=== PATIENT | female | born 1935 | race Caucasian/White ===

== ENCOUNTER 2023-07-20 20:15 | Inpatient (IN) | payer MEDICARE, SELFPAY ==
[2023-07-20] VITALS (17 sets, daily range): BP systolic 89–147; BP diastolic 39–54; PULSE 2–91; BMI 36.2
--- NOTE | 2023-07-20 16:45 | ED.GENMED ---
History of Present Illness
General
Chief Complaint: Breathing Problem
Source: patient and ambulance crew
Time Seen by Provider: 07/20/23 16:31
Travel History
Have you had any contact with someone who has COVID-19?: Unable to Answer
Do you have any symptoms of coronavirus? Fever > 100 degrees, chills, cough, shortness of breath, sore throat, loss of taste or smell, muscle aches, or headache?: Unable to Answer
History of Present Illness
History of Present Illness:
87-year-old female presents to the emergency room via ambulance due to respiratory distress. Patient arrives on CPAP. Patient is a resident at [facility] where she evidently just arrived after hospitalization at [facility] for
pneumonia. She evidently was on a weaning course of steroids which she recently completed. Patient to short of breath provide any history. She does have a prehospital advance directive which shows she desires no intubation. Paramedics found the
patient to be hypertensive while transporting her to the hospital and gave sublingual nitroglycerin.
Phy Exam
Physical Exam
Physical Exam:
General: Awake, Alert, Oriented X3. Significant respiratory distress
Vitals: Hypoxic, tachypnea
Head: Atraumatic
Eyes: Pupils equal, EOMI
Throat: Airway intact, no exudates
Neck: Trachea midline
Lungs: Wheezing bilaterally, poor aeration
Heart: Regular rate, no murmurs
Abd: Soft, Nontender, No pulsatile mass
Neuro: Nonfocal
Skin: Warm, dry, no rash
Extremities: pulses equal b/l, 2+ edema
Scores
Heart Failure Risk
Heart Failure Risk Score: Yes
History of Stroke or TIA: No
History of intubation for respiratory distress: No
Heart rate on ED arrival >/= 110: Yes
SaO2 <90% on arrival on room air: Yes
HR >/=110 during 3min walk test (or too ill to perform test): Yes
ECG has acute ischemic changes: No
Urea >/=12mmol/L (BUN 33.6mg/dL): Yes
Serum CO2>/=35mmol/L: No
Troponin I or T elevated to AR Level (0.4mg/dL): No
NT-proBNP >/=5,000ng/L (5,000pg/ml): No
HF Risk Score: 4
Admission Status: HIGH RISK 26.1% Consider SNF treatment or admission to hospital
Course
Orders/Labs/Results
Orders:
Orders
07/20/23 16:41
Electrocardiogram (*1) Urgent
Reason for Study: Shortness of Breath
Cardiac Monitoring- Treatment ONCE
Dexamethasone Sod Phosphate [Decadron] 10 mg IV NOW STA
Ipratropium/Albuterol Sulfate [Duoneb] 3 ml INHALATION R NOW ONE
07/20/23 16:42
EKG- Treatment ONCE
CR Chest Portable - 1 View Urgent
Comment:
Reason For Exam: sob
Reason Study Needs to be Portable: Patient Unstable
Bipap [RESP] Urgent
Patient to use own unit?: No
Inspiratory Pressure (cm H2O): 12
Expiratory Pressure (cm H2O): 5
07/20/23 16:47
Complete Blood Count/With Diff Urgent
Comprehensive Metabolic Panel Urgent
Lactic Acid Q4H
Comment: CANCEL 2nd LACTIC ACID IF 1st LACTIC ACID IS LESS THAN 2
NT-proBNP Urgent
Procalcitonin Urgent
PCT Algorithmm Indication: Respiratory
Troponin I Urgent
Blood Culture Q30M
HUGH Source: Blood/Venous
Specimen Description:
Blood Culture Q30M
HUGH Source: Blood/Venous
Specimen Description:
07/20/23 17:00
COVID-19 Antigen Urgent
Source: Nasal Swab
Influenza A+B Rapid Molecular Urgent
HUGH Source: Nasal Swab
Specimen Description:
07/20/23 17:06
Furosemide [Lasix] 40 mg IV NOW STA
07/20/23 17:44
Acetaminophen [Tylenol] 1,000 mg PO NOW STA
07/20/23 17:54
Cefepime HCl [Maxipime] 2,000 mg IV NOW STA
07/20/23 18:00
VANCOMYCIN Pharmacy to Dose [VANCOCIN Pharmacy to Dose] 1 each Pharmacy To Prepare [Call Pharmacy To Prepare] 0 ml IV PER PROTOCOL
07/20/23 18:07
Vancomycin [Vancocin] 2,000 mg 0.9% Sodium Chloride 500 ml [Nss] 500 ml IV NOW
07/20/23 19:00
Admit/Transfer Patient As Directed
Co-Sign Provider:
Level of Care: Inpatient admission
Assign to:: IMU- Intermediate Care
Physician / Group: Colette
Diagnosis: Acute acute respiratory distress
Reason for Hospitalization: Acute respiratory distress, CHF and pneumonia
Expected length of stay greater than two midnights?: Yes
ELOS- Estimated Length of Stay in days: 5
I certify the patient meets the requirements for IP care: Yes
07/20/23 19:01
Code Status As Directed
Resuscitation Status: Do not resuscitate
Reached after discussion with pt or family/Healthcare POA: Yes
Based on pt advanced directive or healthcare POA form: Yes
DNR Bracelet Application ONCE
07/20/23 19:20
Acetaminophen [Tylenol] 650 mg PO Q6H PRN
Guaifenesin Solution [Robitussin] 200 mg PO Q6HPRN PRN
Ipratropium/Albuterol Sulfate [Duoneb] 3 ml INH R Q4HPRN PRN
fluticasone propionate [Flonase Allergy Relief] 1 spray NASAL [id number] PRN
07/20/23 19:40
Simethicone [Mylicon] 80 mg PO Q6HPRN PRN
07/20/23 20:00
Albuterol Nebs [Ventolin Nebules] 2.5 mg INH R QID
Artificial Tears (Pf) [Refresh Eye Drops (Pf)] 1 drops BOTH EYES BID
Budesonide [Pulmicort] 0.5 mg INH R BID
Flush (0.9% Sodium Chloride) [Flush (Nss)] See Dose Instructions IV PER PROTOCOL
HydrALAZINE [Apresoline] 10 mg PO Q8H
Magnesium Oxide 500 mg PO BID
Miconazole Nitrate [Desenex/Mitrazol/Zeasorb] 0 applic TOPICAL BID
VANCOMYCIN Pharmacy to Dose [VANCOCIN Pharmacy to Dose] 1 each Pharmacy To Prepare [Call Pharmacy To Prepare] 0 ml IV PER PROTOCOL
carboxymethylcellulose sodium 1 drop BOTH EYES BID
07/20/23 22:00
Insulin Glargine Lantus [Lantus] 8 units Subcutaneous Insulin Syringe [Syringe-Insulin] 0 unit SC HS
07/21/23 08:00
Aspirin Low Dose EC [Aspir Low (Enteric Coated)] 81 mg PO DAILY
Gabapentin [Neurontin] 200 mg PO DAILY
Montelukast Sodium [Singulair] 10 mg PO DAILY
Nebivolol HCl [Bystolic] 2.5 mg PO DAILY
Abnormal Lab Results
07/20/23
16:47
WBC 20.4 H 10^3/uL
(4.8-10.8)
MCHC 32.0 L g/dL
(33.0-37.0)
RDW 15.2 H %
(11.5-14.5)
MPV 11.3 H fL
(7.4-10.4)
Abs Immat Gran (auto) 0.1 H 10^3/uL
(0-0.05)
Absolute Neuts (auto) 17.5 H 10^3/uL
(1.4-6.5)
Absolute Monos (auto) 1.3 H 10^3/uL
(0.1-0.6)
Neutrophils % 86.1 H %
(42.2-75.2)
Lymphocytes % 7.0 L %
(20.5-51.1)
Sodium 132 L mmol/L
(135-145)
Chloride 96 L mmol/L
(98-107)
Carbon Dioxide 34 H mmol/L
(22-30)
BUN 43 H mg/dl
(7-17)
Creatinine 1.2 H mg/dL
(0.6-1.0)
Glucose 281 H mg/dl
(70-99)
Albumin 3.4 L g/dl
(3.5-5.0)
07/20/23 16:47
07/20/23 16:47
Vital Signs
Initial and Last Documented VS:
Initial Vital Signs
Pulse Resp Pulse Ox
92 20 91
07/20/23 16:30 07/20/23 16:30 07/20/23 16:30
Last Documented Vital Signs
Temp Pulse Resp BP Pulse Ox
102.8 F H 87 24 120/49 96
07/20/23 17:40 07/20/23 20:23 07/20/23 20:23 07/20/23 20:23 07/20/23 20:23
MDM/Problems Addressed
Differential Diagnosis Includes:
Congestive heart failure, pneumonia, symptomatic anemia,
MDM/Problems Addressed:
Patient presents in respiratory distress. She was converted from CPAP which she was on from the paramedics to BiPAP here. She did begin to feel much better with BiPAP. Paramedics had given her some Benadryl. Her blood pressure here is normal
essentially. Chest x-ray appears more consistent with heart failure radiologist notes there are some changes suggestive could be concomitant pneumonia. She was recently hospitalized for pneumonia so unclear if this represents clearing of previous
infection or need for action. While here the patient did spike a temperature of 102. COVID and influenza test are negative. Will treat for potential hospital-acquired pneumonia with cefepime and Vanco. Patient will require hospitalization for
further supportive care.
Chronic conditions affecting care: HTN, CAD, Cardiomyopathy and Kidney disease
*Radiology
Radiology exam reviewed: preliminary read by ED provider (Reviewed patient's chest x-ray, no bilateral interstitial changes concerning for heart failure) and radiology read reviewed
*Pulse Oximetry
Patient hypoxic: yes
*EKG
Interpreted by ED Provider?: Yes
Interpretation: abnormal
Heart Rate: 94
Rate: normal
Rhythm: a-fib
QRS Pattern: left bundle branch block
Ischemia: non-specific ST changes
*Tool Machine Shop Supervisor Interpretation
Rate: normal
Interpretation: abnormal
Rhythm: a-fib
*Critical Care Note
Total Time (30-74mins, 75-104mins- exclusive of procedures): 35 min
comment:
Critical care statement: A total of 35 minutes of critical care time was provided for this patient. This includes management of unstable vital signs, evaluation of the patient at bedside, reviewing the patient's pertinent medical records, discussion
with consultants, review of old EKGs and review of pertinent medical records. This time with separate from time utilized to perform the aforementioned documented procedures
ED Attending Note
-
Portions of this chart may have been created with voice recognition software.� Occasional wrong word or��sound alike� substitutions may have occurred due to the inherent limitations of voice recognition software.
Discharge Plan
Departure
Patient Disposition: Admit
Date of Disposition: 07/20/23
Time of Disposition: 18:04
Presentation/result/management discussed w/ accepting MD/DO: Hospitalist
Condition: Fair
Discharge Problem:
Heart failure, Fever, Respiratory failure, acute
Interventions
Interventions:
*Risk Screen - Suicide Last Done: 07/20/23 16:30
*General Assessment Last Done: 07/20/23 16:30
*Neglect/Abuse Screening Last Done: 07/20/23 16:30
ED- Fall Risk Assessment Last Done: 07/20/23 21:16
*ED COVID-19 Vaccine History Last Done: 07/20/23 16:30
*Nursing Disposition Last Done: 07/20/23 21:16
ED- Cardiac Assessment Last Done: 07/20/23 17:19
ED- Pulmonary Assessment Last Done: 07/20/23 18:47
[2023-07-20] MEDS: DUONEB 3 ML INHALATION (16:54)
[2023-07-20] MEDS: DECADRON 10 MG IV (16:54)
[2023-07-20 16:58] LABS: % Basophils 0.1 % (0-2); % Eosinophils 0.1 % (0-6); % Immature Granulocytes 0.5 % (0-0.5); % Monocytes 6.2 % (1.7-9.3); % Neutrophils 86.1 % (42.2-75.2); Absolute Immature Granulocytes 0.1 10^3/uL (0-0.05); Absolute Lymphocytes 1.4 10^3/uL (1.2-3.4); Absolute Monocytes 1.3 10^3/uL (0.1-0.6); Absolute Neutrophils 17.5 10^3/uL (1.4-6.5); Hematocrit 41.3 % (37.0-47.0); Hemoglobin 13.2 g/dL (12.0-16.0); Mean Corpuscular Hgb 27.2 pg (27.0-31.0); Mean Corpuscular Volume 85.2 fL (81.0-99.0); Mean Platelet Volume 11.3 fL (7.4-10.4); Nucleated Red Blood Cells % 0 %; Platelet Count 268 10^3/uL (130-400); Red Blood Cell Count 4.85 10^6/uL (4.20-5.40); Red Cell Dist. Width 15.2 % (11.5-14.5); White Blood Cell Count 20.4 10^3/uL (4.8-10.8)
[2023-07-20 17:24] LABS: ALT (SGPT) 19 U/L (0-35); AST (SGOT) 22 U/L (14-36); Albumin 3.4 g/dl (3.5-5.0); Alkaline Phosphatase 112 U/L (38-126); Blood Urea Nitrogen 43 mg/dl (7-17); Calcium 9.1 mg/dl (8.4-10.2); Carbon Dioxide 34 mmol/L (22-30); Chloride 96 mmol/L (98-107); Glucose 281 mg/dl (70-99); Potassium 4.1 mmol/L (3.5-5.1); Sodium 132 mmol/L (135-145); Total Bilirubin 0.7 mg/dl (0.2-1.3); Total Protein 6.3 g/dl (6.3-8.2); eGFR 44.36
[2023-07-20 17:25] LABS: Procalcitonin 0.09 ng/ml (0.0-0.25)
[2023-07-20 17:41] LABS: NT-proBNP 3510 pg/ml; Troponin I 0.022 ng/ml
[2023-07-20] MEDS: LASIX 40 MG IV (17:44)
[2023-07-20 17:51] LABS: COVID-19 Antigen Negative (Negative)
[2023-07-20] MEDS: TYLENOL 1000 MG PO (17:53)
[2023-07-20 17:57] LABS: Lactic Acid 1.9 mmol/L (0.7-2.0)
[2023-07-20] MEDS: MAXIPIME 2000 MG IV (18:31)
[2023-07-20] MEDS: VANCOCIN 540 MG IV (18:38)
--- NOTE | 2023-07-20 19:08 | HPS.HSE ---
Addendum entered and electronically signed by Sven Alvarenga MD 07/20/23 20:40:
Discussed with the son also we called her daughter over the son who she knows more about patient's condition that she went to the ground for quite some time and recently moved to the area, most of the workup was done in the [facility] in [place], we may need to reach out to them to get more information.
Regarding this A-fib which is not in the paper sent from the group home look like this is a new and rate controlled. And discussed with the family, she is high risk for stroke is all criteria for CHADS2 score specially had history of TIA in the
past, therefore we will get her started on heparin drip and get a cardiology consult.
Original Note:
Family Physician
-
Family Physician: Dieudonne Paul DO
Chief Complaint
-
Shortness of breath and fever
History of Present Illness
87-year-old female who is just discharged from [facility] after she was there for evidence of CHF and transferred to [facility], she is pleasantly confused oriented only to herself but able to provide information related to herself,
she thinks she is in [place].
Sent to the hospital for evaluation of the shortness of breath and hypoxia. Admitted over the last couple days she been short of breath worse with any kind exertional activity and having subjective fever and chills. The denies chest pain or nausea
or vomiting or any urinary or GI symptoms. Workup in the ER concerning for severe sepsis and hypoxia as she was placed on BiPAP, and given broad-spectrum antibiotic and Lasix as she has evidence of fluid overload and pneumonia on x-ray even
procalcitonin were negative initially. Had a temperature 102.8.
Her son came by and saw him and talk to him eventually
Medical History
Past Medical History
Past Medical History: Reports Other
Additional Past Medical History:
Past medical history: Cannot be obtained in detail because patient cannot provide much information and she is never been here.
History of congestive heart failure
Hypertension
Diabetes
Peripheral neuropathy
Chronic lower extremity edema
Dementia
Bladder dysfunction.
Social history: Currently resident of the [facility], recently moved to the area, denies smoking alcohol use.
Family history cannot be obtained.
Past Surgical History: Reports Other
Social History
Unable to obtain full social history at this time due to: Other
Family History
Family History: Other
Allergies / Home Medications
Allergies reflects when Allergies were last updated in [facility].
Home Medications with original date entered in [facility]
Allergy/Medication List:
Allergies
Allergy/AdvReac Type Severity Reaction Status Date / Time
No Known Allergies Allergy Verified 07/20/23 18:05
Home Medications
Voltaren 1 applic topical Q12H apply to left shoulder/left hip 07/20/23
acetaminophen 325 mg tablet (Tylenol) 650 mg PO Q6H PRN temp>100 07/20/23
albuterol sulfate 90 mcg/actuation aerosol inhaler 2 puff inhalation R Q4HPRN PRN sob 07/20/23
amlodipine 5 mg tablet 5 mg PO DAILY 07/20/23
arformoterol 15 mcg/2 mL solution for nebulization 2 ml inhalation R BID 07/20/23
aspirin 81 mg tablet,delayed release 81 mg PO DAILY 07/20/23
banana flakes-transgalactooligosaccharide oral powder packet (Banatrol Plus oral powder packet) 1 ea PO Q4HPRN PRN diarrhea 07/20/23
bisacodyl 10 mg rectal suppository (Dulcolax (bisacodyl)) 10 mg RI DAILY PRN if MOM ineffective 07/20/23
bisacodyl 5 mg tablet,delayed release 10 mg PO DAILYPRN PRN constipation 07/20/23
budesonide 0.5 mg/2 mL suspension for nebulization 0.5 mg inhalation R BID 07/20/23
carboxymethylcellulose sodium 1 % eye drops 1 drp BOTH EYES BID 07/20/23
fluticasone propionate 50 mcg/actuation nasal spray,suspension (Flonase Allergy Relief) 1 spray intranasal [id number] PRN nasal allergy/congestion 07/20/23
gabapentin 100 mg capsule 200 mg PO DAILY 07/20/23
guaifenesin 100 mg/5 mL oral liquid 200 mg PO Q6HPRN PRN cough 07/20/23
guaifenesin 400 mg tablet 400 mg PO Q6HPRN PRN cough 07/20/23
guaifenesin 400 mg tablet 800 mg PO Q12H 07/20/23
hydralazine 10 mg tablet 10 mg PO Q8H 07/20/23
hydralazine 25 mg tablet 25 mg PO Q8HPRN PRN if SBP>150 07/20/23
insulin glargine 100 unit/mL (3 mL) subcutaneous pen (Basaglar KwikPen U-100 Insulin) 8 unit SC HS 07/20/23
ipratropium 0.5 mg-albuterol 3 mg (2.5 mg base)/3 mL nebulization soln 3 ml inhalation R Q4HPRN PRN sob 07/20/23
loratadine 10 mg tablet 10 mg PO DAILY 07/20/23
magnesium hydroxide 400 mg/5 mL oral suspension (Milk of Magnesia) 30 ml PO DAILY PRN if no BM x 3 days 07/20/23
magnesium oxide 400 mg PO BID 07/20/23
montelukast 10 mg tablet 10 mg PO DAILY 07/20/23
multivitamin 1 tab PO DAILY 07/20/23
nebivolol 2.5 mg tablet 2.5 mg PO DAILY 07/20/23
nystatin 100,000 unit/gram topical powder 1 applic topical BID apply to abd fold,breasts,groin 07/20/23
oxycodone 5 mg tablet 5 mg PO Q6H PRN moderate pain 07/20/23
phenylephrine 0.25 %-mineral oil 14 %-petrolatm 74.9 % rectal ointment (Preparation H) 1 applic RI Q8HPRN PRN hemorrhoids 07/20/23
polyethylene glycol 3350 17 gram oral powder packet 17 g PO DAILY PRN constipation 07/20/23
simethicone 80 mg tablet 80 mg PO Q6HPRN PRN gas 07/20/23
sodium phosphates 19 gram-7 gram/118 mL enema (Fleet Enema) 118 ml RI DAILYPRN PRN if dulcolax ineffective 07/20/23
torsemide 20 mg tablet 20 mg PO DAILY 07/20/23
witch rena 50 % topical pads (Preparation H (Witch Rena)) 1 pad topical Q8HPRN PRN apply to rectum 07/20/23
Review of Systems
-
Unable to obtain full review of systems at this time due to: Dementia
Physical Exam
Vital Signs
Vital Signs
Temp Pulse Resp BP Pulse Ox
102.8 F H 91 34 128/45 95
07/20/23 17:40 07/20/23 17:44 07/20/23 16:38 07/20/23 17:44 07/20/23 16:38
physical exam:
General: On BiPAP, answer question, pleasantly confused, lethargic, sleepy arousable oriented x1, not in distress and holds appropriate conversation.
HEENT: On BiPAP no active discharge, ecchymosis or bruising, moist lips, tongue and mucous membrane.
Eyes: No discharge or red conjunctiva, no nystagmus, pupils are reactive and equal
Neck:Supple, no JVD no bruit no goiter.
Respiratory: Normal AP contour and diameter, normal chest wall movement, normal respiratory effort, no respiratory distress,
Lungs: The air entry bilaterally, no wheezing or rhonchi,, bibasilar coarse crackles,
Heart: S1, S2 regular, normal rate, no added sound. Gross lower extremity edema
Gastrointestinal: Positive bowel sounds, soft, nontender, no guarding or rigidity or organomegaly
Musculoskeletal: , no chest wall abnormality or tenderness. All joints and extremities have good range of motion, no muscle tenderness or any joint swelling or tenderness.
Extremities: Gross lower extremity edema pitting edema, good peripheral pulses, good range of motion
Skin: Erythematous rash on legs, warm and dry, no ulceration, normal color.
Neurological: Cognitive decline appreciated, moves extremities freely, pleasantly confused, oriented to person all, good muscle tone
Psychiatric: Normal mood, normal thought and judgment, normal affect,
Physical Exam
General: Other
Laboratory Results
-
07/20/23 16:47
07/20/23 16:47
Laboratory Results
Lactic Acid 1.9 mmol/L (0.7-2.0) 07/20/23 16:47
Total Bilirubin 0.7 mg/dl (0.2-1.3) 07/20/23 16:47
AST 22 U/L (14-36) 07/20/23 16:47
ALT 19 U/L (0-35) 07/20/23 16:47
Alkaline Phosphatase 112 U/L (38-126) 07/20/23 16:47
Troponin I 0.022 ng/ml 07/20/23 16:47
Cardiomegaly and interstitial prominence, consistent with an element of pulmonary edema and/or CHF, however increased opacity in the left base is concerning for residual left lower lobe pneumonia.
EKG: Showed A-fib, rate around 94, QT C4 77, nonspecific ST-T wave abnormalities. No previous EKG TO compare to
Data Reviewed
-
CT Scan: Image Personally Visualized and interpreted, Discussed with Nurse and Discussed with Family
Medical Tests (Nuc Med, Echo, EKG etc): Image Personally Visualized and interpreted, Discussed with Nurse and Discussed with Family
Lab Data: Labs Reviewed by me and Discussed with Family
Impression/Plan
-
IMPRESSION:
87-year-old female sent from [facility] for evaluation of the shortness of breath and hypoxia which likely secondary to combination of acute on chronic congestive heart failure exacerbation was likely pneumonia even procalcitonin is only
negative, at the initial look like there is a cellulitis of the lower extremities.
Severe sepsis: With temperature 102.8, mental status change, white cell count is 20.4 tachypnea respiratory rate 34 h, hypoxic respiratory failure, likely secondary to cellulitis of the lower extremity while pneumonia could be another possibility
and other causes may need to be considered.
Acute respiratory distress, acute hypoxic failure
Acute on chronic congestive heart failure exacerbation, we do not know the baseline
Abnormal chest x-ray concerning for CHF and pneumonia
Lower extremity cellulitis
Elevated blood sugar with no history of diabetes
Hypertension
Dementia
PLAN:
Managed per sepsis and CHF protocol
Admit to IMU
IV diuresis with Lasix 40 twice daily
Fluid restriction
Daily weight, intake and output
need to get her records from [place]
Cover the broad-spectrum biotic Vanco and cefepime is already started in the ER continue
Recheck procalcitonin tomorrow
UA and culture if indicated
Monitor vital sign closely
Continue BiPAP and try to wean off
Pulmonary consult
May consider cardiology consult pending her condition and progression.
Continue Lantus
Hold torsemide while will continue IV Lasix
Continue nebivolol
Discussed with the patient
Discussed with the son at the bedside
Discussed with the nurse
CODE STATUS according to the POLST form which was reviewed as DNR/DNI
DVT prophylaxis Eliquis
[2023-07-20 21:10] LABS: INR 1.06
[2023-07-20 21:11] LABS: APTT 32.3 Sec (23.4-35.0)
[2023-07-20 22:15] LABS: Hematocrit 35.2 % (37.0-47.0); Hemoglobin 11.5 g/dL (12.0-16.0); Mean Corp Hgb Conc. 32.7 g/dL (33.0-37.0); Mean Corpuscular Hgb 27.2 pg (27.0-31.0); Mean Corpuscular Volume 83.2 fL (81.0-99.0); Mean Platelet Volume 11.1 fL (7.4-10.4); Platelet Count 211 10^3/uL (130-400); Red Blood Cell Count 4.23 10^6/uL (4.20-5.40); Red Cell Dist. Width 15.3 % (11.5-14.5)
[2023-07-20 22:27] LABS: Lactic Acid 2.2 mmol/L (0.7-2.0)
[2023-07-20 22:36] LABS: Blood Urea Nitrogen 46 mg/dl (7-17); Calcium 8.5 mg/dl (8.4-10.2); Carbon Dioxide 28 mmol/L (22-30); Chloride 99 mmol/L (98-107); Glucose 364 mg/dl (70-99); Potassium 4.6 mmol/L (3.5-5.1); Sodium 130 mmol/L (135-145); eGFR 44.36
[2023-07-20 22:49] LABS: Troponin I 0.034 ng/ml
[2023-07-20] MEDS: HEPARIN 25000 UNITS/250 ML IV (23:09)
[2023-07-20] MEDS: MAGNESIUM OXIDE PO (23:20)
--- NOTE | 2023-07-20 23:20 | PTCARENOTE ---
Pt arrived via stretcher from ED. Pt only arousable to pain on all 4 extremities. Requires sternal rub to elicit pt to open eyes. NSR on monitor with PACs. BP 104/42 MAP 62. Afebrile. On BiPAP with pulse ox 97%. Crackles at b/l lung bases. Pts
personal keys sent home with son. Heparin gtt ordered and started. Pt resting comfortably in bed.
[2023-07-20 23:36] LABS: Glucose - Point of Care 382 mg/dl (70-99)
[2023-07-20] MEDS: REFRESH EYE DROPS (PF) 1 DROPS BOTH EYES (23:36)
--- NOTE | 2023-07-20 23:41 | PHA.VAN.IN ---
Assessment
- Assessment
Renal Function: Appears similar to baseline
Maximum Temperature: 102.8
Minimum Temperature: 97.6
Concomitant Antimicrobials: Cefepime
Plan
- Plan
Initial / Loading Dose: 2000mg
Maintenance Regimen: Dose by levels
Monitoring: Random 07/21-599
Pharmacokinetics Vancomycin I
- -
Patient Age: 87
Patient Sex: Female
Vancomycin Day #: 1
Indication: Pulmonary/Respiratory
Requesting Provider: Dr. Sven Blanchard
Pertinent Antimicrobial Allergies:
NKDA
Height / Weight:
Height 5 ft
Actual Weight 84.1 kg
- Vital Signs / Lab Results
Temp Pulse Resp BP Pulse Ox
97.6 F 76 18 101/48 98
07/20/23 23:19 07/20/23 23:15 07/20/23 23:15 07/20/23 23:06 07/20/23 23:15
Lab Results - Hematology
07/20/23 07/20/23
16:47 21:58
WBC 20.4 H 20.0 H
Lab Results - Chemistry
07/20/23 07/20/23
16:47 21:58
BUN 43 H 46 H
Creatinine 1.2 H 1.2 H
Albumin 3.4 L
07/20/23 07/20/23 07/20/23
16:45 16:47 21:58
Lactic Acid Cancelled 1.9 2.2 H
Microbiology Results
07/20/23 17:00 Influenza Types A & B (BALDEV) - Final
Nasal Swab Negative for Influenza A & B, NAAT
Negative results must be combined with clinical observations
and patient history.
Nucleic Acid Amplification test (NAAT)performed on the
[employer] Software platform.
[2023-07-20 23:55] LABS: B.E. 7.6 mmol/L; HCO3 33.6 mmol/L (21-28); O2 Saturation % 98.8 % (94-98); PCO2 53 mmHg (32-35); PO2 133 mmHg (83-108); pH 7.41 (7.35-7.45)
[2023-07-20 23:56] LABS: O2 Therapy 12/5 10 L bipap
[2023-07-20] MEDS: PULMICORT INH (23:57)
[2023-07-20] MEDS: VENTOLIN NEBULES INH (23:57)
[2023-07-21] VITALS (38 sets, daily range): BP systolic 85–172; BP diastolic 43–153; PULSE 2–76; BMI 36.1
[2023-07-21] MEDS: NOVOLOG FLEXPEN 10 UNITS SC ×2 (00:05→02:40)
[2023-07-21] MEDS: LANTUS 0.0800000000000000017 UNITS SC ×2 (00:06→22:24)
--- NOTE | 2023-07-21 00:11 | W.PN.UPDATE ---
Update Note
Progress Note Update
Nursing notes patient with decreased responsiveness compared to earlier. ABG done pCO2 53m pO2 133 and HCO3 33.6. on Bipap 10L. Will lower O2. Sodium correction for hyperglycemia is 136.3.
[2023-07-21 02:09] LABS: Lactic Acid 3.2 mmol/L (0.7-2.0)
[2023-07-21 02:15] LABS: Glucose - Point of Care 332 mg/dl (70-99)
[2023-07-21 02:32] LABS: Urine Albumin Negative (Neg - Trace); Urine Bilirubin Negative (Negative); Urine Character Clear (Clear); Urine Color Yellow; Urine Glucose 2+ (Negative); Urine Ketone Negative (Negative); Urine Leukocyte 2+ (Negative); Urine Nitrite Negative (Negative); Urine Occult Blood Negative (Negative); Urine Urobilinogen Negative (Neg - 1+)
[2023-07-21] MEDS: LEVOPHED 250 IV (02:37)
[2023-07-21] MEDS: DESENEX/MITRAZOL/ZEASORB TOPICAL (02:47)
--- NOTE | 2023-07-21 03:40 | PTCARENOTE ---
Pts MAP running below 65 consistently. Ranges from 58-64 since arrival to unit. Notified PATROL COMMANDER. Levo gtt started at 2 mcg/min in the right forearm. Accucheck 382. PATROL COMMANDER ordered 10 unnits novolog (see MAR). Upon rechecking blood sugar only came
down to 332. PATROL COMMANDER ordered an addition 10 units novolog (see MAR). Pt in bed with call palumbo in reach.
[2023-07-21 03:55] LABS: Urine Bacteria Few (Negative); Urine Red Blood Cell 0-2 /HPF (0-2); Urine White Cell 70-80 /HPF (0-5)
[2023-07-21 05:37] LABS: Lactic Acid 2.1 mmol/L (0.7-2.0)
[2023-07-21 05:39] LABS: APTT 66.2 Sec (23.4-35.0)
[2023-07-21 05:53] LABS: % Basophils 0.1 % (0-2); % Immature Granulocytes 0.5 % (0-0.5); % Lymphocytes 2.7 % (20.5-51.1); % Monocytes 1.1 % (1.7-9.3); % Neutrophils 95.6 % (42.2-75.2); Absolute Immature Granulocytes 0.1 10^3/uL (0-0.05); Absolute Lymphocytes 0.5 10^3/uL (1.2-3.4); Absolute Monocytes 0.2 10^3/uL (0.1-0.6); Absolute Neutrophils 16.9 10^3/uL (1.4-6.5); Hematocrit 39.2 % (37.0-47.0); Hemoglobin 12.8 g/dL (12.0-16.0); Magnesium 2.2 mg/dl (1.6-2.3); Mean Corp Hgb Conc. 32.7 g/dL (33.0-37.0); Mean Corpuscular Hgb 27.4 pg (27.0-31.0); Mean Corpuscular Volume 83.8 fL (81.0-99.0); Mean Platelet Volume 11.4 fL (7.4-10.4); Nucleated Red Blood Cells % 0 %; Platelet Count 226 10^3/uL (130-400); Red Blood Cell Count 4.68 10^6/uL (4.20-5.40); Red Cell Dist. Width 15.1 % (11.5-14.5); White Blood Cell Count 17.7 10^3/uL (4.8-10.8)
[2023-07-21 06:00] LABS: Vancomycin Random 18.6 ug/ml
[2023-07-21 06:03] LABS: Troponin I 0.023 ng/ml
[2023-07-21] MEDS: MAXIPIME 2000 MG IV ×2 (06:04→17:19)
[2023-07-21] MEDS: STERILE WATER FOR INJECTION 10 ML IV ×2 (06:04→17:19)
[2023-07-21 06:24] LABS: Glucose - Point of Care 226 mg/dl (70-99)
[2023-07-21] MEDS: VENTOLIN NEBULES 2.5 MG INH ×4 (08:05→20:09)
[2023-07-21] MEDS: PULMICORT 0.5 MG INH ×2 (08:05→20:09)
[2023-07-21] MEDS: NEURONTIN 200 MG PO (09:11)
[2023-07-21] MEDS: LASIX 40 MG IV ×2 (09:11→15:39)
[2023-07-21] MEDS: SINGULAIR 10 MG PO (09:11)
[2023-07-21] MEDS: REFRESH EYE DROPS (PF) 1 DROPS BOTH EYES ×2 (09:11→20:34)
[2023-07-21] MEDS: MAGNESIUM OXIDE 500 MG PO ×2 (09:11→20:34)
[2023-07-21] MEDS: ASPIR LOW (ENTERIC COATED) 81 MG PO (09:11)
[2023-07-21 09:28] LABS: Estimated Creatinine Clearance 36 ml/min
[2023-07-21] MEDS: NOVOLOG FLEXPEN-MODERATE RESISTANCE 3 UNITS SC ×2 (09:56→17:23)
[2023-07-21] MEDS: BYSTOLIC 2.5 MG PO (09:57)
[2023-07-21] MEDS: DESENEX/MITRAZOL/ZEASORB 1 APPLIC TOPICAL ×2 (09:57→20:32)
[2023-07-21 10:06] LABS: Glucose - Point of Care 205 mg/dl (70-99)
[2023-07-21 10:32] LABS: Lactic Acid 1.5 mmol/L (0.7-2.0)
--- NOTE | 2023-07-21 11:05 | W.PN.CD ---
Today's Communication / Plan
-
Impression / Plan
-
Impression: 87F - new to us - with dyspnea & fever. Originally from [place] and recently admitted with PNA at [facility].
Plan
Dyspnea
- challenging situation with fever, leukocytosis, possible cellulitis, possible PNA -> concern for sepsis AND volume overload
- Lasix 40 IV BID is tolerated
- Echo AM
CAD s/p CABG (remote)
- transition to single agent NOAC (below)
- continue BB/statin
HF
- d/w daughter. She does not know EF, but reports that Mrs. Allen develops exacerbations every 12-18 months that are treated with admission and IV diuretics
- Lasix as above
- we can consider norepi if BP needs support
AF
- begin apixaban 5 po BID
- stop ASA
Murmur/ - echo
HTN - hold hydralazine, nebivolol, amlodipine, and torsemide
Dyslipidemia -statin
Dementia
Recurrent PNA
Critically ill - 34 minutes
I have asked community arts centre manager to get records from [facility] in [place], [place]. [phone]
Subjective: Dictated
Physical Exam
Vital Signs/Labs
Vital Signs
Temp Pulse Resp BP Pulse Ox
36.4 C 92 25 128/59 92
07/20/23 23:19 07/21/23 09:57 07/21/23 09:30 07/21/23 09:57 07/21/23 09:30
07/20/23 07/21/23 07/22/23
06:59 06:59 06:59
Actual Weight 185 lb
07/21/23 05:16
07/21/23 05:16
PT 14.0 Sec (11.4-14.6) 07/20/23 20:51
INR 1.06 07/20/23 20:51
APTT 66.2 Sec (23.4-35.0) H 07/21/23 05:16
Magnesium 2.2 mg/dl (1.6-2.3) 07/21/23 05:16
07/20/23
16:47
Tto-E-Carlovnqopm Pept 3510
LAB Results
07/20/23 07/20/23 07/21/23
16:47 21:58 05:16
Troponin I 0.022 0.034 D 0.023 D
07/21/23
09:20
Troponin I Cancelled
Data Reviewed
-
Date of Service: July 21, 2023
--- NOTE | 2023-07-21 11:30 | CON.PUL ---
Consultation
Consultation Request
Date/Time Consultation Requested: 07/21/2023
Date/Time Consultation Performed: 07/21/2023
Requesting Provider: Dr. Alvarenga
Performing Provider: Dr. Romel Kimball
Reason for Consultation: Pneumonia-hypoxemic respiratory failure
Medical History
-
History of Present Illness:
87-year-old woman who recently was discharged from [facility], apparently treated for heart failure. She was transferred to rehabilitation at [facility]. She has history of dementia. Unable to provide detailed history. Sent from
the rehab to [facility] for evaluation of shortness of breath and hypoxemia. Evaluation in the emergency room demonstrated hypoxemia, she was placed on BiPAP for increased work of breathing. She was given broad-spectrum antibiotics for
concerns of sepsis and infection. She was febrile up to 102 �F.
Patient states that she feels much better.
Currently on 2 L per
Denies significant phlegm production.
Former smoker quit in 1981. Reports history of COPD.
Also reports history of obstructive sleep apnea-has a CPAP at home.
Past Medical History
Past Medical History: Other (See assessment and plan section)
Social History
Tobacco: Former Smoker (Quit 1981)
Alcohol: None
Drug: None
Living: [facility]
Family History
Family History: Unable to Obtain
Allergies / Home Medications
Allergies
Allergy/AdvReac Type Severity Reaction Status Date / Time
No Known Allergies Allergy Verified 07/20/23 18:05
Home Medications
Medication Instructions Recorded Confirmed Last Taken Type
Voltaren 1 applic topical Q12H apply to 07/20/23 07/20/23 Unknown History
left shoulder/left hip
acetaminophen 325 mg tablet 650 mg PO Q6H PRN temp>100 07/20/23 07/20/23 Unknown History
(Tylenol)
albuterol sulfate 90 mcg/actuation 2 puff inhalation R Q4HPRN PRN sob 07/20/23 07/20/23 Unknown History
aerosol inhaler
amlodipine 5 mg tablet 5 mg PO DAILY Blood Pressure 07/20/23 07/20/23 Unknown History
arformoterol 15 mcg/2 mL solution 2 ml inhalation R BID 07/20/23 07/20/23 Unknown History
for nebulization Lung/Breathing Issues
aspirin 81 mg tablet,delayed 81 mg PO DAILY Blood Clot 07/20/23 07/20/23 Unknown History
release Prevention/Tx
banana 1 ea PO Q4HPRN PRN diarrhea 07/20/23 07/20/23 Unknown History
flakes-transgalactooligosaccharide
oral powder packet (Banatrol Plus
oral powder packet)
bisacodyl 10 mg rectal suppository 10 mg FL DAILY PRN if MOM 07/20/23 07/20/23 Unknown History
(Dulcolax (bisacodyl)) ineffective
bisacodyl 5 mg tablet,delayed 10 mg PO DAILYPRN PRN constipation 07/20/23 07/20/23 Unknown History
release
budesonide 0.5 mg/2 mL suspension 0.5 mg inhalation R BID 07/20/23 07/20/23 Unknown History
for nebulization Lung/Breathing Issues
carboxymethylcellulose sodium 1 % 1 drp BOTH EYES BID dry eyes 07/20/23 07/20/23 Unknown History
eye drops
fluticasone propionate 50 1 spray intranasal [id number] PRN 07/20/23 07/20/23 Unknown History
mcg/actuation nasal nasal allergy/congestion
spray,suspension (Flonase Allergy
Relief)
gabapentin 100 mg capsule 200 mg PO DAILY Neurological 07/20/23 07/20/23 Unknown History
Condition
guaifenesin 100 mg/5 mL oral liquid 200 mg PO Q6HPRN PRN cough 07/20/23 07/20/23 Unknown History
guaifenesin 400 mg tablet 400 mg PO Q6HPRN PRN cough 07/20/23 07/20/23 Unknown History
guaifenesin 400 mg tablet 800 mg PO Q12H Cough 07/20/23 07/20/23 Unknown History
hydralazine 10 mg tablet 10 mg PO Q8H Blood Pressure 07/20/23 07/20/23 Unknown History
hydralazine 25 mg tablet 25 mg PO Q8HPRN PRN if SBP>150 07/20/23 07/20/23 Unknown History
insulin glargine 100 unit/mL (3 8 unit SC HS Diabetes 07/20/23 07/20/23 Unknown History
mL) subcutaneous pen (Basaglar
KwikPen U-100 Insulin)
ipratropium 0.5 mg-albuterol 3 mg 3 ml inhalation R Q4HPRN PRN sob 07/20/23 07/20/23 Unknown History
(2.5 mg base)/3 mL nebulization
soln
loratadine 10 mg tablet 10 mg PO DAILY Allergies 07/20/23 07/20/23 Unknown History
magnesium hydroxide 400 mg/5 mL 30 ml PO DAILY PRN if no BM x 3 07/20/23 07/20/23 Unknown History
oral suspension (Milk of Magnesia) days
magnesium oxide 400 mg PO BID Electrolyte Repletion 07/20/23 07/20/23 Unknown History
montelukast 10 mg tablet 10 mg PO DAILY Allergies 07/20/23 07/20/23 Unknown History
multivitamin 1 tab PO DAILY Supplement 07/20/23 07/20/23 Unknown History
nebivolol 2.5 mg tablet 2.5 mg PO DAILY Blood Pressure 07/20/23 07/20/23 Unknown History
nystatin 100,000 unit/gram topical 1 applic topical BID apply to abd 07/20/23 07/20/23 Unknown History
powder fold,breasts,groin
oxycodone 5 mg tablet 5 mg PO Q6H PRN moderate pain 07/20/23 07/20/23 Unknown History
phenylephrine 0.25 %-mineral oil 1 applic FL Q8HPRN PRN hemorrhoids 07/20/23 07/20/23 Unknown History
14 %-petrolatm 74.9 % rectal
ointment (Preparation H)
polyethylene glycol 3350 17 gram 17 g PO DAILY PRN constipation 07/20/23 07/20/23 Unknown History
oral powder packet
simethicone 80 mg tablet 80 mg PO Q6HPRN PRN gas 07/20/23 07/20/23 Unknown History
sodium phosphates 19 gram-7 118 ml FL DAILYPRN PRN if dulcolax 07/20/23 07/20/23 Unknown History
gram/118 mL enema (Fleet Enema) ineffective
torsemide 20 mg tablet 20 mg PO DAILY Fluid 07/20/23 07/20/23 Unknown History
Retention/Swelling
witch theodora 50 % topical pads 1 pad topical Q8HPRN PRN apply to 07/20/23 07/20/23 Unknown History
(Preparation H (Witch Theodora)) rectum
Review of Systems
-
History Source: Patient
All other systems: Negative unless noted
Vitals / Labs / Diagnostic Testing
Vital Signs
Temp Pulse Resp BP Pulse Ox
97.6 F 82 23 128/59 94
07/20/23 23:19 07/21/23 11:29 07/21/23 11:29 07/21/23 09:57 07/21/23 11:29
Lab Data
07/21/23 05:16
07/21/23 05:16
Laboratory Results
07/20/23 07/20/23 07/20/23
20:51 21:20 23:50
PT 14.0
INR 1.06
APTT 32.3 Cancelled
pH 7.41
pCO2 53 H
pO2 133 H
HCO3 33.6 H
O2 Delivery Level 12/5 10 l bipap
07/21/23 07/21/23
05:16 12:15
PT
INR
APTT 66.2 H Cancelled
pH
pCO2
pO2
HCO3
O2 Delivery Level
Microbiology
07/20/23 17:00 Nasal Swab Influenza Types A & B (BALDEV) - Final
Negative for Influenza A & B, NAAT
Negative results must be combined with clinical observations
and patient history.
Nucleic Acid Amplification test (NAAT)performed on the
[employer] platform.
Diagnostic Testing:
Physical Exam
-
HEENT: Normocephalic
Cardiovascular: S1/S2 and Murmur
GI: Soft and Non Distended
Neurology: Awake and Alert
Skin: Warm
General: Respiratory Distress (n)
Assessment
-
87-year-old woman with multiple medical problems, first time at [facility]. Came from the halfway after being discharged from [facility]. Came with hypoxemia and fevers. We were consulted for evaluation of acute hypoxemic
respiratory failure.
Acute hypoxemic respiratory failure-required BiPAP in the emergency room for increased work of breathing.
Chest x-ray:
AB.41/53/133-compensated chronic hypercapnic respiratory failure.
Negative procalcitonin
Elevated proBNP 3510-suggestive of possibility of acute on chronic heart failure unknown type.
Negative influenza/negative COVID
Acute on chronic heart failure: Unknown type.
Sepsis-fever/tachypnea/leukocytosis.
Increased lactic acid on admission
Abnormal UA
Lower extremity cellulitis noted
Acute kidney injury-unknown baseline
Conditions present prior admission:
Patient originally from [place].
Hypertension
Type 2 diabetes
Peripheral neuropathy
Chronic lower extremity edema
Dementia
Bladder dysfunction
Resident at [facility]
? Status post CABG-sternotomy wires on z-lal-ldymrstj toe disease.
Atrial fibrillation on anticoagulation
There is no mention of alcohol or cigarette use.
Patient on formoterol and budesonide in the outpatient setting-unclear diagnosis.
Assessment and plan:
Patient is critically ill, first time at [facility] so history is not available.
Apparently has history of cardiac disease.
I see that she is on nebulizer therapy? Asthma or COPD.
-
Acute hypoxemic respiratory failure. Currently at 2L - Feels better. Rapid improvement suggest heart failure more than pneumonia.
Possibly heart failure/cannot rule out pneumonia.
-
Procalcitonin is negative
If there is rapid improvement on pulmonary condition-from the pulmonary perspective we will discontinue antibiotics. Repeat chest x-ray in the next 24 to 48 hours. Rapid resolution of infiltrates will be more consistent with heart failure.
Continue antibiotics for now: Currently on vancomycin/cefepime. Recent admission to [facility].
Follow urine and a sputum culture.
Also has ? cellulitis of the lower extremity.
-
Cardiology correspondence reviewed, echocardiogram will be repeated
IV Lasix started
Continue anticoagulation for atrial fibrillation
-
Patient does report history of COPD: Unknown PFTs.
Continue nebulizer therapy: Patient not bronchospastic on exam
Budesonide/DuoNebs.
Does have chronic compensated hypercapnic respiratory failure. Suspect obstructive sleep apnea obesity hypoventilation syndrome. Patient states she has CPAP at home.
May use BiPAP at night if needed for now.
Continue oxygen supplementation wean down as able.
-
DVT prophylaxis: On anticoagulation
-
DNR status.
-
Will need outpatient pulmonary follow-up upon discharge.
-
Critical care statement: A total of 32 minutes of critical care time was provided for this patient today. This includes management of unstable vital signs, evaluation of the patient at bedside, reviewing the patient's pertinent medical records
including ventilator settings, arterial blood gases, radiographs, microbiology, laboratory evaluations and discussion with primary team, critical care nursing, and respiratory therapy.
--- NOTE | 2023-07-21 12:28 | PHA.VAN.FU ---
Vancomycin Assessment / Plan
- Assessment
Renal Function: SCR Decreasing (1.2>1.1)
WBC's are: Trending Down (20>17.7)
In the past 24 hrs, patient has been: Febrile (102.8 07/20/23 at 17:41, currently afebrile)
Concomitant Antimicrobials: Cefepime
- Assessment - Therapeutic Drug Monitoring
Random Level: 18.6 drawn ~11 hrs after vancomycin 2gm loading dose
- Dosing Plan
Dosing by Level: Re-dose today (Vancomycin 1000mg x 1 dose)
- Monitoring Plan
Random Level: Ordered for 07/22/23 at 06:00
- Follow Up
Pharmacy will continue to follow.
Vancomycin Follow UP
- -
Patient Age: 87
Patient Sex: Female
Vancomycin Day #: 2
Indication: Pulmonary/Respiratory
Requesting Provider: Dr. Sven Blanchard
Pertinent Antimicrobial Allergies:
NKDA
Height / Weight:
Height 5 ft
Actual Weight 83.915 kg
IBW in k.5
Adjusted BW in k.9
Pertinent Past Medical History: BMI~36, bladder dysfunction, DM
- Vital Signs / Lab Results
Temp Pulse Resp BP Pulse Ox
97.8 F 88 23 98/57 94
07/21/23 07:55 07/21/23 12:19 07/21/23 11:29 07/21/23 12:19 07/21/23 11:29
Lab Results - Hematology
07/20/23 07/20/23 07/21/23
16:47 21:58 05:16
WBC 20.4 H 20.0 H 17.7 H
Lab Results - Chemistry
07/20/23 07/20/23 07/21/23
16:47 21:58 05:16
BUN 43 H 46 H
Creatinine 1.2 H 1.2 H 1.1 H
Estimated Creat Clear 36
Albumin 3.4 L
07/20/23 07/20/23 07/20/23
16:45 16:47 21:58
Lactic Acid Cancelled 1.9 2.2 H
07/21/23 07/21/23 07/21/23
01:48 05:16 10:10
Lactic Acid 3.2 H 2.1 H 1.5
Lab Results - Urine
07/21/23
02:11
Urine Nitrite (Reflex) Negative
Leukocyte Esterase Rfl 2+ A
Ur Squamous Epith Cells 3-5
Microbiology Results
07/20/23 17:00 Influenza Types A & B (BALDEV) - Final
Nasal Swab Negative for Influenza A & B, NAAT
Negative results must be combined with clinical observations
and patient history.
Nucleic Acid Amplification test (NAAT)performed on the
[employer] platform.
Therapeutic Drug Monitoring
Random Vancomycin 18.6 ug/ml 07/21/23 05:16
[2023-07-21] MEDS: NOVOLOG FLEXPEN-MODERATE RESISTANCE 1 UNITS SC (12:36)
[2023-07-21 12:46] LABS: Glucose - Point of Care 169 mg/dl (70-99)
--- NOTE | 2023-07-21 15:34 | W.PN.HOSP.TC ---
Addendum entered and electronically signed by Nilesh Dill MD 07/21/23 16:04:
#HTN
-can continue BB, Hydral - and monitor; low threshold to stop
#Septic Shock*
-off pressors
Addendum entered and electronically signed by Nilesh Dill MD 07/21/23 16:02:
#Dyslipidemia -statin
#Dementia
Original Note:
Today's Communication/Plan
-
Diuresis
Antibiotics
Follow-up cultures
Apixaban
Assessment / Plan
Assessment / Plan
HEENT: Normocephalic
Cardiovascular: S1/S2 and Murmur
GI: Soft and Non Distended
Neurology: Awake and Alert
Skin: Warm
General: Respiratory Distress (n), CTAB
87-year-old female sent from [facility] for evaluation of the shortness of breath and hypoxia which likely secondary to combination of acute on chronic congestive heart failure exacerbation was likely pneumonia even procalcitonin is only
negative, at the initial look like there is a cellulitis of the lower extremities.
#Acute Hypoxic Respiratory Failure
#Chronic hypercapnic respiratory failure
#Acute on Chronic HF (Unknown Type)
#Dyspnea
-Resp status greatly improved with Diuresis
-Cont IV lasix BID
-ECHO F/u
-Empiric Abx
-Appreciate Pulm/Cards
-F/u Sputum Cultures
#COPD
#ABEBE v OHS
-BiPAP at night
-DUonebs, Budesonide
#Severe Sepsis
#Bacteruria
#?Pneumonia
#? Lower extremity cellulitis
-see plan above
-abx
-F/u cultures
� Since there was rapid improvement with diuresis, I favor this most likely can have de-escalation antibiotics in the next 24 to 48 hours
#Hypertension
#CAD s/p CABG
-Transition to NOAC
Continue beta-jeferson/statin
#Atrial fibrillation
� Begin apixaban 5 mg p.o. twice daily
� Stop aspirin
#Diabetes
Continue Lantus
#DVT prophylaxis
� Eliquis
Total time spent on today's encounter was 51 minutes which included time spent in counseling the patient/family regarding diagnosis and treatment plan as listed above, goals of care, and symptom management. Case was discussed with nursing staff,
specialists, and care coordinators/case management. All labs and imaging personally reviewed by me. Remainder the time spent in detailed review of previous records, lab data, imaging, and other medical provider documentation.
Anticipated Discharge: > 48 hours
Subjective/Interval History
-
Date of Service: July 21, 2023
Respiratory status much improved
Objective Data
-
Labs:
Laboratory Results
07/21/23 07/21/23
05:16 12:15
WBC 17.7 H
Hgb 12.8
Hct 39.2
Plt Count 226
APTT 66.2 H Cancelled
Creatinine 1.1 H
Vital Signs:
Vital Signs
Temp Pulse Resp BP Pulse Ox
97.8 F 88 23 98/57 94
07/21/23 07:55 07/21/23 12:19 07/21/23 11:29 07/21/23 12:19 07/21/23 11:29
I&O
07/20/23 07/21/23 07/22/23
06:59 06:59 06:59
Output Total 750 / 750
Balance -750 / -750
Review of Systems
-
History Source: Patient
All other systems: Not reviewed unless documented
Data Reviewed
-
Labs: Labs Reviewed by me
[2023-07-21] MEDS: VANCOCIN 200 IV (15:38)
[2023-07-21 17:34] LABS: Glucose - Point of Care 232 mg/dl (70-99)
[2023-07-21 17:57] LABS: TSH Reflex To Free T4 1.22 uIU/ml (0.47-4.68)
[2023-07-21] MEDS: ELIQUIS 5 MG PO (20:34)
[2023-07-21 21:36] LABS: Glucose - Point of Care 209 mg/dl (70-99)
[2023-07-22] VITALS (25 sets, daily range): BP systolic 95–143; BP diastolic 48–94; PULSE 2–80; BMI 35.9
[2023-07-22] MEDS: STERILE WATER FOR INJECTION 10 ML IV ×2 (05:16→17:47)
[2023-07-22] MEDS: MAXIPIME 2000 MG IV ×2 (05:17→17:46)
[2023-07-22 05:26] LABS: Hematocrit 34.3 % (37.0-47.0); Hemoglobin 11.2 g/dL (12.0-16.0); Mean Corp Hgb Conc. 32.7 g/dL (33.0-37.0); Mean Corpuscular Hgb 27.9 pg (27.0-31.0); Mean Corpuscular Volume 85.3 fL (81.0-99.0); Mean Platelet Volume 11.1 fL (7.4-10.4); Platelet Count 198 10^3/uL (130-400); Red Blood Cell Count 4.02 10^6/uL (4.20-5.40); White Blood Cell Count 12.6 10^3/uL (4.8-10.8)
[2023-07-22 06:10] LABS: ALT (SGPT) 16 U/L (0-35); AST (SGOT) 17 U/L (14-36); Albumin 2.7 g/dl (3.5-5.0); Alkaline Phosphatase 79 U/L (38-126); Blood Urea Nitrogen 47 mg/dl (7-17); Calcium 9.2 mg/dl (8.4-10.2); Carbon Dioxide 36 mmol/L (22-30); Chloride 95 mmol/L (98-107); Estimated Creatinine Clearance 36 ml/min; Glucose 165 mg/dl (70-99); Potassium 3.9 mmol/L (3.5-5.1); Sodium 133 mmol/L (135-145); Total Bilirubin 0.7 mg/dl (0.2-1.3); Total Protein 5.4 g/dl (6.3-8.2); eGFR 49.24
[2023-07-22 06:27] LABS: Vancomycin Random 22.4 ug/ml
[2023-07-22] MEDS: PULMICORT 0.5 MG INH ×2 (07:22→20:23)
[2023-07-22] MEDS: VENTOLIN NEBULES 2.5 MG INH ×4 (07:23→20:23)
[2023-07-22 07:40] LABS: Glucose - Point of Care 129 mg/dl (70-99)
--- NOTE | 2023-07-22 07:40 | W.PN.HOSP.TC ---
Today's Communication/Plan
-
Appears to have continued need for IV diuresis with fluid overload
Await 2D echocardiogram
Would favor discontinuation of antibiotic as leukocytosis still trending down in a.m.
Assessment / Plan
Assessment / Plan
HEENT: Normocephalic
Cardiovascular: S1/S2 and Murmur
GI: Soft and Non Distended
Neurology: Awake and Alert
Skin: Warm
General: Respiratory Distress (n), CTAB
87-year-old female sent from [facility] for evaluation of the shortness of breath and hypoxia which likely secondary to combination of acute on chronic congestive heart failure exacerbation was likely pneumonia even procalcitonin is only
negative, at the initial look like there is a cellulitis of the lower extremities.
#Acute Hypoxic Respiratory Failure
#Chronic hypercapnic respiratory failure
#Acute on Chronic HF (Unknown Type)
#Dyspnea
-Resp status greatly improved with Diuresis
-Cont IV lasix BID
-ECHO F/u
-Empiric Abx
-Appreciate Pulm/Cards
-F/u Sputum Cultures
#COPD
#ABEBE v OHS
-BiPAP at night
-DUonebs, Budesonide
#Severe Sepsis
#Bacteruria
#?Pneumonia
#? Lower extremity cellulitis
-see plan above
-abx
-F/u cultures
� Since there was rapid improvement with diuresis, I favor this most likely can have de-escalation antibiotics in the next 24 to 48 hours
-White count down to 12.6 would favor discontinuation of antibiotic by tomorrow
#Hypertension
#CAD s/p CABG
-Transition to NOAC
Continue beta-jeferson/statin
#Atrial fibrillation
� Begin apixaban 5 mg p.o. twice daily
� Stop aspirin
#Diabetes
Continue Lantus
#DVT prophylaxis
� Eliquis
Total time spent on today's encounter was 51 minutes which included time spent in counseling the patient/family regarding diagnosis and treatment plan as listed above, goals of care, and symptom management. Case was discussed with nursing staff,
specialists, and care coordinators/case management. All labs and imaging personally reviewed by me. Remainder the time spent in detailed review of previous records, lab data, imaging, and other medical provider documentation.
Anticipated Discharge: Within 24 hours
Subjective/Interval History
-
Date of Service: July 22, 2023
Remains on 2 L nasal flow oxygen no respiratory distress still some tenderness to her lower extremities from fluid retention
Objective Data
-
Labs:
Laboratory Results
07/22/23
04:48
WBC 12.6 H
Hgb 11.2 L
Hct 34.3 L
Plt Count 198
Sodium 133 L
Potassium 3.9
Chloride 95 L
Carbon Dioxide 36 H
BUN 47 H
Creatinine 1.1 H
Glucose 165 H
Calcium 9.2
Total Bilirubin 0.7
AST 17
ALT 16
Alkaline Phosphatase 79
Vital Signs:
Vital Signs
Temp Pulse Resp BP Pulse Ox
98.6 F 72 16 135/83 94
07/22/23 03:28 07/22/23 07:26 07/22/23 07:26 07/22/23 05:00 07/22/23 07:26
I&O
07/21/23 07/22/23 07/23/23
06:59 06:59 06:59
Intake Total 240 / 240
Output Total 750 / 750 1900 / 1900
Balance -750 / -750 -1660 / -1660
Review of Systems
-
Constitutional: Reports Weight Gain and Fatigue
EENT: Reports No Symptoms Reported
Cardiac: Reports No Symptoms
Genitourinary: Reports No Symptoms
Physical Exam
-
General: Well Developed
HEENT: Normocephalic
Respiratory: Crackles
Cardiac: Regular Rhythm and Murmur
GI: Soft and Nontender
Psych: Calm
Data Reviewed
-
Total Time Spent with Patient (in minutes): 45
Labs: Labs Reviewed by me (Sodium 133 potassium 3.9 creatinine 1.1/BuN 47)
--- NOTE | 2023-07-22 08:01 | PHA.VAN.FU ---
Vancomycin Assessment / Plan
- Assessment
Renal Function: Stable
WBC's are: Trending Down
In the past 24 hrs, patient has been: Afebrile
Concomitant Antimicrobials: cefepime
- Dosing Plan
Dosing by Level: Hold off on dosing today
- Monitoring Plan
Random Level: 07/23 06
- Follow Up
Pharmacy will continue to follow.
Vancomycin Follow UP
- -
Patient Age: 87
Patient Sex: Female
Vancomycin Day #: 3
Indication: Pulmonary/Respiratory
Requesting Provider: Dr. Alvarenga
Pertinent Antimicrobial Allergies:
NKDA
Height / Weight:
Height 5 ft
Actual Weight 83.4 kg
IBW in k.5
Adjusted BW in k.9
Pertinent Past Medical History: BMI~36, bladder dysfunction, DM
- Vital Signs / Lab Results
Temp Pulse Resp BP Pulse Ox
98.6 F 72 16 135/83 94
07/22/23 03:28 07/22/23 07:26 07/22/23 07:26 07/22/23 05:00 07/22/23 07:26
Lab Results - Hematology
07/20/23 07/20/23 07/21/23
16:47 21:58 05:16
WBC 20.4 H 20.0 H 17.7 H
07/22/23
04:48
WBC 12.6 H
Lab Results - Chemistry
07/20/23 07/20/23 07/21/23
16:47 21:58 05:16
BUN 43 H 46 H
Creatinine 1.2 H 1.2 H 1.1 H
Estimated Creat Clear 36
Albumin 3.4 L
07/22/23
04:48
BUN 47 H
Creatinine 1.1 H
Estimated Creat Clear 36
Albumin 2.7 L
07/20/23 07/20/23 07/20/23
16:45 16:47 21:58
Lactic Acid Cancelled 1.9 2.2 H
07/21/23 07/21/23 07/21/23
01:48 05:16 10:10
Lactic Acid 3.2 H 2.1 H 1.5
Microbiology Results
07/20/23 16:47 Blood Culture - Preliminary
Blood/Venous No Growth in 24 hours- Final report to follow
07/20/23 16:47 Blood Culture - Preliminary
Blood/Venous No Growth in 24 hours- Final report to follow
07/21/23 05:19 Nasal Screen MRSA (PCR) - Final
Nose MRSA not detected - performed by PCR methodology.
07/20/23 17:00 Influenza Types A & B (BALDEV) - Final
Nasal Swab Negative for Influenza A & B, NAAT
Negative results must be combined with clinical observations
and patient history.
Nucleic Acid Amplification test (NAAT)performed on the
[employer] platform.
Therapeutic Drug Monitoring
Random Vancomycin 22.4 ug/ml 07/22/23 04:48
[2023-07-22] MEDS: NEURONTIN 200 MG PO (08:57)
[2023-07-22] MEDS: SINGULAIR 10 MG PO (08:57)
[2023-07-22] MEDS: BYSTOLIC 2.5 MG PO (08:57)
[2023-07-22] MEDS: REFRESH EYE DROPS (PF) 1 DROPS BOTH EYES ×2 (08:57→19:17)
[2023-07-22] MEDS: ELIQUIS 5 MG PO ×2 (08:57→19:17)
[2023-07-22] MEDS: MAGNESIUM OXIDE 500 MG PO ×2 (08:57→19:17)
[2023-07-22] MEDS: NOVOLOG FLEXPEN-MODERATE RESISTANCE SC (08:57)
[2023-07-22] MEDS: LASIX 40 MG IV ×2 (08:58→16:13)
[2023-07-22] MEDS: DESENEX/MITRAZOL/ZEASORB 1 APPLIC TOPICAL ×2 (08:58→19:30)
--- NOTE | 2023-07-22 09:07 | W.PN.PUL3 ---
Today's Communication / Plan
-
O2
BDs
Diuretics
Assessment
-
87-year-old woman with multiple medical problems, first time at [facility]. Came from the snf after being discharged from [facility]. Came with hypoxemia and fevers. We were consulted for evaluation of acute hypoxemic
respiratory failure.
Acute hypoxemic respiratory failure-required BiPAP in the emergency room for increased work of breathing.
Chest x-ray:
AB.41/53/133-compensated chronic hypercapnic respiratory failure.
Negative procalcitonin
Elevated proBNP 3510-suggestive of possibility of acute on chronic heart failure unknown type.
Negative influenza/negative COVID
Acute on chronic heart failure: Unknown type.
Sepsis-fever/tachypnea/leukocytosis.
Increased lactic acid on admission
Abnormal UA
Lower extremity cellulitis noted
Acute kidney injury-unknown baseline
Conditions present prior admission:
Patient originally from [place].
Hypertension
Type 2 diabetes
Peripheral neuropathy
Chronic lower extremity edema
Dementia
Bladder dysfunction
Resident at [facility]
Status post CABG 16 y ago in [place]
There is no mention of alcohol or cigarette use.
Patient on formoterol and budesonide in the outpatient setting-unclear diagnosis.
Assessment and plan:
First time at [facility] so history is not available.
Has history of cardiac disease: CAD s/p CABGx2, chronic REX edema, reported h/o HF exacerbations
-
Acute hypoxemic respiratory failure. Remains on 2L as inpatient
Reports marked improvement since adm. Rapid improvement suggest heart failure more than pneumonia.
-
Fever on adm now resolved
Procalcitonin is negative
If there is rapid improvement on pulmonary condition-from the pulmonary perspective we can discontinue antibiotics.
CXR with pulm vasc and parenchymal congestion, and also suspicious for underlying interstitial lung disease
Given age and comorbidities no candidate for antifibrotics or further work up
CXR on adm c/w 07-22: some improvement in pulm vasc and parenchymal congestion.
Leukocytosis decreasing
Also suspected REX cellulitis on adm
Vancomycin MRSA PCR screening positive. MRSA screening negative
Blood cxs so far negative
Urine cx pending (had suspicious UA)
Cardiology correspondence reviewed
Suspected new AFib
H/o HF
IV Lasix started at 40 mg IV q12
Started anticoagulation for atrial fibrillation: apixaban
TTE pending
Adm w 196 lbs on 07-20, down to 183 lbs on 07-22 (noted diuresis of 2.6 L since adm), Cr remains at low 1s
-
Patient does report history of COPD: Unknown PFTs. Per emr was on arformoterol, DNs, alb HFA, budesonide, montelukast
Continue nebulizer therapy: Patient not bronchospastic on exam
Budesonide/DuoNebs
Continue montelukast
Resume arformoterol upon d/c
Does have chronic compensated hypercapnic respiratory failure. Suspect obstructive sleep apnea obesity hypoventilation syndrome. Patient states she has CPAP at home.
Using BiPAP 12/5 with O2 2L at night as inpatient
Continue oxygen supplementation wean down as able.
Currently on O2 2L, POx 94-98% at rest
Evaluate O2 needs PTD
-
DVT prophylaxis: On anticoagulation
-
DNR status.
-
Will need outpatient pulmonary follow-up upon discharge.
-
D/w Mrs Bazzi
Subjective Data
-
Date of Service:
Date of Service: July 22, 2023
Chief Complaint: Pulmonary Follow Up
Subjective:
No major events reported overnight
Diuresing well
Reports significant diuresis since adm
Review of Systems
General: Fever (n), Sweats (n), Chills and Satisfactory Appetite
HEENT: Epistaxis (n) and Dysphagia (n)
Cardiopulmonary: Dyspnea (n at rest on O2), Cough (n), Wheezing, Edema (REX) and Hemoptysis (n)
GI: Abdominal Pain (n), Nausea (n) and Vomiting (n)
Neuro: Weakness
Objective Data
Data Reviewed
Vital Signs / I&O / Oxygen:
Vital Signs
Temp Pulse Resp BP Pulse Ox
97.8 F 72 16 135/83 94
07/22/23 07:25 07/22/23 07:26 07/22/23 07:26 07/22/23 05:00 07/22/23 07:26
Intake and Output
07/21/23 07/22/23 07/23/23
06:59 06:59 06:59
Intake Total 240 / 240
Output Total 750 / 750 1900 / 1900
Balance -750 / -750 -1660 / -1660
SaO2 94
Nasal Cannula flow liters per 2
minute
Physical Exam
General: Comfortable
HEENT: Normocephalic and Moist Mucous Membranes
Cardiovascular: Regular Rhythm, Murmur (m), Peripheral Edema (REX) and Calf Tenderness (n)
Respiratory: Rhonchi, Non-Labored Respirations and Stridor (n)
GI: Soft, Non Distended and Non Tender
Neurology: Awake, Oriented and No Motor Deficits
Skin: Dry
Labs/Micro/Reports
Lab Data
07/22/23 04:48
07/22/23 04:48
Laboratory Results
07/21/23
12:15
APTT Cancelled
Microbiology
07/21/23 05:19 Nose MRSA Screen - Final
Staph aureus MRSA
07/20/23 16:47 Blood/Venous Blood Culture - Preliminary
No Growth in 24 hours- Final report to follow
07/20/23 16:47 Blood/Venous Blood Culture - Preliminary
No Growth in 24 hours- Final report to follow
07/21/23 05:19 Nose Nasal Screen MRSA (PCR) - Final
MRSA not detected - performed by PCR methodology.
07/20/23 17:00 Nasal Swab Influenza Types A & B (BALDEV) - Final
Negative for Influenza A & B, NAAT
Negative results must be combined with clinical observations
and patient history.
Nucleic Acid Amplification test (NAAT)performed on the
[employer] platform.
--- NOTE | 2023-07-22 09:09 | W.PN.CD ---
Today's Communication / Plan
-
continue diuresis
tubigrips b/l
monitor bp
echo today
Impression / Plan
-
Impression: 87F - new to us - with dyspnea & fever. Originally from [place] and recently admitted with PNA at [place].
Plan
Dyspnea
- challenging situation with fever, leukocytosis, possible cellulitis, possible PNA -> concern for sepsis AND volume overload
-CXR on my review with diffue interstitial opacities but improved from prior
- Continue Lasix 40 IV BID with intensive monitoring of labs and vitals.
- Echo today
CAD s/p CABG (remote)
- transition to single agent NOAC (below)
- continue BB/statin
HF
- d/w daughter. She does not know EF, but reports that Mrs. Allen develops exacerbations every 12-18 months that are treated with admission and IV diuretics
- Lasixto continue
--GDMT as per EF
-tubigrips
AF
- continue apixaban 5 po BID
- stopped ASA
Murmur/ - echo today
HTN - hold hydralazine, nebivolol, amlodipine, and torsemide
-BP tenuous, add back bb when able
Dyslipidemia -statin
Dementia
Recurrent PNA
Records requested from [facility] in [place], [place]. [phone]/21/23
Subjective: she is 'swollen' and weights keep going up for a while, breathing is feeling better, no cp or pressure, pain in her legs
Physical Exam
Vital Signs/Labs
Vital Signs
Temp Pulse Resp BP Pulse Ox
97.8 F 72 16 135/83 94
07/22/23 07:25 07/22/23 07:26 07/22/23 07:26 07/22/23 05:00 07/22/23 07:26
01/07/22/23 07/23/23
06:59 06:59 06:59
Actual Weight 83.915 kg 83.4 kg
07/22/23 04:48
07/22/23 04:48
PT 14.0 Sec (11.4-14.6) 07/20/23 20:51
INR 1.06 07/20/23 20:51
APTT Cancelled 07/21/23 12:15
Magnesium 2.2 mg/dl (1.6-2.3) 07/21/23 05:16
07/20/23
16:47
Vjw-U-Csdugkpupnk Pept 3510
LAB Results
07/20/23 07/20/23 07/21/23
16:47 21:58 05:16
Troponin I 0.022 0.034 D 0.023 D
07/21/23
09:20
Troponin I Cancelled
Physical Exam
Constitutional: No acute distress
Cardiovascular: Rhythm & rate is regular, Pedal edema present (2+ up through the thighs) and Systolic murmur present (rusb)
Respiratory: Respiratory effort normal, Wheeze Absent and Crackles Present (bibasilarly)
Neuro/Psych: AO x 3
Data Reviewed
-
Date of Service: July 22, 2023
X-Ray/CT/US/MRI/NUC/PET: Image Personally Visualized and interpreted (interstitial markings improved from prior)
--- NOTE | 2023-07-22 10:38 | PTCARENOTE ---
Assumed care of patient at beginning of this shift from previous RN with 2l n/c in use and POx 92-94%. When oxygen removed, POx drops to 85-88%. Instructed patient in the importance of maintaining oxygen and taking slow, deep breaths if removing
briefly to blow her nose. Patient OOB to chair for most of the morning. Tubigrip applied to b/l lower legs as ordered. See worklist for full assessment and vital signs; see MAR for med administration.
[2023-07-22 11:14] LABS: Glycohemoglobin (HgbA1c) 7.7 % (4.0-5.6)
[2023-07-22] MEDS: NOVOLOG FLEXPEN-MODERATE RESISTANCE 1 UNITS SC ×2 (12:13→16:56)
[2023-07-22 12:23] LABS: Glucose - Point of Care 160 mg/dl (70-99)
--- NOTE | 2023-07-22 16:48 | CM ---
Patient from [facility] with Dx Acute Hypoxic Respiratory Failure, HF, COPD, sepsis. O2 at 2L. BIPAP. Receiving IV Abx. PT & OT recommend skilled rehab. Per nurse assessment; forgetful.
Met with patient who states she was living with her son in [place] until about a year ago when he could no longer care for her, as he was caring for her daughter in law. She was then placed at [facility].
The patient says she is assisted with ADLs and ambulatory with her RW.
She was getting PT there.
Patient says she is there under Medicaid (and on a bed hold).
The patient agrees to returning to [facility] at d/c.
Plan place SNF referral for patient's return.
[2023-07-22 17:06] LABS: Glucose - Point of Care 197 mg/dl (70-99)
[2023-07-22 21:41] LABS: Glucose - Point of Care 174 mg/dl (70-99)
[2023-07-22] MEDS: LANTUS 0.0800000000000000017 UNITS SC (21:42)
[2023-07-23] VITALS (22 sets, daily range): BP systolic 99–156; BP diastolic 45–103; PULSE 84; BMI 34.9
[2023-07-23] MEDS: MAXIPIME 2000 MG IV ×2 (05:26→18:16)
[2023-07-23] MEDS: STERILE WATER FOR INJECTION 10 ML IV ×2 (05:27→18:16)
[2023-07-23 05:46] LABS: Vancomycin Random 15.1 ug/ml
--- NOTE | 2023-07-23 07:29 | W.PN.HOSP.TC ---
Today's Communication/Plan
-
Recheck CBC in a.m.
Continue IV diuresis as per cardiology
Still hard to compare prior 2D echocardiogram with present
Continue local care of lower extremity cellulitis
Assessment / Plan
Assessment / Plan
HEENT: Normocephalic
Cardiovascular: S1/S2 and Murmur
GI: Soft and Non Distended
Neurology: Awake and Alert
Skin: Warm
General: Respiratory Distress (n), CTAB
87-year-old female sent from [facility] for evaluation of the shortness of breath and hypoxia which likely secondary to combination of acute on chronic congestive heart failure exacerbation was likely pneumonia even procalcitonin is only
negative, at the initial look like there is a cellulitis of the lower extremities.
#Acute Hypoxic Respiratory Failure
#Chronic hypercapnic respiratory failure
#Acute on Chronic HF (Unknown Type)
#Dyspnea
-Resp status greatly improved with Diuresis
-Cont IV lasix BID
-ECHO /showed EF of 60% with moderate to severe aortic stenosis with a valve area of 0.8
-Empiric Abx
-Appreciate Pulm/Cards
-F/u Sputum Cultures
#COPD
#ABEBE v OHS
-BiPAP at night
-DUonebs, Budesonide
#Severe Sepsis
#Bacteruria/urine culture was normal
#?Pneumonia/chest x-ray showed interstitial opacification possibly consistent with edema versus pneumonitis
#? Lower extremity cellulitis/
-see plan above
-abx
-MRSA screen was positive
-F/u cultures
� Since there was rapid improvement with diuresis, I favor this most likely can have de-escalation antibiotics in the next 24 to 48 hours
-White count down to 12.6 would favor discontinuation of antibiotic by tomorrow/recheck CBC in a.m. if within normal limits will discontinue antibiotic
#Hypertension
#CAD s/p CABG
-Transition to NOAC
Continue beta-jeferson/statin
#Atrial fibrillation
� Begin apixaban 5 mg p.o. twice daily
� Stop aspirin
#Diabetes
Continue Lantus
#DVT prophylaxis
� Eliquis
Total time spent on today's encounter was 51 minutes which included time spent in counseling the patient/family regarding diagnosis and treatment plan as listed above, goals of care, and symptom management. Case was discussed with nursing staff,
specialists, and care coordinators/case management. All labs and imaging personally reviewed by me. Remainder the time spent in detailed review of previous records, lab data, imaging, and other medical provider documentation.
Anticipated Discharge: 24 - 48 hours
Subjective/Interval History
-
Date of Service: July 23, 2023
Since she had a terrible night but nothing reported by nursing and appears in no present distress respiratory or otherwise.
Objective Data
-
Vital Signs:
Vital Signs
Temp Pulse Resp BP Pulse Ox
99.4 F 82 24 156/61 94
07/23/23 03:57 07/23/23 06:00 07/23/23 06:00 07/23/23 06:00 07/23/23 06:12
I&O
07/22/23 07/23/23 07/24/23
06:59 06:59 06:59
Intake Total 240 / 240 100 / 100
Output Total 1900 / 1900 3300 / 3300
Balance -1660 / -1660 -3200 / -3200
Review of Systems
-
History Source: Patient
All other systems: Reviewed and negative
Constitutional: Reports Fever (Low-grade fever of 99.4 overnight)
Respiratory: Reports No Symptoms
Cardiac: Reports No Symptoms
Physical Exam
-
General: No Apparent Distress
HEENT: Normocephalic
Respiratory: Crackles
Cardiac: Regular Rhythm and Murmur
GI: Soft
Musculoskeletal: Edema, Right Lower Extrem, Edema, Left Lower Extrem and Other (Jessee wrap's below knee to ankle on both legs)
Neuro: Awake and AO x 3
Psych: Calm
Data Reviewed
-
Total Time Spent with Patient (in minutes): 56
Labs: Labs Reviewed by me
[2023-07-23] MEDS: VENTOLIN NEBULES 2.5 MG INH ×4 (07:42→20:40)
[2023-07-23] MEDS: PULMICORT 0.5 MG INH ×2 (07:42→20:39)
[2023-07-23 08:11] LABS: Glucose - Point of Care 133 mg/dl (70-99)
[2023-07-23] MEDS: ROBITUSSIN 200 MG PO (08:16)
[2023-07-23] MEDS: ELIQUIS 5 MG PO ×2 (08:17→21:13)
[2023-07-23] MEDS: MAGNESIUM OXIDE 500 MG PO ×2 (08:17→21:13)
[2023-07-23] MEDS: BYSTOLIC 2.5 MG PO (08:17)
[2023-07-23] MEDS: SINGULAIR 10 MG PO (08:17)
[2023-07-23] MEDS: NEURONTIN 200 MG PO (08:17)
[2023-07-23] MEDS: LASIX 40 MG IV ×2 (08:18→16:10)
[2023-07-23] MEDS: DESENEX/MITRAZOL/ZEASORB 1 APPLIC TOPICAL ×2 (08:19→21:14)
[2023-07-23] MEDS: NOVOLOG FLEXPEN-MODERATE RESISTANCE SC ×2 (08:19→18:15)
[2023-07-23] MEDS: REFRESH EYE DROPS (PF) 1 DROPS BOTH EYES ×2 (08:29→21:13)
--- NOTE | 2023-07-23 09:07 | W.PN.PUL3 ---
Today's Communication / Plan
-
O2
Diuretic
Atbs
Assessment
-
87-year-old woman with multiple medical problems, first time at [facility]. Came from the [facility] after being discharged from [facility]. Came with hypoxemia and fevers. We were consulted for evaluation of acute hypoxemic
respiratory failure.
Acute hypoxemic respiratory failure-required BiPAP in the emergency room for increased work of breathing.
AB.41/53/133-compensated chronic hypercapnic respiratory failure.
Negative procalcitonin
Elevated proBNP 3510-suggestive of possibility of acute on chronic heart failure unknown type.
Negative influenza/negative COVID
Acute on chronic heart failure: Unknown type.
Sepsis-fever/tachypnea/leukocytosis.
Increased lactic acid on admission
Abnormal UA
Lower extremity cellulitis noted
Acute kidney injury-unknown baseline
Conditions present prior admission:
Patient originally from [place].
Hypertension
Type 2 diabetes
Peripheral neuropathy
Chronic lower extremity edema
Dementia
Bladder dysfunction
Resident at [facility]
Status post CABG 16 y ago in [place]
There is no mention of alcohol or cigarette use.
Patient on formoterol and budesonide in the outpatient setting-unclear diagnosis.
Assessment and plan:
First time at [facility] so history is not available.
Has history of cardiac disease: CAD s/p CABGx2, chronic REX edema, reported h/o HF exacerbations
-
Acute hypoxemic respiratory failure. Remains on 2L as inpatient
Reports marked improvement since adm. Rapid improvement suggest heart failure more than pneumonia.
-
Fever on adm now resolved
Procalcitonin is negative
If there is rapid improvement on pulmonary condition-from the pulmonary perspective we can discontinue antibiotics.
CXR with pulm vasc and parenchymal congestion, and also suspicious for underlying interstitial lung disease
Given age and comorbidities likely no candidate for antifibrotics or further work up at this juncture, will revisit at office
CXR on adm c/w 07-22: some improvement in pulm vasc and parenchymal congestion.
Leukocytosis decreasing
Also suspected REX cellulitis on adm
Vancomycin MRSA PCR screening positive. MRSA screening negative
Blood cxs so far negative
Urine cx negative
On vanco/cefepime since adm 07-20, agree with discontinuation or deescalation of atbs (e.g. amoxicillin/doxycycline) to complete total 7 d regimen
Cardiology correspondence reviewed
Suspected new AFib
H/o HF
IV Lasix started at 40 mg IV q12 on 07-21
Started anticoagulation for atrial fibrillation: apixaban
TTE 07-22: LVEF 60-65%, mild to mod MS, moderate to severe (PATRICIO 0.8 cm2), normal RV
Adm w 196 lbs on 07-20, down to 183 lbs on 07-22 (noted diuresis of 2.6 L since adm), Cr remains at low 1s
Wt 178 lbs on 07-23
-
Patient does report history of COPD: Unknown PFTs. Per emr was on arformoterol, DNs, alb HFA, budesonide, montelukast
Continue nebulizer therapy: Patient not bronchospastic on exam
Budesonide/DuoNebs
Continue montelukast
Resume arformoterol upon d/c
Does have chronic compensated hypercapnic respiratory failure. Suspect obstructive sleep apnea obesity hypoventilation syndrome. Patient states she has CPAP at home.
Using BiPAP 12/5 with O2 2L at night as inpatient
Continue oxygen supplementation wean down as able.
Currently on O2 2L, POx 94-98% at rest
Evaluate O2 needs PTD
-
DVT prophylaxis: On anticoagulation
-
DNR status.
-
Will need outpatient pulmonary follow-up upon discharge.
-
D/w Mrs Allen
Subjective Data
-
Date of Service:
Date of Service: July 23, 2023
Chief Complaint: Pulmonary Follow Up
Subjective:
No major events reported
Sitting in chair, comfortable on O2 4L, POx 96%
Denies REX pain and feels edema is decreasing
Review of Systems
General: Fever (n), Sweats (n), Chills (n) and Satisfactory Appetite
HEENT: Epistaxis (n) and Dysphagia (n)
Cardiopulmonary: Dyspnea (n at rest on O2), Cough (n), Wheezing (n), Chest Pain, Edema (REX) and Lower Extremity Pain (n)
GI: Abdominal Pain (n), Nausea (n) and Vomiting (n)
Neuro: Weakness
Objective Data
Data Reviewed
Vital Signs / I&O / Oxygen:
Vital Signs
Temp Pulse Resp BP Pulse Ox
97.8 F 82 24 156/61 96
07/23/23 07:57 07/23/23 07:57 07/23/23 07:57 07/23/23 06:00 07/23/23 07:47
Intake and Output
07/22/23 07/23/23 07/24/23
06:59 06:59 06:59
Intake Total 240 / 240 100 / 100
Output Total 1900 / 1900 3300 / 3300
Balance -1660 / -1660 -3200 / -3200
SaO2 96
Nasal Cannula flow liters per 2
minute
Physical Exam
General: Comfortable
HEENT: Normocephalic and Moist Mucous Membranes
Cardiovascular: Regular Rhythm, Murmur (m), Peripheral Edema (REX) and Calf Tenderness (n)
Respiratory: Rhonchi, Non-Labored Respirations and Stridor (n)
GI: Soft, Non Distended and Non Tender
Neurology: Awake, Oriented and No Motor Deficits
Skin: Dry
Labs/Micro/Reports
Lab Data
07/22/23 04:48
07/22/23 04:48
Microbiology
07/20/23 16:47 Blood/Venous Blood Culture - Preliminary
No Growth in 48 hours- Final report to follow
07/20/23 16:47 Blood/Venous Blood Culture - Preliminary
No Growth in 48 hours- Final report to follow
07/21/23 02:11 Urine Urine Culture - Final
No Significant Growth
07/21/23 05:19 Nose MRSA Screen - Final
Staph aureus MRSA
07/21/23 05:19 Nose Nasal Screen MRSA (PCR) - Final
MRSA not detected - performed by PCR methodology.
07/20/23 17:00 Nasal Swab Influenza Types A & B (BALDEV) - Final
Negative for Influenza A & B, NAAT
Negative results must be combined with clinical observations
and patient history.
Nucleic Acid Amplification test (NAAT)performed on the
[employer] platform.
--- NOTE | 2023-07-23 09:35 | PHA.VAN.FU ---
Vancomycin Assessment / Plan
- Assessment
Renal Function: Stable
WBC's are: Trending Down
In the past 24 hrs, patient has been: Afebrile
Concomitant Antimicrobials: cefepime
- Assessment - Therapeutic Drug Monitoring
Random Level: 15.1 - drawn ~24.5H after previous level of 22.4
Calculated ke: 0.0161
Calculated half life (H): 43.1
- Dosing Plan
Dosing by Level: Re-dose today (Vanc 1000mg)
- Monitoring Plan
Random Level: 07/24 0600
- Follow Up
Pharmacy will continue to follow.
Vancomycin Follow UP
- -
Patient Age: 87
Patient Sex: Female
Vancomycin Day #: 4
Indication: Pulmonary/Respiratory
Requesting Provider: Dr. Alvarenga
Pertinent Antimicrobial Allergies:
NKDA
Height / Weight:
Height 5 ft
Actual Weight 81.1 kg
IBW in k.5
Adjusted BW in k.9
Pertinent Past Medical History: BMI~36, bladder dysfunction, DM
- Vital Signs / Lab Results
Temp Pulse Resp BP Pulse Ox
97.8 F 82 24 156/61 96
07/23/23 07:57 07/23/23 07:57 07/23/23 07:57 07/23/23 06:00 07/23/23 07:47
Lab Results - Hematology
07/20/23 07/20/23 07/21/23
16:47 21:58 05:16
WBC 20.4 H 20.0 H 17.7 H
07/22/23
04:48
WBC 12.6 H
Lab Results - Chemistry
07/20/23 07/20/23 07/21/23
16:47 21:58 05:16
BUN 43 H 46 H
Creatinine 1.2 H 1.2 H 1.1 H
Estimated Creat Clear 36
Albumin 3.4 L
07/22/23
04:48
BUN 47 H
Creatinine 1.1 H
Estimated Creat Clear 36
Albumin 2.7 L
07/20/23 07/20/23 07/20/23
16:45 16:47 21:58
Lactic Acid Cancelled 1.9 2.2 H
07/21/23 07/21/23 07/21/23
01:48 05:16 10:10
Lactic Acid 3.2 H 2.1 H 1.5
Microbiology Results
07/20/23 16:47 Blood Culture - Preliminary
Blood/Venous No Growth in 48 hours- Final report to follow
07/20/23 16:47 Blood Culture - Preliminary
Blood/Venous No Growth in 48 hours- Final report to follow
07/21/23 02:11 Urine Culture - Final
Urine No Significant Growth
07/21/23 05:19 MRSA Screen - Final
Nose Staph aureus MRSA
07/21/23 05:19 Nasal Screen MRSA (PCR) - Final
Nose MRSA not detected - performed by PCR methodology.
Therapeutic Drug Monitoring
Random Vancomycin 15.1 ug/ml 07/23/23 05:21
--- NOTE | 2023-07-23 10:57 | W.PN.CD ---
Today's Communication / Plan
-
- Continue Lasix 40 mg IV BID.
- Try to add back home antihypertensive medication regimen as blood pressure allows.
Impression / Plan
-
Impression: 87F - new to us - with dyspnea & fever. Originally from [place] and recently admitted with PNA at [place].
Plan
Dyspnea
- challenging situation with fever, leukocytosis, possible cellulitis, possible PNA -> concern for sepsis AND volume overload
-CXR on my review with diffue interstitial opacities but improved from prior
- Continue Lasix 40 mg IV BID.
CAD s/p CABG (remote)
- transition to single agent NOAC (below)
- continue BB/statin
Likely acute on chronic HFpEF:
-EF 60-65% with moderate to severe .
- d/w daughter. She does not know EF, but reports that Mrs. Allen develops exacerbations every 12-18 months that are treated with admission and IV diuretics
-Lasix as above.
AF (type currently unknown):
- continue apixaban 5 po BID
Moderate to severe :
-Outpatient TAVR evaluation.
HTN - holding hydralazine and amlodipine
-Continue nebivolol.
-Try to add back home antihypertensive medication regimen as blood pressure allows.
Dyslipidemia -statin
Dementia
Recurrent PNA
Records requested from [facility] in [place], [place]. [phone]/21/23
Subjective:
No major events overnight. Still with some shortness of breath overnight.
Physical Exam
Vital Signs/Labs
Vital Signs
Temp Pulse Resp BP Pulse Ox
97.8 F 82 24 156/61 96
07/23/23 07:57 07/23/23 07:57 07/23/23 07:57 07/23/23 06:00 07/23/23 07:47
07/22/23 07/23/2324
06:59 06:59 06:59
Actual Weight 83.4 kg 81.1 kg
07/22/23 04:48
07/22/23 04:48
PT 14.0 Sec (11.4-14.6) 07/20/23 20:51
INR 1.06 07/20/23 20:51
APTT Cancelled 07/21/23 12:15
Magnesium 2.2 mg/dl (1.6-2.3) 07/21/23 05:16
07/20/23
16:47
Ihq-O-Grhgcwkrzyc Pept 3510
LAB Results
07/20/23 07/20/23 07/21/23
16:47 21:58 05:16
Troponin I 0.022 0.034 D 0.023 D
07/21/23
09:20
Troponin I Cancelled
Physical Exam
Constitutional: No acute distress and Comfortable
EENT: Anicteric
Cardiovascular: Rhythm & rate is regular, Pedal edema present (2-3+), Systolic murmur present (3-4/6) and S1S2 is normal
Respiratory: Respiratory effort normal and Crackles Present (Bilateral)
GI: Soft
Neuro/Psych: AO x 3
Other: Skin (Warm, dry)
Data Reviewed
-
Date of Service: July 23, 2023
EKG: Tracing Personally Visualized and interpreted (Telemetry: Sinus rhythm)
Echo: Report Reviewed by me (EF 60-65%, moderate to severe )
Labs: Labs Reviewed by me
[2023-07-23 12:57] LABS: Glucose - Point of Care 184 mg/dl (70-99)
[2023-07-23] MEDS: NOVOLOG FLEXPEN-MODERATE RESISTANCE 1 UNITS SC (12:58)
[2023-07-23] MEDS: VANCOCIN 200 IV (12:59)
--- NOTE | 2023-07-23 14:46 | PN.CDI ---
CDI
- -
CDI:
Physician Documentation Request
Admit Date: 07/20/23 20:15
Dear Doctor Shonna,
Patient admitted with sepsis.
Na levels are documented below:
Laboratory Tests
07/20/23 07/20/23 07/22/23
16:47 21:58 04:48
Sodium 132 L 130 L 133 L
Based on the above, please clarify in the progress notes, the appropriate diagnosis, if significant, that supports the above abnormalities and additional evaluation, monitoring and/or treatment rendered:
Hyponatremia
Insignificant abnormal lab findings
Other
Unable to determine
Use of terms such as suspected, likely, concern for, or probable (associated with a specific diagnosis that is being evaluated, monitored, or treated as if it exists) are acceptable and can be coded in the inpatient setting, when documented at the
time of discharge.
Thank you,
Hien ARCEO,RN,CCDS
CDI Specialist
Available via [place] text
Please use your independent medical judgment in providing your response.
--- NOTE | 2023-07-23 14:57 | PN.CDI ---
CDI
- -
CDI:
Physician Documentation Request
Admit Date: 07/20/23 20:15
Dear Doctor Shonna,
Patient admitted with sepsis.
07/23 PN, '?Pneumonia/chest x-ray showed interstitial opacification possibly consistent with edema versus pneumonitis.'
Per MAR, patient receiving IV Vancomycin -clinical indication- pulmonary/ respiratory.
Based on the above treatment, please clarify in your note the following:
Pneumonia /pneumonitis is a valid diagnosis for this patient
Pneumonia/ pneumonitis is not a valid diagnosis for this patient
Use of terms such as suspected, likely, concern for, or probable (associated with a specific diagnosis that is being evaluated, monitored, or treated as if it exists) are acceptable and can be coded in the inpatient setting, when documented at the
time of discharge.
Thank you,
Hien ARCEO,RN,CCDS
CDI Specialist
Available via [place] text
Please use your independent medical judgment in providing your response.
[2023-07-23 17:37] LABS: Glucose - Point of Care 149 mg/dl (70-99)
--- NOTE | 2023-07-23 22:00 | RESPNOTE ---
Attempted to place PT on BIPAP as ordered for HS use and the PT refused therapy at this time. PT sts that she uses nasal pillows and doesn't like out masks here. PT sts that she will wear troow night with a nasal mask. PT was instucted that she
could have a family member bring her own home machine in for use and said she would try to have her son, who lives locally bring it in tomorrow.
[2023-07-23 22:30] LABS: Glucose - Point of Care 125 mg/dl (70-99)
[2023-07-23] MEDS: LANTUS 0.0800000000000000017 UNITS SC (22:46)
[2023-07-24] VITALS (17 sets, daily range): BP systolic 105–137; BP diastolic 46–126; PULSE 2–88; O2SAT 92; BMI 33.6
[2023-07-24 04:24] LABS: Hematocrit 39.3 % (37.0-47.0); Hemoglobin 12.8 g/dL (12.0-16.0); Mean Corp Hgb Conc. 32.6 g/dL (33.0-37.0); Mean Corpuscular Hgb 27.4 pg (27.0-31.0); Mean Corpuscular Volume 84.2 fL (81.0-99.0); Mean Platelet Volume 10.8 fL (7.4-10.4); Platelet Count 208 10^3/uL (130-400); Red Blood Cell Count 4.67 10^6/uL (4.20-5.40); Red Cell Dist. Width 15.4 % (11.5-14.5); White Blood Cell Count 8.2 10^3/uL (4.8-10.8)
[2023-07-24 04:52] LABS: Blood Urea Nitrogen 47 mg/dl (7-17); Calcium 9.1 mg/dl (8.4-10.2); Carbon Dioxide 39 mmol/L (22-30); Chloride 92 mmol/L (98-107); Estimated Creatinine Clearance 35 ml/min; Glucose 121 mg/dl (70-99); Potassium 4.7 mmol/L (3.5-5.1); Sodium 133 mmol/L (135-145); eGFR 49.24
[2023-07-24] MEDS: STERILE WATER FOR INJECTION 10 ML IV (05:30)
[2023-07-24] MEDS: MAXIPIME 2000 MG IV (05:30)
--- NOTE | 2023-07-24 07:18 | W.PN.HOSP.TC ---
Addendum entered and electronically signed by Jeffy Kilpatrick MD 07/24/23 14:27:
There is no definitive evidence of pneumonia or pneumonitis clinically
Hyponatremia possibly relation of volume overload
Original Note:
Today's Communication/Plan
-
Discontinue IV antibiotic
Continue IV diuresis as per cardiology
Continue to monitor BMP closely and CBC
Assessment / Plan
Assessment / Plan
HEENT: Normocephalic
Cardiovascular: S1/S2 and Murmur
GI: Soft and Non Distended
Neurology: Awake and Alert
Skin: Warm
General: Respiratory Distress (n), CTAB
87-year-old female sent from [facility] for evaluation of the shortness of breath and hypoxia which likely secondary to combination of acute on chronic congestive heart failure exacerbation was likely pneumonia even procalcitonin is only
negative, at the initial look like there is a cellulitis of the lower extremities.
#Acute Hypoxic Respiratory Failure
#Chronic hypercapnic respiratory failure
#Acute on Chronic HF (Unknown Type)
#Dyspnea
-Resp status greatly improved with Diuresis
-Cont IV lasix BID
-ECHO /showed EF of 60% with moderate to severe aortic stenosis with a valve area of 0.8
-Empiric Abx
-Appreciate Pulm/Cards
-F/u Sputum Cultures
#COPD
#ABEBE v OHS
-BiPAP at night
-DUonebs, Budesonide
#Severe Sepsis
#Bacteruria?/urine culture was normal
#?Pneumonia/chest x-ray showed interstitial opacification possibly consistent with edema versus pneumonitis(procalcitonin however was normal on presentation)
#? Lower extremity cellulitis/may be more in keeping with stasis changes causing redness and tenderness from edema
-see plan above
-abx
-MRSA screen was positive
-F/u cultures
� Since there was rapid improvement with diuresis, I favor this most likely can have de-escalation antibiotics in the next 24 to 48 hours
-White count down to 12.6 would favor discontinuation of antibiotic by tomorrow/recheck of CBC now shows no leukocytosis we will discontinue antibiotics and monitor
#Hypertension
#CAD s/p CABG
-Transition to NOAC
Continue beta-jeferson/statin
#Atrial fibrillation
� Begin apixaban 5 mg p.o. twice daily
� Stop aspirin
#Diabetes
Continue Lantus
#DVT prophylaxis
� Eliquis
Total time spent on today's encounter was 51 minutes which included time spent in counseling the patient/family regarding diagnosis and treatment plan as listed above, goals of care, and symptom management. Case was discussed with nursing staff,
specialists, and care coordinators/case management. All labs and imaging personally reviewed by me. Remainder the time spent in detailed review of previous records, lab data, imaging, and other medical provider documentation.
Anticipated Discharge: 24 - 48 hours
Subjective/Interval History
-
Date of Service: July 24, 2023
Somewhat below third toe bradycardia no acute distress remains in fluid overload
Objective Data
-
Labs:
Laboratory Results
07/24/23
04:14
WBC 8.2
Hgb 12.8
Hct 39.3
Plt Count 208
Sodium 133 L
Potassium 4.7
Chloride 92 L
Carbon Dioxide 39 H
BUN 47 H
Creatinine 1.1 H
Glucose 121 H
Calcium 9.1
Vital Signs:
Vital Signs
Temp Pulse Resp BP Pulse Ox
98.3 F 93 35 132/63 99
07/24/23 05:22 07/24/23 01:00 07/24/23 01:00 07/24/23 01:00 07/24/23 04:57
I&O
07/23/23 07/24/23 07/25/23
06:59 06:59 06:59
Intake Total 100 / 100 600 / 600
Output Total 3300 / 3300 2750 / 2750
Balance -3200 / -3200 -2150 / -2150
Review of Systems
-
Unable to obtain full review of systems at this time due to: Dementia
History Source: Patient
Constitutional: Reports Weight Gain
EENT: Reports No Symptoms Reported
Respiratory: Reports Other (On 4 L oxygen still only uses at night at home)
Abdomen/GI: Reports No Symptoms
Neuro: Reports Weakness
Physical Exam
-
General: No Apparent Distress
HEENT: Normocephalic, PERRLA and Oxygen (4 L)
Respiratory: Crackles
Cardiac: Regular Rhythm
GI: Soft and Nontender
Musculoskeletal: Edema, Right Lower Extrem and Edema, Left Lower Extrem
Skin: Warm and IV Access / Catheter Site
Psych: Calm
Data Reviewed
-
Total Time Spent with Patient (in minutes): 45
Labs: Labs Reviewed by me (White count is normal)
[2023-07-24 07:36] LABS: Glucose - Point of Care 114 mg/dl (70-99)
[2023-07-24] MEDS: PULMICORT 0.5 MG INH ×2 (07:44→19:40)
[2023-07-24] MEDS: VENTOLIN NEBULES 2.5 MG INH ×4 (07:44→19:40)
[2023-07-24] MEDS: MAGNESIUM OXIDE 500 MG PO (08:30)
[2023-07-24] MEDS: ELIQUIS 5 MG PO (08:30)
[2023-07-24] MEDS: BYSTOLIC 2.5 MG PO (08:30)
[2023-07-24] MEDS: NEURONTIN 200 MG PO (08:30)
[2023-07-24] MEDS: SINGULAIR 10 MG PO (08:30)
[2023-07-24] MEDS: NOVOLOG FLEXPEN-MODERATE RESISTANCE SC ×3 (08:30→17:22)
[2023-07-24] MEDS: REFRESH EYE DROPS (PF) 1 DROPS BOTH EYES ×2 (08:31→21:04)
[2023-07-24] MEDS: LASIX 40 MG IV ×2 (08:31→17:24)
[2023-07-24] MEDS: DESENEX/MITRAZOL/ZEASORB 1 APPLIC TOPICAL ×2 (08:31→21:05)
--- NOTE | 2023-07-24 08:55 | W.PN.PUL3 ---
Today's Communication / Plan
-
O2
Budesonide/Dns
Diuretics
Off atbs
Assessment
-
87-year-old woman with multiple medical problems, first time at [facility]. Came from the snf after being discharged from [facility]. Came with hypoxemia and fevers. We were consulted for evaluation of acute hypoxemic
respiratory failure.
Acute hypoxemic respiratory failure-required BiPAP in the emergency room for increased work of breathing.
AB.41/53/133-compensated chronic hypercapnic respiratory failure.
Negative procalcitonin
Elevated proBNP 3510-suggestive of possibility of acute on chronic heart failure unknown type.
Negative influenza/negative COVID
Acute on chronic heart failure: Unknown type.
Sepsis-fever/tachypnea/leukocytosis.
Increased lactic acid on admission
Abnormal UA
Lower extremity cellulitis noted
Acute kidney injury-unknown baseline
Conditions present prior admission:
Patient originally from [place].
Hypertension
Type 2 diabetes
Peripheral neuropathy
Chronic lower extremity edema
Dementia
Bladder dysfunction
Resident at [facility]
Status post CABG 16 y ago in [place]
There is no mention of alcohol or cigarette use.
Patient on formoterol and budesonide in the outpatient setting-unclear diagnosis.
Assessment and plan:
First time at [facility] so history is not available.
Has history of cardiac disease: CAD s/p CABGx2, chronic REX edema, reported h/o HF exacerbations
-
Acute hypoxemic respiratory failure. Remains on 2L as inpatient
Reports marked improvement since adm. Rapid improvement suggest heart failure more than pneumonia.
-
Fever on adm now resolved
Procalcitonin is negative
If there is rapid improvement on pulmonary condition-from the pulmonary perspective we can discontinue antibiotics.
CXR with pulm vasc and parenchymal congestion, and also suspicious for underlying interstitial lung disease
Given age and comorbidities likely no candidate for antifibrotics or further work up at this juncture, will revisit at office
CXR on adm c/w 07-22: some improvement in pulm vasc and parenchymal congestion.
Leukocytosis decreasing
Also suspected REX cellulitis on adm
Vancomycin MRSA PCR screening positive. MRSA screening negative
Blood cxs so far negative
Urine cx negative
On vanco/cefepime since adm 07-20, agree with discontinuation of atbs as of 07-24
Cardiology correspondence reviewed
Suspected new AFib
H/o HF
IV Lasix started at 40 mg IV q12 on 07-21
Started anticoagulation for atrial fibrillation: apixaban
TTE 07-22: LVEF 60-65%, mild to mod MS, moderate to severe (PATRICIO 0.8 cm2), normal RV
Adm w 196 lbs on 07-20, down to 183 lbs on 07-22 (noted diuresis of 2.6 L since adm), Cr remains at low 1s
Wt 178 lbs on 07-23
-
Patient does report history of COPD: Unknown PFTs. Per emr was on arformoterol, DNs, alb HFA, budesonide, montelukast
Continue nebulizer therapy: Patient not bronchospastic on exam
Budesonide/DuoNebs
Continue montelukast
Resume arformoterol upon d/c
Does have chronic compensated hypercapnic respiratory failure. Suspect obstructive sleep apnea obesity hypoventilation syndrome. Patient states she has CPAP at home.
Using BiPAP 12/5 with O2 2L at night as inpatient
Continue oxygen supplementation wean down as able.
Currently on O2 4L, POx 95% at rest
Evaluate O2 needs PTD
-
DVT prophylaxis: On anticoagulation
-
DNR status.
-
Will need outpatient pulmonary follow-up upon discharge.
-
D/w Mrs Allen on a daily basis
Subjective Data
-
Date of Service:
Date of Service: July 24, 2023
Chief Complaint: Pulmonary Follow Up
Subjective:
No major events reported overnight
Denies major complaints at time of visit
Review of Systems
General: Fever, Sweats (n), Chills and Satisfactory Appetite
Cardiopulmonary: Dyspnea, Cough (n), Chest Pain and Edema (REX)
GI: Abdominal Pain (n), Nausea (n) and Vomiting
Neuro: Weakness
Objective Data
Data Reviewed
Vital Signs / I&O / Oxygen:
Vital Signs
Temp Pulse Resp BP Pulse Ox
98.5 F 83 21 112/99 94
07/24/23 07:36 07/24/23 08:00 07/24/23 08:00 07/24/23 08:31 07/24/23 08:00
Intake and Output
07/23/23 07/24/23 07/25/23
06:59 06:59 06:59
Intake Total 100 / 100 600 / 600
Output Total 3300 / 3300 2750 / 2750 400 / 400
Balance -3200 / -3200 -2150 / -2150 -400 / -400
SaO2 94
Nasal Cannula flow liters per 4
minute
Physical Exam
General: Comfortable
HEENT: Normocephalic and Moist Mucous Membranes
Cardiovascular: Regular Rhythm, Murmur (m), Peripheral Edema (REX) and Calf Tenderness (n)
Respiratory: Rhonchi, Non-Labored Respirations and Stridor (n)
GI: Soft, Non Distended and Non Tender
Neurology: Awake, Oriented and No Motor Deficits
Skin: Dry
Labs/Micro/Reports
Lab Data
07/24/23 04:14
07/24/23 04:14
Microbiology
07/20/23 16:47 Blood/Venous Blood Culture - Preliminary
No Growth in 72 hours- Final report to follow
07/20/23 16:47 Blood/Venous Blood Culture - Preliminary
No Growth in 72 hours- Final report to follow
07/21/23 02:11 Urine Urine Culture - Final
No Significant Growth
07/21/23 05:19 Nose MRSA Screen - Final
Staph aureus MRSA
07/21/23 05:19 Nose Nasal Screen MRSA (PCR) - Final
MRSA not detected - performed by PCR methodology.
--- NOTE | 2023-07-24 09:30 | PTCARENOTE ---
Assumed care of patient at beginning of this shift from previous RN; cannot verify accuracy of vital signs prior to 0700. Patient incontinent of stool; states she did not realize she went. Ox3, forgetful; CHENEGA. Fine, scattered crackles noted; POx 94%
on 4L n/c. See worklist for full assessment and vital signs; see MAR for med administration.
--- NOTE | 2023-07-24 09:39 | W.PN.CD ---
Today's Communication / Plan
-
- Continue Lasix 40 mg IV BID. Weight is down 13 lbs. We do not have a dry weight
- Establish GOC as outpatient (dementia may preclude TAVR)
- Records requested from [facility] in [place], [place]. [phone]/21/23 - They haven't arrived
Impression / Plan
-
Impression: 87F - new to us - with dyspnea & fever. Originally from [place] and recently admitted with PNA at [place].
Plan
Dyspnea
- challenging situation with fever, leukocytosis, possible cellulitis, possible PNA -> concern for sepsis AND volume overload
- CXR suggests improvement, which favors HF as cause of her dyspnea
- Continue Lasix 40 mg IV BID. Weight is down 13 lbs. We do not have a dry weight
CAD s/p CABG (remote)
- transitioned to single agent NOAC (below)
- continue BB/statin
Likely acute on chronic HFpEF:
- EF 60-65% with moderate to severe .
- d/w daughter. She does not know EF, but reports that Mrs. Allen develops exacerbations every 12-18 months that are treated with admission and IV diuretics
- Lasix as above.
AF (type currently unknown) - continue apixaban 5 po BID
Moderate to severe : establish GOC as outpatient (dementia may preclude TAVR)
HTN
- holding hydralazine and amlodipine
- Continue nebivolol.
Dyslipidemia -statin
Dementia
Recurrent PNA
Records requested from [facility] in [place], [place]. [phone]/21/23 - They havent arrived
Subjective:
'Wonderful' Seems to deny CP or dyspnea
Laboratory Data
07/24/23
04:14
Hgb 12.8
Creatinine 1.1 H
Selected Entries
07/20/23
23:17 01/24/24
05:22
Actual Weight 185 lb 6.54 oz 172 lb 2.896 oz
Generic Name Dose Route Start Last Admin
Trade Name Darius PRN Reason Stop Dose Admin
Nebivolol 2.5 mg 07/21/23 08:00
Nebivolol Hcl 2.5 Mg Tablet PO 08/18/23 07:59
DAILY DAVIAN
Apixaban 5 mg 07/21/23 20:00
Apixaban (Eliquis) 5 Mg Tablet PO 08/18/23 19:59
BID DAVIAN
Physical Exam
Vital Signs/Labs
Vital Signs
Temp Pulse Resp BP Pulse Ox
36.9 C 83 21 112/99 94
07/24/23 07:36 07/24/23 08:00 07/24/23 08:00 07/24/23 08:31 07/24/23 08:00
07/23/23 07/24/23 07/25/23
06:59 06:59 06:59
Actual Weight 178 lb 12.718 oz 172 lb 2.896 oz
07/24/23 04:14
07/24/23 04:14
PT 14.0 Sec (11.4-14.6) 07/20/23 20:51
INR 1.06 07/20/23 20:51
APTT Cancelled 07/21/23 12:15
Magnesium 2.2 mg/dl (1.6-2.3) 07/21/23 05:16
07/20/23
16:47
[id number] Pept 3510
Physical Exam
Constitutional: No acute distress
EENT: Anicteric and Moist mucous membranes
Cardiovascular: Rhythm & rate is regular, Diastolic murmur absent, Pedal edema present and Systolic murmur present
Respiratory: Respiratory effort normal and Rhonchi Present
GI: Soft, Distention absent and Non tender
Neuro/Psych: Alert
Data Reviewed
-
Date of Service: July 24, 2023
[2023-07-24 12:07] LABS: Glucose - Point of Care 124 mg/dl (70-99)
--- NOTE | 2023-07-24 12:59 | W.PN.UPDATE ---
Update Note
Progress Note Update
Rapid response called at approximately 1240 as patient developed change in mental status inattentiveness and loss of motor function of right side and onset of increasing hypoxia necessitating placement on mid flow oxygen at 15 L patient has been on
anticoagulation since 18 July with single agent apixaban stroke alert called and patient sent to CT scan initial imaging showed no evidence of any bleeding will undergo CT angiography as per neurology been consulted continue stroke protocol
--- NOTE | 2023-07-24 13:00 | RR ---
A Rapid Response was called on this patient, please see Rapid Response form.
--- NOTE | 2023-07-24 13:00 | RR ---
A Rapid Response was called on this patient, please see Rapid Response form. Patient was sitting in chair unable to lift R arm and unable to say any words. She was lifted back into bed x 3 assist. Accu check 124. Rapid response called followed by
Stroke Alert called by Rapid Response Team. Son in room and patient unable to speak to him or focus. Dr Kilpatrick notified. Patient to CT scan; Dr Lyons at bedside after patient returned. See updated orders.
--- NOTE | 2023-07-24 13:00 | CON.NEURO4 ---
Addendum entered and electronically signed by Sukumar Lyons MD 07/24/23 14:24:
Studies reviewed.
I have personally examined the patient. I reviewed and agree with the SENIOR PRINCIPAL's Note.
My addenda:
Awake, alert, interactive. No acute distress.
Speech intact.
Follows 2-step requests w/ difficulty. No tremor.
Extra-ocular movements grossly intact.
Facial movements full and symmetric. Hearing intact to normal conversational volume.
Normal UE movements variable attempts to lift the RUE.
Neck: full ROM.
Chest: no dyspnea
Heart: no JVD
Ext: (-) Clubbing, (-) Cyanosis, (-) Edema
IMPRESSIONS/RECOMMENDATIONS:
Abrupt onset of right-sided weakness with aphasia
DDX: TIA, dementia
check MRI of brain with and without contrast ? thyroid met to brain
continue current anticoagulation as patient's symptoms have largely resolved
permissive HTN < 220/120
start Atorvastatin
check blood work for causes for dementia
supportive care for dementia
Rehab evaluations
consider if appropriate Vascular surgery evaluation for 80% GILES stenosis which is asymptomatic
D/W patient / family / nursing
Will continue to follow patient.
Original Note:
Documented by User: Kassie Aden NP 07/24/23 14:13
Consultation - Neurology 4
-
CONSULTING PHYSICIAN: Sukumar Lyons MD
REFERRING PHYSICIAN: Hospitalists/Dr. Kilpatrick
DICTATED BY: TASHI Hernandez
DATE/TIME OF REQUEST: 07/24/23
DATE/TIME OF CONSULTATION: 07/24/23
Reason for Consultation: Stroke Alert
History of Present Illness:
This is an 87-year-old female with a PMH of dementia, left conway radiata/basal ganglia ischemic stroke, HTN, CHF, COPD, IDDM, and ABEBE who has presented to the hospital on 07/20/23 from [facility] with report of respiratory distress. She
was recently hospitalized at [facility] for pneumonia. She was treated with antibiotics/steroids and discharged to rehab at [facility]. Patient is a poor historian and this information is obtained trough medical records. ER VS: 102.8 F, HR 83, BP
147/54, RR 34, 95% BiPAP. ER Labs: WBC 20.4, CO2 53, NA 132, Cr 1.2, glucose 281, Pro-BNP 3510. BLE cellulitis noted. Patient was newly found to be in Afib in the ER and her daily aspirin 81mg was stopped and changed to Eliquis 5mg BID starting the
evening of 07/21/23. Per nursing staff, the patient has been pleasantly confused and ambulatory since admission.
Today (07/24/23) at 1240, nursing staff noted that the patient acutely became nonverbal with right-sided hemiparesis. A stroke alert was activated. On transfer to CT scan, patient began speaking again and moving her RUE 2/5, RLE 3+/5. CT head was
obtained and demonstrates and old left conway radiata/basal ganglia ischemic infarct but is negative fro any acute findings. CTA head/neck is suggestive of 80% R ICA stenosis, <50% L ICA stenosis, left OBSTETRICIAN, a 6cm R thyroid lesion consistent
with a cyst vs malignancy, and multiple enlarged lymph nodes in the mediastinum. At 1310, patient had return of normal strength in the RLE, and RUE strength increased to 3+/5. NIHSS is a 5 due to cognition-2, RUE-2, and mild aphasia -1. She is not a
candidate for TNK or IAT due to last dose of Eliquis was this morning, rapidly improving symptoms, and no LVO for clot retrieval.
Past Medical History: Chronic left conway radiata/basal ganglia ischemic infarct, newly found Afib, HTN, CHF, IDDM, COPD, ABEBE (cpap), dementia, pneumonia
Surgical History: CABG
Family History: Reviewed and noncontributory.
Social History: Former smoker. Denies alcohol and illicit drug use.
Allergies: No known allergies.
Home Medications: See below.
Review of Symptoms:
Per the HPI. I am unable to obtain a complete review of systems�because of patient's inability to provide history.
Physical Exam:
The patient is afebrile, abdomen is nondistended, breathing is unlabored, BLE pink/warm, +2 BLE edema.
NIH Stroke Scale:
I performed the NIH stroke scale on the patient on 07/24/23 at 1320. The patient scored 5 points on the NIH stroke scale assessment, which were assigned as follows: See below.
Neurologic Examination:
The patient is awake, alert and oriented x 3. She is able to follow commands and answer questions appropriately. There is no aphasia or dysarthria. On cranial nerve assessment, pupils are 3 mm bilateral, round and reactive to light and
accommodation. Visual zacarias are full. Extraocular movements are intact. Facial sensations are intact and bilaterally symmetrical, there is no facial asymmetry. Hearing is intact bilaterally to normal conversation volume. Tongue palate and uvula
are midline. Sternocleidomastoid strengths are full bilaterally. Motor strengths are 5/5 bilateral upper and lower extremities on medical research [place] scale. There is no drift or involuntary movement noted. Deep tendon reflexes are 2+ bilateral
upper and lower extremities and Babinski is absent bilaterally. Sensations of pain, touch, temperature and vibration are intact and bilaterally symmetrical. There was no extinction noted on double simultaneous stimulation. Coordination is intact by
finger to nose bilaterally.
Lab Results: See below.
Neuro Imaging:
1. CT Head 07/24/23: No acute intracranial process. No hemorrhage. Moderate diffuse volume loss. Moderate leukoaraiosis. Old previous left conway radiata and basal ganglia infarct.
2. CTA Head/Neck 07/24/23:
NECK CTA: There is 80% stenosis of the origin of the right ICA. Less than 50% stenosis of the left ICA. Dominant right vertebral artery, diminutive left vertebral artery. These are patent and form a normal caliber basilar artery. The basilar artery
terminates in the right posterior cerebral artery.
HEAD CTA:No focal stenosis or aneurysm. No filling defect. origin of the left posterior cerebral artery from the left ICA.
Large nearly 6 cm rim-enhancing hypodense lobulated lesion extending from the posterior aspect of the inferior right thyroid, extending into the superior mediastinum. This is most consistent with a cystic lesion from the right lobe of the thyroid,
malignancy to be excluded. This displaces the great vessels. There are multiple enlarged lymph nodes in the mediastinum, most consistent with malignancy. Follow-up with thyroid ultrasound and Chest CT is recommended when patient is able.
Differentials for the patient's presentation include:
1. Acute small left hemisphere ischemic infarct vs TIA. Etiology likely cardioembolic given new onset Afib.
2. Dementia
3. Encephalopathy in the setting of pneumonia, CHF, cellulitis, hospitalization.
4. R thyroid lesion with concern for primary neoplasm.
Patient has the following risk factors for their symptoms: New Afib, HTN, age, dementia, infection
IV Tenecteplase/IAT candidacy: NIHSS<6, no LVO, Eliquis dose today.
Recommendations:
-Continue Eliquis 5mg BID.
-Permissive hypertension SBP<220, DBP<120 until 07/25/23 at 1240, then goal normotension.
-MRI brain with and w/o contrast ordered/pending, with contrast due to concern for possible malignancy.
-LDL goal <70. Lipid panel pending. Initiate atorvastatin 40mg daily.
-Goal normoglycemia, hbA1c is 7.7.
-NIHSS and neurological checks per unit guidelines.
-Provide patient/family with stroke education packet.
-PT/OT/ST evaluations
-Avoid sedating medications. Encourage daytime sunlight exposure/limit napping to promote normal sleep cycles/avoid delirium.
-Thyroid nodule workup per Hospitalists service.
-DVT prophylaxis
-Will follow pending results.
Discussed patient care with: Dr. Lyons, Dr. Kilpatrick, nursing staff, patient, patient's son
Vital Signs and Labs
-
Vital Signs and Labs:
Vital Signs
Temp Pulse Resp BP Pulse Ox
98.3 F 78 22 112/99 92
07/24/23 11:02 07/24/23 11:06 07/24/23 11:06 07/24/23 08:31 07/24/23 11:06
Lab Results
07/24/23 04:14
07/24/23 04:14
PT 14.0 Sec (11.4-14.6) 07/20/23 20:51
INR 1.06 07/20/23 20:51
APTT Cancelled 07/21/23 12:15
Sodium 133 mmol/L (135-145) L 07/24/23 04:14
Potassium 4.7 mmol/L (3.5-5.1) 07/24/23 04:14
BUN 47 mg/dl (7-17) H 07/24/23 04:14
Glucose 121 mg/dl (70-99) H 07/24/23 04:14
Calcium 9.1 mg/dl (8.4-10.2) 07/24/23 04:14
Clp-J-Acvtywylurl Pept 3510 pg/ml 07/20/23 16:47
Medications
-
Active Medications
Generic Name Dose Route Start Last Admin
Trade Name Freq PRN Reason Stop Dose Admin
Acetaminophen 650 mg 07/24/23 13:02
Acetaminophen 325 Mg Tablet PO 08/21/23 13:01
Q4HPRN PRN
ZAMORANO, mild pain, or temp >100.4F
Albuterol Sulfate 2.5 mg 07/20/23 20:00 07/24/23 11:04
Albuterol Nebs 2.5 Mg/3 Ml Ampul INH 08/17/23 19:59 2.5 mg
R QID DAVIAN Administration
Albuterol/Ipratropium 3 ml 07/20/23 19:20
Ipratropium 0.5/Albuterol 3 Mg (3 Ml Ampul) INH 08/17/23 19:19
R Q4HPRN PRN
sob
Protocol
Apixaban 5 mg 07/21/23 20:00 07/24/23 08:30
Apixaban (Eliquis) 5 Mg Tablet PO 08/18/23 19:59 5 mg
BID DAVIAN Administration
Artificial Tears 1 drops 07/20/23 20:00 07/24/23 08:31
Artificial Tears Pf (Refresh) 10 Drop Droperette BOTH EYES 08/17/23 19:59 1 drops
BID DAVIAN Administration
Budesonide 0.5 mg 07/20/23 20:00 07/24/23 07:44
Budesonide (Pulmicort Respules) 0.5 Mg/2 Ml INH 08/17/23 19:59 0.5 mg
R BID DAVIAN Administration
Protocol
Dextrose 12.5 grams 07/20/23 21:20
Dextrose 50% (0.5 Grams/Ml) 50 Ml Syringe IV 08/17/23 21:19
[id number] PRN
hypoglycemia
Protocol
Furosemide 40 mg 07/21/23 08:00 07/24/23 08:31
Furosemide 40 Mg (10 Mg/Ml) 4 Ml Vial IV 08/18/23 07:59 40 mg
BID AT 0800,1600 DAVIAN Administration
Gabapentin 200 mg 07/21/23 08:00 07/24/23 08:30
Gabapentin 100 Mg Capsule PO 08/18/23 07:59 200 mg
DAILY DAVIAN Administration
Glucagon 1 mg 07/20/23 21:20
Glucagon 1 Mg Vial IM 08/17/23 21:19
PRN PRN
hypoglycemia
Protocol
Guaifenesin 200 mg 07/20/23 19:20 07/23/23 08:16
Guaifenesin Oral Solution (200 Mg/10 Ml) Cup PO 08/17/23 19:19 200 mg
Q6HPRN PRN Administration
cough
Insulin Glargine 8 units/ 0.08 mls @ 0 mls/hr 07/20/23 22:00 07/23/23 22:46
Device SC 08/17/23 21:59 0.08 mls
HS DAVIAN Administration
As Directed
Insulin Aspart 0 units 07/21/23 07:30 07/24/23 11:56
Insulin Aspart Moderate Resistance 300 Units/3 Ml Pen.Injctr SC 08/18/23 07:29 Not Given
AC DAVIAN
Protocol
Magnesium Oxide 500 mg 07/20/23 20:00 07/24/23 08:30
Magnesium Oxide 500 Mg Tablet PO 08/17/23 19:59 500 mg
BID DAVIAN Administration
Miconazole Nitrate 0 applic 07/20/23 20:00 07/24/23 08:31
Miconazole Powder Bottle TOPICAL 08/17/23 19:59 1 applic
BID DAVIAN Administration
Montelukast Sodium 10 mg 07/21/23 08:00 07/24/23 08:30
Montelukast Sodium 10 Mg Tablet PO 08/18/23 07:59 10 mg
DAILY DAVIAN Administration
Nebivolol 2.5 mg 07/21/23 08:00 07/24/23 08:30
Nebivolol Hcl 2.5 Mg Tablet PO 08/18/23 07:59 2.5 mg
DAILY DAVIAN Administration
Simethicone 80 mg 07/20/23 19:40
Simethicone 80 Mg Chewable Tablet PO 08/17/23 19:39
Q6HPRN PRN
gas
Sodium Chloride 0 flush 07/20/23 20:00
Sodium Chloride 0.9% (Flush) Syringe IV 08/17/23 19:59
PER PROTOCOL DAVIAN
Sterile Water 10 ml 07/21/23 06:00 07/24/23 05:30
Sterile Water For Injection 10 Ml Vial IV 08/18/23 05:59 10 ml
Q12H DAVIAN Administration
Home Medications
Medication Instructions Recorded
Voltaren 1 applic topical Q12H apply to 07/20/23
left shoulder/left hip
acetaminophen 325 mg tablet 650 mg PO Q6H PRN temp>100 07/20/23
(Tylenol)
albuterol sulfate 90 mcg/actuation 2 puff inhalation R Q4HPRN PRN sob 07/20/23
aerosol inhaler
amlodipine 5 mg tablet 5 mg PO DAILY Blood Pressure 07/20/23
arformoterol 15 mcg/2 mL solution 2 ml inhalation R BID 07/20/23
for nebulization Lung/Breathing Issues
aspirin 81 mg tablet,delayed 81 mg PO DAILY Blood Clot 07/20/23
release Prevention/Tx
banana 1 ea PO Q4HPRN PRN diarrhea 07/20/23
flakes-transgalactooligosaccharide
oral powder packet (Banatrol Plus
oral powder packet)
bisacodyl 10 mg rectal suppository 10 mg OR DAILY PRN if MOM 07/20/23
(Dulcolax (bisacodyl)) ineffective
bisacodyl 5 mg tablet,delayed 10 mg PO DAILYPRN PRN constipation 07/20/23
release
budesonide 0.5 mg/2 mL suspension 0.5 mg inhalation R BID 07/20/23
for nebulization Lung/Breathing Issues
carboxymethylcellulose sodium 1 % 1 drp BOTH EYES BID dry eyes 07/20/23
eye drops
fluticasone propionate 50 1 spray intranasal [id number] PRN 07/20/23
mcg/actuation nasal nasal allergy/congestion
spray,suspension (Flonase Allergy
Relief)
gabapentin 100 mg capsule 200 mg PO DAILY Neurological 07/20/23
Condition
guaifenesin 100 mg/5 mL oral liquid 200 mg PO Q6HPRN PRN cough 07/20/23
guaifenesin 400 mg tablet 400 mg PO Q6HPRN PRN cough 07/20/23
guaifenesin 400 mg tablet 800 mg PO Q12H Cough 07/20/23
hydralazine 10 mg tablet 10 mg PO Q8H Blood Pressure 07/20/23
hydralazine 25 mg tablet 25 mg PO Q8HPRN PRN if SBP>150 07/20/23
insulin glargine 100 unit/mL (3 8 unit SC HS Diabetes 07/20/23
mL) subcutaneous pen (Basaglar
KwikPen U-100 Insulin)
ipratropium 0.5 mg-albuterol 3 mg 3 ml inhalation R Q4HPRN PRN sob 07/20/23
(2.5 mg base)/3 mL nebulization
soln
loratadine 10 mg tablet 10 mg PO DAILY Allergies 07/20/23
magnesium hydroxide 400 mg/5 mL 30 ml PO DAILY PRN if no BM x 3 07/20/23
oral suspension (Milk of Magnesia) days
magnesium oxide 400 mg PO BID Electrolyte Repletion 07/20/23
montelukast 10 mg tablet 10 mg PO DAILY Allergies 07/20/23
multivitamin 1 tab PO DAILY Supplement 07/20/23
nebivolol 2.5 mg tablet 2.5 mg PO DAILY Blood Pressure 07/20/23
nystatin 100,000 unit/gram topical 1 applic topical BID apply to abd 07/20/23
powder fold,breasts,groin
oxycodone 5 mg tablet 5 mg PO Q6H PRN moderate pain 07/20/23
phenylephrine 0.25 %-mineral oil 1 applic OR Q8HPRN PRN hemorrhoids 07/20/23
14 %-petrolatm 74.9 % rectal
ointment (Preparation H)
polyethylene glycol 3350 17 gram 17 g PO DAILY PRN constipation 07/20/23
oral powder packet
simethicone 80 mg tablet 80 mg PO Q6HPRN PRN gas 07/20/23
sodium phosphates 19 gram-7 118 ml OR DAILYPRN PRN if dulcolax 07/20/23
gram/118 mL enema (Fleet Enema) ineffective
torsemide 20 mg tablet 20 mg PO DAILY Fluid 07/20/23
Retention/Swelling
witch theodora 50 % topical pads 1 pad topical Q8HPRN PRN apply to 07/20/23
(Preparation H ([place])) rectum
NIH Stroke Score
Subsequent NIH Scale
Date of Subsequent NIH Scale: 07/24/23
Time of Subsequent NIH Scale: 13:20
NIH Stroke Score
Level of Consciousness: 0 - Alert
LOC Questions: 2-Neither correct
LOC Commands: 0-Performs both correctly
Best Horizontal Gaze: 0-Normal
Visual Zacarias: 0=Normal, no visual loss
Facial Palsy: 0=Normal, symmetrical
Motor - Right Arm: 2=Partial vs. gravity
Motor - Left Arm: 0=No drift 10 seconds
Motor - Right Le-No drift 5 seconds
Motor - Left Le-No drift 5 seconds
Limb Ataxia: 0-Absent
Sensation: 0-Normal
Best Language: 1-Mild aphasia
Dysarthria: 0-Normal
Extinction and Inattention: 0-No abnormality
Total Score:: 5

Documented by User: Sukumar Lyons MD 07/24/23 14:17
NIH Stroke Score
NIH Stroke Score
Total Score:: 5
--- NOTE | 2023-07-24 14:38 | PTCARENOTE ---
Pt levi to high 76 O2 to 10 liters no response non rebreather to 15 liters pox to 100%
--- NOTE | 2023-07-24 14:40 | PTCARENOTE ---
Now on 6 liters O2at 93% pox
[2023-07-24 14:50] LABS: HDL Cholesterol 47 mg/dl; LDL Cholesterol, Calculated 91 mg/dl; Total Cholesterol 161 mg/dl (50-199); Triglyceride 118 mg/dl (10-149); Very Low Density Lipoprotein 23 mg/dl (0-30)
--- NOTE | 2023-07-24 15:30 | PTCARENOTE ---
This nurse was updated by RN who was covering patient: POx dropped to the 70s and patient's lower face was zheng in color. Respiratory therapist in to assess and increased patient to 8L midflow. MRI then called for patient. At that time POx 88-89%.
occasionally 91%. Reviewed with Dr Kilpatrikc who instructed to postpone MRI until tomorrow. Son returned to patient's room and updated. He then informed this nurse that patient has not been able to have MRI in the past d/t claustrophobia. He stated
they wanted to do one at [facility] for 'something in her neck' but patient refused. He then called his sister who stated that when patient was in a hospital at [place], physician there wanted to do an MRI d/t 'she was acting goofy' and they
thought she was having TIAs. This nurse notified Dr Lyons via tiger text. POx 91-92% on 8L midflow.
--- NOTE | 2023-07-24 16:16 | W.PN.UPDATE ---
Update Note
Progress Note Update
Seen and examined with VIRGINIA Jasso. See full consultation note. Briefly, 87-year-old female with extensive medical history including diabetes, mild dementia, coronary artery disease. She has a history of a CABG about 15 years ago in [place]. No
history of prior strokes. Admitted here with shortness of breath. Earlier today rapid code was called on her secondary to change in overall mental status, lethargy. Perceived right arm weakness possibly as well. Seen by neurology. CT scan
ordered. Right carotid stenosis identified. Therefore we were consulted. I am unable to obtain a history from the patient. She is somewhat lethargic and sleeping. She arouses when I wake her up, but she immediately falls back asleep. I
therefore spoke to her son who is here, and he connected me to his sister who helped with her care in [place] in the past. I discussed extensively with them the findings on the CT scan which I reviewed carefully. She does have a high-grade right
internal carotid artery stenosis that extends fully for about 2 cm beyond the bifurcation. Very medial course of the internal carotid artery distally and is fairly high bifurcation. Discussed with them that based on her presentation, seems like
she is asymptomatic to this carotid finding. Reviewed neurology note which indicates that right internal carotid artery stenosis is likely asymptomatic. Based on asymptomatic status, advanced age, medical comorbidities, limited overall activity
level, as well as the indication by patient's son and daughter that she is DNR and based on their interpretation would not wish for any further surgery such as carotid revascularization, no real indication for surgical revascularization at this
point. In addition, I would not really offer her surgery based on all these risk factors. Recommend continue conservative management with best medical therapy. If felt to be symptomatic, can reconsult, but even in that setting she may not be a
reasonable surgical candidate. I do not think stenting is necessary as well for the same reasons. Son and daughter were appreciative of her extensive discussion.
[2023-07-24 16:29] LABS: Folate 10.7 ng/ml (2.76-20); Vitamin B12 332 pg/ml (239-931)
--- NOTE | 2023-07-24 16:38 | CON.VAS ---
Consultation
Consultation Request
Performing Provider: Rod
Reason for Consultation: Carotid stenosis
Medical History
-
Chief Complaint: SOB
History of Present Illness:
87-year-old female with extensive medical history including diabetes, mild dementia, coronary artery disease.� She has a history of a CABG about 15 years ago in [place].� No history of prior strokes.� Admitted here with shortness of breath.� Earlier
today rapid code was called on her secondary to change in overall mental status, lethargy.� Perceived right arm weakness possibly as well.� Seen by neurology.� CT scan ordered.� Right carotid stenosis identified.� Therefore we were consulted.� I am
unable to obtain a history from the patient.� She is somewhat lethargic and sleeping.� She arouses when I wake her up, but she immediately falls back asleep.� I therefore spoke to her son who is here, and he connected me to his sister who helped
with her care in [place] in the past.� I discussed extensively with them the findings on the CT scan which I reviewed carefully.� She does have a high-grade right internal carotid artery stenosis that extends fully for about 2 cm beyond the
bifurcation.� Very medial course of the internal carotid artery distally and is fairly high bifurcation.� Discussed with them that based on her presentation, seems like she is asymptomatic to this carotid finding.� Reviewed neurology note which
indicates that right internal carotid artery stenosis is likely asymptomatic.� Based on asymptomatic status, advanced age, medical comorbidities, limited overall activity level, as well as the indication by patient's son and daughter that she is DNR
and based on their interpretation would not wish for any further surgery such as carotid revascularization, no real indication for surgical revascularization at this point.� In addition, I would not really offer her surgery based on all these risk
factors.� Recommend continue conservative management with best medical therapy.� If felt to be symptomatic, can reconsult, but even in that setting she may not be a reasonable surgical candidate.� I do not think stenting is necessary as well for the
same reasons.� Son and daughter were appreciative of her extensive discussion.
Past Medical History
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
Past Surgical History: Cardiac (CABG)
Social History
Tobacco: Former Smoker
Alcohol: None
Drug: None
Living: Long-Term
Family History
Family History: CAD
Allergies / Home Medications
Allergy/AdvReac Type Severity Reaction Status Date / Time
No Known Allergies Allergy Verified 07/20/23 18:05
Medication Instructions Recorded Confirmed Type
Voltaren 1 applic topical Q12H apply to 07/20/23 07/20/23 History
left shoulder/left hip
acetaminophen 325 mg tablet 650 mg PO Q6H PRN temp>100 07/20/23 07/20/23 History
(Tylenol)
albuterol sulfate 90 mcg/actuation 2 puff inhalation R Q4HPRN PRN sob 07/20/23 07/20/23 History
aerosol inhaler
amlodipine 5 mg tablet 5 mg PO DAILY Blood Pressure 07/20/23 07/20/23 History
arformoterol 15 mcg/2 mL solution 2 ml inhalation R BID 07/20/23 07/20/23 History
for nebulization Lung/Breathing Issues
aspirin 81 mg tablet,delayed 81 mg PO DAILY Blood Clot 07/20/23 07/20/23 History
release Prevention/Tx
banana 1 ea PO Q4HPRN PRN diarrhea 07/20/23 07/20/23 History
flakes-transgalactooligosaccharide
oral powder packet (Banatrol Plus
oral powder packet)
bisacodyl 10 mg rectal suppository 10 mg KS DAILY PRN if MOM 07/20/23 07/20/23 History
(Dulcolax (bisacodyl)) ineffective
bisacodyl 5 mg tablet,delayed 10 mg PO DAILYPRN PRN constipation 07/20/23 07/20/23 History
release
budesonide 0.5 mg/2 mL suspension 0.5 mg inhalation R BID 07/20/23 07/20/23 History
for nebulization Lung/Breathing Issues
carboxymethylcellulose sodium 1 % 1 drp BOTH EYES BID dry eyes 07/20/23 07/20/23 History
eye drops
fluticasone propionate 50 1 spray intranasal [id number] PRN 07/20/23 07/20/23 History
mcg/actuation nasal nasal allergy/congestion
spray,suspension (Flonase Allergy
Relief)
gabapentin 100 mg capsule 200 mg PO DAILY Neurological 07/20/23 07/20/23 History
Condition
guaifenesin 100 mg/5 mL oral liquid 200 mg PO Q6HPRN PRN cough 07/20/23 07/20/23 History
guaifenesin 400 mg tablet 400 mg PO Q6HPRN PRN cough 07/20/23 07/20/23 History
guaifenesin 400 mg tablet 800 mg PO Q12H Cough 07/20/23 07/20/23 History
hydralazine 10 mg tablet 10 mg PO Q8H Blood Pressure 07/20/23 07/20/23 History
hydralazine 25 mg tablet 25 mg PO Q8HPRN PRN if SBP>150 07/20/23 07/20/23 History
insulin glargine 100 unit/mL (3 8 unit SC HS Diabetes 07/20/23 07/20/23 History
mL) subcutaneous pen (Basaglar
KwikPen U-100 Insulin)
ipratropium 0.5 mg-albuterol 3 mg 3 ml inhalation R Q4HPRN PRN sob 07/20/23 07/20/23 History
(2.5 mg base)/3 mL nebulization
soln
loratadine 10 mg tablet 10 mg PO DAILY Allergies 07/20/23 07/20/23 History
magnesium hydroxide 400 mg/5 mL 30 ml PO DAILY PRN if no BM x 3 07/20/23 07/20/23 History
oral suspension (Milk of Magnesia) days
magnesium oxide 400 mg PO BID Electrolyte Repletion 07/20/23 07/20/23 History
montelukast 10 mg tablet 10 mg PO DAILY Allergies 07/20/23 07/20/23 History
multivitamin 1 tab PO DAILY Supplement 07/20/23 07/20/23 History
nebivolol 2.5 mg tablet 2.5 mg PO DAILY Blood Pressure 07/20/23 07/20/23 History
nystatin 100,000 unit/gram topical 1 applic topical BID apply to abd 07/20/23 07/20/23 History
powder fold,breasts,groin
oxycodone 5 mg tablet 5 mg PO Q6H PRN moderate pain 07/20/23 07/20/23 History
phenylephrine 0.25 %-mineral oil 1 applic KS Q8HPRN PRN hemorrhoids 07/20/23 07/20/23 History
14 %-petrolatm 74.9 % rectal
ointment (Preparation H)
polyethylene glycol 3350 17 gram 17 g PO DAILY PRN constipation 07/20/23 07/20/23 History
oral powder packet
simethicone 80 mg tablet 80 mg PO Q6HPRN PRN gas 07/20/23 07/20/23 History
sodium phosphates 19 gram-7 118 ml KS DAILYPRN PRN if dulcolax 07/20/23 07/20/23 History
gram/118 mL enema (Fleet Enema) ineffective
torsemide 20 mg tablet 20 mg PO DAILY Fluid 07/20/23 07/20/23 History
Retention/Swelling
witch rena 50 % topical pads 1 pad topical Q8HPRN PRN apply to 07/20/23 07/20/23 History
(Preparation H (Witch Rena)) rectum
Review of Systems
-
Unable to obtain full review of systems at this time due to: Patient Non Verbal
Physical Exam
Vital Signs
Temp Pulse Resp BP Pulse Ox
98.6 F 77 20 113/56 92
07/24/23 15:08 07/24/23 15:31 07/24/23 15:31 07/24/23 14:02 07/24/23 15:31
Lab Results
07/24/23 04:14
07/24/23 04:14
Troponin I Cancelled 07/21/23 09:20
[id number] Pept 3510 pg/ml 07/20/23 16:47
Physical Exam
General: No Apparent Distress
HEENT: Normocephalic and Atraumatic
Respiratory: Non Labored Respirations (10L high flow)
Cardiac: Negative JVD
GI: Soft, Non Tender and Non Distended
Musculoskeletal: No Clubbing and No Cyanosis
Skin: Warm
Neuro: Other (sedate appearing)
Psych: Calm
Assessment / Plan
-
I discussed extensively with them the findings on the CT scan which I reviewed carefully.� She does have a high-grade right internal carotid artery stenosis that extends fully for about 2 cm beyond the bifurcation.� Very medial course of the
internal carotid artery distally and is fairly high bifurcation.� Discussed with them that based on her presentation, seems like she is asymptomatic to this carotid finding.� Reviewed neurology note which indicates that right internal carotid artery
stenosis is likely asymptomatic.� Based on asymptomatic status, advanced age, medical comorbidities, limited overall activity level, as well as the indication by patient's son and daughter that she is DNR and based on their interpretation would not
wish for any further surgery such as carotid revascularization, no real indication for surgical revascularization at this point.� In addition, I would not really offer her surgery based on all these risk factors.� Recommend continue conservative
management with best medical therapy.� If felt to be symptomatic, can reconsult, but even in that setting she may not be a reasonable surgical candidate.� I do not think stenting is necessary as well for the same reasons.� Son and daughter were
appreciative of her extensive discussion.
[2023-07-24 17:09] LABS: Glucose - Point of Care 93 mg/dl (70-99)
[2023-07-24] MEDS: STERILE WATER FOR INJECTION IV (17:25)
[2023-07-24] MEDS: MAGNESIUM OXIDE PO (19:41)
[2023-07-24] MEDS: ELIQUIS PO (19:41)
[2023-07-24 21:38] LABS: Glucose - Point of Care 101 mg/dl (70-99)
--- NOTE | 2023-07-24 22:01 | W.PN.UPDATE ---
Update Note
Progress Note Update
Reported by the nursing staff slightly increase of NIH score from the previous score that was given during the day. On assessment time, vital signs within normal limits. Patient was on Bipap machine, she is alert and was able to answer where she is
correctly then when the nurse repeated the question, patient seem to be thinking and not providing answer and giggling at some of the questions. Facial sensations are intact and B/L symmetrical, B/L pupils are reactive to light. She will not touch
her nose when asked to, but in few second after patient will try to reach her face to remove the Bipap mask. Not able to get accurate NIH score at this point as the patient is not following directions. Spoke to the daughter/Kamini over the phone who
would like/ agreed to wait for the MRI in am when the patient`s stabilized and her condition allows MRI to be done.
[2023-07-24] MEDS: LANTUS 0.0800000000000000017 UNITS SC (23:37)
[2023-07-25] VITALS (13 sets, daily range): BP systolic 82–133; BP diastolic 40–66; BMI 32.9
--- NOTE | 2023-07-25 04:58 | PTCARENOTE ---
Received pt from [facility]. Pt arousable but very lethargic. Pt unable to tell me her name, where she is at first, or what year it is. Difficult to determine what pt can/can't do vs not understanding what I am asking her to do in regard to the
NIHSS. Pt alternates between falling asleep while speaking to her to giggling. HOSPITALITY SERVICES MANAGER notified of increased changes in NIHSS. No new orders at this time. Pt appears to be very comfortable in the bed. Pt placed on BiPAP early in shift d/t lethargy
and has been worn throughout the night. Pt able to turn self in bed PRN while sleeping.
[2023-07-25 05:18] LABS: Hematocrit 39.5 % (37.0-47.0); Hemoglobin 12.7 g/dL (12.0-16.0); Mean Corp Hgb Conc. 32.2 g/dL (33.0-37.0); Mean Corpuscular Hgb 27.1 pg (27.0-31.0); Mean Corpuscular Volume 84.4 fL (81.0-99.0); Platelet Count 206 10^3/uL (130-400); Red Blood Cell Count 4.68 10^6/uL (4.20-5.40); Red Cell Dist. Width 15.5 % (11.5-14.5); White Blood Cell Count 8.3 10^3/uL (4.8-10.8)
[2023-07-25 05:41] LABS: Blood Urea Nitrogen 44 mg/dl (7-17); Carbon Dioxide 40 mmol/L (22-30); Chloride 95 mmol/L (98-107); Estimated Creatinine Clearance 31 ml/min; Glucose 68 mg/dl (70-99); HDL Cholesterol 40 mg/dl; LDL Cholesterol, Calculated 103 mg/dl; Sodium 136 mmol/L (135-145); Total Cholesterol 166 mg/dl (50-199); Triglyceride 117 mg/dl (10-149); Very Low Density Lipoprotein 23 mg/dl (0-30); eGFR 44.36
[2023-07-25] MEDS: STERILE WATER FOR INJECTION IV (06:08)
[2023-07-25 06:18] LABS: Glucose - Point of Care 75 mg/dl (70-99)
--- NOTE | 2023-07-25 06:40 | W.PN.HOSP.TC ---
Today's Communication/Plan
-
Had lengthy discussion with the patient's son Jonathon and also the patient's power of calibration checker daughter Kamini who is out in [facility] have explained present situation with advanced hypoxia and need for BiPAP and doubt she would do well down an
MRI and would only add information we may already know she has had previous experiences with MRI as it made her extremely claustrophobic and anxious gave her the opinion based on her DNR status and what appears to be an advanced malignancy involving
her thyroid now involving the great vessels also may be contributing to her respiratory issues are concerned about read to pursue comfort care and will consult hospice
Assessment / Plan
Assessment / Plan
HEENT: Normocephalic
Cardiovascular: S1/S2 and Murmur
GI: Soft and Non Distended
Neurology: Awake and Alert
Skin: Warm
General: Respiratory Distress (n), CTAB
87-year-old female sent from [facility] for evaluation of the shortness of breath and hypoxia which likely secondary to combination of acute on chronic congestive heart failure exacerbation was likely pneumonia even procalcitonin is only
negative, at the initial look like there is a cellulitis of the lower extremities.
Sudden onset of right-sided weakness and aphasia
-Initially transient after rapid response yesterday and now has persisted throughout the night/present NIH score of 9 is increased overnight
-Hypoxia and presently on BiPAP
-CT of the head did not show any bleed/
-CTA of the brain showed over 80% right internal carotid stenosis felt to be not related to present event/evaluated by vascular surgery/not a candidate for intervention after discussion with family
-MRI pending from last night as was postponed due to acute hypoxia and instability
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
-Changes in further NIH scoring overnight and speaking to daughter did not want to repeat CT imaging will need to discuss goals of care as patient is DNR and presently on BiPAP
-Has been maintained on apixaban anticoagulation/intense dose statin
#Acute Hypoxic Respiratory Failure
#Chronic hypercapnic respiratory failure
#Acute on Chronic HF (Unknown Type)
#Dyspnea
-Resp status greatly improved with Diuresis
-Cont IV lasix BID
-ECHO /showed EF of 60% with moderate to severe aortic stenosis with a valve area of 0.8
-Empiric Abx were discontinued due to to low suspicion for ongoing infection
-Appreciate Pulm/Cards
-F/u Sputum Cultures remain negative
#COPD
#ABEBE v [facility]
-BiPAP at night
-DUonebs, Budesonide
#Bacteruria?/urine culture was normal
#?Pneumonia/chest x-ray showed interstitial opacification possibly consistent with edema versus pneumonitis(procalcitonin however was normal on presentation)
#? Lower extremity cellulitis/may be more in keeping with stasis changes causing redness and tenderness from edema
-see plan above
-abx
-MRSA screen was positive
-F/u cultures
� Since there was rapid improvement with diuresis, I favor this most likely can have de-escalation antibiotics in the next 24 to 48 hours
-White count down to 12.6 would favor discontinuation of antibiotic by tomorrow/recheck of CBC now shows no leukocytosis we will discontinue antibiotics and monitor
#Hypertension
#CAD s/p CABG
-Transition to NOAC
Continue beta-jeferson/statin
#Atrial fibrillation
� Begin apixaban 5 mg p.o. twice daily
� Stop aspirin
#Diabetes
Continue Lantus
#DVT prophylaxis
� Eliquis
Total time spent on today's encounter was 51 minutes which included time spent in counseling the patient/family regarding diagnosis and treatment plan as listed above, goals of care, and symptom management. Case was discussed with nursing staff,
specialists, and care coordinators/case management. All labs and imaging personally reviewed by me. Remainder the time spent in detailed review of previous records, lab data, imaging, and other medical provider documentation.
Had lengthy discussion with the patient's son Jonathon and also the patient's power of calibration checker daughter Kamini who is out in [facility] have explained present situation with advanced hypoxia and need for BiPAP and doubt she would do well down an
MRI and would only add information we may already know she has had previous experiences with MRI as it made her extremely claustrophobic and anxious gave her the opinion based on her DNR status and what appears to be an advanced malignancy involving
her thyroid now involving the great vessels also may be contributing to her respiratory issues are concerned about read to pursue comfort care and will consult hospice
Anticipated Discharge: Within 24 hours
Subjective/Interval History
-
Date of Service: July 25, 2023
Remains lethargic and somnolent he is able to arouse but goes right back to sleep was on BiPAP throughout the night developed hypoxia prior to scheduled MRI yesterday evening was postponed till today she continues to be hypoxic throughout the night
and now seems to have also retained loss of function in the right side
Objective Data
-
Labs:
Laboratory Results
07/25/23
04:43
WBC 8.3
Hgb 12.7
Hct 39.5
Plt Count 206
Sodium 136
Potassium 4.0
Chloride 95 L
Carbon Dioxide 40 H
BUN 44 H
Creatinine 1.2 H
Glucose 68 L
Calcium 9.0
Vital Signs:
Vital Signs
Temp Pulse Resp BP Pulse Ox
97.6 F 54 16 123/45 100
07/25/23 05:07 07/25/23 04:00 07/25/23 04:00 07/25/23 04:00 07/25/23 04:00
I&O
07/23/23 07/24/23 07/25/23
06:59 06:59 06:59
Intake Total 100 / 100 600 / 600 120 / 120
Output Total 3300 / 3300 2750 / 2750 2200 / 2200
Balance -3200 / -3200 -2150 / -215 -2079 / -2079
Review of Systems
-
Unable to obtain full review of systems at this time due to: Dementia
History Source: Patient and Family
Respiratory: Reports Trouble Breathing
Cardiac: Reports No Symptoms
Abdomen/GI: Reports No Symptoms
Musculoskeletal: Reports Muscle Weakness
Physical Exam
-
HEENT: Normocephalic
Respiratory: Clear to Auscultation
Cardiac: Irregular Rhythm
GI: Soft
Neuro: No Motor Deficits (Has developed facility to her right side that was transient yesterday/lethargic arouses but quickly goes back to somnolence and hypoxic)
Psych: Confused
Data Reviewed
-
Total Time Spent with Patient (in minutes): 67
Labs: Labs Reviewed by me (CBC and chemistries x-ray remained stable/except for blood sugars depressed at 68)
[2023-07-25] MEDS: VENTOLIN NEBULES 2.5 MG INH (07:45)
[2023-07-25 08:12] LABS: Glucose - Point of Care 74 mg/dl (70-99)
[2023-07-25] MEDS: BYSTOLIC PO (08:12)
[2023-07-25] MEDS: NOVOLOG FLEXPEN-MODERATE RESISTANCE SC (08:12)
--- NOTE | 2023-07-25 08:16 | W.PN.UPDATE ---
Update Note
Progress Note Update
-Patient has advanced thyroid cancer and dementia; poor candidate for TAVR.
-Patient has now been made hospice/comfort care; Lasix discontinued.
--- NOTE | 2023-07-25 09:18 | PTCARENOTE ---
Assumed care of patient at beginning of this shift from previous RN with bipap in use. Patient transferred to comfort measures as per Dr Kilpatrick after he spoke with son and daughter. Son the came in to sit with patient. Respiratory therapist
changed oxygen to 10L midflow. POx then dropped to low 80s. Reviewed drop in POx with patient's son who declined bipap to be placed as patient appeared comfortable. HR droopped to low 60s. Son requested a poultry grader come to see patient; Cris Yang,
, notiifed and up to see son.
[2023-07-25] MEDS: REFRESH EYE DROPS (PF) BOTH EYES (09:28)
[2023-07-25] MEDS: MORPHINE SULFATE 2 MG IV ×4 (09:28→23:00)
[2023-07-25] MEDS: DESENEX/MITRAZOL/ZEASORB 1 APPLIC TOPICAL ×2 (09:28→21:51)
--- NOTE | 2023-07-25 10:35 | HOSPNOTE ---
Referral received, will see patient and family.
--- NOTE | 2023-07-25 11:11 | CM ---
CM following re: discharge planning.
Reviewed pt's chart, met with pt.
Per MD patient has advanced thyroid cancer and dementia; poor candidate for TAVR. Pt is on comfort care.
Hospice care consult noted. Pt referred to hospice and [facility] operations liaison early this morning. Emotional support offered and provided to pt's family.
D/C plan: comfort care. operations liaison following.
CM is available for emotional support
--- NOTE | 2023-07-25 11:19 | CHAP ---
Emotional and spiritual support provided. Prayer blanket given. Crosscutter request relayed to Fr. Dillard, on-call .
--- NOTE | 2023-07-25 12:54 | HOSPNOTE ---
Spoke with family and they are waiting for patient's daughter to arrive this evening. They are in agreement with morpine IV for any symptom management but would like the patient to remain on 10L until the daughter arrives. Emotional support was
given. Will continue to follow.
--- NOTE | 2023-07-25 13:02 | W.PN.UPDATE ---
Update Note
Progress Note Update
Events noted, comfort care
Reconsult prn
[2023-07-25] MEDS: ATIVAN 1 MG IV (14:04)
[2023-07-25] MEDS: REFRESH EYE DROPS (PF) 1 DROPS BOTH EYES (21:51)
[2023-07-25] MEDS: LANTUS SC (21:51)
--- NOTE | 2023-07-25 23:17 | PTCARENOTE ---
Pt is comfort care. Pt is awake and talking with this RN and family at the bedside. Pt is not oriented to person/place/time but knows who her children are. Morphine and Ativan given PRN for end of life symptoms (see MAR). Weaning O2 as
tolerated. Pts daughter and son are at bedside. Pt resting comfortably in bed with call palumbo in reach.
[2023-07-26] VITALS (9 sets, daily range): BP systolic 111–127; BP diastolic 52–65
[2023-07-26] MEDS: MORPHINE SULFATE 2 MG IV ×4 (03:28→13:22)
[2023-07-26] MEDS: BYSTOLIC PO (07:37)
--- NOTE | 2023-07-26 07:38 | W.PN.HOSP.TC ---
Today's Communication/Plan
-
Although more awake had conversation with patient's daughter at bedside who came in from [address] [place] [address] in agreement for continued comfort care measures and hospice care
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
that is inoperable with continued heart failure and hypoxic
respiratory failure.
Continue comfort care and hospice designation with as needed IV morphine lorazepam and secretions management
Assessment / Plan
Assessment / Plan
HEENT: Normocephalic
Cardiovascular: S1/S2 and Murmur
GI: Soft and Non Distended
Neurology: Awake and Alert
Skin: Warm
General: Respiratory Distress (n), CTAB
87-year-old female sent from [facility] for evaluation of the shortness of breath and hypoxia which likely secondary to combination of acute on chronic congestive heart failure exacerbation was likely pneumonia even procalcitonin is only
negative, at the initial look like there is a cellulitis of the lower extremities.
Sudden onset of right-sided weakness and aphasia
-Initially transient after rapid response yesterday and now has persisted throughout the night/present NIH score of 9 is increased overnight
-Hypoxia and presently on BiPAP
-CT of the head did not show any bleed/
-CTA of the brain showed over 80% right internal carotid stenosis felt to be not related to present event/evaluated by vascular surgery/not a candidate for intervention after discussion with family
-MRI pending from last night as was postponed due to acute hypoxia and instability
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
-Changes in further NIH scoring overnight and speaking to daughter did not want to repeat CT imaging will need to discuss goals of care as patient is DNR and presently on on 6 L
-Has been maintained on apixaban anticoagulation/intense dose statin
#Acute Hypoxic Respiratory Failure
#Chronic hypercapnic respiratory failure
#Acute on Chronic HF (Unknown Type)
#Dyspnea
-Resp status greatly improved with Diuresis
-Cont IV lasix BID
-ECHO /showed EF of 60% with moderate to severe aortic stenosis with a valve area of 0.8
-Empiric Abx were discontinued due to to low suspicion for ongoing infection
-Appreciate Pulm/Cards
-F/u Sputum Cultures remain negative
#COPD
#ABEBE v OHS
-BiPAP at night
-DUonebs, Budesonide
#Bacteruria?/urine culture was normal
#?Pneumonia/chest x-ray showed interstitial opacification possibly consistent with edema versus pneumonitis(procalcitonin however was normal on presentation)
#? Lower extremity cellulitis/may be more in keeping with stasis changes causing redness and tenderness from edema
-see plan above
-abx
-MRSA screen was positive
-F/u cultures
� Since there was rapid improvement with diuresis, I favor this most likely can have de-escalation antibiotics in the next 24 to 48 hours
-White count down to 12.6 would favor discontinuation of antibiotic by tomorrow/recheck of CBC now shows no leukocytosis we will discontinue antibiotics and monitor
#Hypertension
#CAD s/p CABG
-Transition to NOAC
Continue beta-jeferson/statin
Moderate to severe aortic stenosis
-Has refused intervention in the past and not a candidate for TAVR per cardiology
#Atrial fibrillation
� Begin apixaban 5 mg p.o. twice daily/discontinued in setting of hospice care and comfort
� Stop aspirin
#Diabetes
Continue Lantus
#DVT prophylaxis
� Eliquis
Total time spent on today's encounter was 51 minutes which included time spent in counseling the patient/family regarding diagnosis and treatment plan as listed above, goals of care, and symptom management. Case was discussed with nursing staff,
specialists, and care coordinators/case management. All labs and imaging personally reviewed by me. Remainder the time spent in detailed review of previous records, lab data, imaging, and other medical provider documentation.
Had lengthy discussion with the patient's son Jonathon and also the patient's power of attorney law clerk daughter Kamini who is out in [facility] have explained present situation with advanced hypoxia and need for BiPAP and doubt she would do well down an
MRI and would only add information we may already know she has had previous experiences with MRI as it made her extremely claustrophobic and anxious gave her the opinion based on her DNR status and what appears to be an advanced malignancy involving
her thyroid now involving the great vessels also may be contributing to her respiratory issues are concerned about read to pursue comfort care and will consult hospice
Anticipated Discharge: Within 24 hours
Subjective/Interval History
-
Date of Service: July 26, 2023
Able to interact with some confusion able to move right arm against gravity but still droopy spoke to daughter who flew in from [place] inform patient of decision for comfort care and rationale.
Objective Data
-
Vital Signs:
Vital Signs
Temp Pulse Resp BP Pulse Ox
98.0 F 92 21 127/53 86
07/25/23 19:15 07/26/23 06:00 07/26/23 06:00 07/26/23 06:00 07/26/23 06:00
I&O
07/25/23 07/26/23 07/27/23
06:59 06:59 06:59
Intake Total 120 / 120
Output Total 2200 / 2200
Balance -2079 / -2079
Review of Systems
-
History Source: Patient and Family
Constitutional: Reports Fatigue and Sleep Disturbance
Respiratory: Reports Trouble Breathing
Neuro: Reports Weakness
Physical Exam
-
General: Obese
HEENT: Normocephalic
Respiratory: Crackles
Cardiac: Irregular Rhythm and Murmur
GI: Soft and Nontender
Musculoskeletal: Edema, Right Lower Extrem and Edema, Left Lower Extrem
Skin: IV Access / Catheter Site
Neuro: Awake; Negative No Motor Deficits (Although has movement in her right arm and right side 3 out of 5 strength at most confusion/remains on 6 L of oxygen)
Psych: Confused
[2023-07-26] MEDS: REFRESH EYE DROPS (PF) 1 DROPS BOTH EYES ×2 (07:41→20:23)
[2023-07-26] MEDS: DESENEX/MITRAZOL/ZEASORB 1 APPLIC TOPICAL ×2 (07:43→20:22)
--- NOTE | 2023-07-26 08:26 | PTOTSP ---
Chart reviewed. Patient has transitioned to comfort measures.
Will discharge at this time. If needs change, please re-consult.
--- NOTE | 2023-07-26 11:52 | PTCARENOTE ---
Addendum entered by Delmy Trent 07/26/23 12:27:
[facility] at beside to speak with family. Pt medicated with Morphine for respiratory distress. O2 weaned to 2L per hospice recommendation.
Original Note:
Pt awake and alert and conversant. Medicated X1 with Morphine for verbalized pain. Family members present at bedside. Pt's daughter requesting morphine again, stating she got it 'every hour overnight.' Medication administration times reviewed with
family. Pt in no visible distress, awake and chatting with family. Pt asked multiple times by this RN if she was in any discomfort which pt verbally denied. Family educated on comfort care protocols and assessment. TT to F[facility], manager mechanical-
awaiting her arrival.
--- NOTE | 2023-07-26 12:26 | HOSPNOTE ---
Saw patient who is awake and talking with family. No shortness of breath noted or pain. Patient was medicated with IV morphine prior to decreasing oxygen. The patient is now on 2L and appears to be in no distress. I spoke with family at length that
the patient will remain on comfort and the process is very different for every patient, the daughter was looking for a time frame. I told the daughter to enjoy and treasure this time with your mom and most likely she would become lethargic. Spoke
with floor RN and updated and will continue to follow and if needed will talk with family again.
--- NOTE | 2023-07-26 17:10 | PTCARENOTE ---
Report to 3W RN. Belongings collected from room. Pt transferred to via stretcher; family at bedside.
[2023-07-26] MEDS: TYLENOL 650 MG PO (20:26)
[2023-07-26] MEDS: LANTUS SC (22:08)
[2023-07-27 07:50] VITALS: BP 129/66
--- NOTE | 2023-07-27 08:53 | W.PN.HOSP.TC ---
Addendum entered and electronically signed by Jeffy Kilpatrick MD 07/27/23 10:41:
Spoke to family by phone including patient's daughter DRAKE and patient's son who was in attendance that the patient has improved significantly from 2 days ago 1 we basically thought she had had a significant stroke most of her deficits have improved
on the right side and she is now eating and her oxygen requirements are way down to 2 L which is her baseline but also explained that the necrotic thyroid mass has expanded to the great vessels of the chest and is a matter of time before there is
further involvement either with airway or the major vessels in the setting of already known severe aortic stenosis and I think it is appropriate to pursue continued hospice care now as an outpatient at [facility] if that can be arranged.
Original Note:
Today's Communication/Plan
-
He has shown significant improvement and now only on 2 L and moving her right side her chronic comorbidities are not able to be treated and will be progressive and she will be transition to an outpatient hospice care setting at this point
Assessment / Plan
Assessment / Plan
HEENT: Normocephalic
Cardiovascular: S1/S2 and Murmur
GI: Soft and Non Distended
Neurology: Awake and Alert
Skin: Warm
General: Respiratory Distress (n), CTAB
87-year-old female sent from [facility] for evaluation of the shortness of breath and hypoxia which likely secondary to combination of acute on chronic congestive heart failure exacerbation was likely pneumonia even procalcitonin is only
negative, at the initial look like there is a cellulitis of the lower extremities.
Sudden onset of right-sided weakness and aphasia/this is mostly resolved after being transient
-
-Hypoxia and presently on BiPAP>> [address]
-CT of the head did not show any bleed/
-CTA of the brain showed over 80% right internal carotid stenosis felt to be not related to present event/evaluated by vascular surgery/not a candidate for intervention after discussion with family
-MRI was to be done but then postponed due to hypoxia and then canceled based on family's wishes
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
-�Large nearly 6 cm rim-enhancing hypodense lobulated lesion extending from the posterior aspect of the inferior right thyroid, extending into the superior mediastinum. This is most consistent with a cystic lesion from the right lobe of the thyroid,
malignancy to be excluded. This displaces the great vessels. Family discussions understandably do not want to pursue any interventions and had refused attempts at diagnostic interventions in the past.
-Changes in further NIH scoring overnight and speaking to daughter did not want to repeat CT imaging will need to discuss goals of care as patient is DNR and presently on on 6 L
-Has been maintained on apixaban anticoagulation/intense dose statin
#Acute Hypoxic Respiratory Failure
#Chronic hypercapnic respiratory failure
#Acute on Chronic HF (Unknown Type)
#Dyspnea
-Resp status greatly improved with Diuresis
-Cont IV lasix BID
-ECHO /showed EF of 60% with moderate to severe aortic stenosis with a valve area of 0.8
-Empiric Abx were discontinued due to to low suspicion for ongoing infection
-Cardiology not a candidate for TAVR evaluation
-Appreciate Pulm/Cards
-F/u Sputum Cultures remain negative
#COPD
#ABEBE v OHS
-BiPAP at night
-DUonebs, Budesonide
#Bacteruria?/urine culture was normal
#?Pneumonia/chest x-ray showed interstitial opacification possibly consistent with edema versus pneumonitis(procalcitonin however was normal on presentation)
#? Lower extremity cellulitis/may be more in keeping with stasis changes causing redness and tenderness from edema
-see plan above
-abx
-MRSA screen was positive
-F/u cultures
� Since there was rapid improvement with diuresis, I favor this most likely can have de-escalation antibiotics in the next 24 to 48 hours
-White count down to 12.6 would favor discontinuation of antibiotic by tomorrow/recheck of CBC now shows no leukocytosis we will discontinue antibiotics and monitor
#Hypertension
#CAD s/p CABG
-Transition to NOAC
Continue beta-jeferson/statin
Moderate to severe aortic stenosis
-Has refused intervention in the past and not a candidate for TAVR per cardiology
#Atrial fibrillation
� Begin apixaban 5 mg p.o. twice daily/discontinued in setting of hospice care and comfort
� Stop aspirin
#Diabetes
Continue Lantus
#DVT prophylaxis
� Eliquis
Total time spent on today's encounter was 51 minutes which included time spent in counseling the patient/family regarding diagnosis and treatment plan as listed above, goals of care, and symptom management. Case was discussed with nursing staff,
specialists, and care coordinators/case management. All labs and imaging personally reviewed by me. Remainder the time spent in detailed review of previous records, lab data, imaging, and other medical provider documentation.
Had lengthy discussion with the patient's son Jonathon and also the patient's power of patent prosecution attorney daughter Kamini who is out in [facility] have explained present situation with advanced hypoxia and need for BiPAP and doubt she would do well down an
MRI and would only add information we may already know she has had previous experiences with MRI as it made her extremely claustrophobic and anxious gave her the opinion based on her DNR status and what appears to be an advanced malignancy involving
her thyroid now involving the great vessels also may be contributing to her respiratory issues are concerned about read to pursue comfort care and will consult hospice
He has shown significant improvement and now only on 2 L and moving her right side her chronic comorbidities are not able to be treated and will be progressive and she will be transition to an outpatient hospice care setting at this point
Anticipated Discharge: Within 24 hours
Subjective/Interval History
-
Date of Service: July 27, 2023
She is significantly more awake she is eating a full breakfast using both hands for utensils and manipulation without difficulty. She denies shortness of breath she is down to 2 L overnight on oxygen complaint continues to be bilateral leg pains
and medial thighs
Objective Data
-
Vital Signs:
Vital Signs
Temp Pulse Resp BP Pulse Ox
98.1 F 85 18 129/66 93
07/27/23 07:50 07/27/23 07:50 07/27/23 07:50 07/27/23 07:50 07/27/23 07:50
I&O
07/26/23 07/27/23 07/28/23
06:59 06:59 06:59
Intake Total 240 / 240
Balance 240 / 240
Review of Systems
-
Unable to obtain full review of systems at this time due to: Dementia
History Source: Patient and Family
Constitutional: Reports Fever
Respiratory: Reports No Symptoms
Cardiac: Reports No Symptoms
Musculoskeletal: Reports Edema, Arthralgias and Muscle Weakness
Physical Exam
-
General: No Apparent Distress
HEENT: Normocephalic
Respiratory: Clear to Auscultation
Cardiac: Irregular Rhythm and Murmur
GI: Soft
Musculoskeletal: Edema, Right Lower Extrem and Edema, Left Lower Extrem
Neuro: Awake and Alert; Negative Oriented (Some disorientation/)
Psych: Calm
Data Reviewed
-
Total Time Spent with Patient (in minutes): 56
CT Scan: Report Reviewed by me ( Large nearly 6 cm rim-enhancing hypodense lobulated lesion extending from the posterior aspect of the inferior right thyroid, extending into the superior mediastinum. This is most consistent with a cystic lesion from
the right lobe of the thyroid, malignancy to be excluded. This displaces the great)
[2023-07-27] MEDS: REFRESH EYE DROPS (PF) 1 DROPS BOTH EYES ×2 (10:34→21:04)
[2023-07-27] MEDS: BYSTOLIC 2.5 MG PO (10:34)
[2023-07-27] MEDS: DESENEX/MITRAZOL/ZEASORB 1 APPLIC TOPICAL ×2 (10:35→21:04)
[2023-07-27] MEDS: OCEAN, SALINE MIST 1 SPRAYS NASAL (21:05)
[2023-07-27] MEDS: MELATONIN 5 MG PO (22:02)
[2023-07-27] MEDS: LANTUS 0.0800000000000000017 UNITS SC (22:06)
[2023-07-27 22:07] LABS: Glucose - Point of Care 248 mg/dl (70-99)
[2023-07-27 23:13] VITALS: BP 121/61
[2023-07-28] MEDS: MORPHINE SULFATE 2 MG IV (01:16)
[2023-07-28] MEDS: TYLENOL 650 MG PO (05:09)
--- NOTE | 2023-07-28 08:46 | W.PN.HOSP.TC ---
Today's Communication/Plan
-
Will need to arrange hospice care at [facility] on her return early next week
Will significantly decrease her medication management for comfort care only
I have explained to family that course may be indolent and extended due to slow progressing thyroid malignancy into the great vessels along with the severity of her aortic stenosis
Assessment / Plan
Assessment / Plan
HEENT: Normocephalic
Cardiovascular: S1/S2 and Murmur
GI: Soft and Non Distended
Neurology: Awake and Alert
Skin: Warm
General: Respiratory Distress (n), CTAB
87-year-old female sent from [facility] for evaluation of the shortness of breath and hypoxia which likely secondary to combination of acute on chronic congestive heart failure exacerbation was likely pneumonia even procalcitonin is only
negative, at the initial look like there is a cellulitis of the lower extremities.
Sudden onset of right-sided weakness and aphasia/this is mostly resolved after being transient
-
-Hypoxia and presently on BiPAP>> [address]
-CT of the head did not show any bleed/
-CTA of the brain showed over 80% right internal carotid stenosis felt to be not related to present event/evaluated by vascular surgery/not a candidate for intervention after discussion with family
-MRI was to be done but then postponed due to hypoxia and then canceled based on family's wishes
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
-�Large nearly 6 cm rim-enhancing hypodense lobulated lesion extending from the posterior aspect of the inferior right thyroid, extending into the superior mediastinum. This is most consistent with a cystic lesion from the right lobe of the thyroid,
malignancy to be excluded. This displaces the great vessels. Family discussions understandably do not want to pursue any interventions and had refused attempts at diagnostic interventions in the past.
-Changes in further NIH scoring overnight and speaking to daughter did not want to repeat CT imaging will need to discuss goals of care as patient is DNR and presently on on 6 L
-Has been maintained on apixaban anticoagulation/intense dose statin
#Acute Hypoxic Respiratory Failure
#Chronic hypercapnic respiratory failure
#Acute on Chronic HF (Unknown Type)
#Dyspnea
-Resp status greatly improved with Diuresis
-Cont IV lasix BID
-ECHO /showed EF of 60% with moderate to severe aortic stenosis with a valve area of 0.8
-Empiric Abx were discontinued due to to low suspicion for ongoing infection
-Cardiology not a candidate for TAVR evaluation
-Appreciate Pulm/Cards
-F/u Sputum Cultures remain negative
#COPD
#ABEBE v OHS
-BiPAP at night
-DUonebs, Budesonide
#Bacteruria?/urine culture was normal
#?Pneumonia/chest x-ray showed interstitial opacification possibly consistent with edema versus pneumonitis(procalcitonin however was normal on presentation)
#? Lower extremity cellulitis/may be more in keeping with stasis changes causing redness and tenderness from edema
-see plan above
-abx
-MRSA screen was positive
-F/u cultures
� Since there was rapid improvement with diuresis, I favor this most likely can have de-escalation antibiotics in the next 24 to 48 hours
-White count down to 12.6 would favor discontinuation of antibiotic by tomorrow/recheck of CBC now shows no leukocytosis we will discontinue antibiotics and monitor
#Hypertension
#CAD s/p CABG
-Transition to NOAC
Continue beta-jeferson/statin
Moderate to severe aortic stenosis
-Has refused intervention in the past and not a candidate for TAVR per cardiology
#Atrial fibrillation
� Begin apixaban 5 mg p.o. twice daily/discontinued in setting of hospice care and comfort
� Stop aspirin
#Diabetes
Continue Lantus
#DVT prophylaxis
� Eliquis
Total time spent on today's encounter was 51 minutes which included time spent in counseling the patient/family regarding diagnosis and treatment plan as listed above, goals of care, and symptom management. Case was discussed with nursing staff,
specialists, and care coordinators/case management. All labs and imaging personally reviewed by me. Remainder the time spent in detailed review of previous records, lab data, imaging, and other medical provider documentation.
Had lengthy discussion with the patient's son Jonathon and also the patient's power of petroleum geologist daughter Kamini who is out in [facility] have explained present situation with advanced hypoxia and need for BiPAP and doubt she would do well down an
MRI and would only add information we may already know she has had previous experiences with MRI as it made her extremely claustrophobic and anxious gave her the opinion based on her DNR status and what appears to be an advanced malignancy involving
her thyroid now involving the great vessels also may be contributing to her respiratory issues are concerned and want to pursue comfort care and will consult hospice
July 27
He has shown significant improvement and now only on 2 L and moving her right side her chronic comorbidities are not able to be treated and will be progressive and she will be transition to an outpatient hospice care setting at this point
This was again discussed with the patient's daughter who flew out here from home [address], is due to go back Saturday/she should be transported under hospice back to [facility] early next week where she should continue comfort care and hospice care
and should not be transported back to the hospital setting.
Anticipated Discharge: Within 24 hours
Subjective/Interval History
-
Date of Service: July 28, 2023
Pleasantly confused oxygen requirements up to 4 L overnight/did receive morphine dosing due to knee pain and leg pain overnight
Objective Data
-
Vital Signs:
Vital Signs
Temp Pulse Resp BP Pulse Ox
98.4 F 85 20 121/61 95
07/27/23 23:13 07/27/23 23:13 07/27/23 23:13 07/27/23 23:13 07/27/23 23:13
I&O
07/27/23 07/28/23 07/29/23
06:59 06:59 06:59
Intake Total 360 / 360
Balance 360 / 360
Review of Systems
-
Unable to obtain full review of systems at this time due to: Dementia
History Source: Patient and Family
Respiratory: Reports No Symptoms
Cardiac: Reports No Symptoms
Abdomen/GI: Reports No Symptoms
Musculoskeletal: Reports Arthralgias and Myalgias
Skin: Reports Skin Thickening
Physical Exam
-
General: No Apparent Distress
HEENT: Oxygen (Up to 4 L)
Respiratory: Crackles
Cardiac: Irregular Rhythm
GI: Soft and Nontender
Musculoskeletal: Edema, Right Lower Extrem and Edema, Left Lower Extrem
Neuro: Awake
Data Reviewed
-
Total Time Spent with Patient (in minutes): 45
Labs: Labs Reviewed by me
[2023-07-28] MEDS: DESENEX/MITRAZOL/ZEASORB 1 APPLIC TOPICAL ×2 (10:36→20:05)
[2023-07-28] MEDS: BYSTOLIC 2.5 MG PO (10:36)
[2023-07-28] MEDS: REFRESH EYE DROPS (PF) 1 DROPS BOTH EYES ×2 (10:36→20:06)
[2023-07-28] MEDS: OCEAN, SALINE MIST 1 SPRAYS NASAL (10:43)
[2023-07-28 12:00] VITALS: BP 153/69
[2023-07-28 14:12] LABS: Glucose - Point of Care 291 mg/dl (70-99)
[2023-07-28 16:25] LABS: Glucose - Point of Care 323 mg/dl (70-99)
--- NOTE | 2023-07-28 16:29 | CHAP ---
Ms. Allen welcomed me graciously. She shared her story of struggle and striving to go on - she keeps a smile in her heart. We prayed together, though she said she's 'fallen away a bit.' After the prayer, she requested a Bible, which I brought
for her.
[2023-07-28] MEDS: DESENEX/MITRAZOL/ZEASORB TOPICAL (20:06)
[2023-07-28 21:49] LABS: Glucose - Point of Care 282 mg/dl (70-99)
[2023-07-28] MEDS: LANTUS 0.0800000000000000017 UNITS SC (22:17)
[2023-07-28] MEDS: VENTOLIN NEBULES 2.5 MG INH (23:17)
[2023-07-28 23:58] VITALS: BP 139/62
[2023-07-29 07:00] VITALS: BP 138/64
[2023-07-29 07:57] LABS: Glucose - Point of Care 165 mg/dl (70-99)
--- NOTE | 2023-07-29 09:09 | HOSPNOTE ---
Spoke with family and they are in agreement for patient to return to [facility] on hospice services with [facility]. Once confirmed I will order oxygen and any other equipment needed. The plan would be to return to [facility] tomorrow 07/30. Family is in agreement. OOH DNR
will be needed and transport will be needed. Case management aware of plan.
[2023-07-29] MEDS: BYSTOLIC 2.5 MG PO (09:14)
[2023-07-29] MEDS: DESENEX/MITRAZOL/ZEASORB 1 APPLIC TOPICAL ×2 (09:14→19:56)
[2023-07-29] MEDS: REFRESH EYE DROPS (PF) 1 DROPS BOTH EYES ×2 (09:14→19:56)
[2023-07-29] MEDS: DESENEX/MITRAZOL/ZEASORB TOPICAL (09:47)
--- NOTE | 2023-07-29 11:57 | CM ---
Addendum entered by HORACIO Rivera 07/29/23 16:14:
Received TT from [facility] vulcanized fiber unit operator who stated that patient is set up for discharge tomorrow at 12pm. Will update attending.
Addendum entered by HORACIO Rivera 07/29/23 12:23:
All signed documents are in patient chart for tomorrow.
Original Note:
Reviewed chart spoke with hospice liason through TT. [facility] stated that she can have a contract and everything set up for tomorrow. Placed a call to Janet in admissions at [facility] who confirmed that patient can return-#for [phone] and fax
[phone].
Medical necessity completed as well as transfer sheet and DNROOH signed by attending.
Spoke with chief unit forester to make aware of plan and asked to set up transport for tomorrow.
Plan: Case management will continue to follow and assist with discharge planning/[facility] with hospice tomorrow.
[2023-07-29] MEDS: DUONEB 3 ML INH ×2 (15:09→20:07)
--- NOTE | 2023-07-29 15:22 | W.PN.HOSP.TC ---
Today's Communication/Plan
-
arrange DC to SNF w hospice in 24 hours
Assessment / Plan
Assessment / Plan
Assessment:
Sudden onset of right-sided weakness and aphasia
- transient and now resolved
- CT head neg
- CT 80% R ICA stenosis
- not a surgical candidate
- continue Eliquis/statin
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
-�Large nearly 6 cm rim-enhancing hypodense lobulated lesion extending from the posterior aspect of the inferior right thyroid, extending into the superior mediastinum. This is most consistent with a cystic lesion from the right lobe of the thyroid,
malignancy to be excluded. This displaces the great vessels.
- Family discussions understandably do not want to pursue any interventions and had refused attempts at diagnostic interventions in the past.
Acute Hypoxic Respiratory Failure
Chronic hypercapnic respiratory failure
Acute on Chronic HFpEF
Dyspnea
- improved with IV Lasix BID
- Echo: EF 60%, moderate to severe
- appreciate pulm/cards
- cultures negative; off Abx
COPD
ABEBE v OHS
- BiPAP at night
- DuoNeb, Budesonide
Essential hypertension
CAD s/p CABG
- continue BB/Eliquis/Statin
Moderate to severe aortic stenosis
- has refused intervention in the past and not a candidate for TAVR per cardiology
parox Atrial fibrillation
IDDM
- continue Lantus
DVT ppx: Eliquis
Code: DNR
Dispo: Hospice @ SNF, DC in 24 hours
Anticipated Discharge: Within 24 hours
Subjective/Interval History
-
Date of Service: July 29, 2023
reports some back discomfort related to bed asking for pillow
no other complaints
Objective Data
-
Vital Signs:
Vital Signs
Temp Pulse Resp BP Pulse Ox
98.4 F 90 18 138/64 99
07/29/23 07:00 07/29/23 15:12 07/29/23 15:12 07/29/23 09:14 07/29/23 15:12
I&O
07/28/23 07/29/23 07/30/23
06:59 06:59 06:59
Intake Total 360 / 360 480 / 480
Output Total 400 / 400
Balance 360 / 360 80 / 80
Physical Exam
-
General: No Apparent Distress
HEENT: Normocephalic and Atraumatic
Respiratory: Negative Wheezes or Rales
Cardiac: Regular Rhythm and S1/S2
GI: Soft
Genito-urinary: No Costovertebral Tender
Neuro: AO x 3
Psych: Apparent Dementia
Data Reviewed
-
Total Time Spent with Patient (in minutes): 40
Labs: Labs Reviewed by me
[2023-07-29] MEDS: OCEAN, SALINE MIST 1 SPRAYS NASAL (19:57)
[2023-07-29] MEDS: LANTUS 0.0800000000000000017 UNITS SC (22:22)
[2023-07-29 22:28] LABS: Glucose - Point of Care 342 mg/dl (70-99)
--- NOTE | 2023-07-29 22:29 | PTCARENOTE ---
pt BS at found to be 342, pt is on comfort care and did tell RN she had been eating candy.TASHI Arnold notified and no new orders. RN gave standing dose of 8 U Lantus. will continue with care plan.
[2023-07-29 23:16] VITALS: BP 107/52
[2023-07-30 07:00] VITALS: BP 149/71
[2023-07-30] MEDS: DESENEX/MITRAZOL/ZEASORB 1 APPLIC TOPICAL (07:57)
[2023-07-30] MEDS: REFRESH EYE DROPS (PF) 1 DROPS BOTH EYES (07:57)
[2023-07-30] MEDS: BYSTOLIC 2.5 MG PO (07:59)
--- NOTE | 2023-07-30 09:31 | CM ---
Spoke with Alecia Kwong via TT, she asked if patient time of 12 could be moved up. Called [facility] and community engagement representative stated that she will call transportation to determine if patient could be moved up.
Received call back and transportation could not accommodate this request. Alecia updated.
Plan: Case management will continue to follow and assist with discharge planning. Patient to transport to today on hospice.
--- NOTE | 2023-07-30 09:57 | W.PN.HOSP.TC ---
Addendum entered and electronically signed by Enrique Prasad MD 08/01/23 15:59:
Sepsis was present on admission, then resolved
Original Note:
Today's Communication/Plan
-
dc to SNF
Assessment / Plan
Assessment / Plan
Assessment:
Sudden onset of right-sided weakness and aphasia
- transient and now resolved
- CT head neg
- CT 80% R ICA stenosis
- not a surgical candidate
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
-�Large nearly 6 cm rim-enhancing hypodense lobulated lesion extending from the posterior aspect of the inferior right thyroid, extending into the superior mediastinum. This is most consistent with a cystic lesion from the right lobe of the thyroid,
malignancy to be excluded. This displaces the great vessels.
- Family discussions understandably do not want to pursue any interventions and had refused attempts at diagnostic interventions in the past.
Acute Hypoxic Respiratory Failure
Chronic hypercapnic respiratory failure
Acute on Chronic HFpEF
Dyspnea
- can continue Torsemide on hospice
- Echo: EF 60%, moderate to severe
- appreciate pulm/cards
- cultures negative; off Abx
COPD
ABEBE v OHS
- BiPAP at night
- DuoNeb, Budesonide
Essential hypertension
CAD s/p CABG
- continue BB
- Eliquis/Statin stopped
Moderate to severe aortic stenosis
- has refused intervention in the past and not a candidate for TAVR per cardiology
parox Atrial fibrillation
IDDM
- continue Lantus
DVT ppx: Eliquis
Code: DNR
Dispo: Hospice @ SNF, DC today
More than 30 minutes spent in discharge including
Final examination of the patient
Summarizing hospital stay
Instructions for continuing care to all relevant caregivers
Preparation of discharge records, prescriptions, and referral forms
Total time spent (in minutes): 45
Anticipated Discharge: Today
Subjective/Interval History
-
Date of Service: July 30, 2023
no overnight events
for hospice placement today at [facility]
Objective Data
-
Vital Signs:
Vital Signs
Temp Pulse Resp BP Pulse Ox
97.7 F 94 17 107/52 97
07/30/23 07:00 07/30/23 07:59 07/30/23 07:00 07/30/23 07:59 07/30/23 07:00
I&O
07/29/23 07/30/23 07/31/23
06:59 06:59 06:59
Intake Total 480 / 480 220 / 220
Output Total 400 / 400
Balance 80 / 80 220 / 220
Physical Exam
-
General: No Apparent Distress
HEENT: Normocephalic and Atraumatic
Respiratory: Negative Wheezes or Rales
Cardiac: Regular Rhythm and S1/S2
GI: Soft
Genito-urinary: No Costovertebral Tender
Neuro: AO x 3
Hematologic / Lymphatic: No Lymphadenopathy
Psych: Calm
Data Reviewed
-
Total Time Spent with Patient (in minutes): 45
Labs: Labs Reviewed by me
--- NOTE | 2023-07-30 10:03 | W.DS.TRANS ---
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
-
Discharge Instructions:
Discharge Diagnosis/Procedures Enlarging necrotic thyroid mass into the and
involving the mediastinum and and great vessels/
inoperable and not to be investigated
Severe aortic stenosis inoperable
80% right internal carotid stenosis
Transient ischemic attack with right hemiparesis
Acute on chronic congestive heart failure
Persistent atrial fibrillation
Diet As tolerated
Activity As tolerated
Driving Restrictions No driving
Other Services Hospice
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
Stand-Alone Forms:
Changes to Home Medications: Yes
Discharge Medications:
DC Medications w/original date entered in [employer]
Voltaren 1 applic topical Q12H apply to left shoulder/left hip 07/20/23
albuterol sulfate 90 mcg/actuation aerosol inhaler 2 puff inhalation R Q4HPRN PRN sob 07/20/23
arformoterol 15 mcg/2 mL solution for nebulization 2 ml inhalation R BID Lung/Breathing Issues 07/20/23
bisacodyl 10 mg rectal suppository (Dulcolax (bisacodyl)) 10 mg MA DAILY PRN if MOM ineffective 07/20/23
bisacodyl 5 mg tablet,delayed release 10 mg PO DAILYPRN PRN constipation 07/20/23
carboxymethylcellulose sodium 1 % eye drops 1 drp BOTH EYES BID dry eyes 07/20/23
fluticasone propionate 50 mcg/actuation nasal spray,suspension (Flonase Allergy Relief) 1 spray intranasal [id number] PRN nasal allergy/congestion 07/20/23
gabapentin 100 mg capsule 200 mg PO DAILY Neurological Condition 07/20/23
guaifenesin 400 mg tablet 400 mg PO Q6HPRN PRN cough 07/20/23
guaifenesin 400 mg tablet 800 mg PO Q12H Cough 07/20/23
hydralazine 10 mg tablet 10 mg PO Q8H Blood Pressure 07/20/23
insulin glargine 100 unit/mL (3 mL) subcutaneous pen (Basaglar KwikPen U-100 Insulin) 8 unit SC HS Diabetes 07/20/23
nebivolol 2.5 mg tablet 2.5 mg PO DAILY Blood Pressure 07/20/23
phenylephrine 0.25 %-mineral oil 14 %-petrolatm 74.9 % rectal ointment (Preparation H) 1 applic MA Q8HPRN PRN hemorrhoids 07/20/23
polyethylene glycol 3350 17 gram oral powder packet 17 g PO DAILY PRN constipation 07/20/23
simethicone 80 mg tablet 80 mg PO Q6HPRN PRN gas 07/20/23
sodium phosphates 19 gram-7 gram/118 mL enema (Fleet Enema) 118 ml MA DAILYPRN PRN if dulcolax ineffective 07/20/23
torsemide 20 mg tablet 20 mg PO DAILY Fluid Retention/Swelling 07/20/23
witch theodora 50 % topical pads (Preparation H (Witch Theodora)) 1 pad topical Q8HPRN PRN apply to rectum 07/20/23
ipratropium 0.5 mg-albuterol 3 mg (2.5 mg base)/3 mL nebulization soln 3 ml inhalation R Q4HPRN PRN SOB/Wheezing #90 mL 07/30/23
oxycodone 5 mg tablet 5 mg PO Q6H PRN moderate pain #10 tabs 07/30/23
Home Medication Changes
only essential meds kept for hospice, including meds geared toward comfort
Pending Results: No
Total time spent discharging patient (in min): 45
--- NOTE | 2023-08-01 15:26 | PN.CDI ---
CDI
- -
CDI:
Physician Documentation Request
Admit Date: 07/20/23 20:15
Dear Doctor Shanice,
Patient admitted with sepsis.
H&P,'Severe sepsis: With temperature 102.8, mental status change, white cell count is 20.4 tachypnea respiratory rate 34 h, hypoxic respiratory failure, likely secondary to cellulitis of the lower extremity while pneumonia could be another
possibility and other causes may need to be considered.
07/21 PN, 'Septic Shock*-off pressors....Since there was rapid improvement with diuresis, I favor this most likely can have de-escalation antibiotics in the next 24 to 48 hours.'
07/24 PN,'#Severe Sepsis#Bacteruria?/urine culture was normal#?Pneumonia/chest x-ray showed interstitial opacification possibly consistent with edema versus pneumonitis(procalcitonin however was normal on presentation)#? Lower extremity
cellulitis/may be more in keeping with stasis changes causing redness and tenderness from edema.'
07/25- 07/30- no further documentation of sepsis in record.
Based on the indicators, please update the status of documented sepsis:
Sepsis was present on admission, then resolved
Sepsis is ruled out
Other
Use of terms such as suspected, likely, concern for, or probable (associated with a specific diagnosis that is being evaluated, monitored, or treated as if it exists) are acceptable and can be coded in the inpatient setting, when documented at the
time of discharge.
Thank you,
Hien ARCEO,RN,CCDS
CDI Specialist
Available via [employer] text
Please use your independent medical judgment in providing your response.
== END 2023-07-30 13:53 | DRG 871 ==
LOC: 3 WEST ACU 20:15
PROVIDERS: Internal Medicine; Registered Nurse; ADMITTING PHYSICIAN Internal Medicine; ATTENDING PHYSICIAN Internal Medicine; CONSULT PHYSICIAN Internal Medicine Cardiovascular Disease; CONSULT PHYSICIAN Psychiatry & Neurology Neurology; CONSULT PHYSICIAN Surgery Vascular Surgery; EMERGENCY PHYSICIAN Emergency Medicine; FAMILY PHYSICIAN Student in an Organized Health Care Education/Training Program; OTHER PHYSICIAN Internal Medicine Critical Care Medicine
PROC: 5A09357 Assistance with Respiratory Ventilation, Less than 24 Consecutive Hours, Continuous Positive Airway Pressure (ICD-10-PCS; 2023-07-20)
DX: A41.89 Other specified sepsis (principal); I50.33 Acute on chronic diastolic (congestive) heart failure; J96.01 Acute respiratory failure with hypoxia; R65.21 Severe sepsis with septic shock; J44.0 Chronic obstructive pulmonary disease with (acute) lower respiratory infection; N17.9 Acute kidney failure, unspecified; I48.19 Other persistent atrial fibrillation; E66.2 Morbid (severe) obesity with alveolar hypoventilation; J96.12 Chronic respiratory failure with hypercapnia; E87.1 Hypo-osmolality and hyponatremia; G81.91 Hemiplegia, unspecified affecting right dominant side; L03.116 Cellulitis of left lower limb; L03.115 Cellulitis of right lower limb; R47.01 Aphasia; I65.21 Occlusion and stenosis of right carotid artery; Z51.5 Encounter for palliative care; C73 Malignant neoplasm of thyroid gland; E11.65 Type 2 diabetes mellitus with hyperglycemia; G62.9 Polyneuropathy, unspecified; I25.10 Atherosclerotic heart disease of native coronary artery without angina pectoris; F03.A0 Unspecified dementia, mild, without behavioral disturbance, psychotic disturbance, mood disturbance, and anxiety; E78.5 Hyperlipidemia, unspecified; I35.0 Nonrheumatic aortic (valve) stenosis; I11.0 Hypertensive heart disease with heart failure; Z66 Do not resuscitate; Z86.73 Personal history of transient ischemic attack (TIA), and cerebral infarction without residual deficits; Z79.82 Long term (current) use of aspirin; Z79.51 Long term (current) use of inhaled steroids; Z79.4 Long term (current) use of insulin; Z87.891 Personal history of nicotine dependence; Z11.52 Encounter for screening for COVID-19; Z79.01 Long term (current) use of anticoagulants; Z95.1 Presence of aortocoronary bypass graft; Z68.32 Body mass index [BMI] 32.0-32.9, adult; Z87.01 Personal history of pneumonia (recurrent)
CPT/HCPCS: 36600; 70450; 70496; 70498; 71045; 80048; 80053; 80061; 80202; 81003; 81015; 82565; 82607; 82728; 82746; 82805; 82962; 83036; 83605; 83735; 83880; 84145; 84443; 84484; 85025; 85027; 85610; 85730; 87040; 87070; 87086; 87147; 87502; 87641; 87811; 93005; 93306; 94640; 94660; 96365; 96366; 96375; 97116; 97163; 97167; 97530; 97535; 99291; Q9967

== ENCOUNTER 2023-10-29 06:37 | Inpatient (IN) | payer MEDICARE, OTHER, SELFPAY ==
[2023-10-29] VITALS (10 sets, daily range): BP systolic 104–138; BP diastolic 54–94; BMI 37.9
[2023-10-29 03:21] LABS: % Basophils 0.4 % (0-2); % Eosinophils 0.2 % (0-6); % Immature Granulocytes 0.4 % (0-0.5); % Lymphocytes 12.7 % (20.5-51.1); % Neutrophils 77.3 % (42.2-75.2); Absolute Lymphocytes 0.7 10^3/uL (1.2-3.4); Absolute Monocytes 0.5 10^3/uL (0.1-0.6); Absolute Neutrophils 4.4 10^3/uL (1.4-6.5); Hematocrit 40.1 % (37.0-47.0); Hemoglobin 13.2 g/dL (12.0-16.0); Mean Corp Hgb Conc. 32.9 g/dL (33.0-37.0); Mean Corpuscular Hgb 27.6 pg (27.0-31.0); Mean Corpuscular Volume 83.9 fL (81.0-99.0); Mean Platelet Volume 12.1 fL (7.4-10.4); Nucleated Red Blood Cells % 0 %; Platelet Count 177 10^3/uL (130-400); Red Blood Cell Count 4.78 10^6/uL (4.20-5.40); Red Cell Dist. Width 14.2 % (11.5-14.5); White Blood Cell Count 5.7 10^3/uL (4.8-10.8)
[2023-10-29 03:32] LABS: Lactic Acid 0.9 mmol/L (0.7-2.0)
[2023-10-29 03:43] LABS: ALT (SGPT) 10 U/L (0-35); AST (SGOT) 21 U/L (14-36); Albumin 3.8 g/dl (3.5-5.0); Alkaline Phosphatase 67 U/L (38-126); Blood Urea Nitrogen 22 mg/dl (7-17); Calcium 9.8 mg/dl (8.4-10.2); Carbon Dioxide 29 mmol/L (22-30); Chloride 100 mmol/L (98-107); Estimated Creatinine Clearance 38 ml/min; Glucose 175 mg/dl (70-99); Potassium 4.5 mmol/L (3.5-5.1); Sodium 133 mmol/L (135-145); Total Bilirubin 0.6 mg/dl (0.2-1.3); Total Protein 6.9 g/dl (6.3-8.2); eGFR 54.87
--- NOTE | 2023-10-29 04:03 | ED.GENMED ---
History of Present Illness
<ALBERT Nix - Last Filed: 10/29/23 06:03>
General
Chief Complaint: Fever
Source: patient and family
Exam Limitations: none
Time Seen by Provider: 10/29/23 03:43
Nursing documentation reviewed up to this point in time: agreed with
Travel History
Have you had any contact with someone who has COVID-19?: Yes
Comment: in the [place] [facility]
Do you have any symptoms of coronavirus? Fever > 100 degrees, chills, cough, shortness of breath, sore throat, loss of taste or smell, muscle aches, or headache?: Yes
Symptoms:: cough
History of Present Illness
History of Present Illness:
This is a 88 year old female with extensive medical history who presents to the ER from the [place] [facility] w/ c/o fever and productive cough x1 day. Patient reports subjective fever and chills starting this afternoon, but denies subjective fever. She
admits multiple people at the [place] [facility] have the flu/COVID. She also states her cough has worsen. She had zheng phlegm production with occasional blood streaking. Patient was given duo neb and Decadron by EMS. She denies chest pain or pressure,
worsening SOB, headache. She has a history of COPD on 2L, DM on insulin, inoperable aortic stenosis, A-fib, enlarging necrotic inoperable thyroid mass.
Review of Systems
<ALBERT Nix - Last Filed: 10/29/23 06:03>
Review of Systems
Allergies reviewed?: Yes
All Other Systems: Not applicable
Constitutional: Reports fever and chills
EENT: Reports no symptoms
Respiratory: Reports cough
Cardiac: Reports no symptoms
ABD/GI: Reports no symptoms
: Reports no symptoms
Musculoskeletal: Reports no symptoms
Skin: Reports no symptoms
Neurological: Reports no symptoms
Endocrine: Reports no symptoms
Hematologic/Lymphatic: Reports no symptoms
Psychiatric: Reports no symptoms
Phy Exam
<ALBERT Nix - Last Filed: 10/29/23 06:03>
General Physical Exam
General Presentation: well appearing and mild distress
General Skin: warm and dry
General Habitus: normal
General Mental: alert
General Hydration: appears well hydrated
ENT Exam
ENT Exam: EOMI, pharynx normal, neck supple and normocephalic
Eye Exam
Eye Exam: PERRL, cornea clear and conjunctiva normal
Cardiovascular Exam
Cardiovascular Exam: regular rate/rhythm, no edema, normal peripheral pulses and systolic murmur
Pulmonary Exam
Pulmonary Exam: no respiratory distress, no rales, no crackles, no stridor, no wheezing, no cough, generalized wheezing and other (Tachypnea, coarse rhonchi b/l with scattered expiratory wheezing)
Gastrointestinal Exam
Gastrointestinal Exam: normal bowel sounds, non tender, soft, no organomegaly, no pulsatile mass and non distended
Neurological Exam
Neurological Exam: alert, oriented x3, no motor deficits and speech normal
Musculoskeletal Exam
Musculoskeletal Exam: full ROM and edema (Mild to mod global nonpitting edema b/l lower extremities. )
Skin Exam
Skin Exam: normal color, warm/dry, no rash and no petechia
Psychiatric Exam
Psychiatric Exam: normal mood/affect
Course
<ALBERT Nix - Last Filed: 10/29/23 06:03>
Orders/Labs/Results
Orders:
Orders
10/29/23 02:45
Electrocardiogram (*1) Urgent
Reason for Study: Other
Other Reason for Exam: Possible Sepsis
Cardiac Monitoring- Treatment ONCE
IV Insert/Care/Rem.- Treatment PRN
Straight cath- Treatment ONCE
O2 Therapy [RESP] Urgent
Titrate/Wean O2 to maintain O2 sat greater than (%): 93
Special Instructions: TO MAINTAIN CONTINUOUS O2 SATS > OR = 93%
Pulse Ox/cont/shift [RESP] Urgent
Quantity: 1
Special Instructions: CONTINUOUS
10/29/23 02:46
EKG- Treatment ONCE
10/29/23 03:06
Complete Blood Count/With Diff Urgent
Comprehensive Metabolic Panel Urgent
Lactic Acid Q4H
Comment: ON ICE, CANCEL 2ND ORDER IF FIRST LACTIC ACID LEVEL <2
NT-proBNP Urgent
Comment: ADD ON
Blood Culture Q30M
HUGH Source: Blood/Venous
Specimen Description:
Comment: FROM 2 SEPARATE SITES
Blood Culture Q30M
HUGH Source: Blood/Venous
Specimen Description:
Comment: FROM 2 SEPARATE SITES
10/29/23 04:04
CR Chest - 2 Views Urgent
Comment:
Reason For Exam: cough, fever, SOB
10/29/23 04:16
COVID-19 Antigen Urgent
Source: Nasal Swab
Influenza A+B Rapid Molecular Urgent
HUGH Source: Nasal Swab
Specimen Description:
10/29/23 05:18
Add On- LAB Urgent
Tests Added?: BNP
10/29/23 05:32
Ipratropium/Albuterol Sulfate [Duoneb] 3 ml INH R NOW STA
10/29/23 05:35
Piperacillin/Tazo 4.5 Gram [Zosyn] 4.5 gram in 100 ml IV NOW
10/29/23 05:50
Sputum Culture [Respiratory Culture/Gram Stain] Urgent
HUGH Source: Sputum
Specimen Description:
Date Specimen was Collected: 10/29/23
Time Specimen was Collected: 05:48
10/29/23 06:45
Lactic Acid Q4H
Comment: ON ICE, CANCEL 2ND ORDER IF FIRST LACTIC ACID LEVEL <2
Abnormal Lab Results
10/29/23
03:06
MCHC 32.9 L g/dL
(33.0-37.0)
MPV 12.1 H fL
(7.4-10.4)
Absolute Lymphs (auto) 0.7 L 10^3/uL
(1.2-3.4)
Neutrophils % 77.3 H %
(42.2-75.2)
Lymphocytes % 12.7 L %
(20.5-51.1)
Sodium 133 L mmol/L
(135-145)
BUN 22 H mg/dl
(7-17)
Glucose 175 H mg/dl
(70-99)
10/29/23 03:06
10/29/23 03:06
Vital Signs
Initial and Last Documented VS:
Initial Vital Signs
BP
121/65
10/29/23 02:42
Last Documented Vital Signs
Temp Pulse Resp BP Pulse Ox
98.6 F 111 23 114/55 93
10/29/23 04:20 10/29/23 04:45 10/29/23 04:45 10/29/23 04:01 10/29/23 04:45
<Nika Cook, DO - Last Filed: 10/29/23 05:48>
Orders/Labs/Results
Orders:
Orders
10/29/23 02:45
Electrocardiogram (*1) Urgent
Reason for Study: Other
Other Reason for Exam: Possible Sepsis
Cardiac Monitoring- Treatment ONCE
IV Insert/Care/Rem.- Treatment PRN
Straight cath- Treatment ONCE
O2 Therapy [RESP] Urgent
Titrate/Wean O2 to maintain O2 sat greater than (%): 93
Special Instructions: TO MAINTAIN CONTINUOUS O2 SATS > OR = 93%
Pulse Ox/cont/shift [RESP] Urgent
Quantity: 1
Special Instructions: CONTINUOUS
10/29/23 02:46
EKG- Treatment ONCE
10/29/23 03:06
Complete Blood Count/With Diff Urgent
Comprehensive Metabolic Panel Urgent
Lactic Acid Q4H
Comment: ON ICE, CANCEL 2ND ORDER IF FIRST LACTIC ACID LEVEL <2
NT-proBNP Urgent
Comment: ADD ON
Blood Culture Q30M
HUGH Source: Blood/Venous
Specimen Description:
Comment: FROM 2 SEPARATE SITES
Blood Culture Q30M
HUGH Source: Blood/Venous
Specimen Description:
Comment: FROM 2 SEPARATE SITES
10/29/23 04:04
CR Chest - 2 Views Urgent
Comment:
Reason For Exam: cough, fever, SOB
10/29/23 04:16
COVID-19 Antigen Urgent
Source: Nasal Swab
Influenza A+B Rapid Molecular Urgent
HUGH Source: Nasal Swab
Specimen Description:
10/29/23 05:18
Add On- LAB Urgent
Tests Added?: BNP
10/29/23 05:32
Ipratropium/Albuterol Sulfate [Duoneb] 3 ml INH R NOW STA
10/29/23 05:35
Piperacillin/Tazo 4.5 Gram [Zosyn] 4.5 gram in 100 ml IV NOW
10/29/23 05:50
Sputum Culture [Respiratory Culture/Gram Stain] Urgent
HUGH Source: Sputum
Specimen Description:
Date Specimen was Collected: 10/29/23
Time Specimen was Collected: 05:48
10/29/23 06:45
Lactic Acid Q4H
Comment: ON ICE, CANCEL 2ND ORDER IF FIRST LACTIC ACID LEVEL <2
Abnormal Lab Results
10/29/23
03:06
MCHC 32.9 L g/dL
(33.0-37.0)
MPV 12.1 H fL
(7.4-10.4)
Absolute Lymphs (auto) 0.7 L 10^3/uL
(1.2-3.4)
Neutrophils % 77.3 H %
(42.2-75.2)
Lymphocytes % 12.7 L %
(20.5-51.1)
Sodium 133 L mmol/L
(135-145)
BUN 22 H mg/dl
(7-17)
Glucose 175 H mg/dl
(70-99)
10/29/23 03:06
10/29/23 03:06
Vital Signs
Initial and Last Documented VS:
Initial Vital Signs
BP
121/65
10/29/23 02:42
Last Documented Vital Signs
Temp Pulse Resp BP Pulse Ox
98.6 F 111 23 114/55 93
10/29/23 04:20 10/29/23 04:45 10/29/23 04:45 10/29/23 04:01 10/29/23 04:45
<ALBERT Nix - Last Filed: 10/29/23 06:03>
MDM/Problems Addressed
Differential Diagnosis Includes:
COPD exacerbation, pneumonia, COVID, influenza
<Nika Cook DO - Last Filed: 10/29/23 05:48>
*Radiology
Radiology exam reviewed: preliminary read by ED provider (Rest x-ray shows cardiomegaly, increased interstitial markings bilaterally concerning for CHF. Posterior lower lobe linear consolidation.)
*Pulse Oximetry
Patient hypoxic: yes
*EKG
Interpreted by ED Provider?: Yes
Interpretation: abnormal
Comparison EKG: changes noted (Tachycardia is new compared to previous EKG July 24, 2023.)
Rate: tachycardiac
Rhythm: sinus
[place]: left axis deviation
Interval: normal QT interval
QRS Pattern: poor R-wave progression
Ischemia: no ischemia
*Appraisal Specialist Interpretation
Rate: tachycardiac
Interpretation: abnormal
Rhythm: sinus
*Critical Care Note
Total Time (30-74mins, 75-104mins- exclusive of procedures): Not Applicable
ED Attending Note
<ALBERT Nix - Last Filed: 10/29/23 06:03>
-
Portions of this chart may have been created with voice recognition software.� Occasional wrong word or��sound alike� substitutions may have occurred due to the inherent limitations of voice recognition software.
<Nika Cook DO - Last Filed: 10/29/23 05:48>
ED Attending Note
Patient seen and examined by attending physician: Yes
I performed the substantive portion of visit, reviewed & personally made and approve the management plan that is documented in note by myself or MILI.: Yes
I performed a history and physical exam of patient and discussed management with resident, I reviewed resident's note and agree with documented findings and plan of care.: Yes
ED Attending Note:
This is an 88-year-old woman who resides at a local [place] [facility]. She has history of COPD, CHF, insulin requiring diabetes, severe inoperable aortic stenosis, chronic A-fib as well as history of enlarging necrotic inoperable thyroid mass.
She has history of chronic hypoxia maintained on nasal cannula oxygen at 2 L. She does admit to chronic cough but cough has worsened over the past few days with increased congestion, low-grade fever noted yesterday evening with increased cough and
shortness of breath tonight initially unrelieved with nebulizer treatment, albuterol inhaler, guaifenesin. She was given Tylenol 650 mg at 2 AM just prior to EMS arrival.
EMS placed the patient on 6 L nasal cannula and gave the patient DuoNeb nebulizer as well as IV Decadron.
Since arrival to the ED patient feeling markedly improved and oxygen has been weaned to her baseline 2-1/2 L with pulse ox ranging 90 to 94%.
She denies chest pain, denies abdominal nor back pain.
She admits to moist cough for the most part nonproductive.
She denies leg pain or swelling. No nausea nor vomiting. Appetite has been fair to good.
Prior records reveal hospitalization July of this year for treatment of acute on chronic CHF and found to have severe inoperable AAS and also found to have an enlarging necrotic thyroid mass involving the mediastinum and great vessels�inoperable.
Discussion with patient and family at that time, she was discharged back to [facility] to initiate palliative care.
GENERAL: 88-year-old woman appears her stated age, bright and alert, pleasant, appears in mild respiratory distress with intermittent moist nonproductive cough but able to speak in full sentences. Nasal cannula oxygen in place. Initial temperature
101.2 �F upon arrival to the ED.
EYE: pupils equal and reactive. anicteric
NECK: Supple, nontender, no meningismus, no significant adenopathy.
ENT: oral mucosa is moist. Scant rhinorrhea.
CARDIAC: Regular rate and rhythm. no murmur.
LUNGS: Mild resting tachypnea, coarse rhonchi bilaterally with scattered expiratory wheezing.
ABDOMEN: Soft, nondistended, without focal tenderness, no r/g, no cvat. normoactive BS.
NEUROLOGICAL: Alert and oriented x3, no focal neuro deficits.
SKIN: Warm and dry, normal color, skin intact. No rash.
MUSCULOSKELETAL: Mild to moderate global nonpitting edema bilateral lower extremities. Peripheral pulses are full and equal b/l. No palpable tenderness.
PSYCH: Normal and appropriate interaction.
Concern for exacerbation of COPD, pneumonia, COVID versus acute influenza. Other consideration is acute on chronic CHF but with significant febrile response at 101.2 �F�will hold off on diuresis for now.
Thus far labs showed normal white blood cell count, normal H&H, mildly elevated random glucose of 175.
Lactic acid is normal at 0.9.
Will check COVID-19 antigen as well as rapid influenza and will check chest x-ray.
Will check BNP.
10/29/2023 0540 AM
Patient continues with frequent harsh cough occasionally productive of whitish phlegm. She continues with significant wheezing and rhonchi bilaterally.
Mild resting tachypnea along with continued resting sinus tachycardia at 110. Fever is dissipating.
Chest x-ray shows increased interstitial markings bilaterally concerning for CHF, overall similar to previous. There is some linear consolidation posterior lower lobes noted on lateral film. No old lateral film to compare. Concerning for a focal
infiltrate.
BNP is pending.
Patient admits to continued tachypnea and significant cough which is not her baseline.
Concern for healthcare associated pneumonia, exacerbation of COPD and there is concern for an element of CHF as well.
Will continue nebulizer treatments, will add Zosyn for potential healthcare associated pneumonia and will admit to hospitalist service.
Discharge Plan
Departure
Patient Disposition: Admit
Date of Disposition: 10/29/23
Time of Disposition: 05:44
Admit to: Med/Surg
Admit to doctor: Shanice
Presentation/result/management discussed w/ accepting MD/DO: Hospitalist
Condition: Fair
Discharge Problem:
Acute exacerbation of chronic obstructive pulmonary disease, Acute and chronic respiratory failure with hypoxia, HCAP (healthcare-associated pneumonia)
Prescriptions:
No Action
hydralazine 10 mg Tablet
10 mg PO Q8H
Rx Instructions:
07/20/2023, hold for SBP below 100.
torsemide 20 mg Tablet
20 mg PO DAILY
polyethylene glycol 3350 17 gram Powder In Packet
17 g PO DAILY PRN (Reason: constipation)
bisacodyl [Dulcolax (bisacodyl)] 10 mg Suppository
10 mg WV DAILY PRN (Reason: if MOM ineffective)
Fleet Enema 19-7 gram/118 mL Enema
118 ml WV DAILYPRN PRN (Reason: if dulcolax ineffective)
gabapentin 100 mg Capsule
200 mg PO DAILY
albuterol sulfate 90 mcg/actuation Hfa Aerosol Inhaler
2 puff INHALATION R Q4HPRN PRN (Reason: sob)
fluticasone propionate [Flonase Allergy Relief] 50 mcg/actuation Hurricane,Suspension
1 spray INTRANASAL [id number] PRN (Reason: nasal allergy/congestion)
guaifenesin 400 mg Tablet
400 mg PO Q6HPRN PRN (Reason: cough)
arformoterol 15 mcg/2 mL Solution For Nebulization
2 ml INHALATION R BID
insulin glargine [Basaglar KwikPen U-100 Insulin] 100 unit/mL (3 mL) Insulin Pen
8 unit SC HS
nebivolol 2.5 mg Tablet
2.5 mg PO DAILY
simethicone 80 mg Tablet
80 mg PO Q6HPRN PRN (Reason: gas)
carboxymethylcellulose sodium 1 % Drops
1 drp BOTH EYES BID
ipratropium-albuterol 0.5 mg-3 mg(2.5 mg base)/3 mL Solution For Nebulization
3 ml inhalation R Q4HPRN PRN (Reason: SOB/Wheezing) Qty: 90 0RF
oxycodone 5 mg Tablet
5 mg PO Q6H PRN (Reason: moderate pain) Qty: 10 0RF
acetaminophen 325 mg Tablet
650 mg PO Q6H PRN (Reason: fever/mild pain)
magnesium hydroxide [Milk of Magnesia] 400 mg/5 mL Suspension
30 ml PO DAILY PRN (Reason: constipation)
Rx Instructions:
1200/15ml give 30 ml onceif no BM in 3 days
loratadine 10 mg Tablet
10 mg PO DAILY
Referrals:
Dieudonne Paul DO [Family Provider] -
Interventions
Interventions:
*Risk Screen - Suicide Last Done: 10/29/23 02:48
*General Assessment Last Done: 10/29/23 02:48
*Neglect/Abuse Screening Last Done: 10/29/23 02:48
ED- Fall Risk Assessment Last Done: 10/29/23 02:48
*ED COVID-19 Vaccine History Last Done: 10/29/23 02:48
ED- Neurological Assessment Last Done: 10/29/23 03:12
ED-Skin Assessment Last Done: 10/29/23 03:12
Discharge Date and Time
Print Language: HAITIAN
[2023-10-29 04:44] LABS: COVID-19 Antigen Negative (Negative)
[2023-10-29] MEDS: ZOSYN 100 IV (05:41)
[2023-10-29] MEDS: DUONEB 3 ML INH ×4 (05:41→19:55)
--- NOTE | 2023-10-29 05:53 | HPS.HSE ---
Family Physician
-
Family Physician: Dieudonne Paul, DO
Chief Complaint
-
SOB
History of Present Illness
88 y/o F hx of COPD, CHF, IDDM, severe , chronic A. Fib, necrotic thyroid mass presents from SNF for SOB and cough. At baseline patient wears 2L NC. She endorses chronic cough but reports cough worsened over past few days with various symptoms
including low grade fevers, congestion and now SOB. Various measures were tried including Mucinex, nebs and albuterol inhaler as well as tylenol with minimal relief. EMS was called and patient was placed on 6L NC. In ER, she rapidly improved back to
baseline 2L NC
She denies any chest or back pain. No GI complaints. no LE swelling.
Previously hospitalized in July for acute CHF, severe and thyroid mass. At that time was dc to SNF for hospice but currently is not on hospice; but is a DNR.
In ER patient received albuterol and Zosyn.
Medical History
Past Medical History
Past Medical History: Reports Other (hx of COPD, CHF, IDDM, severe , chronic A. Fib, necrotic thyroid mass)
Past Surgical History: Reports Cardiac and Cholecystectomy
Social History
Tobacco: Former Smoker
Alcohol: None
Drug: None
Living: Snf
Family History
Family History: Not pertinent
Allergies / Home Medications
Allergies reflects when Allergies were last updated in [facility].
Home Medications with original date entered in [facility]
Allergy/Medication List:
Allergies
Allergy/AdvReac Type Severity Reaction Status Date / Time
No Known Allergies Allergy Verified 10/29/23 02:47
Home Medications
albuterol sulfate 90 mcg/actuation aerosol inhaler 2 puff inhalation R Q4HPRN PRN sob 07/20/23
arformoterol 15 mcg/2 mL solution for nebulization 2 ml inhalation R BID Lung/Breathing Issues 07/20/23
bisacodyl 10 mg rectal suppository (Dulcolax (bisacodyl)) 10 mg CA DAILY PRN if MOM ineffective 07/20/23
carboxymethylcellulose sodium 1 % eye drops 1 drp BOTH EYES BID dry eyes 07/20/23
fluticasone propionate 50 mcg/actuation nasal spray,suspension (Flonase Allergy Relief) 1 spray intranasal [id number] PRN nasal allergy/congestion 07/20/23
gabapentin 100 mg capsule 200 mg PO DAILY Neurological Condition 07/20/23
guaifenesin 400 mg tablet 400 mg PO Q6HPRN PRN cough 07/20/23
hydralazine 10 mg tablet 10 mg PO Q8H Blood Pressure 07/20/23
insulin glargine 100 unit/mL (3 mL) subcutaneous pen (Basaglar KwikPen U-100 Insulin) 8 unit SC HS Diabetes 07/20/23
nebivolol 2.5 mg tablet 2.5 mg PO DAILY Blood Pressure 07/20/23
polyethylene glycol 3350 17 gram oral powder packet 17 g PO DAILY PRN constipation 07/20/23
simethicone 80 mg tablet 80 mg PO Q6HPRN PRN gas 07/20/23
sodium phosphates 19 gram-7 gram/118 mL enema (Fleet Enema) 118 ml CA DAILYPRN PRN if dulcolax ineffective 07/20/23
torsemide 20 mg tablet 20 mg PO DAILY Fluid Retention/Swelling 07/20/23
ipratropium 0.5 mg-albuterol 3 mg (2.5 mg base)/3 mL nebulization soln 3 ml inhalation R Q4HPRN PRN SOB/Wheezing #90 mL 07/30/23
oxycodone 5 mg tablet 5 mg PO Q6H PRN moderate pain #10 tabs 07/30/23
acetaminophen 325 mg tablet 650 mg PO Q6H PRN fever/mild pain 10/29/23
loratadine 10 mg tablet 10 mg PO DAILY 10/29/23
magnesium hydroxide 400 mg/5 mL oral suspension (Milk of Magnesia) 30 ml PO DAILY PRN constipation 10/29/23
Review of Systems
-
A 12 point ROS was completed and negative except as noted: Yes
Physical Exam
Vital Signs
Vital Signs
Temp Pulse Resp BP Pulse Ox
98.6 F 111 23 114/55 93
10/29/23 04:20 10/29/23 04:45 10/29/23 04:45 10/29/23 04:01 10/29/23 04:45
Physical Exam
General: Respiratory Distress (mild)
Respiratory: Wheezes, Rhonchi and Decreased Breath Sounds
Cardiac: S1/S2 and Regular Rhythm
Neuro: AO x 3
Hematologic/Lymphatic: No Lymphadenopathy
Psych: Calm
Laboratory Results
-
10/29/23 03:06
10/29/23 03:06
Laboratory Results
Lactic Acid 0.9 mmol/L (0.7-2.0) 10/29/23 03:06
Total Bilirubin 0.6 mg/dl (0.2-1.3) 10/29/23 03:06
AST 21 U/L (14-36) 10/29/23 03:06
ALT 10 U/L (0-35) 10/29/23 03:06
Alkaline Phosphatase 67 U/L (38-126) 10/29/23 03:06
Data Reviewed
-
Lab Data: Labs Reviewed by me
Impression/Plan
-
Assessment:
Acute on chronic hypoxic respiratory failure
Healthcare associated PNA
Acute COPD Exacerbation
Chronic HFpEF
advanced thyroid malignancy involving great vessels
hx of COPD
IDDM
severe - not a TAVR candidate per prior records
parox A. Fib (Eliquis stopped last admission)
CAD s/p CABG
CKD 3b
Plan:
Admit to tele
with history of MRSA +, will start Vancomycin
start Cefepime
check sputum and blood cultures
start IV steroids
nebs scheduled and prn
Continue chronic meds for chronic conditions
DVT ppx: SC Heparin
Code: DNR confirmed by patient
[2023-10-29 06:01] LABS: NT-proBNP 3400 pg/ml
--- NOTE | 2023-10-29 10:52 | PHA.VAN.IN ---
Assessment
- Assessment
Renal Function: Unknown baseline
Maximum Temperature: 101.2 F - 10/29/23 - oral
Concomitant Antimicrobials: cefepime
Plan
- Plan
Initial / Loading Dose: 2000mg - administration pending
Maintenance Regimen: dosing by level
Monitoring: random 10/29 0600
Pharmacokinetics Vancomycin I
- -
Patient Age: 88
Patient Sex: Female
Vancomycin Day #: 1
Indication: Pulmonary/Respiratory
Requesting Provider: Dr. Prasad
Pertinent Antimicrobial Allergies:
NKDA
Height / Weight:
Height 4 ft 11 in
Actual Weight 85 kg
Pertinent Past Medical History: BMI ~38, DM, COPD (home O2)
- Vital Signs / Lab Results
Temp Pulse Resp BP Pulse Ox
97.9 F 98 20 118/58 94
10/29/23 08:02 10/29/23 09:00 10/29/23 09:00 10/29/23 08:02 10/29/23 09:00
Lab Results - Hematology
10/29/23
03:06
WBC 5.7
Lab Results - Chemistry
10/29/23
03:06
BUN 22 H
Creatinine 1.0
Estimated Creat Clear 38
Albumin 3.8
10/29/23 10/29/23
03:06 06:45
Lactic Acid 0.9 Cancelled
Microbiology Results
10/29/23 05:50 Gram Stain - Preliminary
Sputum
10/29/23 04:16 Influenza Types A & B (BALDEV) - Final
Nasal Swab Negative for Influenza A & B, NAAT
Negative results must be combined with clinical observations
and patient history.
Nucleic Acid Amplification test (NAAT)performed on the
[employer] platform.
[2023-10-29 11:04] LABS: Glucose - Point of Care 320 mg/dl (70-99)
[2023-10-29] MEDS: MUCINEX 1200 MG PO ×2 (11:40→20:56)
[2023-10-29] MEDS: NEURONTIN 200 MG PO (11:40)
[2023-10-29] MEDS: CLARITIN 10 MG PO (11:40)
[2023-10-29] MEDS: HEPARIN 5000 UNITS SC ×2 (11:40→20:55)
[2023-10-29] MEDS: APRESOLINE 10 MG PO ×2 (11:41→17:02)
[2023-10-29] MEDS: DEMADEX 20 MG PO (11:43)
[2023-10-29] MEDS: DECADRON 4 MG IV ×2 (11:43→17:02)
[2023-10-29] MEDS: VANCOCIN 540 MG IV (11:44)
[2023-10-29] MEDS: BYSTOLIC PO (11:54)
[2023-10-29] MEDS: MAXIPIME 1000 MG IV ×2 (12:08→20:56)
[2023-10-29] MEDS: STERILE WATER FOR INJECTION 10 ML IV ×2 (12:09→20:56)
[2023-10-29] MEDS: BYSTOLIC 2.5 MG PO (12:10)
--- NOTE | 2023-10-29 13:45 | PTOTSP ---
Speech Language Pathology
Pt seen for clinical bedside swallow evaluation. Frequent cough noted at baseline. P.O. trials of puree, regular solids, and thin liquids provided. Adequate mastication, bolus formation, and A-P transit noted with no oral residue. No overt signs
of aspiration. Coughing at times during evaluation, but not specifically after P.O. intake. Suspect related to baseline cough. WBC WNL and CXR not concerning for aspiration.
Recommend:
(1) Continue regular solids/thin liquids
(2) General aspiration precautions
(3) Meds as tolerated
(4) METAL FITTERS AND MACHINISTS to sign off. Please reconsult as indicated
--- NOTE | 2023-10-29 16:57 | PTCARENOTE ---
Pt came to unit from ED. Walked from stretcher to bed with assist x1. On 3L O2 94%. Placed on tele #15 Sinus tach. Denies pain/discomfort. Pt and son oriented to room and use of call palumbo. Pt asked for purewick, but commode offered due to Pt being
ambulatory.
[2023-10-29 17:17] LABS: Glucose - Point of Care 315 mg/dl (70-99)
[2023-10-29] MEDS: NOVOLOG FLEXPEN-MODERATE RESISTANCE 7 UNITS SC (17:18)
[2023-10-29] MEDS: REFRESH CELLUVISC GEL 1 DROPS BOTH EYES (20:54)
[2023-10-29 21:23] LABS: Glucose - Point of Care 275 mg/dl (70-99)
[2023-10-29] MEDS: LANTUS 0.0800000000000000017 UNITS SC (22:06)
[2023-10-30] MEDS: DECADRON 4 MG IV ×3 (00:15→15:19)
[2023-10-30] MEDS: APRESOLINE 10 MG PO ×3 (00:15→15:19)
[2023-10-30] MEDS: DUONEB 3 ML INH ×5 (01:07→19:21)
[2023-10-30 03:39] VITALS: BP 140/75
[2023-10-30] MEDS: STERILE WATER FOR INJECTION 10 ML IV ×3 (05:02→20:34)
[2023-10-30] MEDS: MAXIPIME 1000 MG IV ×3 (05:02→20:33)
[2023-10-30 06:00] VITALS: BMI 36.7
[2023-10-30 06:30] LABS: Hematocrit 36.2 % (37.0-47.0); Hemoglobin 12.1 g/dL (12.0-16.0); Mean Corp Hgb Conc. 33.4 g/dL (33.0-37.0); Mean Corpuscular Hgb 27.8 pg (27.0-31.0); Mean Platelet Volume 11.9 fL (7.4-10.4); Platelet Count 161 10^3/uL (130-400); Red Blood Cell Count 4.36 10^6/uL (4.20-5.40); Red Cell Dist. Width 13.8 % (11.5-14.5); White Blood Cell Count 2.8 10^3/uL (4.8-10.8)
[2023-10-30 07:00] VITALS: BP 122/74
[2023-10-30 07:05] LABS: Blood Urea Nitrogen 41 mg/dl (7-17); Calcium 9.4 mg/dl (8.4-10.2); Carbon Dioxide 24 mmol/L (22-30); Chloride 102 mmol/L (98-107); Estimated Creatinine Clearance 31 ml/min; Glucose 234 mg/dl (70-99); Potassium 4.5 mmol/L (3.5-5.1); Sodium 134 mmol/L (135-145); eGFR 44.08
[2023-10-30 07:07] LABS: Vancomycin Random 18.3 ug/ml
[2023-10-30] MEDS: BYSTOLIC 2.5 MG PO (08:06)
[2023-10-30] MEDS: MUCINEX 1200 MG PO ×2 (08:06→20:34)
[2023-10-30] MEDS: NEURONTIN 200 MG PO (08:07)
[2023-10-30] MEDS: HEPARIN 5000 UNITS SC ×2 (08:07→20:33)
[2023-10-30] MEDS: DEMADEX 20 MG PO (08:07)
[2023-10-30] MEDS: CLARITIN 10 MG PO (08:08)
[2023-10-30] MEDS: NOVOLOG FLEXPEN-MODERATE RESISTANCE 5 UNITS SC ×3 (08:24→18:26)
[2023-10-30 08:25] LABS: Glucose - Point of Care 253 mg/dl (70-99)
--- NOTE | 2023-10-30 08:29 | PHA.VAN.FU ---
Vancomycin Assessment / Plan
- Assessment
Renal Function: SCR Increasing
In the past 24 hrs, patient has been: Afebrile
Concomitant Antimicrobials: cefepime
- Assessment - Therapeutic Drug Monitoring
Random Level: 18.3 - drawn ~18H after 2000mg loading dose
- Dosing Plan
Dosing by Level: Re-dose today (Vanc 750mg)
Dosing Comments: will trial low dose today to assess for once daily dosing
- Monitoring Plan
Random Level: 10/30 06
- Follow Up
Pharmacy will continue to follow.
Vancomycin Follow UP
- -
Patient Age: 88
Patient Sex: Female
Vancomycin Day #: 2
Indication: Pulmonary/Respiratory
Requesting Provider: Dr. Prasad
Pertinent Antimicrobial Allergies:
NKDA
Height / Weight:
Height 4 ft 11 in
Actual Weight 82.355 kg
Pertinent Past Medical History: BMI ~38, DM, COPD (home O2)
- Vital Signs / Lab Results
Temp Pulse Resp BP Pulse Ox
98.3 F 92 18 122/74 96
10/30/23 07:00 10/30/23 07:24 10/30/23 07:24 10/30/23 08:07 10/30/23 07:24
Lab Results - Hematology
10/29/23 10/30/23
03:06 06:08
WBC 5.7 2.8 L
Lab Results - Chemistry
10/29/23 10/30/23
03:06 06:08
BUN 22 H 41 H
Creatinine 1.0 1.2 H
Estimated Creat Clear 38 31
Albumin 3.8
10/29/23 10/29/23
03:06 06:45
Lactic Acid 0.9 Cancelled
Microbiology Results
10/29/23 03:06 Blood Culture - Preliminary
Blood/Venous No Growth in 24 hours- Final report to follow
10/29/23 03:06 Blood Culture - Preliminary
Blood/Venous No Growth in 24 hours- Final report to follow
10/29/23 05:50 Gram Stain - Preliminary
Sputum
10/29/23 04:16 Influenza Types A & B (BALDEV) - Final
Nasal Swab Negative for Influenza A & B, NAAT
Negative results must be combined with clinical observations
and patient history.
Nucleic Acid Amplification test (NAAT)performed on the
[employer] platform.
Therapeutic Drug Monitoring
Random Vancomycin 18.3 ug/ml 10/30/23 06:08
[2023-10-30] MEDS: REFRESH CELLUVISC GEL 1 DROPS BOTH EYES ×2 (09:02→20:34)
[2023-10-30 11:00] VITALS: BP 169/86
[2023-10-30 12:37] LABS: Glucose - Point of Care 297 mg/dl (70-99)
--- NOTE | 2023-10-30 14:09 | W.PN.HOSP.TC ---
Today's Communication/Plan
-
Adjust insulin dose
Discontinue vancomycin
Continue steroids
Repeat sputum culture
Assessment / Plan
Assessment / Plan
1. Acute on chronic hypoxic respiratory failure
-Patient oxygen requirement stable at 3 L through nasal cannula
-Wean off oxygen as possible
2. Healthcare associated PNA
-CXR reviewed
-Initial respiratory culture contaminated. Repeat ordered
-Holding on vancomycin
-Continues cefepime
3. Acute COPD Exacerbation
-Maintain on IV Decadron
-Continue nebulizer therapy
4, Chronic HFpEF
-No signs of volume overload
-maintain on torsemide 20mg/d
5. IDDM
-On Lantus 8 unit at bedtime and sliding scale
-Blood glucose uncontrolled with requiring steroid, adding premeal 5u novolog
advanced thyroid malignancy involving great vessels
IDDM
severe - not a TAVR candidate per prior records
parox A. Fib (Eliquis stopped last admission)
CAD s/p CABG
CKD 3b
DVT ppx: SC Heparin
Code: DNR confirmed by patient
Anticipated Discharge: 24 - 48 hours
Subjective/Interval History
-
Date of Service: October 30, 2023
still have some shortness breath
cough with thick phlegm
Objective Data
-
Labs:
Laboratory Results
10/30/23
06:08
WBC 2.8 L
Hgb 12.1
Hct 36.2 L
Plt Count 161
Sodium 134 L
Potassium 4.5
Chloride 102
Carbon Dioxide 24
BUN 41 H
Creatinine 1.2 H
Glucose 234 H
Calcium 9.4
Vital Signs:
Vital Signs
Temp Pulse Resp BP Pulse Ox
97.8 F 90 18 169/86 96
10/30/23 11:00 10/30/23 12:55 10/30/23 12:55 10/30/23 11:00 10/30/23 12:55
I&O
10/29/23 10/30/23 10/31/23
06:59 06:59 06:59
Intake Total 1020 / 1020
Balance 1020 / 1020
Review of Systems
-
Respiratory: Reports Cough and Trouble Breathing
Cardiac: Reports No Symptoms
Abdomen/GI: Reports No Symptoms
Physical Exam
-
General: No Apparent Distress
HEENT: Atraumatic
Respiratory: Wheezes; Negative Rales
Cardiac: Regular Rhythm and S1/S2
GI: Soft, Nontender and Nondistended
Genito-urinary: No Costovertebral Tender
Neuro: Awake, Alert and AO x 3
Psych: Calm
[2023-10-30 15:00] VITALS: BP 140/61
[2023-10-30 17:06] LABS: Glucose - Point of Care 491 mg/dl (70-99)
[2023-10-30] MEDS: NOVOLOG FLEXPEN 5 UNITS SC (18:04)
[2023-10-30] MEDS: NOVOLOG FLEXPEN 12 UNITS SC (18:04)
[2023-10-30] MEDS: NOVOLOG FLEXPEN-MODERATE RESISTANCE SC (18:05)
[2023-10-30 18:22] LABS: Glucose 267 mg/dl (70-99)
[2023-10-30 19:03] LABS: Glucose - Point of Care 286 mg/dl (70-99)
[2023-10-30 19:27] VITALS: BP 143/63
[2023-10-30 21:23] LABS: Glucose - Point of Care 213 mg/dl (70-99)
[2023-10-30] MEDS: TYLENOL 650 MG PO (21:26)
[2023-10-30] MEDS: LANTUS 0.0800000000000000017 UNITS SC (21:26)
[2023-10-30 23:25] VITALS: BP 137/66
[2023-10-31] MEDS: DECADRON 4 MG IV ×4 (00:12→23:48)
[2023-10-31] MEDS: APRESOLINE 10 MG PO ×4 (00:13→23:47)
[2023-10-31 03:56] VITALS: BP 150/76
[2023-10-31] MEDS: MAXIPIME 1000 MG IV ×3 (04:49→20:32)
[2023-10-31] MEDS: STERILE WATER FOR INJECTION 10 ML IV ×3 (04:49→20:35)
[2023-10-31] MEDS: DUONEB 3 ML INH ×6 (05:14→23:56)
[2023-10-31 06:00] VITALS: BMI 36.3
[2023-10-31 06:19] LABS: Hematocrit 40.2 % (37.0-47.0); Hemoglobin 13.2 g/dL (12.0-16.0); Mean Corp Hgb Conc. 32.8 g/dL (33.0-37.0); Mean Corpuscular Hgb 27.7 pg (27.0-31.0); Mean Corpuscular Volume 84.5 fL (81.0-99.0); Mean Platelet Volume 12.3 fL (7.4-10.4); Platelet Count 169 10^3/uL (130-400); Red Blood Cell Count 4.76 10^6/uL (4.20-5.40); Red Cell Dist. Width 13.8 % (11.5-14.5); White Blood Cell Count 6.5 10^3/uL (4.8-10.8)
[2023-10-31 07:00] VITALS: BP 160/89
[2023-10-31 07:11] LABS: Blood Urea Nitrogen 56 mg/dl (7-17); Carbon Dioxide 25 mmol/L (22-30); Chloride 99 mmol/L (98-107); Estimated Creatinine Clearance 27 ml/min; Glucose 213 mg/dl (70-99); Potassium 4.7 mmol/L (3.5-5.1); Sodium 134 mmol/L (135-145); eGFR 36.64
[2023-10-31] MEDS: NEURONTIN 200 MG PO (08:01)
[2023-10-31] MEDS: CLARITIN 10 MG PO (08:01)
[2023-10-31] MEDS: DEMADEX 20 MG PO (08:02)
[2023-10-31] MEDS: BYSTOLIC 2.5 MG PO (08:02)
[2023-10-31] MEDS: HEPARIN 5000 UNITS SC ×2 (08:02→20:31)
[2023-10-31] MEDS: MUCINEX 1200 MG PO ×2 (08:02→20:35)
[2023-10-31] MEDS: REFRESH CELLUVISC GEL 1 DROPS BOTH EYES ×2 (08:02→20:35)
[2023-10-31 08:32] LABS: Glucose - Point of Care 208 mg/dl (70-99)
[2023-10-31] MEDS: NOVOLOG FLEXPEN-MODERATE RESISTANCE 3 UNITS SC ×2 (08:32→12:21)
[2023-10-31] MEDS: NOVOLOG FLEXPEN 5 UNITS SC (08:33)
[2023-10-31] MEDS: PROCARDIA XL (EXTENDED RELEASE) 30 MG PO (09:04)
[2023-10-31 11:00] VITALS: BP 117/66; BP 140/78
--- NOTE | 2023-10-31 11:54 | W.PN.HOSP.TC ---
Today's Communication/Plan
-
increase insulin dose
maintain on steroids
hold torsemide
continue pt/ot
Assessment / Plan
Assessment / Plan
1. Acute on chronic hypoxic respiratory failure
-Patient oxygen requirement stable at 3 L through nasal cannula
-Wean off oxygen as possible
2. Healthcare associated PNA
-CXR reviewed
-Initial respiratory culture contaminated. Repeat ordered
-Holding on vancomycin
-Continues cefepime
3. Acute COPD Exacerbation
-Maintain on IV Decadron
-Continue nebulizer therapy
4, Chronic HFpEF
-No signs of volume overload
-maintain on torsemide 20mg/d
5. IDDM -uncontrolled
-Blood glucose remains significantly elevated in the evening.
-Increase Lantus to 12 units at bedtime and increase Premeal to 7 units AC
5. Hyponatremia
-mild,monitor
6. JUAN LUIS
-cr elevated to 1.4 today
-hold torsemide dose
advanced thyroid malignancy involving great vessels
severe - not a TAVR candidate per prior records
parox A. Fib (Eliquis stopped last admission)
CAD s/p CABG
CKD 3b
DVT ppx: SC Heparin
Code: DNR confirmed by patient
Anticipated Discharge: 24 - 48 hours
Subjective/Interval History
-
Date of Service: October 31, 2023
Resting comfortably in bed
No acute issues overnight
Objective Data
-
Labs:
Laboratory Results
10/31/23
06:10
WBC 6.5
Hgb 13.2
Hct 40.2
Plt Count 169
Sodium 134 L
Potassium 4.7
Chloride 99
Carbon Dioxide 25
BUN 56 H
Creatinine 1.4 H
Glucose 213 H
Calcium 10.0
Vital Signs:
Vital Signs
Temp Pulse Resp BP Pulse Ox
98.6 F 91 22 160/89 94
10/31/23 07:00 10/31/23 11:35 10/31/23 11:35 10/31/23 09:04 10/31/23 11:35
I&O
10/30/23 10/31/23 11/01/23
06:59 06:59 06:59
Intake Total 1020 / 1020 1260 / 1260
Balance 1020 / 1020 1260 / 1260
Review of Systems
-
Respiratory: Reports No Symptoms
Cardiac: Reports No Symptoms
Abdomen/GI: Reports No Symptoms
Physical Exam
-
General: No Apparent Distress
HEENT: Atraumatic
Respiratory: Wheezes; Negative Rales
Cardiac: Regular Rhythm and S1/S2
GI: Soft, Nontender and Nondistended
Genito-urinary: No Costovertebral Tender
Neuro: Awake, Alert and AO x 3
Psych: Calm
[2023-10-31 12:14] LABS: Glucose - Point of Care 233 mg/dl (70-99)
[2023-10-31] MEDS: NOVOLOG FLEXPEN 7 UNITS SC ×2 (12:20→16:50)
[2023-10-31] MEDS: NOVOLOG FLEXPEN SC (12:48)
--- NOTE | 2023-10-31 16:01 | CM ---
Reviewed chart, placed a call to patient's son to obtain information for assessment. Patient lives at [facility]. Staff assists with her bathing, dressing and other ADLs. She can independently toilet as well as feed herself. She uses a
walker for short distances and a w/c for long community distances.
Patient's son confirmed that patient is a bed hold and he wants her to return there when she is medically stable for discharge.
Patient has a supportive family who is only 5 minutes away.
Will review functional status with facility to confirm that she can go back to her room or if she needs SNF.
Plan: Case management will continue to follow and assist with discharge planning. Back to [facility].
[2023-10-31 16:41] LABS: Glucose - Point of Care 286 mg/dl (70-99)
[2023-10-31] MEDS: NOVOLOG FLEXPEN-MODERATE RESISTANCE 5 UNITS SC (16:50)
[2023-10-31 20:13] VITALS: BP 139/70
[2023-10-31 21:42] LABS: Glucose - Point of Care 265 mg/dl (70-99)
[2023-10-31] MEDS: LANTUS 0.119999999999999996 UNITS SC (22:13)
[2023-10-31 23:29] VITALS: BP 146/75
[2023-11-01] VITALS (10 sets, daily range): BP systolic 104–155; BP diastolic 49–115; PULSE 2–102; BMI 36.8
[2023-11-01] MEDS: DUONEB 3 ML INH ×5 (04:30→20:28)
[2023-11-01] MEDS: MAXIPIME 1000 MG IV ×3 (04:54→20:12)
[2023-11-01] MEDS: STERILE WATER FOR INJECTION 10 ML IV ×3 (04:54→20:12)
[2023-11-01] MEDS: ZOFRAN 4 MG IV (06:38)
[2023-11-01 06:45] LABS: Hematocrit 42.7 % (37.0-47.0); Mean Corp Hgb Conc. 32.8 g/dL (33.0-37.0); Mean Corpuscular Hgb 27.5 pg (27.0-31.0); Mean Corpuscular Volume 83.7 fL (81.0-99.0); Mean Platelet Volume 12.2 fL (7.4-10.4); Platelet Count 192 10^3/uL (130-400); Red Cell Dist. Width 13.9 % (11.5-14.5); White Blood Cell Count 8.7 10^3/uL (4.8-10.8)
[2023-11-01 07:13] LABS: Blood Urea Nitrogen 64 mg/dl (7-17); Calcium 10.2 mg/dl (8.4-10.2); Carbon Dioxide 27 mmol/L (22-30); Chloride 97 mmol/L (98-107); Estimated Creatinine Clearance 29 ml/min; Glucose 234 mg/dl (70-99); Potassium 4.8 mmol/L (3.5-5.1); Sodium 135 mmol/L (135-145); eGFR 40.05
[2023-11-01] MEDS: PULMICORT 0.5 MG INH ×2 (08:41→20:28)
[2023-11-01 08:49] LABS: Glucose - Point of Care 206 mg/dl (70-99)
[2023-11-01] MEDS: NEURONTIN PO ×2 (09:00→09:39)
[2023-11-01] MEDS: BYSTOLIC PO ×2 (09:00→09:43)
[2023-11-01] MEDS: PROCARDIA XL (EXTENDED RELEASE) PO ×2 (09:00→10:14)
[2023-11-01] MEDS: MUCINEX PO ×2 (09:00→09:40)
[2023-11-01] MEDS: CLARITIN PO ×2 (09:00→10:14)
[2023-11-01] MEDS: VIBRAMYCIN PO ×2 (09:00→09:43)
[2023-11-01] MEDS: APRESOLINE PO ×3 (09:00→16:54)
[2023-11-01] MEDS: HEPARIN 5000 UNITS SC ×2 (09:40→20:10)
[2023-11-01] MEDS: NOVOLOG FLEXPEN-MODERATE RESISTANCE 3 UNITS SC (09:41)
[2023-11-01] MEDS: NOVOLOG FLEXPEN SC (09:48)
[2023-11-01] MEDS: REFRESH CELLUVISC GEL 1 DROPS BOTH EYES ×2 (10:14→20:11)
--- NOTE | 2023-11-01 10:14 | CON.PUL ---
Consultation
Consultation Request
Date/Time Consultation Requested: 10/31
Date/Time Consultation Performed: 10/31
Reason for Consultation: Shortness of breath
Medical History
-
History of Present Illness:
History obtained from the chart. Some history obtained from the patient, however patient is not a good historian, giving one-word answers, does not consistently answer questions. 88-year-old female with history of COPD on oxygen, significant
aortic stenosis, atrial fibrillation, enlarging necrotic thyroid mass, brought to [facility] on 10/28 by family because of increased cough and fever. Patient is a intermediate resident, possibly exposed to sick contacts with flu and COVID.
She was given nebulized therapy and steroids in the EMS. Upon arrival, afebrile, pulse 111, breathing at 23, blood pressure 114/55, 93%. Cultures were obtained, she was given nebulized therapy, Zosyn. Initial white count was normal, creatinine
was normal. She was admitted for COPD exacerbation, chest x-ray suggested possible atelectasis, heart failure. Hospital course reviewed. She was maintained on cefepime and vancomycin for possible healthcare associated pneumonia. She was also on
IV steroids and nebulized therapy. Hyperglycemia noted, requiring increasing insulin dosing. Chest x-ray revealed worsening consolidation, doxycycline added. We are asked to comment on worsening wheezing and shortness of breath 11/01/2023
.
PMH: COPD on home oxygen, diabetes, severe arctic stenosis, pulmonary hypertension, atrial fibrillation, enlarging necrotic thyroid mass, history of sleep apnea on CPAP
Past Medical History
Past Medical History: None (See above)
Past Surgical History: None (See above)
Social History
Tobacco: Former Smoker (Quit 1981)
Alcohol: None
Drug: None
Living: Intermediate
Employment: Not Employed
Family History
Family History: Unable to Obtain
Allergies / Home Medications
Allergies
Allergy/AdvReac Type Severity Reaction Status Date / Time
No Known Allergies Allergy Verified 10/29/23 02:47
Home Medications
�Medication �Instructions �Recorded �Confirmed �Last Taken �Type
albuterol sulfate 90 mcg/actuation 2 puff inhalation R Q4HPRN PRN sob 07/20/23 10/29/23 10/29/23 History
aerosol inhaler
arformoterol 15 mcg/2 mL solution 2 ml inhalation R BID 07/20/23 10/29/23 10/28/23 History
for nebulization Lung/Breathing Issues
bisacodyl 10 mg rectal suppository 10 mg UT DAILY PRN if MOM 07/20/23 10/29/23 Unknown History
(Dulcolax (bisacodyl)) ineffective
carboxymethylcellulose sodium 1 % 1 drp BOTH EYES BID dry eyes 07/20/23 10/29/23 10/28/23 History
eye drops
fluticasone propionate 50 1 spray intranasal [id number] PRN 07/20/23 10/29/23 Unknown History
mcg/actuation nasal nasal allergy/congestion
spray,suspension (Flonase Allergy
Relief)
gabapentin 100 mg capsule 200 mg PO DAILY Neurological 07/20/23 10/29/23 10/28/23 History
Condition
guaifenesin 400 mg tablet 400 mg PO Q6HPRN PRN cough 07/20/23 10/29/23 Unknown History
hydralazine 10 mg tablet 10 mg PO Q8H Blood Pressure 07/20/23 10/29/23 10/28/23 History
nebivolol 2.5 mg tablet 2.5 mg PO DAILY Blood Pressure 07/20/23 10/29/23 10/28/23 History
polyethylene glycol 3350 17 gram 17 g PO DAILYPRN PRN constipation 07/20/23 10/29/23 Unknown History
oral powder packet
simethicone 80 mg tablet 80 mg PO Q6HPRN PRN gas 07/20/23 10/29/23 Unknown History
sodium phosphates 19 gram-7 118 ml UT DAILYPRN PRN if dulcolax 07/20/23 10/29/23 Unknown History
gram/118 mL enema (Fleet Enema) ineffective
torsemide 20 mg tablet 20 mg PO DAILY Fluid 07/20/23 10/29/23 10/28/23 History
Retention/Swelling
ipratropium 0.5 mg-albuterol 3 mg 3 ml inhalation R Q4HPRN PRN 07/30/23 10/29/23 10/29/23 Rx
(2.5 mg base)/3 mL nebulization SOB/Wheezing #90 mL
soln
acetaminophen 325 mg tablet 650 mg PO Q6H PRN temp>100/mild 10/29/23 10/29/23 10/25/23 History
pain
insulin glargine 100 unit/mL (3 8 unit SC HS Diabetes 10/29/23 10/29/23 10/28/23 History
mL) subcutaneous pen (Lantus
Solostar U-100 Insulin)
loratadine 10 mg tablet 10 mg PO DAILY Allergies 10/29/23 10/29/23 10/28/23 History
magnesium hydroxide 400 mg/5 mL 30 ml PO DAILYPRN PRN if no BM x 3 10/29/23 10/29/23 Unknown History
oral suspension (Milk of Magnesia) days
oxycodone 5 mg tablet 5 mg PO Q6HPRN PRN moderate pain 10/29/23 10/29/23 10/18/23 History
Review of Systems
Vitals / Labs / Diagnostic Testing
Vital Signs
Temp Pulse Resp BP Pulse Ox
97.9 F 100 32 104/77 97
11/01/23 07:00 11/01/23 10:00 11/01/23 08:45 11/01/23 09:43 11/01/23 10:00
Lab Data
11/01/23 06:02
11/01/23 06:02
Microbiology
10/29/23 03:06 Blood/Venous Blood Culture - Preliminary
No Growth in 72 hours- Final report to follow
10/29/23 03:06 Blood/Venous Blood Culture - Preliminary
No Growth in 72 hours- Final report to follow
10/29/23 05:50 Sputum Respiratory Culture - Final
Usual Respiratory Miryam
10/29/23 05:50 Sputum Gram Stain - Final
10/30/23 15:29 Sputum Respiratory Culture - Preliminary
Usual Respiratory Miryam
10/30/23 15:29 Sputum Gram Stain - Preliminary
Diagnostic Testing:
Physical Exam
-
HEENT: Normocephalic and Anicteric
Cardiovascular: S1/S2, Regular Rhythm, Murmur (2/6), Rub (n) and Peripheral Edema (tr)
Respiratory: Wheeze (Scattered), Rales (n), Rhonchi (few) and Accessory Resp Muscle Use (Mild)
GI: Soft, Non Distended (Obese) and Non Tender
Neurology: Other (Lethargic but arousable)
Skin: Other (No clubbing, cyanosis)
General: Comfortable
Assessment
-
88-year-old woman with complex medical history, sleep apnea on CPAP, obstructive lung disease, presents to [facility] from nursing home facility with increased shortness of breath and cough. Now with worsening wheeze, worsening lethargy,
chest x-ray with increased bibasilar infiltrates. We are asked to comment on pulmonary process 11/01/2023
Acute COPD exacerbation, admitted 10/28
Bibasilar infiltrates, worrisome for nosocomial pneumonia
Acute hypoxic respiratory insufficiency requiring NIV
Acute hypercapnic respiratory insufficiency
Chronic compensated hypercapnia, baseline pCO2 50s
Lethargy
History of heart failure
Chronic kidney disease, creatinine 1.3
Hyperglycemia
Conditions present prior admission:
Hypertension
Type 2 diabetes
Peripheral neuropathy
Chronic lower extremity edema
Dementia
Bladder dysfunction
Resident at [facility]
? Status post CABG-sternotomy wires on [id number]-wuz-[id number] toe disease.
Atrial fibrillation on anticoagulation
There is no mention of alcohol or cigarette use.
Patient on formoterol and budesonide in the outpatient setting-unclear diagnosis.
Assessment and plan:
At this time, patient appears to be in respiratory distress
Mild use of accessory muscles, lethargy noted. BiPAP is presently off. Patient has her own BiPAP machine
Chest exam with diffuse wheezing, poor air movement
Chest x-ray with progressive bilateral infiltrates
ABG consistent with acute on chronic hypercapnia
Moving forward
Placed back on BiPAP. Reviewed with respiratory care
Suspect presentation is multifactorial
Patient had similar presentation back in July, requiring ICU stay
Although she is wheezing, she is moving air adequately
No change in current steroid dose, continue [id number] nebulized therapy
Avoid sedatives, patient is on gabapentin chronically. Patient also receiving oxycodone as needed
Would like to minimize if possible
Continue cefepime, agree with doxycycline
Patient also at risk for heart failure
Severe aortic stenosis, pulm hypertension PA pressure 55 per prior echocardiogram and moderate mitral stenosis
Follow clinically for now
Patient also on chronic anticoagulation for atrial fibrillation
DNR status noted
Reviewed with respiratory care and nursing
Remains high risk situation. Will follow
[2023-11-01] MEDS: DECADRON 4 MG IV ×2 (10:15→16:54)
--- NOTE | 2023-11-01 10:31 | W.PN.HOSP.TC ---
Today's Communication/Plan
-
see note
Assessment / Plan
Assessment / Plan
1. Acute on chronic hypoxic respiratory failure
-Patient oxygen requirement stable at 3 L through nasal cannula
-Wean off oxygen as possible
2. Healthcare associated PNA
-CXR reviewed
-Initial respiratory culture contaminated. Repeat ordered
-Maintain on cefepime. Added doxycycline to regimen.
-Repeat chest x-ray showing possible worsening right lower lobe infiltrates - official read pending.
3. Acute COPD Exacerbation
-Maintain on IV Decadron
-added inhaled budesonide
-Continue nebulizer therapy
-Patient more wheezing and dyspneic today. Pulmonology asked to evaluate as well.
4, Chronic HFpEF
-No signs of volume overload
-Torsemide held due to increasing cr, cr down to 1.3 today, will provide iv lasix 40mg x1
5. IDDM -uncontrolled
-Blood glucose remains significantly elevated in the evening.
-Increase Lantus to 15 units at bedtime and increase Premeal to 9 units AC
5. Hyponatremia - resolved
-mild,monitor
6. JUAN LUIS
-cr down to 1.3 today
-check PVR
advanced thyroid malignancy involving great vessels
severe - not a TAVR candidate per prior records
parox A. Fib (Eliquis stopped last admission)
CAD s/p CABG
CKD 3b
DVT ppx: SC Heparin
Code: DNR confirmed by patient
Care plan discussed with pulmonology
Total time spent : 53 mins
I personally saw and examined the patient.
I have reviewed all diagnostic interpretations and treatment plans as written.
Time includes patient management by me, time spent at the patients bedside, time to review lab and imaging results, discussing patient care, documentation in the medical record, and time spent with the family or caregiver and discussing care plan
with RN/Consultants.
Anticipated Discharge: > 48 hours
Subjective/Interval History
-
Date of Service: November 01, 2023
Patient more dyspneic and audibly wheezing today
Oxygen requirement stable
Objective Data
-
Labs:
Laboratory Results
11/01/23
06:02
WBC 8.7
Hgb 14.0
Hct 42.7
Plt Count 192
Sodium 135
Potassium 4.8
Chloride 97 L
Carbon Dioxide 27
BUN 64 H
Creatinine 1.3 H
Glucose 234 H
Calcium 10.2
Vital Signs:
Vital Signs
Temp Pulse Resp BP Pulse Ox
97.9 F 100 32 104/77 97
11/01/23 07:00 11/01/23 10:14 11/01/23 08:45 11/01/23 10:14 11/01/23 10:00
I&O
10/31/23 11/01/23 11/02/23
06:59 06:59 06:59
Intake Total 1260 / 1260 360 / 360
Balance 1260 / 1260 360 / 360
Review of Systems
-
Respiratory: Reports Cough, Trouble Breathing and Wheezing
Cardiac: Reports No Symptoms
Abdomen/GI: Reports No Symptoms
Physical Exam
-
General: No Apparent Distress
HEENT: Atraumatic
Respiratory: Wheezes; Negative Rales
Cardiac: Regular Rhythm and S1/S2
GI: Soft, Nontender and Nondistended
Genito-urinary: No Costovertebral Tender
Neuro: Awake, Alert and AO x 3
Psych: Calm
[2023-11-01] MEDS: LASIX 40 MG IV (11:18)
[2023-11-01 12:20] LABS: B.E. 4.7 mmol/L; HCO3 33.2 mmol/L (21-28); O2 Saturation % 92.6 % (94-98); PCO2 66 mmHg (32-35); PO2 66 mmHg (83-108); pH 7.31 (7.35-7.45)
[2023-11-01 13:08] LABS: Glucose - Point of Care 159 mg/dl (70-99)
[2023-11-01] MEDS: NOVOLOG FLEXPEN-MODERATE RESISTANCE 1 UNITS SC ×2 (13:11→17:48)
--- NOTE | 2023-11-01 15:39 | W.PN.UPDATE ---
Addendum entered and electronically signed by Brandon Livingston MD 11/01/23 17:44:
Patient currently on BiPAP and comfortable.
Repeat ABG ordered for 1999
Son Jonathon updated about patient deteriorating pulmonary status today.
Patient does have history of thyroid cancer for which patient have declined intervention in the past
Reconfirmed patient CODE STATUS and remains DNR/DNI which is in line with patient wishes according to son.
Original Note:
Update Note
Progress Note Update
patient getting more hypoxic
visibly dyspneic and tachypnic
ordering transfer to IMU and bipap support
RT and RN at bedside
--- NOTE | 2023-11-01 15:48 | PN.CDI ---
CDI
- -
CDI:
Physician Documentation Request
Admit Date: 10/29/23 06:37
Dear Doctor Miki,
Patient admitted with pneumonia.
On admission, T max 101.2, HR> 90 and RR> 20.
Patient received IV Vancomycin and IV Zosyn.
Please clarify which of the following most accurately describes the status of the patient's infection:
Sepsis, POA
Pneumonia only
Other
Sepsis
- Systemic manifestations of infection, with 2 or more SIRS criteria which include:
- Fever >100.4 degrees F or hypothermia < 96.8 degrees F
- Leukocytosis - WBC > 12,000 or leukopenia - WBC < 4,000 or > 10% bands
- Tachycardia > 90 beats per minute
- Tachypnea - RR > 20 breaths per minute or PaCO2 , 32mmHg
Source: Merck Manual 2013
- Indicate the known or suspected organism
- Indicate the known or suspected underlying infection, such as pneumonia
Localized Infection Only, Without Systemic Illness
- indicate the site/source, such as pneumonia
Other
Unable to Determine
Use of terms such as suspected, likely, concern for, or probable (associated with a specific diagnosis that is being evaluated, monitored, or treated as if it exists) are acceptable and can be coded in the inpatient setting, when documented at the
time of discharge.
Thank you,
Hien MURRYN,RN,CCDS
CDI Specialist
Available via [employer] text
Please use your independent medical judgment in providing your response.
--- NOTE | 2023-11-01 16:40 | PTCARENOTE ---
Throughout course of shift, patient became progressively more lethargic. MD made aware of change in status - > CXR, ABG, Initation of CPAP, and Lasix IV interventions that took place.
RT at bedside and patient's SpO2 was 79% on CPAP of 8, 3L NC. MD notified. Patient to be transferred to IMU for higher level of care/initiation of BPAP.
[2023-11-01] MEDS: TORADOL 15 MG IV (16:54)
[2023-11-01 17:04] LABS: Glucose - Point of Care 163 mg/dl (70-99)
--- NOTE | 2023-11-01 17:31 | PTCARENOTE ---
Rec'd pt upgraded from 3W. Pt on continuous bipap. Upon arrival moaning from left knee pain. Notified Dr. Livingston, IV toredol given as ordered. Educated pt on need to remain on bipap at this time. She is now resting comfortably. vital signs stable.
[2023-11-01] MEDS: VIBRAMYCIN 100 MG PO (20:12)
[2023-11-01] MEDS: MUCINEX 1200 MG PO (20:12)
[2023-11-01 20:28] LABS: HCO3 33.7 mmol/L (21-28); O2 Saturation % 96.4 % (94-98); PCO2 61 mmHg (32-35); PO2 73 mmHg (83-108); pH 7.35 (7.35-7.45)
[2023-11-01] MEDS: LANTUS 0.149999999999999994 UNITS SC (21:46)
[2023-11-01 21:47] LABS: Glucose - Point of Care 168 mg/dl (70-99)
--- NOTE | 2023-11-01 21:55 | PTCARENOTE ---
Received pt from jaleel RN. Pt is AAOx1 (self), drowsy. Pt NSR w/PVCs on the monitor. Received pt on bipap 12/5 @ 15L, pt ripped bipap off then placed on midflow. Pt turned hygiene provided, pt O2 sat dropped to 77%, O2 increased to 15L midflow +
NRB on top, pt took a couple minutes to recover pt now 95% on 14L midflow. RT now in pt room, pt placed on bipap. Pw in place for incont. Pt is laying comfortable in bed with son at bedside, call palumbo in reach.
[2023-11-02] VITALS (13 sets, daily range): BP systolic 99–165; BP diastolic 40–110; PULSE 2; BMI 34.6
[2023-11-02] MEDS: DECADRON 4 MG IV ×3 (00:25→17:24)
[2023-11-02] MEDS: APRESOLINE PO ×4 (00:25→23:33)
[2023-11-02] MEDS: STERILE WATER FOR INJECTION 10 ML IV ×2 (03:43→12:46)
[2023-11-02] MEDS: MAXIPIME 1000 MG IV ×2 (03:43→12:46)
[2023-11-02 04:07] LABS: Hematocrit 42.8 % (37.0-47.0); Mean Corp Hgb Conc. 32.7 g/dL (33.0-37.0); Mean Corpuscular Hgb 27.7 pg (27.0-31.0); Mean Corpuscular Volume 84.8 fL (81.0-99.0); Mean Platelet Volume 12.2 fL (7.4-10.4); Platelet Count 156 10^3/uL (130-400); Red Blood Cell Count 5.05 10^6/uL (4.20-5.40); White Blood Cell Count 6.1 10^3/uL (4.8-10.8)
[2023-11-02 04:32] LABS: Blood Urea Nitrogen 74 mg/dl (7-17); Calcium 9.9 mg/dl (8.4-10.2); Carbon Dioxide 29 mmol/L (22-30); Chloride 101 mmol/L (98-107); Estimated Creatinine Clearance 24 ml/min; Glucose 168 mg/dl (70-99); Potassium 4.7 mmol/L (3.5-5.1); Sodium 140 mmol/L (135-145); eGFR 33.73
[2023-11-02] MEDS: DUONEB 3 ML INH ×4 (07:34→19:11)
[2023-11-02] MEDS: PULMICORT 0.5 MG INH ×2 (07:34→19:11)
--- NOTE | 2023-11-02 08:09 | PTOTSP ---
Pt transferred to IMU due to declining respiratory status. Orders were not continued upon transfer. Will need new OT and PT orders when stable for activity.
[2023-11-02 08:57] LABS: Glucose - Point of Care 140 mg/dl (70-99)
--- NOTE | 2023-11-02 09:33 | PTCARENOTE ---
Patient on BIPAP all night. Currently on 10L midflow with pulse ox 91%. Lungs coarse with rhonci, diminished effort. Patient confused. Moaning and not answering questions or following any commands. This was also reported to me from night RN.
BP 150/70, SR with pvc's hr 83, resp. 20. Patient turned and repositioned for comfort. Unable to give any oral medications at this time. Will monitor.
[2023-11-02] MEDS: FLUSH (NSS) 1 FLUSH IV ×3 (09:40→15:06)
[2023-11-02] MEDS: HEPARIN 5000 UNITS SC ×2 (09:40→20:46)
[2023-11-02] MEDS: NOVOLOG FLEXPEN-MODERATE RESISTANCE SC ×3 (09:41→17:26)
[2023-11-02] MEDS: BYSTOLIC PO (09:48)
[2023-11-02] MEDS: CLARITIN PO (09:48)
[2023-11-02] MEDS: NEURONTIN PO (09:48)
[2023-11-02] MEDS: MUCINEX PO ×2 (09:48→20:09)
[2023-11-02] MEDS: REFRESH CELLUVISC GEL 1 DROPS BOTH EYES ×2 (09:49→20:46)
[2023-11-02] MEDS: PROCARDIA XL (EXTENDED RELEASE) PO (09:49)
[2023-11-02] MEDS: VIBRAMYCIN PO (09:49)
[2023-11-02 12:22] LABS: Glucose - Point of Care 108 mg/dl (70-99)
--- NOTE | 2023-11-02 14:28 | W.PN.HOSP.TC ---
Addendum entered and electronically signed by Brandon Livingston MD 11/02/23 16:42:
Patient remains somewhat agitated.
According to nurse awake although not able to localize any pain and moaning constantly
CT head without contrast ordered
VBG showing pCO2 improved, continue nighttime BiPAP use
Risperdal sublingual ordered
Son Jonathon updated
High risk for further pulmonary complication and related issues.
Addendum entered and electronically signed by Brandon Livingston MD 11/02/23 15:34:
Add on to diagnosis list
Sepsis - POA
Original Note:
Today's Communication/Plan
-
see note
Assessment / Plan
Assessment / Plan
1. Acute on chronic hypoxic and hypercapnic respiratory failure
-Patient oxygen requirement stable at 3 L through nasal cannula
-Wean off oxygen as possible
-ABG yesterday showing increased pCO2 of 66
-Transfer to IMU and started on BiPAP therapy
-Repeat VBG ordered today
2. Healthcare associated PNA
-CXR reviewed
-Initial respiratory culture contaminated. Repeat ordered
-Maintain on cefepime and doxycycline.
-Repeat chest x-ray from yesterday showing increased interstitial marking.
3. Acute COPD Exacerbation
-Maintain on IV Decadron
-added inhaled budesonide
-Continue nebulizer therapy
-Pulmo following and help appreciated.
4, Chronic HFpEF
-No signs of volume overload
-Hold oral torsemide.
5. IDDM -uncontrolled
-Blood glucose remains significantly elevated in the evening.
-Increase Lantus to 15 units at bedtime and increase Premeal to 9 units AC
5. Hyponatremia - resolved
-mild,monitor
6. JUAN LUIS
-cr increased to 1.5 today
-bladder scan ordered
7. Acute TME
-From worsening hypoxia and hypercapnic respiratory failure.
-Avoid sedating medication
advanced thyroid malignancy involving great vessels
severe - not a TAVR candidate per prior records
parox A. Fib (Eliquis stopped last admission)
CAD s/p CABG
CKD 3b
DVT ppx: SC Heparin
Code: DNR confirmed by patient
Care plan discussed with pulmonology
10/31 son updated . Patient was admitted in August and was having significant illnesses and was considered for hospice
Total time spent : 52 mins
Anticipated Discharge: > 48 hours
Subjective/Interval History
-
Date of Service: November 02, 2023
Patient remains confused today
Unable to take oral medication
Oxygen requirement increased from day before
Objective Data
-
Labs:
Laboratory Results
11/02/23
03:55
WBC 6.1
Hgb 14.0
Hct 42.8
Plt Count 156
Sodium 140
Potassium 4.7
Chloride 101
Carbon Dioxide 29
BUN 74 H
Creatinine 1.5 H
Glucose 168 H
Calcium 9.9
Vital Signs:
Vital Signs
Temp Pulse Resp BP Pulse Ox
97.8 F 93 20 140/73 90
11/02/23 07:45 11/02/23 12:00 11/02/23 12:00 11/02/23 12:00 11/02/23 12:00
I&O
11/01/23 11/02/23 11/03/23
06:59 06:59 06:59
Intake Total 360 / 360 100 / 100
Output Total 350 / 350
Balance 360 / 360 -250 / -250
Review of Systems
-
Unable to obtain full review of systems at this time due to: Acuity
Physical Exam
-
General: No Apparent Distress
HEENT: Atraumatic and Oxygen
Respiratory: Wheezes; Negative Rales
Cardiac: Regular Rhythm and S1/S2
GI: Soft, Nontender and Nondistended
Genito-urinary: No Costovertebral Tender
Neuro: Awake, Alert and No Motor Deficits; Negative Oriented
Psych: Calm
[2023-11-02] MEDS: ZITHROMAX 252.5 MG IV (15:05)
[2023-11-02] MEDS: APRESOLINE 10 MG IV (15:05)
[2023-11-02 16:09] LABS: Venous Blood Gas B.E. 6.6 mmol/L (-4 to +4); Venous Blood Gas HCO3 34.1 mmol/L (22-27); Venous Blood Gas O2 Sat % 98.2 %; Venous Blood Gas pCO2 59 mmHg (35-48); Venous Blood Gas pH 7.37 (7.32-7.43); Venous Blood Gas pO2 81 mmHg (30-50)
--- NOTE | 2023-11-02 16:46 | W.PN.PUL3 ---
Today's Communication / Plan
-
Continue nebulizers budesonide/DuoNebs
IV steroids
Minimize sedation
BiPAP as able
Continue antibiotics
Oxygen supplementation
Assessment
-
88-year-old woman with complex medical history, sleep apnea on CPAP, obstructive lung disease, presents to [facility] from [facility] with increased shortness of breath and cough. Now with worsening wheeze, worsening lethargy,
chest x-ray with increased bibasilar infiltrates. We are asked to comment on pulmonary process 11/01/2023
Acute COPD exacerbation, admitted 10/28
Bibasilar infiltrates, worrisome for nosocomial pneumonia
Acute hypoxic respiratory insufficiency requiring NIV
Acute hypercapnic respiratory insufficiency
Chronic compensated hypercapnia, baseline pCO2 50s
Lethargy
History of heart failure
Chronic kidney disease, creatinine 1.3
Hyperglycemia
Conditions present prior admission:
Hypertension
Type 2 diabetes
Peripheral neuropathy
Chronic lower extremity edema
Dementia
Bladder dysfunction
Resident at [facility]
? Status post CABG-sternotomy wires on [id number]-nof-grxifgun toe disease.
Atrial fibrillation on anticoagulation
There is no mention of alcohol or cigarette use.
Patient on formoterol and budesonide in the outpatient setting-unclear diagnosis.
Assessment and plan:
Respiratory status remains tenuous.
Moaning, poor mental status.
Currently on 12 L-not using BiPAP. Pulse ox is 91%. Increased work of breathing
Chest exam with diffuse wheezing, poor air movement
Chest x-ray with progressive bilateral infiltrates
ABG consistent with acute on chronic hypercapnia on admission.
Improved on 11/01/2023 --7.35/65/73.
Plan:
Continue BiPAP as tolerated. Reviewed with respiratory care. Limited by poor mental status.
DNR status
Suspect presentation is multifactorial
Patient had similar presentation back in July, requiring ICU stay
-
Still wheezing.
Continue Pulmicort nebulized
DuoNebs 4 times a day
No change in current steroid dose.
Toxic metabolic encephalopathy.
CT head without acute abnormalities.
Avoid sedatives, patient is on gabapentin chronically. Patient also receiving oxycodone as needed
Would like to minimize if possible, due to risk of worsening hypercapnia.
Continue antibiotic therapy for possible pneumonia/healthcare associated.
Cultures negative so far.
No leukocytosis. Afebrile.
Continue cefepime/azithromycin.
Patient also at risk for heart failure
Severe aortic stenosis, pulm hypertension PA pressure 55 per prior echocardiogram and moderate mitral stenosis
Follow clinically for now
Diuretics on hold, Due to acute kidney injury.
May need to reconsider at some point
Patient also on chronic anticoagulation for atrial fibrillation
DNR status noted
Remains high risk situation.
Patient is DNR status.
If continues to worsen may need to rediscuss goals of care with family.
Subjective Data
-
Date of Service:
Date of Service: November 02, 2023
Chief Complaint: Pulmonary Follow Up (Acute exacerbation of COPD)
Subjective:
Remains confused, agitated.
Review of Systems
General: Other (Difficult to obtain due to agitation)
Objective Data
Data Reviewed
Vital Signs / I&O / Oxygen:
Vital Signs
Temp Pulse Resp BP Pulse Ox
98.5 F 102 25 140/73 91
11/02/23 11:45 11/02/23 15:25 11/02/23 15:25 11/02/23 12:00 11/02/23 15:25
Intake and Output
11/01/23 11/02/23 11/03/23
06:59 06:59 06:59
Intake Total 360 / 360 100 / 100 250 / 250
Output Total 350 / 350
Balance 360 / 360 -250 / -250 250 / 250
SaO2 91
Nasal Cannula flow liters per 6
minute
Physical Exam
General: Respiratory Distress (n)
HEENT: Normocephalic
Cardiovascular: S1-S2, Regular Rhythm and JVD (n)
Respiratory: Wheeze
GI: Soft and Non Distended
Neurology: Awake and Alert
Skin: Warm
Labs/Micro/Reports
Lab Data
11/02/23 03:55
11/02/23 03:55
Laboratory Results
11/01/23
20:22
pH 7.35
pCO2 61 H
pO2 73 L
HCO3 33.7 H
O2 Delivery Level
Microbiology
10/29/23 03:06 Blood/Venous Blood Culture - Preliminary
No Growth in 4 days- Final report to follow
10/29/23 03:06 Blood/Venous Blood Culture - Preliminary
No Growth in 4 days- Final report to follow
10/30/23 15:29 Sputum Respiratory Culture - Final
Bushra albicans
10/30/23 15:29 Sputum Gram Stain - Final
10/29/23 05:50 Sputum Respiratory Culture - Final
Usual Respiratory Miryam
10/29/23 05:50 Sputum Gram Stain - Final
[2023-11-02] MEDS: RISPERDAL M-TAB (ORALLY DISINTEGRATING) 0.5 MG PO ×2 (17:03→20:46)
[2023-11-02 17:27] LABS: Glucose - Point of Care 109 mg/dl (70-99)
--- NOTE | 2023-11-02 17:28 | PTCARENOTE ---
Patient becoming increasingly agitated and restless throughout the day. Patient still nonverbal, moaning out loud. Dr. solis notified. orders obtained for VBG, respridal and ct scan of head. Patient on 10L midflow, sp02 91%-94% weak moist
nonproductive cough. Will continue to monitor frequently.
[2023-11-02] MEDS: MORPHINE SULFATE 1 MG IV (20:46)
--- NOTE | 2023-11-02 21:53 | PTCARENOTE ---
Received pt from daysemma RN. Pt constantly moaning in pain and discomfort. TASHI Du notified, Morphine order and given (see MAR). Ativan given for anxiety (see MAR). Hygiene provided. Q2T provided. Pt is laying in bed with call palumbo in reach.
[2023-11-02 22:13] LABS: Glucose - Point of Care 115 mg/dl (70-99)
[2023-11-02] MEDS: LANTUS 0.149999999999999994 UNITS SC (22:22)
[2023-11-02] MEDS: NSS (PRESERVATIVE FREE) 0.25 ML IV (22:23)
[2023-11-02] MEDS: ATIVAN 0.5 MG IV (22:23)
[2023-11-03] VITALS (14 sets, daily range): BP systolic 94–145; BP diastolic 44–90; PULSE 2–95; BMI 34.0
[2023-11-03] MEDS: DECADRON 4 MG IV ×3 (00:27→17:14)
[2023-11-03] MEDS: MAXIPIME 1000 MG IV ×2 (00:27→12:59)
[2023-11-03] MEDS: STERILE WATER FOR INJECTION 10 ML IV ×2 (00:27→12:59)
[2023-11-03 04:16] LABS: Hemoglobin 14.9 g/dL (12.0-16.0); Mean Corp Hgb Conc. 31.7 g/dL (33.0-37.0); Mean Corpuscular Hgb 27.4 pg (27.0-31.0); Mean Corpuscular Volume 86.6 fL (81.0-99.0); Mean Platelet Volume 12.2 fL (7.4-10.4); Platelet Count 139 10^3/uL (130-400); Red Blood Cell Count 5.43 10^6/uL (4.20-5.40); Red Cell Dist. Width 13.9 % (11.5-14.5)
[2023-11-03] MEDS: MORPHINE SULFATE 1 MG IV ×4 (04:44→20:49)
[2023-11-03 04:50] LABS: Blood Urea Nitrogen 77 mg/dl (7-17); Calcium 10.3 mg/dl (8.4-10.2); Carbon Dioxide 26 mmol/L (22-30); Chloride 107 mmol/L (98-107); Estimated Creatinine Clearance 30 ml/min; Glucose 156 mg/dl (70-99); Sodium 143 mmol/L (135-145); eGFR 44.08
[2023-11-03] MEDS: PULMICORT 0.5 MG INH ×2 (07:22→19:06)
[2023-11-03] MEDS: DUONEB 3 ML INH ×4 (07:22→19:06)
[2023-11-03] MEDS: FLUSH (NSS) 2 FLUSH IV ×2 (07:59→13:03)
[2023-11-03] MEDS: REFRESH CELLUVISC GEL 1 DROPS BOTH EYES ×2 (08:00→20:48)
[2023-11-03] MEDS: PROCARDIA XL (EXTENDED RELEASE) PO (08:00)
[2023-11-03] MEDS: MUCINEX PO ×2 (08:00→20:48)
[2023-11-03] MEDS: BYSTOLIC PO (08:01)
[2023-11-03] MEDS: APRESOLINE PO ×2 (08:01→17:14)
[2023-11-03] MEDS: HEPARIN 5000 UNITS SC ×2 (08:01→20:48)
[2023-11-03] MEDS: CLARITIN PO (08:02)
[2023-11-03] MEDS: RISPERDAL M-TAB (ORALLY DISINTEGRATING) 0.5 MG PO ×2 (08:07→20:48)
--- NOTE | 2023-11-03 08:45 | PTOTSP ---
Chart reviewed. Patient transferred to IMU on 11/01/23; orders were not transferred with patient.
Secondary to increased level of care, PT/OT will require restart orders when medically appropriate. Will discuss with RN.
[2023-11-03 09:06] LABS: Glucose - Point of Care 137 mg/dl (70-99)
[2023-11-03] MEDS: ATIVAN 0.5 MG IV ×2 (10:58→21:16)
[2023-11-03] MEDS: FLUSH (NSS) 1 FLUSH IV ×2 (10:59→15:20)
[2023-11-03] MEDS: NOVOLOG FLEXPEN-MODERATE RESISTANCE SC ×3 (12:58→18:43)
[2023-11-03 14:08] LABS: Glucose - Point of Care 145 mg/dl (70-99)
--- NOTE | 2023-11-03 14:10 | W.PN.HOSP.TC ---
Today's Communication/Plan
-
see note
Assessment / Plan
Assessment / Plan
1. Acute on chronic hypoxic and hypercapnic respiratory failure
-uses 3L o2 through NC at baseline
-ABG showing increased pCO2 of 66 on 10/31
-Transfer to IMU and started on BiPAP therapy
-Repeat VBG showed lower pCO2 level
-continue night time BiPAP
2. Healthcare associated PNA
-CXR reviewed
-Initial respiratory culture contaminated. Repeat resp cs growing donavon.
-Maintain on cefepime and doxycycline.
-Repeat chest x-ray from showing increased interstitial marking.
3. Acute COPD Exacerbation
-Maintain on IV Decadron
-added inhaled budesonide
-Continue nebulizer therapy
-Pulmo following and help appreciated.
4, Chronic HFpEF
-No signs of volume overload
-Renal function improved, torsemide on hold
-off note Na uptrending, decreased oral intake with TME likely. infusing hypotonic saline [id number]
5. IDDM -uncontrolled
-Blood glucose remains significantly elevated in the evening.
-Increase Lantus to 15 units at bedtime and increase Premeal to 9 units AC
5. Hyponatremia - resolved
-mild,monitor
6. JUAN LUIS - improving
-cr sown to 1.2 today
-bladder scan ordered
7. Acute TME - continues
-Patient was AOx3 and communicative for first 3 days. At this point morning and not able to localize/verbalize pain
-CT head ruled out any major abnormalities
-From worsening hypoxia and hypercapnic respiratory failure.
-Avoid sedating medication
advanced thyroid malignancy involving great vessels
severe - not a TAVR candidate per prior records
parox A. Fib (Eliquis stopped last admission)
CAD s/p CABG
CKD 3b
DVT ppx: SC Heparin
Code: DNR confirmed by patient
Care plan discussed with pulmonology
10/31 son updated . Patient was admitted in August and was having significant illnesses and was considered for hospice
Remains critically ill and at high risk of pulmonary or other foreseen complication
Anticipated Discharge: > 48 hours
Subjective/Interval History
-
Date of Service: November 03, 2023
Patient continues to remain disoriented
Continues to mourn although not verbalizing or localizing pain
Oxygen requirements remain stable
Objective Data
-
Labs:
Laboratory Results
11/03/23
04:05
WBC 5.0
Hgb 14.9
Hct 47.0
Plt Count 139
Sodium 143
Potassium 5.0
Chloride 107
Carbon Dioxide 26
BUN 77 H
Creatinine 1.2 H
Glucose 156 H
Calcium 10.3 H
Vital Signs:
Vital Signs
Temp Pulse Resp BP Pulse Ox
98.3 F 105 27 128/75 85
11/03/23 11:30 11/03/23 12:00 11/03/23 12:00 11/03/23 12:00 11/03/23 12:00
I&O
11/02/23 11/03/23 11/04/23
06:59 06:59 06:59
Intake Total 100 / 100 250 / 250
Output Total 350 / 350 250 / 250
Balance -250 / -250 0 / 0
Review of Systems
-
Unable to obtain full review of systems at this time due to: Acuity
Physical Exam
-
General: No Apparent Distress
HEENT: Atraumatic and Oxygen
Respiratory: Wheezes; Negative Rales
Cardiac: Regular Rhythm and S1/S2
GI: Soft, Nontender and Nondistended
Genito-urinary: No Costovertebral Tender
Neuro: Awake, Alert and No Motor Deficits; Negative Oriented
Psych: Agitated
[2023-11-03] MEDS: ZITHROMAX 252.5 MG IV (15:19)
--- NOTE | 2023-11-03 17:08 | PTCARENOTE ---
Patient nonverbal. Not able to follow commands. Medicating patient with pain medication and ativan for agitation. Nothing seems to make patient comfortable. Moaning constantly except for very brief periods of sleep. Patient on 13L midflow.
Nothing by mouth due to mentation. SR on monitor. VS stable.
[2023-11-03 18:20] LABS: Glucose - Point of Care 142 mg/dl (70-99)
[2023-11-03] MEDS: SODIUM CHLORIDE 504.800000000000011 MEQ IV (20:48)
[2023-11-03] MEDS: LANTUS 0.149999999999999994 UNITS SC (22:36)
[2023-11-03 22:48] LABS: Glucose - Point of Care 156 mg/dl (70-99)
[2023-11-03 23:49] LABS: Glucose - Point of Care 157 mg/dl (70-99)
[2023-11-04] VITALS (17 sets, daily range): BP systolic 106–145; BP diastolic 53–98; PULSE 2–119; BMI 33.3; BMI 34.3
[2023-11-04] MEDS: MAXIPIME 1000 MG IV ×2 (00:16→12:33)
[2023-11-04] MEDS: STERILE WATER FOR INJECTION 10 ML IV ×2 (00:16→12:33)
[2023-11-04] MEDS: DECADRON 4 MG IV ×3 (00:16→16:43)
[2023-11-04] MEDS: APRESOLINE PO ×3 (00:21→16:50)
[2023-11-04] MEDS: MORPHINE SULFATE 1 MG IV ×3 (02:48→21:17)
[2023-11-04] MEDS: ATIVAN 0.5 MG IV ×2 (04:27→09:33)
[2023-11-04 04:48] LABS: Hematocrit 48.3 % (37.0-47.0); Hemoglobin 14.9 g/dL (12.0-16.0); Mean Corp Hgb Conc. 30.8 g/dL (33.0-37.0); Mean Corpuscular Hgb 27.1 pg (27.0-31.0); Platelet Count 150 10^3/uL (130-400); Red Blood Cell Count 5.49 10^6/uL (4.20-5.40); Red Cell Dist. Width 13.7 % (11.5-14.5); White Blood Cell Count 5.9 10^3/uL (4.8-10.8)
[2023-11-04 05:29] LABS: Blood Urea Nitrogen 80 mg/dl (7-17); Calcium 10.3 mg/dl (8.4-10.2); Carbon Dioxide 29 mmol/L (22-30); Chloride 110 mmol/L (98-107); Estimated Creatinine Clearance 33 ml/min; Glucose 193 mg/dl (70-99); Potassium 4.7 mmol/L (3.5-5.1); Sodium 144 mmol/L (135-145); eGFR 48.94
[2023-11-04 05:41] LABS: Glucose - Point of Care 184 mg/dl (70-99)
[2023-11-04] MEDS: CLARITIN PO (07:45)
[2023-11-04] MEDS: BYSTOLIC PO (07:45)
[2023-11-04] MEDS: MUCINEX PO ×2 (07:45→21:16)
[2023-11-04] MEDS: PROCARDIA XL (EXTENDED RELEASE) PO (07:45)
[2023-11-04] MEDS: DUONEB 3 ML INH ×4 (07:50→19:54)
[2023-11-04] MEDS: PULMICORT 0.5 MG INH ×2 (07:50→19:54)
[2023-11-04] MEDS: NOVOLOG FLEXPEN-MODERATE RESISTANCE SC ×2 (09:32→12:28)
[2023-11-04] MEDS: RISPERDAL M-TAB (ORALLY DISINTEGRATING) 0.5 MG PO ×2 (09:33→21:16)
[2023-11-04] MEDS: NSS (PRESERVATIVE FREE) 0.25 ML IV (09:34)
[2023-11-04] MEDS: HEPARIN 5000 UNITS SC ×2 (09:35→21:16)
[2023-11-04] MEDS: REFRESH CELLUVISC GEL 1 DROPS BOTH EYES ×2 (09:35→21:16)
--- NOTE | 2023-11-04 10:53 | W.PN.PUL3 ---
Today's Communication / Plan
-
Continue nebulizers budesonide/DuoNebs
IV steroids - start to wean given she is no longer wheezing
Minimize sedation
BiPAP with sleep; trend pCO2; titrate O@ flow rate to keep SpO2>90-94%
Continue antibiotics - change cefepime to Zosyn
Check TSH with reflex to free T4
Consider UA to assure not missing a UTI as cause of her AMS
Treat elevated Ca++ level as that too will contribute to AMS
Guarded prognosis
Assessment
-
88-year-old woman with complex medical history, sleep apnea on CPAP, obstructive lung disease, presents to [facility] from longterm facility with increased shortness of breath and cough. Now with worsening wheeze, worsening lethargy,
chest x-ray with increased bibasilar infiltrates. We are asked to comment on pulmonary process 11/01/2023
Acute COPD exacerbation, admitted 10/28
Bibasilar infiltrates, worrisome for nosocomial pneumonia
Acute hypoxic respiratory insufficiency requiring NIV - now on midflow
Acute hypercapnic respiratory insufficiency
Chronic compensated hypercapnia, baseline pCO2 50s
Lethargy
History of heart failure
Chronic kidney disease, creatinine 1.3
Hyperglycemia
Conditions present prior admission:
Hypertension
Type 2 diabetes
Peripheral neuropathy
Chronic lower extremity edema
Dementia
Bladder dysfunction
Resident at [facility]
? Status post CABG-sternotomy wires on [id number] toe disease.
Atrial fibrillation on anticoagulation
There is no mention of alcohol or cigarette use.
Patient on formoterol and budesonide in the outpatient setting-unclear diagnosis.
Assessment and plan:
Respiratory status remains tenuous.
Moaning, poor mental status.
Currently on 10-12 L via midflow -not using BiPAP. Pulse ox is 91%. Increased work of breathing
Chest exam with poor air movement (R>L)
Chest x-ray with progressive bilateral infiltrates
ABG consistent with acute on chronic hypercapnia on admission.
Improved on 11/01/2023 --7.35/65/73.
Plan:
Continue BiPAP as tolerated with sleep at 12/5, bled with 4L/min. Reviewed with respiratory care. Limited by poor mental status.
DNR status
Suspect presentation is multifactorial
Patient had similar presentation back in July, requiring ICU stay
-
Wheezing resolved as of 11/03.
Continue Pulmicort nebulized BID
DuoNebs QID
No change in current steroid dose - decadron 4mg IV q8hr
AMS - suspect toxic metabolic encephalopathy.
Her PCO2 and SaO2 are now stable, but she is still confused, moaning and not improving
Consider checking UA to rule out UTI (would need to straight cath); check TSH with free T4
Perhaps the steroids are contributing to her AMS --> I will reduce the dose to 4mg IV q12hr as she is no longer wheezing
CT head without acute abnormalities.
Avoid sedatives, patient is on gabapentin chronically. Patient also receiving IV morphine as needed
Would like to minimize if possible, due to risk of worsening hypercapnia and worsening mental status
Continue antibiotic therapy for possible pneumonia/healthcare associated.
Cultures negative so far.
No leukocytosis. Afebrile.
Continue cefepime/azithromycin --> cefepime switching to Zosyn given her confusion
Patient also at risk for heart failure
Severe aortic stenosis, pulm hypertension PA pressure 55 per prior echocardiogram and moderate mitral stenosis
Follow clinically for now
Diuretics on hold, Due to acute kidney injury.
May need to reconsider at some point
Patient also previously on eliquis for atrial fibrillation - stopped last admission for unknown reasons (I suspect it was because patient was pursuing hospice, but this was rescinded as she improved) - defer to cardiology if she should resume AC or
not at this point.
Remains high risk situation.
Patient is DNR status.
If continues to worsen then the son has already decided that they would pursue hospice.
Patient seen and evaluated on 11/04/2023
Subjective Data
-
Date of Service:
Date of Service: November 04, 2023
Chief Complaint: Pulmonary Follow Up (Acute exacerbation of COPD)
Subjective:
Patient seen this afternoon with son at bedside. Pt moaning, not interacting. In pain whenever I try to manipulate her to examine her. Currently on 10L/min NC, HR 116 and BP 106/64. Wore BiPAP 06/04 bled with 4L/min overnight.
Review of Systems
General: Other (Unable to obtain due to patient's acute clinical status)
Objective Data
Data Reviewed
Vital Signs / I&O / Oxygen:
Vital Signs
Temp Pulse Resp BP Pulse Ox
97.0 F 109 25 118/59 97
11/04/23 07:25 11/04/23 10:00 11/04/23 10:00 11/04/23 10:00 11/04/23 10:00
Intake and Output
11/03/23 11/04/23 11/05/23
06:59 06:59 06:59
Intake Total 250 / 250 757 / 757
Output Total 910 / 910 880 / 880
Balance -660 / -660 -123 / -123
SaO2 97
Nasal Cannula flow liters per 6
minute
Physical Exam
General: Respiratory Distress (n)
HEENT: Normocephalic
Cardiovascular: S1-S2, JVD (n) and Other (Tachycardic)
Respiratory: Wheeze (negative), Crackles (negative) and Other (Reduced BS at right anterior hemithorax)
GI: Soft, Non Distended, Tender and Normal Bowel Sounds
Neurology: Other (Moaning, not interactive; moving all 4 extremities spontaneously)
Skin: Warm and Dry
Labs/Micro/Reports
Lab Data
11/04/23 04:41
11/04/23 04:41
Microbiology
10/29/23 03:06 Blood/Venous Blood Culture - Final
No Growth - Final Report
10/29/23 03:06 Blood/Venous Blood Culture - Final
No Growth - Final Report
10/30/23 15:29 Sputum Respiratory Culture - Final
Bushra albicans
10/30/23 15:29 Sputum Gram Stain - Final
[2023-11-04 12:09] LABS: Glucose - Point of Care 162 mg/dl (70-99)
[2023-11-04] MEDS: NOVOLOG FLEXPEN-MODERATE RESISTANCE 1 UNITS SC ×2 (12:32→18:52)
--- NOTE | 2023-11-04 13:09 | W.PN.HOSP.TC ---
Addendum entered and electronically signed by Kashmir Segovia MD 11/05/23 13:54:
General: moaning
HEENT: Atraumatic and Oxygen
Respiratory: Wheezes; Negative Rales
Cardiac: Regular Rhythm and S1/S2
GI: Soft, Nontender and Nondistended
Neuro: Awake
Psych: calm
Addendum entered and electronically signed by Kashmir Segovia MD 11/04/23 15:05:
Give confusion; dc cefepime. Switch antibiotics to Zosyn.
Original Note:
Today's Communication/Plan
-
Monitor vital signs see plan
N.p.o., speech to evaluate
DC Ativan, avoid sedating medications
Wean oxygen as tolerated
Pulmonary following
Continue with antibiotics
Son updated over the phone
Bladder scan
Assessment / Plan
Assessment / Plan
Acute on chronic hypoxic and hypercapnic respiratory failure
currently on midflow and sometimes bipap
-uses 3L o2 through NC at baseline
-ABG showing increased pCO2 of 66 on 10/31
-continue night time BiPAP
pulmonary following
NPO now; speech to evaluate
Healthcare associated PNA
-CXR reviewed
-Initial respiratory culture contaminated. Repeat resp cs growing donavon.
-Maintain on cefepime and doxycycline.
-Repeat chest x-ray from showing increased interstitial marking.
Acute COPD Exacerbation
-Maintain on IV Decadron
-added inhaled budesonide
-Continue nebulizer therapy
-Pulmo following and help appreciated.
Chronic HFpEF
-No signs of volume overload
-Renal function improved, torsemide on hold
-off note Na uptrending, decreased oral intake with TME likely
IDDM -uncontrolled
-Blood glucose remains significantly elevated in the evening.
-Increase Lantus to 15 units at bedtime and increase Premeal to 9 units AC
Hyponatremia - resolved
-mild,monitor
JUAN LUIS - improving
-cr sown to 1.1 today
-bladder scan ordered
Acute TME - continues
-Patient was AOx3 and communicative for first 3 days. At this point moaning and not able to localize/verbalize pain
-CT head ruled out any major abnormalities
-From worsening hypoxia and hypercapnic respiratory failure.
-Avoid sedating medication; dc ativan
advanced thyroid malignancy involving great vessels
severe - not a TAVR candidate per prior records
parox A. Fib (Eliquis stopped last admission)
CAD s/p CABG
CKD 3b
DVT ppx: SC Heparin
Code: DNR confirmed by patient
10/31 son updated . Patient was admitted in August and was having significant illnesses and was considered for hospice
11/03: Son updated over the phone. He does understand patient declining clinical status. Will see how patient does clinically and if does not improve in few days then likely hospice will be appropriate
Remains critically ill and at high risk of pulmonary or other foreseen complication
I spent a total of 54 minutes with the patient or on the floor. More than 50% of this time involved counseling and coordination of care.
Anticipated Discharge: > 48 hours
Subjective/Interval History
-
Date of Service: November 04, 2023
moaning
Objective Data
-
Labs:
Laboratory Results
11/04/23
04:41
WBC 5.9
Hgb 14.9
Hct 48.3 H
Plt Count 150
Sodium 144
Potassium 4.7
Chloride 110 H
Carbon Dioxide 29
BUN 80 H
Creatinine 1.1 H
Glucose 193 H
Calcium 10.3 H
Vital Signs:
Vital Signs
Temp Pulse Resp BP Pulse Ox
97.0 F 107 26 121/53 98
11/04/23 07:25 11/04/23 12:00 11/04/23 12:00 11/04/23 12:00 11/04/23 12:00
I&O
11/03/23 11/04/23 11/05/23
06:59 06:59 06:59
Intake Total 250 / 250 757 / 757
Output Total 910 / 910 880 / 880
Balance -660 / -660 -123 / -123
--- NOTE | 2023-11-04 13:19 | PTCARENOTE ---
Pt presents as assessed. Aox0, agitated and attempting to climb OOB. Pt is nonverbal yet cries and moans in pain with furrowed brow and rigid posture. Medicated with PRN Ativan and Morphine for agitation and pain. Sating mid 90's on 10L MF NC. Made
NPO d/t mental status and PO medications held- Dr. Segovia notified via TT. Pt resting comfortably at this time.
[2023-11-04] MEDS: ZITHROMAX IV (15:10)
[2023-11-04] MEDS: ZOSYN 50 IV (16:43)
[2023-11-04 19:01] LABS: Glucose - Point of Care 157 mg/dl (70-99)
[2023-11-04 23:02] LABS: Glucose - Point of Care 161 mg/dl (70-99)
[2023-11-05] VITALS (17 sets, daily range): BP systolic 74–171; BP diastolic 37–87; PULSE 2–102; BMI 32.9
[2023-11-05] MEDS: ZOSYN 50 IV ×5 (00:08→22:04)
[2023-11-05] MEDS: LANTUS 0.149999999999999994 UNITS SC ×2 (00:08→22:03)
[2023-11-05] MEDS: APRESOLINE PO ×2 (00:09→08:15)
[2023-11-05] MEDS: DECADRON 4 MG IV ×2 (00:09→12:48)
[2023-11-05] MEDS: MORPHINE SULFATE 1 MG IV ×3 (00:20→09:11)
[2023-11-05] MEDS: NOVOLOG FLEXPEN-MODERATE RESISTANCE 1 UNITS SC ×3 (00:20→12:47)
[2023-11-05 00:32] LABS: Glucose - Point of Care 187 mg/dl (70-99)
[2023-11-05 04:35] LABS: Hematocrit 48.2 % (37.0-47.0); Hemoglobin 15.2 g/dL (12.0-16.0); Mean Corp Hgb Conc. 31.5 g/dL (33.0-37.0); Mean Corpuscular Hgb 27.6 pg (27.0-31.0); Mean Corpuscular Volume 87.5 fL (81.0-99.0); Mean Platelet Volume 12.4 fL (7.4-10.4); Platelet Count 173 10^3/uL (130-400); Red Blood Cell Count 5.51 10^6/uL (4.20-5.40); Red Cell Dist. Width 13.7 % (11.5-14.5); White Blood Cell Count 5.4 10^3/uL (4.8-10.8)
[2023-11-05 05:08] LABS: Blood Urea Nitrogen 78 mg/dl (7-17); Calcium 10.8 mg/dl (8.4-10.2); Carbon Dioxide 32 mmol/L (22-30); Chloride 111 mmol/L (98-107); Estimated Creatinine Clearance 29 ml/min; Glucose 193 mg/dl (70-99); Potassium 5.1 mmol/L (3.5-5.1); Sodium 149 mmol/L (135-145); eGFR 44.08
[2023-11-05 06:40] LABS: Venous Blood Gas B.E. 8.1 mmol/L (-4 to +4); Venous Blood Gas HCO3 33.4 mmol/L (22-27); Venous Blood Gas pCO2 47 mmHg (35-48); Venous Blood Gas pH 7.46 (7.32-7.43); Venous Blood Gas pO2 211 mmHg (30-50)
[2023-11-05] MEDS: PULMICORT 0.5 MG INH ×2 (07:30→18:28)
[2023-11-05] MEDS: DUONEB 3 ML INH ×4 (07:30→18:27)
[2023-11-05 07:36] LABS: NT-proBNP 6900 pg/ml
[2023-11-05 07:58] LABS: TSH Reflex To Free T4 0.84 uIU/ml (0.47-4.68)
[2023-11-05] MEDS: BYSTOLIC PO (08:15)
[2023-11-05] MEDS: MUCINEX PO (08:22)
[2023-11-05] MEDS: PROCARDIA XL (EXTENDED RELEASE) PO (08:22)
[2023-11-05] MEDS: CLARITIN PO (08:22)
--- NOTE | 2023-11-05 09:05 | W.PN.PUL3 ---
Today's Communication / Plan
-
Diamox given alkalosis on today's blood gas with improved hypercapnea but remains with high sHCO3; c/t trend VBG
Continue nebulizers with budesonide/DuoNebs
IV steroids - wean slowly (she is no longer wheezing)
Minimize sedation
BiPAP with sleep; trend pCO2; titrate O2 flow rate to keep SpO2>88-94%
Continue antibiotics - changed cefepime to Zosyn
Consider UA to assure not missing a UTI as cause of her AMS
Treat elevated Ca++ level as that too will contribute to AMS
Guarded prognosis
Assessment
-
88-year-old woman with complex medical history, sleep apnea on CPAP, obstructive lung disease, presents to [facility] from [facility] facility with increased shortness of breath and cough. Now with worsening wheeze, worsening lethargy,
chest x-ray with increased bibasilar infiltrates. We are asked to comment on pulmonary process 11/01/2023
Acute COPD exacerbation, admitted 10/28
Bibasilar infiltrates, worrisome for nosocomial pneumonia
Acute hypoxic respiratory insufficiency requiring NIV - now on midflow
Acute hypercapnic respiratory insufficiency
Chronic compensated hypercapnia, baseline pCO2 50s
Lethargy
History of heart failure
Chronic kidney disease, creatinine 1.3
Hyperglycemia
Metabolic alkalosis due to acute on chronic hypercapnea
AMS - waxing and waning - suspect due to hypercapnea with TME in setting of acute delirium
Conditions present prior admission:
Hypertension
Type 2 diabetes
Peripheral neuropathy
Chronic lower extremity edema
Dementia
Bladder dysfunction
Resident at [facility]
? Status post CABG-sternotomy wires on c-kzr-wxtljecc toe disease.
Atrial fibrillation on anticoagulation
There is no mention of alcohol or cigarette use.
Patient on formoterol and budesonide in the outpatient setting-unclear diagnosis.
Assessment and plan:
Respiratory status remains tenuous, although better today
Currently on 10L via midflow -not using BiPAP. Pulse ox is 91%. Increased work of breathing
Chest exam with poor air movement (R>L)
Chest x-ray with progressive bilateral infiltrates
ABG consistent with acute on chronic hypercapnia on admission.
Improved on 11/01/2023 --7.35/65/73.
Plan:
Continue BiPAP with sleep at 06/04, bled with 4-10L/min to maintain SpO2 >88-94%. Reviewed with respiratory care. Limited by waxing and waning mental status.
DNR status
Suspect presentation is multifactorial
Patient had similar presentation back in July, requiring ICU stay and TRX to hospice, but patient improved and hospice was rescinded
-
Wheezing resolved as of 11/03.
Continue Pulmicort nebulized BID
DuoNebs QID
Reduced steroids on 11/03 from decadron 4mg IV q8hr to 4mg IV q12hr
AMS - suspect toxic metabolic encephalopathy.
On 11/03, her PCO2 and SaO2 are now stable, but she was still confused, moaning and not improving --> TSH WNL
Consider checking UA to rule out UTI (would need to straight cath)
Perhaps the steroids are contributing to her AMS --> on 11/03 I reduced the dose to 4mg IV q12hr as she is no longer wheezing
CT head without acute abnormalities.
Avoid sedatives, patient is on gabapentin chronically. Patient also receiving IV morphine as needed
Would like to minimize if possible, due to risk of worsening hypercapnia and worsening mental status
Continue antibiotic therapy for possible pneumonia/healthcare associated.
Cultures negative so far.
No leukocytosis. Afebrile.
Continue cefepime/azithromycin --> cefepime switching to Zosyn given her confusion
Patient also at risk for heart failure
Severe aortic stenosis, pulm hypertension PA pressure 55 per prior echocardiogram and moderate mitral stenosis
Follow clinically for now
Diuretics on hold, Due to acute kidney injury.
Would resume once clinically able to considering her proBNP is elevated and her CXR on 10/31 appears to show interstitial edema
Monitor I/O for now with daily weight
Once pt able to tolerate PO diet, resume low sodium, fluid restricted diet --> recommend SUPERVISOR GRADING eval
Patient also previously on eliquis for atrial fibrillation - stopped last admission for unknown reasons (I suspect it was because patient was pursuing hospice, but this was rescinded as she improved) - defer to cardiology if she should resume AC or
not at this point.
Continue HSQ for DVT ppx in meantime
Remains high risk situation.
Patient is DNR status.
If continues to worsen then the son has already decided that they would pursue hospice.
Pulmonary service will continue to follow along.
Total time spent today was 50 minutes for this encounter. Time includes reviewing laboratory test/imaging results, reviewing pertinent medical records, obtaining and reviewing medical history, performing an appropriate exam, ordering medications,
tests and procedures. Time also includes documentation of this encounter, coordinating patient care and communicating with other healthcare professionals. Total time does not include separately billed tests performed on this date of service.
Subjective Data
-
Date of Service:
Date of Service: November 05, 2023
Chief Complaint: Pulmonary Follow Up (Acute exacerbation of COPD)
Subjective:
Patient seen this morning. She is much more awake today and answering my questions appropriately, although her responses are delayed. Currently on 10 L/min midflow saturating 98%. Heart rate 101 and BP 126/79. Wore BiPAP overnight at 06/04 bled
with 10 L/min nasal cannula.
Review of Systems
General: Other (Negative unless mentioned above)
Objective Data
Data Reviewed
Vital Signs / I&O / Oxygen:
Vital Signs
Temp Pulse Resp BP Pulse Ox
96.8 F L 106 24 126/79 90
11/05/23 07:40 11/05/23 12:00 11/05/23 12:00 11/05/23 12:00 11/05/23 12:00
Intake and Output
11/04/23 11/05/23 11/06/23
06:59 06:59 06:59
Intake Total 757 / 757
Output Total 880 / 880 975 / 975
Balance -123 / -123 -975 / -975
SaO2 90
Nasal Cannula flow liters per 10
minute
Physical Exam
General: Respiratory Distress (n) and Comfortable
HEENT: Normocephalic and Anicteric
Cardiovascular: S1-S2, Murmur (JEIMY, heard best at [facility]), JVD (n) and Other (Tachycardic)
Respiratory: Wheeze (negative) and Crackles (bilateral)
GI: Soft, Non Distended, Tender and Normal Bowel Sounds
Neurology: Awake, Alert and Tremors (negative)
Skin: Warm and Dry
Labs/Micro/Reports
Lab Data
11/05/23 04:22
Microbiology
10/29/23 03:06 Blood/Venous Blood Culture - Final
No Growth - Final Report
10/29/23 03:06 Blood/Venous Blood Culture - Final
No Growth - Final Report
[2023-11-05] MEDS: HEPARIN 5000 UNITS SC ×2 (09:10→20:26)
[2023-11-05] MEDS: RISPERDAL M-TAB (ORALLY DISINTEGRATING) 0.5 MG PO ×2 (09:10→20:27)
[2023-11-05] MEDS: REFRESH CELLUVISC GEL 1 DROPS BOTH EYES ×2 (09:11→20:26)
[2023-11-05] MEDS: FLUSH (NSS) 1 FLUSH IV (09:13)
[2023-11-05] MEDS: PULMICORT INH (10:51)
[2023-11-05] MEDS: D5W 1000 IV (11:33)
[2023-11-05 12:52] LABS: Glucose - Point of Care 164 mg/dl (70-99)
--- NOTE | 2023-11-05 13:06 | PTCARENOTE ---
Patient starting to become more alert. Asking for ice water. Speech at bedside evaluating swallow.
--- NOTE | 2023-11-05 13:44 | W.PN.HOSP.TC ---
Today's Communication/Plan
-
Monitor vital signs see plan
Start D5 water
Monitor mental status
Continue with antibiotics
Continue Decadron
Prognosis appears guarded
Assessment / Plan
Assessment / Plan
General: moaning
HEENT: Atraumatic and Oxygen
Respiratory: Wheezes; Negative Rales
Cardiac: Regular Rhythm and S1/S2
GI: Soft, Nontender and Nondistended
Neuro: Awake
Psych: calm
Acute on chronic hypoxic and hypercapnic respiratory failure
currently on midflow and sometimes bipap
-uses 3L o2 through NC at baseline
-ABG showing increased pCO2 of 66 on 10/31
-continue night time BiPAP
pulmonary following
NPO now; speech to evaluate
Healthcare associated PNA
-CXR reviewed
-Initial respiratory culture contaminated. Repeat resp cs growing donavon.
abx switched to Zosyn. Cefepime known to cause neurotoxicity
-Repeat chest x-ray from showing increased interstitial marking.
Acute COPD Exacerbation
-Maintain on IV Decadron
-added inhaled budesonide
-Continue nebulizer therapy
-Pulmo following and help appreciated.
Chronic HFpEF
-No signs of volume overload
-Renal function improved, torsemide on hold
-off note Na uptrending, decreased oral intake with TME likely
Hyponatremia likely from poor oral intake
start D5W
monitor
IDDM -uncontrolled
-Blood glucose remains significantly elevated in the evening.
-Increase Lantus to 15 units at bedtime; hold mealtime insulin
Hyponatremia - resolved
-mild,monitor
JUAN LUIS - improving
cr 1.2 today
-bladder scan ordered
Acute TME - continues
-Patient was AOx3 and communicative for first 3 days. At this point moaning and not able to localize/verbalize pain
-CT head ruled out any major abnormalities
-From worsening hypoxia and hypercapnic respiratory failure.
-Avoid sedating medication; dc ativan
advanced thyroid malignancy involving great vessels
severe - not a TAVR candidate per prior records
parox A. Fib (Eliquis stopped last admission)
CAD s/p CABG
CKD 3b
DVT ppx: SC Heparin
Code: DNR confirmed by patient
10/31 son updated . Patient was admitted in August and was having significant illnesses and was considered for hospice
11/03: Son updated over the phone. He does understand patient declining clinical status. Will see how patient does clinically and if does not improve in few days then likely hospice will be appropriate
Remains critically ill and at high risk of pulmonary or other foreseen complication
I spent a total of 52 minutes with the patient or on the floor. More than 50% of this time involved counseling and coordination of care.
Anticipated Discharge: > 48 hours
Subjective/Interval History
-
Date of Service: November 05, 2023
still moaning
Objective Data
-
Labs:
Laboratory Results
11/05/23 11/05/23
04:22 16:00
WBC 5.4
Hgb 15.2
Hct 48.2 H
Plt Count 173
Sodium 149 H Pending
Potassium 5.1
Chloride 111 H
Carbon Dioxide 32 H
BUN 78 H
Creatinine 1.2 H
Glucose 193 H
Calcium 10.8 H
Vital Signs:
Vital Signs
Temp Pulse Resp BP Pulse Ox
96.8 F L 106 24 126/79 90
11/05/23 07:40 11/05/23 12:00 11/05/23 12:00 11/05/23 12:00 11/05/23 12:00
I&O
11/04/23 11/05/23 11/06/23
06:59 06:59 06:59
Intake Total 757 / 757
Output Total 880 / 880 975 / 975
Balance -123 / -123 -975 / -975
--- NOTE | 2023-11-05 14:37 | PTOTSP ---
Dysphagia Re-evaluation
Patient presents with signs concerning for oral/pharyngeal dysphagia and aspiration with thin liquids. Given right sided PNA on chest x-ray 11/01/2023 and PMH (necrotic thyroid malignancy, COPD), video swallow study warranted to objectively assess
swallowing function prior to a diet initiation. Hold Aspiration Risk Hydration Protocol at this time given recent lethargy and AMS.
Recommend:
1. NPO
2. Essential medications whole in puree
3. Oral care 3x daily
4. Video swallow study to objectively assess swallowing, r/o aspiration.
[2023-11-05] MEDS: DIAMOX 2.5 MG IV ×2 (16:58→20:26)
[2023-11-05] MEDS: FLUSH (NSS) 2 FLUSH IV (16:59)
--- NOTE | 2023-11-05 17:18 | CM ---
Patient from [facility] with Dx Acute hypoxic/hypercapnic respiratory failure, PNA, COPD, HF, Acute TME. O2 10L midflow. Receiving IV Decadron, IV Abx, IV MS prn. NPO. PT & OT; Therapy not warranted. Per nurse assessment; confused.
Noting Dr Segovia notes: declining clinical status, and if does not improve in few days then likely hospice will be appropriate
CM continuing to follow.
Plan TBD.
[2023-11-05] MEDS: NOVOLOG FLEXPEN-MODERATE RESISTANCE 3 UNITS SC (18:35)
[2023-11-05 18:52] LABS: Glucose - Point of Care 244 mg/dl (70-99)
[2023-11-05 22:11] LABS: Glucose - Point of Care 228 mg/dl (70-99)
[2023-11-05 22:25] LABS: Sodium 147 mmol/L (135-145)
--- NOTE | 2023-11-05 23:09 | PTCARENOTE ---
Received pt at start of shift. pt sleeping not verbal at the start of shift. BEgan talking around 0030 when she demanding her bipap off. Bipap was taken off and 8LMF back on. NO other issues. Purewick in place. Q2T. bed alarm on. Will monitor.
[2023-11-06] VITALS (12 sets, daily range): BP systolic 106–157; BP diastolic 51–78; BMI 32.4
[2023-11-06] MEDS: NOVOLOG FLEXPEN-MODERATE RESISTANCE 3 UNITS SC ×3 (00:10→23:16)
[2023-11-06] MEDS: DECADRON 4 MG IV ×2 (00:11→12:35)
[2023-11-06 00:21] LABS: Glucose - Point of Care 201 mg/dl (70-99)
[2023-11-06] MEDS: ZOSYN 50 IV ×4 (04:37→23:16)
[2023-11-06] MEDS: D5W 1000 IV ×2 (04:38→23:19)
[2023-11-06 04:56] LABS: Venous Blood Gas B.E. 7.6 mmol/L (-4 to +4); Venous Blood Gas HCO3 35.3 mmol/L (22-27); Venous Blood Gas O2 Sat % 99.9 %; Venous Blood Gas pCO2 61 mmHg (35-48); Venous Blood Gas pH 7.37 (7.32-7.43); Venous Blood Gas pO2 118 mmHg (30-50)
[2023-11-06 04:59] LABS: Hematocrit 46.5 % (37.0-47.0); Hemoglobin 14.4 g/dL (12.0-16.0); Mean Corpuscular Hgb 27.6 pg (27.0-31.0); Mean Corpuscular Volume 89.3 fL (81.0-99.0); Mean Platelet Volume 12.6 fL (7.4-10.4); Platelet Count 156 10^3/uL (130-400); Red Blood Cell Count 5.21 10^6/uL (4.20-5.40); Red Cell Dist. Width 13.6 % (11.5-14.5); White Blood Cell Count 8.2 10^3/uL (4.8-10.8)
[2023-11-06 05:25] LABS: Blood Urea Nitrogen 69 mg/dl (7-17); Calcium 10.5 mg/dl (8.4-10.2); Carbon Dioxide 31 mmol/L (22-30); Chloride 110 mmol/L (98-107); Estimated Creatinine Clearance 22 ml/min; Glucose 209 mg/dl (70-99); Potassium 4.8 mmol/L (3.5-5.1); Sodium 146 mmol/L (135-145); eGFR 31.21
[2023-11-06] MEDS: NOVOLOG FLEXPEN-MODERATE RESISTANCE 1 UNITS SC ×2 (06:08→12:31)
[2023-11-06 06:13] LABS: Glucose - Point of Care 172 mg/dl (70-99)
[2023-11-06] MEDS: PULMICORT 0.5 MG INH ×2 (07:29→19:05)
[2023-11-06] MEDS: DUONEB 3 ML INH ×4 (07:29→19:05)
[2023-11-06] MEDS: HEPARIN 5000 UNITS SC ×2 (09:29→20:00)
[2023-11-06] MEDS: REFRESH CELLUVISC GEL 1 DROPS BOTH EYES ×2 (09:29→20:00)
[2023-11-06] MEDS: RISPERDAL M-TAB (ORALLY DISINTEGRATING) 0.5 MG PO ×2 (09:30→20:00)
--- NOTE | 2023-11-06 11:42 | W.PN.HOSP.TC ---
Today's Communication/Plan
-
Monitor vital signs and see plan
VSE shows patient has been silently aspirating. Speech therapy recommends n.p.o. This was discussed with son at length. Patient is high risk for aspiration at this time. Discussed that a feeding tube would not improve quality of life as she can
still aspirate while on feeding tube. Son will discuss with his sister and will get back to us.
NPO for now
cw D5W
prognosis guarded
Assessment / Plan
Assessment / Plan
General: respiratory distress
HEENT: Atraumatic and Oxygen
Respiratory: Wheezes; Negative Rales
Cardiac: Regular Rhythm and S1/S2
GI: Soft, Nontender and Nondistended
Neuro: Awake
Psych: calm
Acute on chronic hypoxic and hypercapnic respiratory failure
currently on midflow and sometimes bipap
-uses 3L o2 through NC at baseline
-ABG showing increased pCO2 of 66 on 10/31
-continue night time BiPAP
pulmonary following
NPO now; VSE 11/05 patient and silent aspiration with thin liquids, moderately thick liquid and mildly thick liquid. No aspiration with pur�e however patient needed maximal cues to swallow. Spoke with speech therapy and at this time they recommend
NPO.
Healthcare associated PNA
-CXR reviewed
-Initial respiratory culture contaminated. Repeat resp cs growing donavon.
abx switched to Zosyn. Cefepime known to cause neurotoxicity
-Repeat chest x-ray from showing increased interstitial marking.
Acute COPD Exacerbation
-Maintain on IV Decadron
-added inhaled budesonide
-Continue nebulizer therapy
-Pulmo following and help appreciated.
Metabolic alkalosis
s/p diamox
Chronic HFpEF
-No signs of volume overload
-Renal function improved, torsemide on hold
-off note Na uptrending, decreased oral intake with TME likely
Hypernatremia likely from poor oral intake
cw D5W
monitor
IDDM -uncontrolled
-Blood glucose remains significantly elevated in the evening.
-Increase Lantus to 15 units at bedtime; hold mealtime insulin
JUAN LUIS - improving
cr 1.2 today
-bladder scan ordered
Hypercalcemia
monitor
Acute TME - continues
-Patient was AOx3 and communicative for first 3 days. At this point moaning and not able to localize/verbalize pain
-CT head ruled out any major abnormalities
-From worsening hypoxia and hypercapnic respiratory failure.
-Avoid sedating medication; dc ativan
advanced thyroid malignancy involving great vessels
severe - not a TAVR candidate per prior records
parox A. Fib (Eliquis stopped last admission)
CAD s/p CABG
CKD 3b
DVT ppx: SC Heparin
Code: DNR confirmed by patient
10/31 son updated . Patient was admitted in August and was having significant illnesses and was considered for hospice
11/03: Son updated over the phone. He does understand patient declining clinical status. Will see how patient does clinically and if does not improve in few days then likely hospice will be appropriate
11/05: VSE shows patient has been silently aspirating. Speech therapy recommends n.p.o. This was discussed with son at length. Patient is high risk for aspiration at this time. Discussed that a feeding tube would not improve quality of life as she
can still aspirate while on feeding tube. Son will discuss with his sister and will get back to us.
Remains critically ill and at high risk of pulmonary or other foreseen complication
I spent a total of 53 minutes with the patient or on the floor. More than 50% of this time involved counseling and coordination of care.
Anticipated Discharge: > 48 hours
Subjective/Interval History
-
Date of Service: November 06, 2023
much more alert today
Objective Data
-
Labs:
Laboratory Results
11/06/23
04:44
WBC 8.2
Hgb 14.4
Hct 46.5
Plt Count 156
Sodium 146 H
Potassium 4.8
Chloride 110 H
Carbon Dioxide 31 H
BUN 69 H
Creatinine 1.6 H
Glucose 209 H
Calcium 10.5 H
Vital Signs:
Vital Signs
Temp Pulse Resp BP Pulse Ox
97.2 F 105 27 115/64 96
11/06/23 07:30 11/06/23 10:00 11/06/23 10:00 11/06/23 10:00 11/06/23 10:00
I&O
11/05/23 11/06/23 11/07/23
06:59 06:59 06:59
Intake Total 800 / 800
Output Total 975 / 975 525 / 525
Balance -975 / -975 275 / 275
--- NOTE | 2023-11-06 11:42 | PTCARENOTE ---
Pt received drowsy and lethargic, but becoming more awake and alert throughout the day. Aox0 but able to participate in some conversation. NSR on tele monitor. Weaned to 6L MFNC with sats in the mid to high 90's. IVF infusing as ordered. NPO at this
time. To and from VSE via stretcher. Bed alarm remains in place for safety.
[2023-11-06 12:42] LABS: Glucose - Point of Care 187 mg/dl (70-99)
--- NOTE | 2023-11-06 12:58 | W.PN.PUL3 ---
Today's Communication / Plan
-
Diamox given yesterday with improvement on today's VBG -- hold off on additional diamox and trend VBG
Continue nebulizers with budesonide/DuoNebs
IV steroids - wean slowly (she is no longer wheezing) --> will wean down to 2mg IV q12hr tomorrow
Minimize sedation
BiPAP with sleep; trend pCO2; titrate O2 flow rate to keep SpO2>88-94%
Continue antibiotics - changed cefepime to Zosyn; complete total of 14 days of ABx
Consider UA to assure not missing a UTI as cause of her AMS
Treat elevated Ca++ level as that too will contribute to AMS
Guarded prognosis
Assessment
-
88-year-old woman with complex medical history, sleep apnea on CPAP, obstructive lung disease, presents to [facility] from longterm facility with increased shortness of breath and cough. Now with worsening wheeze, worsening lethargy,
chest x-ray with increased bibasilar infiltrates. We are asked to comment on pulmonary process 11/01/2023
Acute COPD exacerbation, admitted 10/28
Bibasilar infiltrates, worrisome for nosocomial pneumonia
Acute hypoxic respiratory insufficiency requiring NIV - now on midflow
Acute hypercapnic respiratory insufficiency
Chronic compensated hypercapnia, baseline pCO2 50s
Lethargy
History of heart failure
Chronic kidney disease, creatinine 1.3
Hyperglycemia
Metabolic alkalosis due to acute on chronic hypercapnea
AMS - waxing and waning - suspect due to hypercapnea with TME in setting of acute delirium
Conditions present prior admission:
Hypertension
Type 2 diabetes
Peripheral neuropathy
Chronic lower extremity edema
Dementia
Bladder dysfunction
Resident at [facility]
? Status post CABG-sternotomy wires on o-zvo-kyezstmw toe disease.
Atrial fibrillation on anticoagulation
There is no mention of alcohol or cigarette use.
Patient on formoterol and budesonide in the outpatient setting-unclear diagnosis.
Assessment and plan:
Respiratory status remains tenuous, although better today
Currently on 4L via midflow -not using BiPAP. Pulse ox is 91%
Chest x-ray with progressive bilateral infiltrates
Plan:
Continue BiPAP with sleep at 12/5, bled with 4-10L/min to maintain SpO2 >88-94%. Reviewed with respiratory care. Limited by waxing and waning mental status.
DNR status
Suspect presentation is multifactorial
Patient had similar presentation back in July, requiring ICU stay and TRX to hospice, but patient improved and hospice was rescinded
-
Wheezing resolved as of 11/03.
Continue Pulmicort nebulized BID
DuoNebs QID
Reduced steroids on 11/03 from decadron 4mg IV q8hr to 4mg IV q12hr
AMS - suspect toxic metabolic encephalopathy.
On 11/03, her PCO2 and SaO2 are now stable, but she was still confused, moaning and not improving --> TSH WNL
Consider checking UA to rule out UTI (would need to straight cath)
Perhaps the steroids contributed to her AMS --> on 11/03 I reduced the dose to 4mg IV q12hr as she is no longer wheezing
CT head without acute abnormalities.
Avoid sedatives, patient is on gabapentin chronically. Patient also receiving IV morphine as needed
Would like to minimize if possible, due to risk of worsening hypercapnia and worsening mental status
Continue antibiotic therapy for possible pneumonia/healthcare associated.
Cultures negative so far.
No leukocytosis. Afebrile.
Continue cefepime/azithromycin --> cefepime switching to Zosyn given her confusion
Would treat for total of 14 days total
Patient also at risk for heart failure
Severe aortic stenosis, pulm hypertension PA pressure 55 per prior echocardiogram and moderate mitral stenosis
Follow clinically for now
Diuretics on hold, Due to acute kidney injury.
Would resume once clinically able to considering her proBNP is elevated and her CXR on 10/31 appears to show interstitial edema
Monitor I/O for now with daily weight
Once pt able to tolerate PO diet, resume low sodium, fluid restricted diet --> recommend SOCIAL WORK NURSE eval --> the performed video swallow study today and pt remains at high aspiration risk with ineffective cough and aspiration with thin liquids. Depending
on the patient and family's goals of care, continue NPO, consider dobhoff tube for PO meds, otherwise pursue hospice with comfort feeds
Patient also previously on eliquis for atrial fibrillation - stopped last admission for unknown reasons (I suspect it was because patient was pursuing hospice, but this was rescinded as she improved) - defer to cardiology if she should resume AC or
not at this point.
Continue HSQ for DVT ppx in meantime
Remains high risk situation.
Patient is DNR status.
If continues to worsen then the son has already decided that they would pursue hospice.
Pulmonary service will continue to briefly follow along.
Total time spent today was 35 minutes for this encounter. Time includes reviewing laboratory test/imaging results, reviewing pertinent medical records, obtaining and reviewing medical history, performing an appropriate exam, ordering medications,
tests and procedures. Time also includes documentation of this encounter, coordinating patient care and communicating with other healthcare professionals. Total time does not include separately billed tests performed on this date of service.
Subjective Data
-
Date of Service:
Date of Service: November 06, 2023
Chief Complaint: Pulmonary Follow Up (Acute exacerbation of COPD)
Subjective:
Patient seen today at bedside. She is on 4 L/min nasal cannula. Sleeping in no acute distress but when she does awaken she is able to communicate with me effectively but she does moan that she wants something to eat/drink. Overnight she wore
BiPAP 06/04 bled with 10 L/min - she was removed from it in middle of night and not placed back onto it - unclear why.
Review of Systems
General: Other (Negative unless mentioned above)
Objective Data
Data Reviewed
Vital Signs / I&O / Oxygen:
Vital Signs
Temp Pulse Resp BP Pulse Ox
97.5 F 82 15 115/64 92
11/06/23 11:30 11/06/23 15:39 11/06/23 15:39 11/06/23 10:00 11/06/23 15:39
Intake and Output
11/05/23 11/06/23 11/07/23
06:59 06:59 06:59
Intake Total 800 / 800
Output Total 975 / 975 525 / 525
Balance -975 / -975 275 / 275
SaO2 92
Nasal Cannula flow liters per 4
minute
Physical Exam
General: Respiratory Distress (n) and Comfortable
HEENT: Normocephalic and Anicteric
Cardiovascular: S1-S2, Murmur (JEIMY, heard best at [facility]), JVD (n) and Other (Tachycardic)
Respiratory: Wheeze (negative) and Crackles (bilateral)
GI: Soft, Non Distended, Tender and Normal Bowel Sounds
Neurology: Awake, Alert and Tremors (negative)
Skin: Warm and Dry
Labs/Micro/Reports
Lab Data
11/06/23 04:44
11/06/23 04:44
--- NOTE | 2023-11-06 13:28 | PTOTSP ---
Video Swallow Study
Summary: Patient presents with at least moderate oral and moderate-severe pharyngeal dysphagia. There was aspiration with thin liquids (silent/no cough), mildly thick liquids (ineffective cough), and moderately thick liquids via tsp (ineffective
delayed throat clear.) With puree patient required max verbal cues to transfer/swallow bolus. Please see patient care note for full details of penetration/aspiration and swallowing physiology.
Aspiration risk is high. Risk for complications from aspiration is high (i.e., admitted with respiratory failure and acutely ill, poor state of dentition). Consider temporary non-oral means if aligned with goals of care.
Recommend:
1. NPO - consider temporary non-oral means of nutrition/hydration
2. Medications - non-oral preferred
3. Oral care 3-5x daily with suctioning
4. Hold aspiration risk hydration protocol given AMS
5. Dysphagia therapy at the acute care level for patient/family education and therapeutic trials of PO.
--- NOTE | 2023-11-06 16:07 | PTCARENOTE ---
Pt awake and yelling out. Repeatedly asking for water. Educated on plan of care and NPO status; pt forgetful and needing frequent re- education. Mouth care done. Emotional support provided.
[2023-11-06 17:42] LABS: Glucose - Point of Care 212 mg/dl (70-99)
--- NOTE | 2023-11-06 23:04 | PTCARENOTE ---
Received pt at start of shift. pt awake & talking. Confused but talking & can make her needs known. Received her on 4LMF, sating 98%. NSR. Purewick. Q2T. BLE edema. Denies pain. no sob noted. IVF running. Will monitor. Bed alarm on.
[2023-11-06] MEDS: LANTUS 0.149999999999999994 UNITS SC (23:15)
[2023-11-06] MEDS: DECADRON 2 MG IV (23:20)
[2023-11-06 23:26] LABS: Glucose - Point of Care 242 mg/dl (70-99)
[2023-11-07] VITALS (12 sets, daily range): BP systolic 102–153; BP diastolic 56–94; PULSE 2–98; BMI 32.6
[2023-11-07] MEDS: ZOSYN 50 IV ×4 (03:17→21:03)
[2023-11-07 04:46] LABS: Venous Blood Gas B.E. 3.9 mmol/L (-4 to +4); Venous Blood Gas HCO3 32.2 mmol/L (22-27); Venous Blood Gas O2 Sat % 99.2 %; Venous Blood Gas pCO2 64 mmHg (35-48); Venous Blood Gas pH 7.31 (7.32-7.43); Venous Blood Gas pO2 99 mmHg (30-50)
[2023-11-07 04:49] LABS: Venous Blood Gas O2 Therapy 4L/min
[2023-11-07] MEDS: NOVOLOG FLEXPEN-MODERATE RESISTANCE 3 UNITS SC (05:50)
[2023-11-07 06:00] LABS: Glucose - Point of Care 239 mg/dl (70-99)
[2023-11-07] MEDS: PULMICORT 0.5 MG INH ×2 (07:12→19:10)
[2023-11-07] MEDS: DUONEB 3 ML INH ×4 (07:12→19:10)
--- NOTE | 2023-11-07 10:12 | CM ---
Patient from [facility] with Dx Acute hypoxic/hypercapnic respiratory failure, PNA, COPD, HF, Acute TME. O2 4L. Receiving IV Decadron, IV Abx. VSE - NPO. PT & OT; Therapy not warranted. Per nurse assessment; confused.
Per MD notes, family deciding re; feeding tube.
Plan return to [facility] when medically ready.
[2023-11-07] MEDS: HEPARIN 5000 UNITS SC ×2 (10:35→20:42)
[2023-11-07] MEDS: REFRESH CELLUVISC GEL 1 DROPS BOTH EYES ×2 (10:36→20:43)
[2023-11-07] MEDS: RISPERDAL M-TAB (ORALLY DISINTEGRATING) 0.5 MG PO ×2 (10:36→20:42)
[2023-11-07 10:40] LABS: % Immature Granulocytes 0.3 % (0-0.5); % Lymphocytes 9.8 % (20.5-51.1); % Monocytes 5.9 % (1.7-9.3); Absolute Lymphocytes 0.6 10^3/uL (1.2-3.4); Absolute Monocytes 0.4 10^3/uL (0.1-0.6); Absolute Neutrophils 5.1 10^3/uL (1.4-6.5); Hematocrit 49.1 % (37.0-47.0); Hemoglobin 15.2 g/dL (12.0-16.0); Mean Corpuscular Hgb 27.5 pg (27.0-31.0); Mean Corpuscular Volume 88.8 fL (81.0-99.0); Mean Platelet Volume 12.5 fL (7.4-10.4); Nucleated Red Blood Cells % 0 %; Platelet Count 128 10^3/uL (130-400); Red Blood Cell Count 5.53 10^6/uL (4.20-5.40); Red Cell Dist. Width 13.2 % (11.5-14.5); White Blood Cell Count 6.1 10^3/uL (4.8-10.8)
[2023-11-07 10:47] LABS: Blood Urea Nitrogen 62 mg/dl (7-17); Calcium 10.4 mg/dl (8.4-10.2); Carbon Dioxide 28 mmol/L (22-30); Chloride 104 mmol/L (98-107); Estimated Creatinine Clearance 23 ml/min; Glucose 217 mg/dl (70-99); Potassium 4.2 mmol/L (3.5-5.1); Sodium 142 mmol/L (135-145); eGFR 33.73
--- NOTE | 2023-11-07 11:16 | PTOTSP ---
Dysphagia Therapy
Patient with at least moderate oral and moderate-severe pharyngeal dysphagia on recent swallow study. This date oral manipulation/transfers with ice chips and puree improved. Signs of aspiration noted with thin liquids. Can initiate ARHP for
comfort. Hold if mentation inappropriate.
Recommend:
1. NPO - consider temporary non-oral means of nutrition/hydration if aligned with family GOC vs comfort feeding
2. Medications - essential meds in puree, non-oral preferred if with AMS
3. Oral care 3-5x daily with suctioning
4. Aspiration Risk Hydration Protocol (ARHP) - sparing ice chips after oral care with nurse supervision ONLY if mentation appropriate
5. Dysphagia therapy at the acute care level for patient/family education and therapeutic trials of PO.
--- NOTE | 2023-11-07 11:45 | W.PN.PUL3 ---
Today's Communication / Plan
-
Diamox given 2 days ago with improvement on VBG --> she is now slightly acidemic, hold off on additional diamox and trend VBG
Continue nebulizers with budesonide/DuoNebs
IV steroids - wean slowly (she is no longer wheezing) --> weaned down to 2mg IV q12hr today
Minimize sedation
BiPAP with sleep; trend pCO2; titrate O2 flow rate to keep SpO2>88-94%
Continue antibiotics - changed cefepime to Zosyn; complete total of 14 days of ABx
Consider UA to assure not missing a UTI as cause of her AMS
Treat elevated Ca++ level as that too will contribute to AMS
Guarded prognosis
Assessment
-
88-year-old woman with complex medical history, sleep apnea on CPAP, obstructive lung disease, [facility] with increased shortness of breath and cough. Now with worsening wheeze, worsening lethargy,
chest x-ray with increased bibasilar infiltrates. We are asked to comment on pulmonary process 11/01/2023
Acute COPD exacerbation, admitted 10/28
Bibasilar infiltrates, worrisome for nosocomial pneumonia
Acute hypoxic respiratory insufficiency requiring NIV - now on midflow
Acute hypercapnic respiratory insufficiency
Chronic compensated hypercapnia, baseline pCO2 50s
Lethargy
History of heart failure
Chronic kidney disease, creatinine 1.3
Hyperglycemia
Metabolic alkalosis due to acute on chronic hypercapnea
AMS - waxing and waning - suspect due to hypercapnea with TME in setting of acute delirium
Conditions present prior admission:
Hypertension
Type 2 diabetes
Peripheral neuropathy
Chronic lower extremity edema
Dementia
Bladder dysfunction
Resident at [facility]
? Status post CABG-sternotomy wires on [id number]-[id number] toe disease.
Atrial fibrillation on anticoagulation
There is no mention of alcohol or cigarette use.
Patient on formoterol and budesonide in the outpatient setting-unclear diagnosis.
Assessment and plan:
Respiratory status remains tenuous, although better today
Currently on 4L via midflow -not using BiPAP. Pulse ox is 91%
Chest x-ray with progressive bilateral infiltrates
Plan:
Continue BiPAP with sleep at 12/5, bled with 4-10L/min to maintain SpO2 >88-94%. Reviewed with respiratory care. Limited by waxing and waning mental status.
DNR status
Suspect presentation is multifactorial
Patient had similar presentation back in July, requiring ICU stay and TRX to hospice, but patient improved and hospice was rescinded
-
Wheezing resolved as of 11/03.
Continue Pulmicort nebulized BID
DuoNebs QID
Reduced steroids on 11/03 from decadron 4mg IV q8hr to 4mg IV q12hr --> now will lower to 2mg q12hr
AMS - suspect toxic metabolic encephalopathy.
On 11/03, her PCO2 and SaO2 are now stable, but she was still confused, moaning and not improving --> TSH WNL
Consider checking UA to rule out UTI (would need to straight cath)
Perhaps the steroids contributed to her AMS --> on 11/03 I reduced the dose to 4mg IV q12hr as she is no longer wheezing --> wean as tolerated
CT head without acute abnormalities.
Avoid sedatives, patient is on gabapentin chronically. Patient also receiving IV morphine as needed
Would like to minimize if possible, due to risk of worsening hypercapnia and worsening mental status
Continue antibiotic therapy for possible pneumonia/healthcare associated.
Cultures negative so far.
No leukocytosis. Afebrile.
Continue cefepime/azithromycin --> cefepime switched to Zosyn given her confusion
Would treat for total of 14 days total
Patient also at risk for heart failure
Severe aortic stenosis, pulm hypertension PA pressure 55 per prior echocardiogram and moderate mitral stenosis
Follow clinically for now
Diuretics on hold, Due to acute kidney injury.
Would resume once clinically able to considering her proBNP is elevated and her CXR on 10/31 appears to show interstitial edema
Monitor I/O for now with daily weight
Once pt able to tolerate PO diet, resume low sodium, fluid restricted diet --> recommend MATH AND PHYSICS INSTRUCTOR eval --> the performed video swallow study today and pt remains at high aspiration risk with ineffective cough and aspiration with thin liquids. Depending
on the patient and family's goals of care, continue NPO, consider dobhoff tube for PO meds, otherwise pursue hospice with comfort feeds
Patient also previously on eliquis for atrial fibrillation - stopped last admission for unknown reasons (I suspect it was because patient was pursuing hospice, but this was rescinded as she improved) - defer to cardiology if she should resume AC or
not at this point.
Continue HSQ for DVT ppx in meantime
Remains high risk situation.
Patient is DNR status.
If continues to worsen then the son has already decided that they would pursue hospice.
Pulmonary service will continue to briefly follow along.
Patient seen and evaluated on 11/07/2023
Total time spent today was 35 minutes for this encounter. Time includes reviewing laboratory test/imaging results, reviewing pertinent medical records, obtaining and reviewing medical history, performing an appropriate exam, ordering medications,
tests and procedures. Time also includes documentation of this encounter, coordinating patient care and communicating with other healthcare professionals. Total time does not include separately billed tests performed on this date of service.
Subjective Data
-
Date of Service:
Date of Service: November 07, 2023
Chief Complaint: Pulmonary Follow Up (Acute exacerbation of COPD)
Subjective:
Pt seen this AM. No events reported from overnight.
Review of Systems
General: Other (Unable to obtain given acute clinical status)
Objective Data
Data Reviewed
Vital Signs / I&O / Oxygen:
Vital Signs
Temp Pulse Resp BP Pulse Ox
98.3 F 92 25 110/94 95
11/07/23 23:15 11/07/23 22:00 11/07/23 22:00 11/07/23 22:00 11/07/23 22:00
Intake and Output
11/06/23 11/07/23 11/08/23
06:59 06:59 06:59
Intake Total 800 / 800 870 / 870
Output Total 525 / 525 600 / 600 550 / 550
Balance 275 / 275 -600 / -600 320 / 320
SaO2 95
Nasal Cannula flow liters per 2
minute
Physical Exam
General: Respiratory Distress (n) and Comfortable
HEENT: Normocephalic and Anicteric
Cardiovascular: S1-S2, Murmur (JEIMY, heard best at [facility]), JVD (n) and Other (Tachycardic)
Respiratory: Wheeze (negative) and Crackles (bilateral)
GI: Soft, Non Distended, Tender and Normal Bowel Sounds
Neurology: Awake and Tremors (negative)
Skin: Warm and Dry
[2023-11-07 12:27] LABS: Glucose - Point of Care 162 mg/dl (70-99)
--- NOTE | 2023-11-07 13:10 | W.PN.HOSP.TC ---
Today's Communication/Plan
-
Monitor vital signs and see plan
Wean oxygen as tolerated
N.p.o.
Spoke with son again 11/06; family is in agreement with no feeding tube. Will see how patient does in a day or so and can see if patient can be cleared for any p.o. diet. If not then likely family will pursue comfort feeds.
Fluconazole
Assessment / Plan
Assessment / Plan
General: respiratory distress
HEENT: Atraumatic and Oxygen
Respiratory: Wheezes; Negative Rales
Cardiac: Regular Rhythm and S1/S2
GI: Soft, Nontender and Nondistended
Neuro: Awake
Psych: calm
Acute on chronic hypoxic and hypercapnic respiratory failure
currently on midflow and sometimes bipap
-uses 3L o2 through NC at baseline
-ABG showing increased pCO2 of 66 on 10/31
-continue night time BiPAP
pulmonary following
NPO now; VSE 11/05 patient and silent aspiration with thin liquids, moderately thick liquid and mildly thick liquid. No aspiration with pur�e however patient needed maximal cues to swallow. Spoke with speech therapy and at this time they recommend
NPO. Spoke with son again 11/06; family is in agreement with no feeding tube. Will see how patient does in a day or so and can see if patient can be cleared for any p.o. diet. If not then likely family will pursue comfort feeds.
Healthcare associated PNA
-CXR reviewed
-Initial respiratory culture contaminated. Repeat resp cs growing donavon.
abx switched to Zosyn. Cefepime known to cause neurotoxicity
-Repeat chest x-ray from showing increased interstitial marking.
TME suspect multifactorial 2/2 infection,meds
now slowly improving
monitor
Oral thrush
Fluconazole
Acute COPD Exacerbation
-Maintain on IV Decadron
-added inhaled budesonide
-Continue nebulizer therapy
-Pulmo following and help appreciated.
Metabolic alkalosis
s/p diamox
Chronic HFpEF
-No signs of volume overload
-Renal function improved, torsemide on hold
-off note Na uptrending, decreased oral intake with TME likely
Hypernatremia likely from poor oral intake
cw D5W
monitor; slowly improving
IDDM -uncontrolled
-Blood glucose remains significantly elevated in the evening.
-Increase Lantus to 15 units at bedtime; hold mealtime insulin
JUAN LUIS - improving
-bladder scan ordered
Hypercalcemia
monitor
Acute TME - continues
-Patient was AOx3 and communicative for first 3 days. At this point moaning and not able to localize/verbalize pain
-CT head ruled out any major abnormalities
-From worsening hypoxia and hypercapnic respiratory failure.
-Avoid sedating medication; dc ativan
advanced thyroid malignancy involving great vessels
severe - not a TAVR candidate per prior records
parox A. Fib (Eliquis stopped last admission)
CAD s/p CABG
CKD 3b
DVT ppx: SC Heparin
Code: DNR confirmed by patient
10/31 son updated . Patient was admitted in August and was having significant illnesses and was considered for hospice
11/03: Son updated over the phone. He does understand patient declining clinical status. Will see how patient does clinically and if does not improve in few days then likely hospice will be appropriate
11/05: VSE shows patient has been silently aspirating. Speech therapy recommends n.p.o. This was discussed with son at length. Patient is high risk for aspiration at this time. Discussed that a feeding tube would not improve quality of life as she
can still aspirate while on feeding tube. Son will discuss with his sister and will get back to us.
Spoke with son again 11/06; family is in agreement with no feeding tube. Will see how patient does in a day or so and can see if patient can be cleared for any p.o. diet. If not then likely family will pursue comfort feeds.
Remains critically ill and at high risk of pulmonary or other foreseen complication
I spent a total of 52 minutes with the patient or on the floor. More than 50% of this time involved counseling and coordination of care.
Anticipated Discharge: 24 - 48 hours
Subjective/Interval History
-
Date of Service: November 07, 2023
denies pain
Objective Data
-
Labs:
Laboratory Results
11/07/23
10:16
WBC 6.1
Hgb 15.2
Hct 49.1 H
Plt Count 128 L
Sodium 142
Potassium 4.2
Chloride 104
Carbon Dioxide 28
BUN 62 H
Creatinine 1.5 H
Glucose 217 H
Calcium 10.4 H
Vital Signs:
Vital Signs
Temp Pulse Resp BP Pulse Ox
98.3 F 88 15 127/71 100
11/07/23 11:45 11/07/23 11:05 11/07/23 11:05 11/07/23 08:00 11/07/23 08:08
I&O
11/06/23 11/07/23 11/08/23
06:59 06:59 06:59
Intake Total 800 / 800 50 / 50
Output Total 525 / 525 600 / 600
Balance 275 / 275 -600 / -600 50 / 50
[2023-11-07] MEDS: DECADRON 2 MG IV (13:16)
[2023-11-07] MEDS: D5W 1000 IV (13:16)
[2023-11-07] MEDS: NOVOLOG FLEXPEN-MODERATE RESISTANCE 1 UNITS SC ×2 (13:16→18:37)
[2023-11-07] MEDS: DIFLUCAN 100 MG PO (15:56)
[2023-11-07 18:48] LABS: Glucose - Point of Care 167 mg/dl (70-99)
[2023-11-07] MEDS: LANTUS 0.149999999999999994 UNITS SC (22:23)
[2023-11-07 22:34] LABS: Glucose - Point of Care 143 mg/dl (70-99)
[2023-11-08] VITALS (14 sets, daily range): BP systolic 96–155; BP diastolic 61–111; PULSE 2–93; BMI 32.9
[2023-11-08] MEDS: DECADRON 2 MG IV ×3 (00:39→22:58)
[2023-11-08] MEDS: NOVOLOG FLEXPEN-MODERATE RESISTANCE 1 UNITS SC ×3 (01:47→17:22)
[2023-11-08 01:57] LABS: Glucose - Point of Care 176 mg/dl (70-99)
[2023-11-08] MEDS: ZOSYN 50 IV ×4 (03:36→22:04)
--- NOTE | 2023-11-08 04:52 | PTCARENOTE ---
Pt appeared able to sleep 3-4 hours. Pt tolerated BIPAP on at HS. Assessment care and vitals as charted.
[2023-11-08 05:00] LABS: Venous Blood Gas B.E. 3.8 mmol/L (-4 to +4); Venous Blood Gas HCO3 30.2 mmol/L (22-27); Venous Blood Gas pCO2 51 mmHg (35-48); Venous Blood Gas pH 7.38 (7.32-7.43); Venous Blood Gas pO2 169 mmHg (30-50)
[2023-11-08 05:01] LABS: Ionized Calcium 1.26 mMOL/L (1.15-1.33); Venous Blood Gas O2 Therapy 2L/min
[2023-11-08 05:06] LABS: % Immature Granulocytes 0.6 % (0-0.5); % Lymphocytes 5.5 % (20.5-51.1); % Monocytes 2.9 % (1.7-9.3); Absolute Lymphocytes 0.4 10^3/uL (1.2-3.4); Absolute Monocytes 0.2 10^3/uL (0.1-0.6); Absolute Neutrophils 6.6 10^3/uL (1.4-6.5); Hematocrit 43.7 % (37.0-47.0); Mean Corpuscular Hgb 27.3 pg (27.0-31.0); Mean Corpuscular Volume 85.4 fL (81.0-99.0); Mean Platelet Volume 12.8 fL (7.4-10.4); Nucleated Red Blood Cells % 0 %; Platelet Count 116 10^3/uL (130-400); Red Blood Cell Count 5.12 10^6/uL (4.20-5.40); Red Cell Dist. Width 13.3 % (11.5-14.5); White Blood Cell Count 7.2 10^3/uL (4.8-10.8)
[2023-11-08 05:25] LABS: Blood Urea Nitrogen 55 mg/dl (7-17); Calcium 9.7 mg/dl (8.4-10.2); Carbon Dioxide 26 mmol/L (22-30); Chloride 105 mmol/L (98-107); Estimated Creatinine Clearance 32 ml/min; Glucose 172 mg/dl (70-99); Potassium 4.3 mmol/L (3.5-5.1); Sodium 134 mmol/L (135-145); eGFR 48.94
[2023-11-08 05:54] LABS: Glucose - Point of Care 135 mg/dl (70-99)
[2023-11-08] MEDS: NOVOLOG FLEXPEN-MODERATE RESISTANCE SC (07:17)
[2023-11-08] MEDS: PULMICORT 0.5 MG INH ×2 (07:29→20:42)
[2023-11-08] MEDS: DUONEB 3 ML INH ×4 (07:29→20:21)
[2023-11-08] MEDS: D5W 1000 IV (09:54)
[2023-11-08] MEDS: DIFLUCAN 100 MG PO (09:56)
[2023-11-08] MEDS: RISPERDAL M-TAB (ORALLY DISINTEGRATING) 0.5 MG PO ×2 (09:56→20:01)
[2023-11-08] MEDS: REFRESH CELLUVISC GEL 1 DROPS BOTH EYES ×2 (09:56→20:01)
[2023-11-08] MEDS: HEPARIN 5000 UNITS SC (09:56)
[2023-11-08 12:04] LABS: Glucose - Point of Care 185 mg/dl (70-99)
--- NOTE | 2023-11-08 12:30 | W.PN.HOSP.TC ---
Addendum entered and electronically signed by Kashmir Segovia MD 11/08/23 15:21:
Patient did bit better with PACs this time. Speech therapy following. Now recommended soft and bite-size with mildly thick liquids. Son updated
Patient used to be on Eliquis for paroxysmal atrial fibrillation which was stopped on last admission since she was going on hospice. She is currently not on hospice anymore. Discussed with son and will restart Eliquis.
Original Note:
Today's Communication/Plan
-
Monitor vital signs
see plan
VSE again today; speech following
Continue antibiotics, Decadron
Assessment / Plan
Assessment / Plan
General: respiratory distress
HEENT: Atraumatic and Oxygen
Respiratory: Wheezes; Negative Rales
Cardiac: Regular Rhythm and S1/S2
GI: Soft, Nontender and Nondistended
Neuro: Awake
Psych: calm
Acute on chronic hypoxic and hypercapnic respiratory failure
currently on midflow and sometimes bipap
-uses 3L o2 through NC at baseline
-ABG showing increased pCO2 of 66 on 10/31
-continue night time BiPAP
pulmonary following
NPO now; VSE 11/05 patient and silent aspiration with thin liquids, moderately thick liquid and mildly thick liquid. No aspiration with pur�e however patient needed maximal cues to swallow. Spoke with speech therapy and at this time they recommend
NPO. Spoke with son again 11/06; family is in agreement with no feeding tube. speech evaluated 11/07; plan for VSE again before any definite answer to if patient can be put safely on diet. if not then will speak to family again regarding comfort
feeds.
Healthcare associated PNA
-CXR reviewed
-Initial respiratory culture contaminated. Repeat resp cs growing donavon.
abx switched to Zosyn. Cefepime known to cause neurotoxicity
-Repeat chest x-ray from showing increased interstitial marking.
TME suspect multifactorial 2/2 infection,meds
now slowly improving
monitor
-Patient was AOx3 and communicative for first 3 days. At this point moaning and not able to localize/verbalize pain
-CT head ruled out any major abnormalities
-From worsening hypoxia and hypercapnic respiratory failure.
-Avoid sedating medication; dc ativan
Oral thrush
Fluconazole
Acute COPD Exacerbation
-Maintain on IV Decadron; decrease to 2 every 12
-added inhaled budesonide
-Continue nebulizer therapy
-Pulmo following and help appreciated.
Metabolic alkalosis
s/p diamox
Chronic HFpEF
-No signs of volume overload
-Renal function improving, torsemide on hold
Hypernatremia likely from poor oral intake
cw D5W
monitor; slowly improving
IDDM -uncontrolled
-Blood glucose remains significantly elevated in the evening.
-Increase Lantus to 15 units at bedtime; hold mealtime insulin
JUAN LUIS - improving
-bladder scan ordered
Hypercalcemia
monitor
advanced thyroid malignancy involving great vessels
severe - not a TAVR candidate per prior records
parox A. Fib (Eliquis stopped last admission)
CAD s/p CABG
CKD 3b
DVT ppx: SC Heparin
Code: DNR confirmed by patient
10/31 son updated . Patient was admitted in August and was having significant illnesses and was considered for hospice
11/03: Son updated over the phone. He does understand patient declining clinical status. Will see how patient does clinically and if does not improve in few days then likely hospice will be appropriate
11/05: VSE shows patient has been silently aspirating. Speech therapy recommends n.p.o. This was discussed with son at length. Patient is high risk for aspiration at this time. Discussed that a feeding tube would not improve quality of life as she
can still aspirate while on feeding tube. Son will discuss with his sister and will get back to us.
Spoke with son again 11/06; family is in agreement with no feeding tube. Will see how patient does in a day or so and can see if patient can be cleared for any p.o. diet. If not then likely family will pursue comfort feeds.
speech evaluated 11/07; plan for VSE again before any definite answer to if patient can be put safely on diet. if not then will speak to family again regarding comfort
Remains critically ill and at high risk of pulmonary or other foreseen complication
I spent a total of 53 minutes with the patient or on the floor. More than 50% of this time involved counseling and coordination of care.
Anticipated Discharge: > 48 hours
Subjective/Interval History
-
Date of Service: November 08, 2023
denies pain
Objective Data
-
Labs:
Laboratory Results
11/08/23
04:40
WBC 7.2
Hgb 14.0
Hct 43.7
Plt Count 116 L
Sodium 134 L D
Potassium 4.3
Chloride 105
Carbon Dioxide 26
BUN 55 H
Creatinine 1.1 H
Glucose 172 H
Calcium 9.7
Vital Signs:
Vital Signs
Temp Pulse Resp BP Pulse Ox
98.0 F 82 23 155/97 97
11/08/23 11:30 11/08/23 11:31 11/08/23 11:31 11/08/23 08:00 11/08/23 11:31
I&O
11/07/23 11/08/23 11/09/23
06:59 06:59 06:59
Intake Total 1690 / 1690
Output Total 600 / 600 900 / 900
Balance -600 / -600 790 / 790
--- NOTE | 2023-11-08 14:11 | W.PN.PUL3 ---
Today's Communication / Plan
-
Continue nebulizers with budesonide/DuoNebs
IV steroids - wean slowly (she is no longer wheezing) --> start PO prednisone taper tomorrow
Minimize sedation
BiPAP with sleep; trend pCO2; titrate O2 flow rate to keep SpO2>88-94%
Continue antibiotics - changed cefepime to Zosyn; complete total of 14 days of ABx
Patient is doing fantastic from a pulmonary perspective. Continue nocturnal BiPAP and we will arrange to see the patient in the office. Occasionally check venous blood gas to ensure pH and pCO2 are stable. Would discharge on DuoNebs 3 times daily
instead of arformoterol, with outpatient PFTs. Check walking pulse oximetry prior to discharge.
Pulmonary service will now sign off. Please reconsult if there are any additional questions/concerns, or if patient's respiratory status deteriorates.
Assessment
-
88-year-old woman with complex medical history, sleep apnea on CPAP, obstructive lung disease, presents to [facility] from [facility] with increased shortness of breath and cough. Now with worsening wheeze, worsening lethargy,
chest x-ray with increased bibasilar infiltrates. We are asked to comment on pulmonary process 11/01/2023
Impression:
Acute COPD exacerbation, admitted 10/28
Bibasilar infiltrates, worrisome for nosocomial pneumonia
Acute hypoxic respiratory insufficiency requiring NIV - now on 2L/min nasal canula
Acute hypercapnic respiratory insufficiency
Chronic compensated hypercapnia, baseline pCO2 50s
Lethargy - resolved
History of heart failure
Chronic kidney disease, creatinine 1.3
Hyperglycemia
Metabolic alkalosis due to acute on chronic hypercapnea
AMS - waxing and waning - suspect due to hypercapnea with TME in setting of acute delirium - AMS resolved
Conditions present prior admission:
Hypertension
Type 2 diabetes
Peripheral neuropathy
Chronic lower extremity edema
Dementia
Bladder dysfunction
Resident at [facility]
? Status post CABG-sternotomy wires on [id number] toe disease.
Atrial fibrillation on anticoagulation
There is no mention of alcohol or cigarette use.
Patient on formoterol and budesonide in the outpatient setting-unclear diagnosis.
Assessment and plan:
Respiratory status markedly improved and she is now on 2L/min breathing comfortably
Chest x-ray with progressive bilateral infiltrates
Plan:
Continue BiPAP with sleep at 06/04, and titrate O2 flow rate to maintain SpO2 >88-94%. Reviewed with respiratory care. Limited by waxing and waning mental status.
DNR status
Suspect presentation is multifactorial
Patient had similar presentation back in July, requiring ICU stay and TRX to hospice, but patient improved and hospice was rescinded
-
Wheezing resolved as of 11/03.
Continue Pulmicort nebulized BID
DuoNebs QID
Reduced steroids on 11/03 from decadron 4mg IV q8hr to 4mg IV q12hr --> on 11/06 I lowered to 2mg q12hr --> will start prednisone taper tomorrow at 30mg and reduce by 10mg every 4th day until off
AMS - suspect toxic metabolic encephalopathy -she is now no longer confused
On 11/03, her PCO2 and SaO2 are now stable, but she was still confused, moaning and not improving --> TSH WNL
Perhaps the steroids contributed to her AMS --> on 11/03 I reduced the dose to 4mg IV q12hr as she is no longer wheezing --> wean as tolerated
CT head without acute abnormalities.
Avoid sedatives, patient is on gabapentin chronically. Patient also receiving IV morphine as needed
Would like to minimize if possible, due to risk of worsening hypercapnia and worsening mental status
Continue antibiotic therapy for possible pneumonia/healthcare associated.
Cultures negative so far.
No leukocytosis. Afebrile.
Continue cefepime/azithromycin --> cefepime switched to Zosyn given her confusion
Would treat for total of 14 days total
Patient also at risk for heart failure
Severe aortic stenosis, pulm hypertension PA pressure 55 per prior echocardiogram and moderate mitral stenosis
Follow clinically for now
Diuretics on hold, Due to acute kidney injury.
Would resume once clinically able to considering her proBNP is elevated and her CXR on 10/31 appears to show interstitial edema
Monitor I/O for now with daily weight
Once pt able to tolerate PO diet, resume low sodium, fluid restricted diet --> recommend MANAGER AGENCY eval --> she had repeat VSE today (11/07) and passed. Continue IDDSI levell 6 diet with mildly thick liquids - pt still remains at high aspiration risk.
Patient also previously on eliquis for atrial fibrillation - this has now been restarted (it was stopped last admission for unknown reasons - I suspect it was because patient was pursuing hospice, but this was rescinded as she improved)
Patient is DNR status.
If she were to worsen again then the son has already decided that they would pursue hospice.
Patient is doing fantastic from a pulmonary perspective. Continue nocturnal BiPAP and we will arrange to see the patient in the office. Occasionally check venous blood gas to ensure pH and pCO2 are stable. Would discharge on DuoNebs 3 times daily
instead of arformoterol, with outpatient PFTs. Check walking pulse oximetry prior to discharge.
Pulmonary service will now sign off. Thank you for allowing us to be involved in the care of this patient. Please reconsult if there are any additional questions/concerns, or if patient's respiratory status deteriorates.
Total time spent today was 35 minutes for this encounter. Time includes reviewing laboratory test/imaging results, reviewing pertinent medical records, obtaining and reviewing medical history, performing an appropriate exam, ordering medications,
tests and procedures. Time also includes documentation of this encounter, coordinating patient care and communicating with other healthcare professionals. Total time does not include separately billed tests performed on this date of service.
Subjective Data
-
Date of Service:
Date of Service: November 08, 2023
Chief Complaint: Pulmonary Follow Up (Acute exacerbation of COPD)
Subjective:
Patient seen today. She wore her BiPAP overnight on 06/04 bled with 2 L/min nasal cannula. Today she is much more awake, answering my questions appropriately, eating food and in no acute distress with son at bedside. She is saturating 94%. She
denies any shortness of breath, chest pain, abdominal pain, fevers or chills. She does endorse pain in her legs that she has had for some time, as per the son.
Review of Systems
General: Other (Negative unless mentioned above)
Objective Data
Data Reviewed
Vital Signs / I&O / Oxygen:
Vital Signs
Temp Pulse Resp BP Pulse Ox
97.9 F 93 23 133/85 95
11/08/23 15:44 11/08/23 16:00 11/08/23 16:00 11/08/23 16:00 11/08/23 16:00
Intake and Output
11/07/23 11/08/23 11/09/23
06:59 06:59 06:59
Intake Total 1690 / 1690 1025 / 1025
Output Total 600 / 600 900 / 900 500 / 500
Balance -600 / -600 790 / 790 525 / 525
SaO2 95
Nasal Cannula flow liters per 2
minute
Physical Exam
General: Respiratory Distress (n) and Comfortable
HEENT: Normocephalic and Anicteric
Cardiovascular: S1-S2, Murmur (JEIMY, heard best at RUSB) and JVD (n)
Respiratory: Wheeze (negative), Crackles (bilateral) and Non-Labored Respirations
GI: Soft, Non Distended, Tender and Normal Bowel Sounds
Neurology: Awake, Alert and Tremors (negative)
Skin: Warm and Dry
Labs/Micro/Reports
Lab Data
11/08/23 04:40
11/08/23 04:40
--- NOTE | 2023-11-08 14:25 | PTOTSP ---
Video Swallow Examination
Summary: Patient NOW presents with mild-moderate oral/pharyngeal dysphagia. There was deep laryngeal penetration with thin liquids which did not clear with a cued cough. No aspiration occurred. Please see patient care note for full details of
penetration/aspiration and swallowing physiology.
Swallowing has improved compared to prior study (i.e., 11/06/2023 at least moderate oral and moderate-severe pharyngeal dysphagia; silent aspiration with thin liquids, ineffective cough with mildly thick liquids, and ineffective delayed cough with
moderately thick liquids via tsp.)
Recommend:
1. IDDSI Level 6 Soft and Bite Sized, IDDSI Level 2 Mildly Thick Liquids
2. Medications - crushed in puree
3. FULL supervision, assistance as needed
4. Strategies: single sips/bites, slow rate
5. Oral care 3x daily
6. Dysphagia therapy at the acute care level for patient/family education, instruction in compensations, and rehabilitation as appropriate.
[2023-11-08 16:30] LABS: Glucose - Point of Care 180 mg/dl (70-99)
--- NOTE | 2023-11-08 16:30 | CM ---
Addendum entered by Zuleyka Lin RN 11/08/23 16:48:
Spoke with Flor Gonzales Tolstoy Joaquin; the ph for report [phone], fax [phone]. Janet is functional mental disability teacher this weekend if patient is ready to return.
Left message for Janet - patient is on BiPAP HS.
Plan return to [facility] when medically ready.
Original Note:
Patient from [facility] with Dx Acute hypoxic/hypercapnic respiratory failure, PNA, COPD, Acute TME, IDDM -uncontrolled, JUAN LUIS. O2 2L. BiPAP HS. Repeat VSE today - dysphagia diet. PT & OT; Therapy not warranted.
SNF referral placed for return.
Plan return to [facility] when medically ready.
--- NOTE | 2023-11-08 18:45 | PTCARENOTE ---
Patient tolerated dysphagia diet with aspiration precaution. Spo2 95% on 2L o2. Patient alert and oriented, forgetful. Pure wick in use. Bed alarm set for fall risk. Vital signs stable.
[2023-11-08] MEDS: ELIQUIS 5 MG PO (20:01)
[2023-11-08] MEDS: LANTUS 0.149999999999999994 UNITS SC (22:05)
[2023-11-08 22:16] LABS: Glucose - Point of Care 323 mg/dl (70-99)
[2023-11-08] MEDS: NOVOLOG FLEXPEN 7 UNITS SC (22:57)
[2023-11-09] VITALS (11 sets, daily range): BP systolic 139–165; BP diastolic 58–85; PULSE 2; BMI 33.3
[2023-11-09] MEDS: ZOSYN 50 IV ×2 (05:15→09:24)
[2023-11-09 05:55] LABS: % Basophils 0.1 % (0-2); % Immature Granulocytes 0.7 % (0-0.5); % Lymphocytes 4.8 % (20.5-51.1); % Monocytes 3.5 % (1.7-9.3); % Neutrophils 90.9 % (42.2-75.2); Absolute Immature Granulocytes 0.1 10^3/uL (0-0.05); Absolute Lymphocytes 0.3 10^3/uL (1.2-3.4); Absolute Monocytes 0.3 10^3/uL (0.1-0.6); Absolute Neutrophils 6.4 10^3/uL (1.4-6.5); Hematocrit 43.3 % (37.0-47.0); Hemoglobin 14.6 g/dL (12.0-16.0); Mean Corp Hgb Conc. 33.7 g/dL (33.0-37.0); Mean Corpuscular Hgb 27.6 pg (27.0-31.0); Mean Corpuscular Volume 81.9 fL (81.0-99.0); Nucleated Red Blood Cells % 0 %; Platelet Count 105 10^3/uL (130-400); Red Blood Cell Count 5.29 10^6/uL (4.20-5.40); Red Cell Dist. Width 13.3 % (11.5-14.5); White Blood Cell Count 7.1 10^3/uL (4.8-10.8)
[2023-11-09 06:28] LABS: Blood Urea Nitrogen 50 mg/dl (7-17); Calcium 10.1 mg/dl (8.4-10.2); Carbon Dioxide 26 mmol/L (22-30); Chloride 104 mmol/L (98-107); Estimated Creatinine Clearance 32 ml/min; Glucose 203 mg/dl (70-99); Potassium 4.3 mmol/L (3.5-5.1); Sodium 135 mmol/L (135-145); eGFR 48.94
[2023-11-09] MEDS: DUONEB 3 ML INH ×3 (07:28→15:22)
[2023-11-09] MEDS: PULMICORT 0.5 MG INH (07:28)
[2023-11-09 08:22] LABS: Glucose - Point of Care 163 mg/dl (70-99)
--- NOTE | 2023-11-09 09:05 | PTCARENOTE ---
Patient received from hourly shift. Patient resting comfortably in bed. AAO, VSS. No events noted over night. No complaints of pain this AM. Currently on 2L N/C, patients baseline. Possible transition to oral ABX. Possible D/C today. Call
palumbo in reach.
[2023-11-09] MEDS: REFRESH CELLUVISC GEL 1 DROPS BOTH EYES (09:24)
[2023-11-09] MEDS: DELTASONE 30 MG PO (09:24)
[2023-11-09] MEDS: ELIQUIS 5 MG PO (09:24)
[2023-11-09] MEDS: DIFLUCAN 100 MG PO (09:25)
[2023-11-09] MEDS: RISPERDAL M-TAB (ORALLY DISINTEGRATING) 0.5 MG PO (09:25)
[2023-11-09] MEDS: NOVOLOG FLEXPEN-MODERATE RESISTANCE 1 UNITS SC ×2 (09:26→13:14)
--- NOTE | 2023-11-09 10:08 | W.PN.HOSP.TC ---
Addendum entered and electronically signed by Kashmir Segovia MD 11/09/23 10:49:
Son updated over the phone
Addendum entered and electronically signed by Kashmir Segovia MD 11/09/23 10:47:
Time of discharge 38 minutes
Original Note:
Today's Communication/Plan
-
Monitor vital signs see plan
now on baseline o2; on nocturnal bipap
switch abx to PO
tolerating diet
mental status improved
dc today if has placement; CM aware
Assessment / Plan
Assessment / Plan
General: respiratory distress
HEENT: Atraumatic and Oxygen
Respiratory: Wheezes; Negative Rales
Cardiac: Regular Rhythm and S1/S2
GI: Soft, Nontender and Nondistended
Neuro: Awake
Psych: calm
Acute on chronic hypoxic and hypercapnic respiratory failure
now on baseline o2 and nocturnal bipap
-uses 3L o2 through NC at baseline
-ABG showing hypercarbia
-continue night time BiPAP
pulmonary following
VSE 11/05 patient and silent aspiration with thin liquids, moderately thick liquid and mildly thick liquid. No aspiration with pur�e however patient needed maximal cues to swallow. Spoke with speech therapy and at that time they recommend NPO.
Spoke with son again 11/06; family is in agreement with no feeding tube. speech evaluated 11/07; plan for VSE again improving; now on soft and bite size with mildly thick liquids
Healthcare associated PNA
-CXR reviewed
-Initial respiratory culture contaminated. Repeat resp cs growing donavon.
Suture urena to Augmentin to complete course
-Repeat chest x-ray from showing increased interstitial marking.
TME suspect multifactorial 2/2 infection,meds
now slowly improving
monitor
-Patient was AOx3 and communicative for first 3 days. At this point moaning and not able to localize/verbalize pain
-CT head ruled out any major abnormalities
-From worsening hypoxia and hypercapnic respiratory failure.
-Avoid sedating medication; dc ativan
Oral thrush
Fluconazole
Acute COPD Exacerbation
Was on IV Decadron, now on prednisone. Will discharge with taper
-added inhaled budesonide
-Continue nebulizer therapy
-Pulmo following and help appreciated.
Metabolic alkalosis
s/p diamox
Chronic HFpEF
-No signs of volume overload
-Renal function improving, torsemide on hold
Hypernatremia likely from poor oral intake
cw D5W
monitor; slowly improving
IDDM -uncontrolled
-Blood glucose remains significantly elevated in the evening.
-Increase Lantus to 15 units at bedtime; hold mealtime insulin
Paroxysmal A-fib
Patient used to be on Eliquis for paroxysmal atrial fibrillation which was stopped on last admission since she was going on hospice. She is currently not on hospice anymore. Discussed with son and restarted eliquis
JUAN LUIS - improving
-bladder scan ordered
Hypercalcemia
monitor
advanced thyroid malignancy involving great vessels
severe - not a TAVR candidate per prior records
parox A. Fib (Eliquis stopped last admission)
CAD s/p CABG
CKD 3b
DVT ppx: SC Heparin
Code: DNR confirmed by patient
10/31 son updated . Patient was admitted in August and was having significant illnesses and was considered for hospice
11/03: Son updated over the phone. He does understand patient declining clinical status. Will see how patient does clinically and if does not improve in few days then likely hospice will be appropriate
11/05: VSE shows patient has been silently aspirating. Speech therapy recommends n.p.o. This was discussed with son at length. Patient is high risk for aspiration at this time. Discussed that a feeding tube would not improve quality of life as she
can still aspirate while on feeding tube. Son will discuss with his sister and will get back to us.
Spoke with son again 11/06; family is in agreement with no feeding tube. Will see how patient does in a day or so and can see if patient can be cleared for any p.o. diet. If not then likely family will pursue comfort feeds.
speech evaluated 11/07; VSE improved, now on soft diet with mildly thick liquid.
Anticipated Discharge: Today
Subjective/Interval History
-
Date of Service: November 09, 2023
denies pain
Objective Data
-
Labs:
Laboratory Results
11/09/23
05:34
WBC 7.1
Hgb 14.6
Hct 43.3
Plt Count 105 L
Sodium 135
Potassium 4.3
Chloride 104
Carbon Dioxide 26
BUN 50 H
Creatinine 1.1 H
Glucose 203 H
Calcium 10.1
Vital Signs:
Vital Signs
Temp Pulse Resp BP Pulse Ox
97.5 F 86 20 139/58 96
11/09/23 07:47 11/09/23 07:34 11/09/23 07:34 11/09/23 00:00 11/09/23 07:34
I&O
11/08/23 11/09/23 11/10/23
06:59 06:59 06:59
Intake Total 1690 / 1690 1025 / 1025
Output Total 900 / 900 1000 / 1000
Balance 790 / 790
--- NOTE | 2023-11-09 10:39 | CM ---
Addendum entered by Janet Wei 11/09/23 14:00:
Patient has a 3:30pm picking tech to [facility] today.
Addendum entered by Janet Wei 11/09/23 11:04:
Updated clinicals faxed.
Original Note:
business initiatives manager reviewed patient's chart and per physician patient has been cleared for discharge, housing case manager contacted Janet at [facility] admissions and she is aware of current diet and patient will need Bipap ordered, settings provided to
admissions.
Plan; Patient to return to [facility] today.
[facility]
Report [phone]
--- NOTE | 2023-11-09 10:46 | W.DCSUMMARY ---
Discharge Summary
Discharge Data
Date of Admission: 10/29/23
Date of Discharge: 11/09/23
-
Pending Results: No
Hospital Course
88-year-old female with past medical history of COPD, CHF, diabetes mellitus, paroxysmal atrial fibrillation, advanced thyroid malignancy came to the hospital with acute on chronic hypoxic and hypercapnic respiratory failure secondary to healthcare
associated pneumonia. Patient was initially started on IV antibiotics. On this hospitalization patient developed toxic metabolic encephalopathy likely secondary to medications. Patient was initially on cefepime which is known to cause
neurotoxicity so was discontinued. Patient was also getting Ativan which was also stopped. Over time patient mental status continue to improve and she was back to baseline mental status prior to discharge. Patient was also evaluated by speech
therapy throughout hospitalization persistent dysphagia. Initially speech therapy and patient to be n.p.o. however once mental status improved she improved on video swallow study so patient was started on soft diet with mildly thick liquids. On
this hospitalization patient was also having shortness of breath and was seen by pulmonary. On discharge patient was instructed to continue BiPAP at night while sleeping. For her COPD exacerbation she was initially started on IV steroids which was
later transitioned to p.o. prednisone with taper. Patient blood pressure continued to be normal here so her multiple blood pressure medications were held on discharge. Patient Eliquis was also restarted since patient is not on hospice anymore
after discussion with patient's son. Once patient mentation improved and she was able to tolerate oral diet, she was then discharged back to [facility] with instructions to follow-up with all her physicians outpatient.
Discharge Plan
-
Patient Disposition: Skilled Nursing/SNF
Discharge Diagnosis/Procedures: Acute on chronic hypoxic and hypercapnic respiratory failure
Healthcare associated pneumonia
Toxic metabolic encephalopathy
Oral thrush
Acute COPD exacerbation
Metabolic alkalosis
Hypernatremia
Paroxysmal atrial fibrillation
Dysphagia
Additional Diets: Soft and bite-size with mildly thick liquid
Activity: As tolerated
Driving Restrictions: No driving
Blood Work: CBC and BMP next week with primary care provider
Other Services: PT, OT and ST
Activity Restrictions/Additional Instructions:
Prednisone 30 mg started 11/08. Decrease by 10 mg every fourth day
Referrals:
Abdullahi Lang MD [Active] - in three to four weeks
Dieudonne Paul DO [Family Provider] - in less than 1 week
Prescriptions:
New
fluconazole 100 mg Tablet
100 mg PO DAILY 10 Days Qty: 10 0RF
prednisone 10 mg Tablet
30 mg PO DAILY Qty: 0 0RF
ipratropium-albuterol 0.5 mg-3 mg(2.5 mg base)/3 mL Solution For Nebulization
3 ml inhalation R Q4HPRN PRN (Reason: shortness of breath) Qty: 0 0RF
ipratropium-albuterol 0.5 mg-3 mg(2.5 mg base)/3 mL Solution For Nebulization
3 ml inhalation TID Qty: 90 0RF
amoxicillin-pot clavulanate 875-125 mg Tablet
1 tab PO Q12 Qty: 18 0RF
Eliquis 5 mg Tablet
5 mg PO BID Qty: 0 0RF
budesonide 0.5 mg/2 mL Suspension For Nebulization
0.5 mg inhalation R BID Qty: 0 0RF
risperidone 0.5 mg Tablet,Disintegrating
0.5 mg PO BID Qty: 0 0RF
Continued
polyethylene glycol 3350 17 gram Powder In Packet
17 g PO DAILYPRN PRN (Reason: constipation)
bisacodyl [Dulcolax (bisacodyl)] 10 mg Suppository
10 mg MN DAILY PRN (Reason: if MOM ineffective)
Fleet Enema 19-7 gram/118 mL Enema
118 ml MN DAILYPRN PRN (Reason: if dulcolax ineffective)
gabapentin 100 mg Capsule
200 mg PO DAILY
albuterol sulfate 90 mcg/actuation Hfa Aerosol Inhaler
2 puff INHALATION R Q4HPRN PRN (Reason: sob)
fluticasone propionate [Flonase Allergy Relief] 50 mcg/actuation [place],Suspension
1 spray INTRANASAL [id number] PRN (Reason: nasal allergy/congestion)
guaifenesin 400 mg Tablet
400 mg PO Q6HPRN PRN (Reason: cough)
simethicone 80 mg Tablet
80 mg PO Q6HPRN PRN (Reason: gas)
Patient Comments:
10/29/2023, per OR paperwork, give 1 syringe by mouth Q6HPRN for gas.
carboxymethylcellulose sodium 1 % Drops
1 drp BOTH EYES BID
ipratropium-albuterol 0.5 mg-3 mg(2.5 mg base)/3 mL Solution For Nebulization
3 ml inhalation R Q4HPRN PRN (Reason: SOB/Wheezing) Qty: 90 0RF
acetaminophen 325 mg Tablet
650 mg PO Q6H MDD 3000 mg PRN (Reason: temp>100/mild pain)
magnesium hydroxide [Milk of Magnesia] 400 mg/5 mL Suspension
30 ml PO DAILYPRN PRN (Reason: if no BM x 3 days)
loratadine 10 mg Tablet
10 mg PO DAILY
Changed
insulin glargine [Lantus Solostar U-100 Insulin] 100 unit/mL (3 mL) insulin pen
15 unit SC HS Qty: 0 0RF
Held
hydralazine 10 mg Tablet
10 mg PO Q8H
Hold Instructions: Restart when blood pressure greater than 140/90
Rx Instructions:
10/29/2023, hold for SBP below 100.
torsemide 20 mg Tablet
20 mg PO DAILY
Hold Instructions: Resume on 11/11/23.
nebivolol 2.5 mg Tablet
2.5 mg PO DAILY
Hold Instructions: Restart when blood pressure greater than 140/90
Discontinued
arformoterol 15 mcg/2 mL Solution For Nebulization
2 ml INHALATION R BID
oxycodone 5 mg tablet
5 mg PO Q6HPRN PRN (Reason: moderate pain)
Discharge Orders:
Discharge Patient (As Directed); Ordered 11/09/23
Ordered By: Kashmir Segovia
Discharge Date and Time
Discharge Date/Time: 11/09/23 16:27
Print Language: FRENCH
[2023-11-09 12:57] LABS: Glucose - Point of Care 191 mg/dl (70-99)
--- NOTE | 2023-11-09 16:10 | PTCARENOTE ---
Report given to nurse at [facility]; Discharge paperwork faxed. Assisted Pt with dressing and packing up belongings. Asisted Pt OOB to chair; Discharged to DC via ambulance transfer.
== END 2023-11-09 16:27 | DRG 871 ==
LOC: IMU 06:37
PROVIDERS: Hospitalist; Internal Medicine Critical Care Medicine; Registered Nurse; ADMITTING PHYSICIAN Internal Medicine; ATTENDING PHYSICIAN Internal Medicine; CONSULT PHYSICIAN Internal Medicine Critical Care Medicine; EMERGENCY PHYSICIAN Emergency Medicine; FAMILY PHYSICIAN Student in an Organized Health Care Education/Training Program
PROC: 5A09357 Assistance with Respiratory Ventilation, Less than 24 Consecutive Hours, Continuous Positive Airway Pressure (ICD-10-PCS; 2023-10-30)
DX: A41.9 Sepsis, unspecified organism (principal); G92.8 Other toxic encephalopathy; J18.9 Pneumonia, unspecified organism; J96.21 Acute and chronic respiratory failure with hypoxia; J96.22 Acute and chronic respiratory failure with hypercapnia; J44.1 Chronic obstructive pulmonary disease with (acute) exacerbation; I50.32 Chronic diastolic (congestive) heart failure; I48.20 Chronic atrial fibrillation, unspecified; I13.0 Hypertensive heart and chronic kidney disease with heart failure and stage 1 through stage 4 chronic kidney disease, or unspecified chronic kidney disease; J44.0 Chronic obstructive pulmonary disease with (acute) lower respiratory infection; E87.1 Hypo-osmolality and hyponatremia; N17.9 Acute kidney failure, unspecified; E87.3 Alkalosis; E87.0 Hyperosmolality and hypernatremia; B37.0 Candidal stomatitis; B37.89 Other sites of candidiasis; N18.32 Chronic kidney disease, stage 3b; E11.22 Type 2 diabetes mellitus with diabetic chronic kidney disease; I48.0 Paroxysmal atrial fibrillation; E11.65 Type 2 diabetes mellitus with hyperglycemia; E11.40 Type 2 diabetes mellitus with diabetic neuropathy, unspecified; I25.10 Atherosclerotic heart disease of native coronary artery without angina pectoris; C73 Malignant neoplasm of thyroid gland; F03.90 Unspecified dementia, unspecified severity, without behavioral disturbance, psychotic disturbance, mood disturbance, and anxiety; I08.0 Rheumatic disorders of both mitral and aortic valves; I27.20 Pulmonary hypertension, unspecified; N31.9 Neuromuscular dysfunction of bladder, unspecified; E83.52 Hypercalcemia; G47.30 Sleep apnea, unspecified; R13.10 Dysphagia, unspecified; Y95 Nosocomial condition; Z66 Do not resuscitate; Z79.51 Long term (current) use of inhaled steroids; Z79.4 Long term (current) use of insulin; Z87.891 Personal history of nicotine dependence; Z11.52 Encounter for screening for COVID-19; Z99.81 Dependence on supplemental oxygen; Z95.1 Presence of aortocoronary bypass graft; Z86.14 Personal history of Methicillin resistant Staphylococcus aureus infection; Z79.01 Long term (current) use of anticoagulants
CPT/HCPCS: 36600; 70450; 71045; 71046; 74230; 80048; 80053; 80202; 82330; 82805; 82947; 82962; 83605; 83880; 84295; 84443; 85025; 85027; 87040; 87070; 87205; 87502; 87811; 92526; 92610; 92611; 93005; 94640; 94660; 96365; 99285

== ENCOUNTER 2023-11-17 19:20 | Inpatient (IN) | payer MEDICARE, OTHER, SELFPAY ==
[2023-11-17] VITALS (25 sets, daily range): BP systolic 81–108; BP diastolic 50–78; PULSE 2–80; BMI 35.5
[2023-11-17 15:25] LABS: Glucose - Point of Care 242 mg/dl (70-99)
--- NOTE | 2023-11-17 15:29 | ED.GENMED ---
History of Present Illness
<Miguelangel Delgado PA-C - Last Filed: 11/17/23 17:04>
General
Chief Complaint: Unresponsive
Source: patient
Exam Limitations: none
Time Seen by Provider: 11/17/23 15:10
Travel History
Have you had any contact with someone who has COVID-19?: Unable to Answer
Do you have any symptoms of coronavirus? Fever > 100 degrees, chills, cough, shortness of breath, sore throat, loss of taste or smell, muscle aches, or headache?: Unable to Answer
History of Present Illness
History of Present Illness:
88-year-old female from snf after staff found her unresponsive. She was recently here in the hospital and discharged on November 08 for acute on chronic respiratory failure. She has a history of A-fib on Eliquis, insulin-dependent diabetes.
Per EMS she was unresponsive upon arrival. They noted pupils were pinpoint and gave 2 of Narcan. Since arriving here the EMS staff states that she is a little more responsive to painful stimuli and is what she was. She has been on Augmentin for
pneumonia.
Phy Exam
<Miguelangel Delgado PA-C - Last Filed: 11/17/23 17:04>
Physical Exam
Physical Exam:
General: Unresponsive female without increased work of breathing
HEENT: Normocephalic mucosa dry. Measuring 2 mm bilaterally nonreactive to light
Heart:Irregular rate
Lungs; diminished breath sounds bilaterally
Ext: No obvious edema
Neurologic: Pupils pinpoint nonreactive to light bilaterally responds only to painful stimuli
Course
<Miguelangel Delgado PA-C - Last Filed: 11/17/23 17:04>
Orders/Labs/Results
Orders:
Orders
11/17/23 15:18
CR Chest Portable - 1 View Urgent
Comment:
Reason For Exam: sob
Reason Study Needs to be Portable: Unable to Transport
11/17/23 15:19
Electrocardiogram (*1) Urgent
Reason for Study: TIA/Stroke
CT Head W/o Iv Contrast Urgent
Comment:
Reason For Exam: unresponsive
EKG- Treatment ONCE
11/17/23 15:28
0.9% Sodium Chloride 1000 ml [Nss] 1,000 ml IV BOLUS
11/17/23 15:36
Comprehensive Metabolic Panel Urgent
Venous Blood Gas Urgent
%Oxygen/Room Air: 3L nasal oxygen
11/17/23 15:37
Complete Blood Count/With Diff Urgent
NT-proBNP Urgent
11/17/23 16:22
Bipap [RESP] Urgent
Patient to use own unit?: No
Inspiratory Pressure (cm H2O): 12
Expiratory Pressure (cm H2O): 5
Abnormal Lab Results
11/17/23 11/17/23 11/17/23
15:23 15:36 15:37
MCHC 31.7 L g/dL
(33.0-37.0)
Plt Count 126 L 10^3/uL
(130-400)
MPV 13.9 H fL
(7.4-10.4)
Abs Immat Gran (auto) 0.1 H 10^3/uL
(0-0.05)
Absolute Neuts (auto) 7.5 H 10^3/uL
(1.4-6.5)
Absolute Lymphs (auto) 0.6 L 10^3/uL
(1.2-3.4)
Absolute Monos (auto) 0.7 H 10^3/uL
(0.1-0.6)
Immature Gran % 0.6 H %
(0-0.5)
Neutrophils % 83.9 H %
(42.2-75.2)
Lymphocytes % 7.0 L %
(20.5-51.1)
VBG pH 7.10 L*
(7.32-7.43)
VBG pCO2 93 H* mmHg
(35-48)
VBG HCO3 28.9 H mmol/L
(22-27)
Sodium 130 L mmol/L
(135-145)
Potassium 5.3 H mmol/L
(3.5-5.1)
Chloride 95 L mmol/L
(98-107)
BUN 80 H mg/dl
(7-17)
Creatinine 1.9 H mg/dL
(0.6-1.0)
Glucose 228 H mg/dl
(70-99)
Total Protein 5.7 L g/dl
(6.3-8.2)
Albumin 3.1 L g/dl
(3.5-5.0)
POC Glucose 242 H mg/dl
(70-99)
11/17/23 15:37
11/17/23 15:36
Vital Signs
Initial and Last Documented VS:
Initial Vital Signs
Pulse Resp BP
77 16 89/53
11/17/23 15:16 11/17/23 15:16 11/17/23 15:16
Last Documented Vital Signs
Pulse Resp BP
77 16 89/53
11/17/23 15:16 11/17/23 15:16 11/17/23 15:16
<Villa Kwong, DO - Last Filed: 11/17/23 15:39>
Orders/Labs/Results
Orders:
Orders
11/17/23 15:18
CR Chest Portable - 1 View Urgent
Comment:
Reason For Exam: sob
Reason Study Needs to be Portable: Unable to Transport
11/17/23 15:19
Electrocardiogram (*1) Urgent
Reason for Study: TIA/Stroke
CT Head W/o Iv Contrast Urgent
Comment:
Reason For Exam: unresponsive
EKG- Treatment ONCE
11/17/23 15:28
0.9% Sodium Chloride 1000 ml [Nss] 1,000 ml IV BOLUS
11/17/23 15:36
Comprehensive Metabolic Panel Urgent
Venous Blood Gas Urgent
%Oxygen/Room Air: 3L nasal oxygen
11/17/23 15:37
Complete Blood Count/With Diff Urgent
NT-proBNP Urgent
11/17/23 16:22
Bipap [RESP] Urgent
Patient to use own unit?: No
Inspiratory Pressure (cm H2O): 12
Expiratory Pressure (cm H2O): 5
Abnormal Lab Results
11/17/23 11/17/23 11/17/23
15 15:36 15:37
MCHC 31.7 L g/dL
(33.0-37.0)
Plt Count 126 L 10^3/uL
(130-400)
MPV 13.9 H fL
(7.4-10.4)
Abs Immat Gran (auto) 0.1 H 10^3/uL
(0-0.05)
Absolute Neuts (auto) 7.5 H 10^3/uL
(1.4-6.5)
Absolute Lymphs (auto) 0.6 L 10^3/uL
(1.2-3.4)
Absolute Monos (auto) 0.7 H 10^3/uL
(0.1-0.6)
Immature Gran % 0.6 H %
(0-0.5)
Neutrophils % 83.9 H %
(42.2-75.2)
Lymphocytes % 7.0 L %
(20.5-51.1)
VBG pH 7.10 L*
(7.32-7.43)
VBG pCO2 93 H* mmHg
(35-48)
VBG HCO3 28.9 H mmol/L
(22-27)
Sodium 130 L mmol/L
(135-145)
Potassium 5.3 H mmol/L
(3.5-5.1)
Chloride 95 L mmol/L
(98-107)
BUN 80 H mg/dl
(7-17)
Creatinine 1.9 H mg/dL
(0.6-1.0)
Glucose 228 H mg/dl
(70-99)
Total Protein 5.7 L g/dl
(6.3-8.2)
Albumin 3.1 L g/dl
(3.5-5.0)
POC Glucose 242 H mg/dl
(70-99)
11/17/23 15:37
11/17/23 15:36
Vital Signs
Initial and Last Documented VS:
Initial Vital Signs
Pulse Resp BP
77 16 89/53
11/17/23 15:16 11/17/23 15:16 11/17/23 15:16
Last Documented Vital Signs
Pulse Resp BP
77 16 89/53
11/17/23 15:16 11/17/23 15:16 11/17/23 15:16
<Miguelangel Delgado PA-C - Last Filed: 11/17/23 17:04>
MDM/Problems Addressed
Differential Diagnosis Includes:
Unresponsiveness. Consider acute on chronic respiratory failure versus CVA versus bleed versus electrolyte abnormality
Patient is a DNR, DNI. Recent hospitalization revoked her hospice status. Portable chest x-ray done in the room shows no obvious acute finding. Please note the paperclip noted overlying the bottom of the left lung was found in the blankets.
Labs pending. Patient is hypotensive. Will hydrate. Does not appear to be volume overloaded currently
<Miguelangel Delgado PA-C - Last Filed: 11/17/23 17:04>
*Critical Care Note
Total Time (30-74mins, 75-104mins- exclusive of procedures): Not Applicable
<Miguelangel Delgado PA-C - Last Filed: 11/17/23 17:04>
Update Note
Update Note:
Patient is not hypercapnic with a pCO2 of 93. Patient reevaluated multiple times. Response to painful stimuli but is not speaking at this time.
ED Attending Note
<Miguelangel Delgado PA-C - Last Filed: 11/17/23 17:04>
-
Portions of this chart may have been created with voice recognition software.� Occasional wrong word or��sound alike� substitutions may have occurred due to the inherent limitations of voice recognition software.
<Villa Kwong DO - Last Filed: 11/17/23 15:39>
ED Attending Note
Patient seen and examined by attending physician: Yes
I performed the substantive portion of visit, reviewed & personally made and approve the management plan that is documented in note by myself or MILI.: Yes
ED Attending Note:
I have seen and evaluated the patient with a [id number] encounter. I have spoken to the advance practicer provider and involved in the medical history, the physical exam, medical decision making.
Evaluation and management service: agree unless noted differently below.
Results interpretation: agree unless noted differently below.
Focused HPI: 88-year-old female presenting for evaluation of altered mental status. EMS stating that she became unresponsive.
Physical exam: Lying in bed, eyes closed, decreased respiratory drive. Responds to painful stimuli
Medical Decision Making: Patient is DNR/DNI. Per family, they are comfortable with BiPAP. Patient has a history of recent mission for hypercapnic respiratory failure. Will obtain VBG, x-ray and ultimately admit
Discharge Plan
Departure
Patient Disposition: Admit
Date of Disposition: 11/17/23
Time of Disposition: 17:03
Admit to: IMU
Presentation/result/management discussed w/ accepting MD/DO: Hospitalist
Discharge Problem:
Respiratory failure
Prescriptions:
No Action
hydralazine 10 mg Tablet
10 mg PO Q8H
Hold Instructions: Restart when blood pressure greater than 140/90
Rx Instructions:
10/29/2023, hold for SBP below 100.
torsemide 20 mg Tablet
20 mg PO DAILY
Hold Instructions: Resume on 11/11/23.
polyethylene glycol 3350 17 gram Powder In Packet
17 g PO DAILYPRN PRN (Reason: constipation)
bisacodyl [Dulcolax (bisacodyl)] 10 mg Suppository
10 mg RI DAILYPRN PRN (Reason: if MOM ineffective)
Fleet Enema 19-7 gram/118 mL Enema
118 ml RI DAILYPRN PRN (Reason: if dulcolax ineffective)
gabapentin 100 mg Capsule
200 mg PO DAILY
albuterol sulfate 90 mcg/actuation Hfa Aerosol Inhaler
2 puff INHALATION R Q4HPRN PRN (Reason: sob)
fluticasone propionate [Flonase Allergy Relief] 50 mcg/actuation [place],Suspension
1 spray INTRANASAL [id number] PRN (Reason: nasal allergy/congestion)
guaifenesin 400 mg Tablet
400 mg PO Q6HPRN PRN (Reason: cough)
nebivolol 2.5 mg Tablet
2.5 mg PO DAILY
Hold Instructions: Restart when blood pressure greater than 140/90
carboxymethylcellulose sodium 1 % Drops
1 drp BOTH EYES BID
ipratropium-albuterol 0.5 mg-3 mg(2.5 mg base)/3 mL Solution For Nebulization
3 ml inhalation R Q4HPRN PRN (Reason: SOB/Wheezing) Qty: 90 0RF
acetaminophen 325 mg Tablet
650 mg PO Q6HPRN MDD 3000 mg PRN (Reason: temp>100/mild pain)
magnesium hydroxide [Milk of Magnesia] 400 mg/5 mL Suspension
30 ml PO [id number] PRN (Reason: if no BM x 3 days)
loratadine 10 mg Tablet
10 mg PO DAILY
fluconazole 100 mg Tablet
100 mg PO DAILY 10 Days Qty: 10 0RF
Patient Comments:
take from 11/10/23-11/20/23
amoxicillin-pot clavulanate 875-125 mg Tablet
1 tab PO Q12 Qty: 18 0RF
Patient Comments:
for 9 days starting 11/09/23-11/18/23
Eliquis 5 mg Tablet
5 mg PO BID Qty: 0 0RF
budesonide 0.5 mg/2 mL Suspension For Nebulization
0.5 mg inhalation R BID Qty: 0 0RF
risperidone 0.5 mg Tablet,Disintegrating
0.5 mg PO BID Qty: 0 0RF
simethicone [Gas-X] 80 mg Tablet,Chewable
80 mg PO Q6HPRN PRN (Reason: gas pains)
Visbiome 112.5 billion cell Capsule
1 cap PO BID
omeprazole 20 mg Tablet,Delayed Release (Dr/Ec)
20 mg PO DAILY
insulin glargine U-300 conc [Toujeo Max U-300 SoloStar] 300 unit/mL (3 mL) Insulin Pen
15 unit SC HS
ipratropium-albuterol 0.5 mg-3 mg(2.5 mg base)/3 mL solution for nebulization
3 ml inhalation R TID
Referrals:
Dieudonne Paul DO [Family Provider] -
Interventions
Interventions:
*General Assessment Last Done: 11/17/23 15:16
*ED COVID-19 Vaccine History Last Done: 11/17/23 15:19
Discharge Date and Time
Print Language: NORTHER[place] IRISH
[2023-11-17] MEDS: NSS 1000 IV (15:33)
[2023-11-17 15:48] LABS: Venous Blood Gas B.E. -3.3 mmol/L (-4 to +4); Venous Blood Gas HCO3 28.9 mmol/L (22-27); Venous Blood Gas pO2 40 mmHg (30-50)
[2023-11-17 15:50] LABS: Venous Blood Gas pCO2 93 mmHg (35-48)
[2023-11-17 15:58] LABS: ALT (SGPT) 12 U/L (0-35); AST (SGOT) 14 U/L (14-36); Albumin 3.1 g/dl (3.5-5.0); Alkaline Phosphatase 74 U/L (38-126); Blood Urea Nitrogen 80 mg/dl (7-17); Calcium 9.2 mg/dl (8.4-10.2); Carbon Dioxide 29 mmol/L (22-30); Chloride 95 mmol/L (98-107); Estimated Creatinine Clearance 21 ml/min; Glucose 228 mg/dl (70-99); Potassium 5.3 mmol/L (3.5-5.1); Sodium 130 mmol/L (135-145); Total Bilirubin 0.8 mg/dl (0.2-1.3); Total Protein 5.7 g/dl (6.3-8.2)
[2023-11-17 15:59] LABS: % Basophils 0.1 % (0-2); % Eosinophils 0.1 % (0-6); % Immature Granulocytes 0.6 % (0-0.5); % Monocytes 8.3 % (1.7-9.3); % Neutrophils 83.9 % (42.2-75.2); Absolute Immature Granulocytes 0.1 10^3/uL (0-0.05); Absolute Lymphocytes 0.6 10^3/uL (1.2-3.4); Absolute Monocytes 0.7 10^3/uL (0.1-0.6); Absolute Neutrophils 7.5 10^3/uL (1.4-6.5); Hematocrit 41.7 % (37.0-47.0); Hemoglobin 13.2 g/dL (12.0-16.0); Mean Corp Hgb Conc. 31.7 g/dL (33.0-37.0); Mean Corpuscular Hgb 27.6 pg (27.0-31.0); Mean Corpuscular Volume 87.1 fL (81.0-99.0); Mean Platelet Volume 13.9 fL (7.4-10.4); Nucleated Red Blood Cells % 0 %; Platelet Count 126 10^3/uL (130-400); Red Blood Cell Count 4.79 10^6/uL (4.20-5.40)
[2023-11-17 16:06] LABS: NT-proBNP 5690 pg/ml
--- NOTE | 2023-11-17 18:15 | HPS.HSE ---
Family Physician
-
Family Physician: Dieudonne Paul,
Chief Complaint
-
AMS
History of Present Illness
The patient is n 88 yo woman with PMH significant for COPD, CHF, severe , diabetes mellitus, paroxysmal atrial fibrillation on Eliquis, advanced thyroid malignancy, recently discharged from on 11/09/23 due to acute on chronic hypoxic and
hypercapnic respiratory failure secondary to healthcare associated pneumonia and toxic metabolic encephalopathy likely secondary to medications, who presents today from [facility] due to altered mental status. She was in her usual state of health this
morning, woke up and was in her wheelchair and ate without any difficulty today, talking to staff, no choking nor aspiration during lunch, and was brought back to her room without incident. She was then found in her chair, passed out and not able to
be aroused. EMS called and on arrival they said she was unresponsive, they noted pupil pinpoint and gave her 2 of Narcan without significant improvement. No known other symptoms, no fever, no chills, no CP, no SOB, no aspiration, no n/v. Of note,
nursing said she had a large normal formed bowel movement this morning. The patient was hypercapnic VBG pCO2 93, pH 7.10, and hypotensive in ED, started on BIPAP.
Medical History
Past Medical History
Past Medical History: Reports Other (hx of COPD, CHF, IDDM, severe , chronic A. Fib, necrotic thyroid mass)
Past Surgical History: Reports Cardiac and Cholecystectomy
Social History
Tobacco: Former Smoker
Alcohol: None
Drug: None
Living: Half-Way
Family History
Family History: Not pertinent
Allergies / Home Medications
Allergies reflects when Allergies were last updated in [facility].
Home Medications with original date entered in [facility]
Allergy/Medication List:
Allergies
Allergy/AdvReac Type Severity Reaction Status Date / Time
No Known Allergies Allergy Verified 11/17/23 15:19
Home Medications
albuterol sulfate 90 mcg/actuation aerosol inhaler 2 puff inhalation R Q4HPRN PRN sob 07/20/23
bisacodyl 10 mg rectal suppository (Dulcolax (bisacodyl)) 10 mg DE DAILYPRN PRN if MOM ineffective 07/20/23
carboxymethylcellulose sodium 1 % eye drops 1 drp BOTH EYES BID dry eyes 07/20/23
fluticasone propionate 50 mcg/actuation nasal spray,suspension (Flonase Allergy Relief) 1 spray intranasal [id number] PRN nasal allergy/congestion 07/20/23
gabapentin 100 mg capsule 200 mg PO DAILY Neurological Condition 07/20/23
guaifenesin 400 mg tablet 400 mg PO Q6HPRN PRN cough 07/20/23
hydralazine 10 mg tablet 10 mg PO Q8H Blood Pressure 07/20/23
nebivolol 2.5 mg tablet 2.5 mg PO DAILY Blood Pressure 07/20/23
polyethylene glycol 3350 17 gram oral powder packet 17 g PO DAILYPRN PRN constipation 07/20/23
sodium phosphates 19 gram-7 gram/118 mL enema (Fleet Enema) 118 ml DE DAILYPRN PRN if dulcolax ineffective 07/20/23
torsemide 20 mg tablet 20 mg PO DAILY Fluid Retention/Swelling 07/20/23
ipratropium 0.5 mg-albuterol 3 mg (2.5 mg base)/3 mL nebulization soln 3 ml inhalation R Q4HPRN PRN SOB/Wheezing #90 mL 07/30/23
acetaminophen 325 mg tablet 650 mg PO Q6HPRN PRN temp>100/mild pain 10/29/23
loratadine 10 mg tablet 10 mg PO DAILY Allergies 10/29/23
magnesium hydroxide 400 mg/5 mL oral suspension (Milk of Magnesia) 30 ml PO [id number] PRN if no BM x 3 days 10/29/23
amoxicillin 875 mg-potassium clavulanate 125 mg tablet 1 tab PO Q12 #18 tabs 11/09/23
apixaban 5 mg tablet (Eliquis) 5 mg PO BID #0 tabs 11/09/23
budesonide 0.5 mg/2 mL suspension for nebulization 0.5 mg (2 mL) inhalation R BID #0 mL 11/09/23
fluconazole 100 mg tablet 100 mg PO DAILY 10 days #10 tabs 11/09/23
risperidone 0.5 mg disintegrating tablet 0.5 mg PO BID #0 tabs 11/09/23
Lactobac no.2-Bifidobac no.1-S. thermo 112.5 billion cell capsule (Visbiome) 1 cap PO BID 11/17/23
insulin glargine U-300 conc 300 unit/mL (3 mL) subcutaneous pen (Toujeo Max U-300 SoloStar) 15 unit SC HS 11/17/23
ipratropium 0.5 mg-albuterol 3 mg (2.5 mg base)/3 mL nebulization soln 3 ml inhalation R TID 11/17/23
omeprazole 20 mg tablet,delayed release 20 mg PO DAILY 11/17/23
simethicone 80 mg chewable tablet 80 mg PO Q6HPRN PRN gas pains 11/17/23
Review of Systems
-
History Source: Family
A 12 point ROS was completed and negative except as noted: Yes
Physical Exam
Vital Signs
Vital Signs
Pulse Resp BP Pulse Ox
71 25 91/53 99
11/17/23 18:00 11/17/23 18:00 11/17/23 18:00 11/17/23 18:00
Physical Exam
General: Appears Chronically Ill
Respiratory: Clear
Cardiac: S1/S2 and Irregular Rhythm
GI: Soft, Non Tender, Non Distended and Normal Bowel Sounds
Musculoskeletal: No Clubbing, No Cyanosis and No Edema
Neuro: Other (opens eyes to sternal rub only then closes, not responsive to questions, nor voice command)
Psych: Other (somnolent, lethergic, altered)
Laboratory Results
-
11/17/23 15:37
11/17/23 15:36
Laboratory Results
Total Bilirubin 0.8 mg/dl (0.2-1.3) 11/17/23 15:36
AST 14 U/L (14-36) 11/17/23 15:36
ALT 12 U/L (0-35) 11/17/23 15:36
Alkaline Phosphatase 74 U/L (38-126) 11/17/23 15:36
Data Reviewed
-
Diagnostic Radiology: Image Personally Visualized and interpreted and Report Reviewed by me (CXR Suspected mild acute interstitial and alveolar cardiogenic pulmonary edema.)
Medical Tests (Nuc Med, Echo, EKG etc): Image Personally Visualized and interpreted and Report Reviewed by me (EKG a.fib with LBBB (hx of LBBB))
Impression/Plan
-
IMPRESSION:
The patient is n 88 yo woman with PMH significant for COPD, CHF, severe , diabetes mellitus, paroxysmal atrial fibrillation on Eliquis, advanced thyroid malignancy, recently discharged from on 11/09/23 due to acute on chronic hypoxic and
hypercapnic respiratory failure secondary to healthcare associated pneumonia and toxic metabolic encephalopathy likely secondary to medications, who presents today from SNF due to altered mental status. She was in her usual state of health this
morning, woke up and was in her wheelchair and ate without any difficulty today, talking to staff, no choking nor aspiration during lunch, and was brought back to her room without incident. She was then found in her chair, passed out and not able to
be aroused. EMS called and on arrival they said she was unresponsive, they noted pupil pinpoint and gave her 2 of Narcan without significant improvement. No known other symptoms, no fever, no chills, no CP, no SOB, no aspiration, no n/v. Of note,
nursing said she had a large normal formed bowel movement this morning. The patient was hypercapnic VBG pCO2 93, pH 7.10, and hypotensive in ED, started on BIPAP.
#Altered mental status likely due to Acute on chronic hypercapnic respiratory failure with acidemia, unclear etiology, she had spell of unknown etiology
-IMU admission while on BIPAP
-monitor on tele, check trop
- Oxygenating well without evidence for hypoxia-baseline oxygen is 3 L NC
- VBG showing hypercapnia with pH 7.1 and pCO2 93
-Continue BIPAP / for now and repeat ABG tonight, change settings if needed
-consider Pulmonary consultation
-Duo-Nebs scheduled and prn
#JUAN LUIS Creat 1.9, unclear etiology, low blood pressure likely contributing
-received fluid bolus in ED
-repeat creat in am, monitor, avoid nephrotoxic agents
-bladder scan patient
#Hyperkalemia, mild
-K 5.3
-repeat BMP in am
# Per recent hospitalization- history of silent aspiration with thin liquids, moderately thick liquid and mildly thick liquid. No aspiration with pur�e however patient needed maximal cues to swallow. Family recently was in agreement with no feeding
tube and the patient's son confirmed same this admission.
-NPO for now
#COPD, lungs are without wheezing currently
-cont nebs, BIPAP and monitor
#Chronic HFpEF
-CXR improved from recent admission, however with mild interstitial edema
-BP is low, s/p fluid bolus in ED, monitor off fluids for now
-monitor I/O, daily weights
#IDDM -uncontrolled
-Lantus to 15 units at bedtime
-SSI, monitor glucose
#Paroxysmal A-fib
-Eliquis once taking PO,monitor on tele
#advanced thyroid malignancy involving great vessels, without plans for aggressive management nor imaging at this time, discussed with patient's son
#severe - not a TAVR candidate per prior records
#CAD s/p CABG
#CKD 3b
DVT ppx: PCDs
Code: DNR confirmed by patient's son tonight
--- NOTE | 2023-11-17 19:43 | EDRN ---
Report received, went in to check on patient, son is at bedside spoke with him about patient, re-adjusted patients blood pressure cuff, blood pressure much better with cuff adjusted.
--- NOTE | 2023-11-17 20:00 | EDRN ---
Patient was rolled and sheets and blankets taken from under her, rectal temp checked, patient pulled up in bed and placed her own blanket on her. Son went home for the evening, he took money that was found on patient incase she wakes up asking for
it, we did check her ear for hearing aid that she wears in her left ear, there wasn't anything there, informed son if I find it I will place in cup for her, he said he would check care home as well. Patient resting comfortably at this time. Will
continue to monitor.
[2023-11-17 20:58] LABS: Troponin I 0.036 ng/ml
--- NOTE | 2023-11-17 21:14 | EDRN ---
Patient's Troponin resulted 0.036, aga texted hospitalist to inform them of result, also to update them that patients BP is slowly trending down from low 100 systolics to 90/61 and now 83/53, Chantal who is covering IMU asked me to talk to
Ang, spoke with Dr. Fry who wants to try a 250mL bolus of normal saline, also to get ABG done, aga texted respiratory to come complete that, Patient brief still dry, will bladder scan and if urine will straight cath for urine specimen per
orders. Will update Hospitalist with new information.
[2023-11-17] MEDS: NSS 250 IV (21:18)
[2023-11-17 21:31] LABS: B.E. 0 mmol/L; HCO3 26.8 mmol/L (21-28); O2 Saturation % 95.9 % (94-98); PCO2 52 mmHg (32-35); PO2 68 mmHg (83-108); pH 7.32 (7.35-7.45)
[2023-11-17 21:39] LABS: Urine Albumin Negative (Neg - Trace); Urine Bilirubin Negative (Negative); Urine Character Clear (Clear); Urine Color Yellow; Urine Glucose Negative (Negative); Urine Ketone Negative (Negative); Urine Leukocyte Trace (Negative); Urine Nitrite Negative (Negative); Urine Occult Blood Negative (Negative); Urine Urobilinogen Negative (Neg - 1+)
--- NOTE | 2023-11-17 21:43 | EDRN ---
Patients abdomen seemed slightly distended when bladder scanning, after straight cath slightly better but still firm, informed Dr. Fry who did come into room and re-assess patient. ABG completed and sent as well.
[2023-11-17 21:53] LABS: Urine Hyaline Cast 0-2 /LPF (0-2); Urine Red Blood Cell None Seen /HPF (0-2); Urine White Cell 0-2 /HPF (0-5)
--- NOTE | 2023-11-17 21:53 | EDRN ---
Report called to Be Snider in IMU, room currently in progress being cleaned.
[2023-11-17] MEDS: PULMICORT 0.5 MG INH (23:22)
[2023-11-17] MEDS: DUONEB 3 ML INH (23:22)
--- NOTE | 2023-11-17 23:22 | PTCARENOTE ---
Pt received from ED. Pt only responsive to pain. Non verbal at this time. BiPAP on 06/04 3L pox 92%. Lungs diminished. Afib on the monitor. Belly round - distended + BS + Bruising. +1 LLE Trace RLE edema. Legs mildly reddened. + pulses. Attends on -
incont of a smear of stool. CHG bathed and gown changed.
[2023-11-17] MEDS: RISPERDAL M-TAB (ORALLY DISINTEGRATING) PO (23:47)
[2023-11-17 23:54] LABS: Glucose - Point of Care 149 mg/dl (70-99)
[2023-11-18] VITALS (32 sets, daily range): BP systolic 74–119; BP diastolic 35–78; PULSE 2–84; BMI 32.5
[2023-11-18] MEDS: REFRESH EYE DROPS (PF) 1 DROPS BOTH EYES ×3 (00:20→20:50)
[2023-11-18] MEDS: LANTUS 0.119999999999999996 UNITS SC (00:28)
[2023-11-18 04:06] LABS: % Basophils 0.1 % (0-2); % Eosinophils 0.2 % (0-6); % Immature Granulocytes 0.6 % (0-0.5); % Lymphocytes 6.9 % (20.5-51.1); % Monocytes 6.7 % (1.7-9.3); % Neutrophils 85.5 % (42.2-75.2); Absolute Immature Granulocytes 0.1 10^3/uL (0-0.05); Absolute Lymphocytes 0.6 10^3/uL (1.2-3.4); Absolute Monocytes 0.6 10^3/uL (0.1-0.6); Absolute Neutrophils 7.4 10^3/uL (1.4-6.5); Hematocrit 39.1 % (37.0-47.0); Hemoglobin 12.3 g/dL (12.0-16.0); Mean Corp Hgb Conc. 31.5 g/dL (33.0-37.0); Mean Corpuscular Hgb 27.4 pg (27.0-31.0); Mean Corpuscular Volume 87.1 fL (81.0-99.0); Mean Platelet Volume 13.2 fL (7.4-10.4); Nucleated Red Blood Cells % 0 %; Platelet Count 126 10^3/uL (130-400); Red Blood Cell Count 4.49 10^6/uL (4.20-5.40); Red Cell Dist. Width 14.2 % (11.5-14.5); White Blood Cell Count 8.7 10^3/uL (4.8-10.8)
[2023-11-18 04:25] LABS: Blood Urea Nitrogen 75 mg/dl (7-17); Calcium 8.8 mg/dl (8.4-10.2); Carbon Dioxide 29 mmol/L (22-30); Chloride 102 mmol/L (98-107); Estimated Creatinine Clearance 22 ml/min; Glucose 113 mg/dl (70-99); Potassium 5.1 mmol/L (3.5-5.1); Sodium 134 mmol/L (135-145); eGFR 29.02
[2023-11-18 04:26] LABS: INR 1.61
[2023-11-18 04:27] LABS: APTT 45.5 Sec (23.4-35.0)
[2023-11-18 06:12] LABS: Glucose - Point of Care 127 mg/dl (70-99)
[2023-11-18] MEDS: PULMICORT 0.5 MG INH ×2 (07:45→19:30)
[2023-11-18] MEDS: DUONEB 3 ML INH ×3 (07:45→19:30)
--- NOTE | 2023-11-18 08:51 | W.PN.HOSP.TC ---
Today's Communication/Plan
-
Continue BiPAP
Mental Status somewhat improved
Unsafe for patient to swallow -- since we cannot give Eliquis, started patient on heparin Drip
Consulted pulmonary, recommendations appreciated
Assessment / Plan
Assessment / Plan
Physical Exam
General: Appears Chronically Ill
Respiratory: Clear
Cardiac: S1/S2 and Irregular Rhythm
GI: Soft, Non Tender, Non Distended and Normal Bowel Sounds
Musculoskeletal: No Clubbing, No Cyanosis and No Edema
Neuro: Other (opens eyes to sternal rub only then closes, not responsive to questions, nor voice command)
Psych: Other (somnolent, lethargic, altered)

Assessment/Plan
The patient is n 88 yo woman with PMH significant for COPD, CHF, severe , diabetes mellitus, paroxysmal atrial fibrillation on Eliquis, advanced thyroid malignancy, recently discharged from on 11/09/23 due to acute on chronic hypoxic and
hypercapnic respiratory failure secondary to healthcare associated pneumonia and toxic metabolic encephalopathy likely secondary to medications, who presents today from SNF due to altered mental status. She was in her usual state of health this
morning, woke up and was in her wheelchair and ate without any difficulty today, talking to staff, no choking nor aspiration during lunch, and was brought back to her room without incident. She was then found in her chair, passed out and not able to
be aroused. EMS called and on arrival they said she was unresponsive, they noted pupil pinpoint and gave her 2 of Narcan without significant improvement. No known other symptoms, no fever, no chills, no CP, no SOB, no aspiration, no n/v. Of note,
nursing said she had a large normal formed bowel movement this morning. The patient was hypercapnic VBG pCO2 93, pH 7.10, and hypotensive in ED, started on BIPAP.
#Altered mental status likely due to acute on chronic hypercapnic respiratory failure
#Respiratory Acidosis
#COPD
-Continue BiPAP
-Continue to monitor in IMU
-Monitor on telemetry
-Baseline oxygen is 3 L NC
-VBG showing hypercapnia with pH 7.1 and pCO2 93 -- although subsequent blood gas showed improvement following BiPAP
-Continue BIPAP / for now
-Pulmonary consulted, recommendations appreciated
-Duo-Nebs scheduled and prn
#JUAN LUIS Creat 1.9, unclear etiology, low blood pressure likely contributing
-received fluid bolus in ED
-repeat BMP in am, monitor, avoid nephrotoxic agents
-bladder scan patient
#Hyperkalemia, mild
-K 5.3, IMPROVED
-repeat BMP in am
# Per recent hospitalization- history of silent aspiration with thin liquids, moderately thick liquid and mildly thick liquid. No aspiration with pur�e however patient needed maximal cues to swallow. Family recently was in agreement with no feeding
tube and the patient's son confirmed same this admission.
-NPO for now
#Chronic HFpEF
-CXR improved from recent admission, however with mild interstitial edema
-BP is low, s/p fluid bolus in ED, monitor off fluids for now
-monitor I/O, daily weights
#IDDM -uncontrolled
-Lantus to 15 units at bedtime
-SSI, monitor glucose
#Paroxysmal A-fib
-Eliquis once taking PO,monitor on tele
-Heparin Drip in lieu of Eliquis for now
#advanced thyroid malignancy involving great vessels, without plans for aggressive management nor imaging at this time, discussed with patient's son
#severe - not a TAVR candidate per prior records
#CAD s/p CABG
#CKD 3b
DVT ppx: PCDs
Code: DNR confirmed by patient's son mina
Anticipated Discharge: > 48 hours
Subjective/Interval History
-
Date of Service: November 18, 2023
Patient was seen and examined. She remained mostly lethargic, on BiPAP.
Objective Data
-
Labs:
Laboratory Results
11/17/23 11/18/23
21:22 03:40
WBC 8.7
Hgb 12.3
Hct 39.1
Plt Count 126 L
PT 19.0 H
INR 1.61
APTT 45.5 H
HCO3 26.8
Sodium 134 L
Potassium 5.1
Chloride 102
Carbon Dioxide 29
BUN 75 H
Creatinine 1.7 H
Glucose 113 H
Calcium 8.8
Vital Signs:
Vital Signs
Temp Pulse Resp BP Pulse Ox
98.5 F 76 16 106/68 99
11/18/23 07:15 11/18/23 06:45 11/18/23 06:45 11/18/23 06:00 11/18/23 06:45
I&O
11/17/23 11/18/23 11/19/23
06:59 06:59 06:59
Output Total 600 / 600
Balance -600 / -600
[2023-11-18] MEDS: DESENEX/MITRAZOL/ZEASORB 1 APPLIC TOPICAL ×2 (10:19→20:50)
[2023-11-18] MEDS: NEURONTIN PO (10:20)
[2023-11-18] MEDS: RISPERDAL M-TAB (ORALLY DISINTEGRATING) PO (10:20)
--- NOTE | 2023-11-18 10:43 | PTCARENOTE ---
Patient nonverbal, does not obey commands. Only responsive to pain. Afib on monitor heart rate 70-90's, BP 110/57,16, afebrile. Remains on BIPAP 12/5 8L. Patient turned and repositioned. Will continue to monitor.
[2023-11-18 12:00] LABS: Glucose - Point of Care 94 mg/dl (70-99)
[2023-11-18 14:37] LABS: Hematocrit 36.6 % (37.0-47.0); Hemoglobin 11.8 g/dL (12.0-16.0); Mean Corp Hgb Conc. 32.2 g/dL (33.0-37.0); Mean Corpuscular Hgb 27.6 pg (27.0-31.0); Mean Corpuscular Volume 85.5 fL (81.0-99.0); Mean Platelet Volume 13.3 fL (7.4-10.4); Platelet Count 119 10^3/uL (130-400); Red Blood Cell Count 4.28 10^6/uL (4.20-5.40); Red Cell Dist. Width 14.3 % (11.5-14.5); White Blood Cell Count 9.1 10^3/uL (4.8-10.8)
--- NOTE | 2023-11-18 14:41 | CON.PUL ---
Consultation
Consultation Request
Date/Time Consultation Requested: 11/18/2023 - 144
Date/Time Consultation Performed: 11/18/2023 - 1529
Requesting Provider: Dr. Carson
Performing Provider: Dr. Lang
Reason for Consultation: AMS
Medical History
-
Chief Complaint: Unresponsive
History of Present Illness:
88-year-old female former tobacco smoker with a past medical history of who presents from [facility] with unresponsiveness. Patient recently hospitalized here from 10/2805/2024ue to pneumonia complicated by altered mental
status due to toxic�metabolic encephalopathy. Patient was continuing to decline with preparation for family to transition to comfort care when patient suddenly improved. Speech pathology cleared her for diet, steroids were weaned down to
prednisone and she was discharged [facility] to [facility] to finish off her course of antibiotics and continue with nebulized bronchodilators + budesonide. She now presents with unresponsiveness, found to have a pCO2 of 93, started on BiPAP and
is now in the intermediate medical unit being managed. Pulmonary service consulted for additional recommendations.
When I saw the patient, she was on BiPAP 06/04 bled with 3 L/min, saturating 94% with heart rate 79 and BP 114/651. She was arousable to voice but still clearly lethargic and confused. She does open her eyes to voice but is still not following
commands. I spoke with bedside nurse who says that they took the patient off of BiPAP earlier today but then she still desaturated to the mid 80s while on 6 L/min of nasal cannula. No family present in the room when I was evaluating the patient.
PMHx: COPD with chronic hypercapnia, hypertension, DM type II, chronic lymphedema, dementia, CAD s/p CABG, A-fib on Eliquis, pneumonia, aortic stenosis
PSHx: CABG + cholecystectomy
Past Medical History
Past Medical History: Other (Above as per HPI)
Past Surgical History: Other (Above as per HPI)
Social History
Tobacco: Former Smoker
Alcohol: None
Drug: None
Living: [facility]
Family History
Family History: Reviewed & Not Pertinent
Allergies / Home Medications
Allergies
Allergy/AdvReac Type Severity Reaction Status Date / Time
No Known Allergies Allergy Verified 11/17/23 15:19
Home Medications
�Medication �Instructions �Recorded �Confirmed �Last Taken �Type
albuterol sulfate 90 mcg/actuation 2 puff inhalation R Q4HPRN PRN sob 07/20/23 11/17/23 10/29/23 History
aerosol inhaler
bisacodyl 10 mg rectal suppository 10 mg MD DAILYPRN PRN if MOM 07/20/23 11/17/23 Unknown History
(Dulcolax (bisacodyl)) ineffective
carboxymethylcellulose sodium 1 % 1 drp BOTH EYES BID dry eyes 07/20/23 11/17/23 10/28/23 History
eye drops
fluticasone propionate 50 1 spray intranasal [id number] PRN 07/20/23 11/17/23 Unknown History
mcg/actuation nasal nasal allergy/congestion
spray,suspension (Flonase Allergy
Relief)
gabapentin 100 mg capsule 200 mg PO DAILY Neurological 07/20/23 11/17/23 10/28/23 History
Condition
guaifenesin 400 mg tablet 400 mg PO Q6HPRN PRN cough 07/20/23 11/17/23 Unknown History
hydralazine 10 mg tablet 10 mg PO Q8H Blood Pressure 07/20/23 11/17/23 10/28/23 History
nebivolol 2.5 mg tablet 2.5 mg PO DAILY Blood Pressure 07/20/23 11/17/23 10/28/23 History
polyethylene glycol 3350 17 gram 17 g PO DAILYPRN PRN constipation 07/20/23 11/17/23 Unknown History
oral powder packet
sodium phosphates 19 gram-7 118 ml MD DAILYPRN PRN if dulcolax 07/20/23 11/17/23 Unknown History
gram/118 mL enema (Fleet Enema) ineffective
torsemide 20 mg tablet 20 mg PO DAILY Fluid 07/20/23 11/17/23 10/28/23 History
Retention/Swelling
ipratropium 0.5 mg-albuterol 3 mg 3 ml inhalation R Q4HPRN PRN 07/30/23 11/17/23 10/29/23 Rx
(2.5 mg base)/3 mL nebulization SOB/Wheezing #90 mL
soln
acetaminophen 325 mg tablet 650 mg PO Q6HPRN PRN temp>100/mild 10/29/23 11/17/23 10/25/23 History
pain
loratadine 10 mg tablet 10 mg PO DAILY Allergies 10/29/23 11/17/23 10/28/23 History
magnesium hydroxide 400 mg/5 mL 30 ml PO [id number] PRN if no BM x 3 10/29/23 11/17/23 Unknown History
oral suspension (Milk of Magnesia) days
apixaban 5 mg tablet (Eliquis) 5 mg PO BID #0 tabs 11/09/23 11/17/23 Unknown Rx
budesonide 0.5 mg/2 mL suspension 0.5 mg (2 mL) inhalation R BID #0 11/09/23 11/17/23 Unknown Rx
for nebulization mL
risperidone 0.5 mg disintegrating 0.5 mg PO BID #0 tabs 11/09/23 11/17/23 Unknown Rx
tablet
Lactobac no.2-Bifidobac no.1-S. 1 cap PO BID Supplement 11/17/23 11/17/23 Unknown History
thermo 112.5 billion cell capsule
(Visbiome)
insulin glargine U-300 conc 300 15 unit SC HS Diabetes 11/17/23 11/17/23 Unknown History
unit/mL (3 mL) subcutaneous pen
(Toujeo Max U-300 SoloStar)
ipratropium 0.5 mg-albuterol 3 mg 3 ml inhalation R TID 11/17/23 11/17/23 Unknown History
(2.5 mg base)/3 mL nebulization Lung/Breathing Issues
soln
omeprazole 20 mg tablet,delayed 20 mg PO DAILY GERD 11/17/23 11/17/23 Unknown History
release
simethicone 80 mg chewable tablet 80 mg PO Q6HPRN PRN gas pains 11/17/23 11/17/23 Unknown History
amoxicillin 875 mg-potassium 1 tab PO Q12 Infection 11/18/23 11/17/23 Unknown History
clavulanate 125 mg tablet
fluconazole 100 mg tablet 100 mg PO DAILY Infection 11/18/23 11/17/23 Unknown History
Review of Systems
-
Unable to Obtain full review of systems at this time due to: Dementia and Acuity
Vitals / Labs / Diagnostic Testing
Vital Signs
Temp Pulse Resp BP Pulse Ox
98.9 F 77 16 119/78 99
11/18/23 11:19 11/18/23 13:46 11/18/23 13:46 11/18/23 13:19 11/18/23 13:46
Lab Data
11/18/23 14:27
11/18/23 03:40
Laboratory Results
11/17/23 11/18/23
21:22 03:40
PT 19.0 H
INR 1.61
APTT 45.5 H
pH 7.32 L
pCO2 52 H
pO2 68 L
HCO3 26.8
O2 Delivery Level
Diagnostic Testing:
Physical Exam
-
HEENT: Normocephalic and Anicteric
Cardiovascular: S1/S2, Murmur (+JEIMY heard across precordium) and Peripheral Edema (negative)
Respiratory: Wheeze (negative), Rhonchi (negative), Non-Labored Respirations and Other (Coarse breath sounds heard bilaterally)
GI: Soft, Non Distended and Non Tender
Neurology: Tremors (negative) and Other (Lethargic but easily arousable to voice; not following commands; confused)
Skin: Warm and Dry
General: Respiratory Distress (negative), Comfortable and Chills (negative)
Assessment
-
Assessment: 88-year-old female former tobacco smoker with a past medical history of who presents from [facility] with unresponsiveness. Patient recently hospitalized here from 10/2805/2024ue to pneumonia complicated by
altered mental status due to toxic�metabolic encephalopathy. Patient was continuing to decline with preparation for family to transition to comfort care when patient suddenly improved. Speech pathology cleared her for diet, steroids were weaned
down to prednisone and she was discharged [facility] to [facility] to finish off her course of antibiotics and continue with nebulized bronchodilators + budesonide. She now presents with unresponsiveness, found to have a pCO2 of 93, started on
BiPAP and is now in the intermediate medical unit being managed. Pulmonary service consulted for additional recommendations.
Chronic medical additions [employer]: COPD with chronic hypercapnia, hypertension, DM type II, chronic lymphedema, dementia, CAD s/p CABG, A-fib on Eliquis, pneumonia, aortic stenosis
Impression:
Acute respiratory failure with hypercapnia -suspect this is due to noncompliance versus absence of nocturnal BiPAP; if patient did in fact use her BiPAP then concern is for other process causing hypercapnia (i.e. acute CHF)
Severe left maxillary sinusitis (seen on CT head from 11/17/2023)
Abnormal CXR with bilateral infiltrates � appears to be similar distribution from prior CXR on 11/01/2023, and is even improved. Differential also includes acute interstitial edema
Elevated troponin
Chronic compensated hypercapnia, baseline pCO2 50s
CO2 narcosis
History of heart failure/HFpEF
Valvular heart disease with moderate-severe , mild-moderate MS + TR
JUAN LUIS on chronic kidney disease, creatinine 1.3
Hyperglycemia
Metabolic alkalosis due to acute on chronic hypercapnea
Conditions present prior admission:
Hypertension
Type 2 diabetes
Peripheral neuropathy
Chronic lower extremity edema
Dementia
Bladder dysfunction
Resident at [facility]
? Status post CABG-sternotomy wires on a-jig-[id number] toe disease.
Atrial fibrillation on anticoagulation
There is no mention of alcohol or cigarette use.
Patient on formoterol and budesonide in the outpatient setting-unclear diagnosis.
Plan:
- Continue BiPAP and titrate O2 flow rate to maintain SpO2 >88%
- Need to figure out if patient was sent home to the nursing facility on nocturnal BiPAP as this would be an easy solution to her hypercapnia
- There does not appear to be a new pneumonia seen on CXR, but she does have severe left-sided maxillary sinusitis on CT head from 11/17/2023 � consider starting antibiotics for that
- Her CXR shows bilateral hyper-attenuation and this is concerning for acute volume overload --> diurese as Cr and BP tolerate
- Re-check TTE as perhaps her is more severe and this could be causing her recurrent CHF episodes
- Maintain MAP >65
- Goal BG>100 and <180
- Neurochecks with each set of VS
- Aspiration precautions; keep HOB elevated >30-45�
- Pt is DNR/DNI --> need to have a goals of care discussion with the family
- Replete K>4, Mg>2
- PPI (home med)
- transition PO meds to IV for now until mental status improves
- DVT ppx
- Guarded prognosis
Pulmonary service will continue to follow along.
Total time spent today was 75 minutes for this encounter. Time includes reviewing laboratory test/imaging results, reviewing pertinent medical records, obtaining and reviewing medical history, performing an appropriate exam, ordering medications,
tests and procedures. Time also includes documentation of this encounter, coordinating patient care and communicating with other healthcare professionals. Total time does not include separately billed tests performed on this date of service.
Data:
CXR 11/17/2023:
1. Suspected mild acute interstitial and alveolar cardiogenic pulmonary edema.
2. Moderate cardiomegaly with evidence for previous CABG surgery.
3. Mildly decreased bilateral lung volumes with mild subsegmental atelectasis/scarring in the lower lungs.
Former TTE 07/22/2023:
Normal biventricular size and systolic function without regional wall motion
abnormality. Estimated LVEF 60-65%.
Mild concentric left ventricular hypertrophy.
Mild/moderate mitral stenosis. Mean gradient is 6mmHg.
Moderate/severe aortic stenosis. Peak/mean gradients are 43/27mmHg. The valve
area by continuity equation is 0.8cm sq, using a LVOT of 1.8cm.
Mild/moderate tricuspid regurgitation. Moderately elevated PASP. Estimated
pulmonary artery pressure of 55 mmHg.
No prior study available for comparison.
[2023-11-18 14:51] LABS: APTT 43.3 Sec (23.4-35.0)
[2023-11-18] MEDS: HEPARIN 25000 UNITS/250 ML IV (15:27)
--- NOTE | 2023-11-18 15:35 | CM ---
Patient from [facility] with Dx Altered mental status likely due to Acute on chronic hypercapnic respiratory failure. O2 5L, BiPAP. NPO. Receiving Heparin gtt. Per nurse assessment; lethargic, unresponsive.
Spoke with Janet Adms [facility]; the patent resides there in LTC and is on a bed hold.
CM continuing to follow.
Plan TBD.
--- NOTE | 2023-11-18 16:28 | PTCARENOTE ---
Patient bladder scanned for greater than 490. Patient was straight cathed for 450 mls blaire urine. Patient tolerated.
[2023-11-18 17:06] LABS: Glucose - Point of Care 88 mg/dl (70-99)
[2023-11-18] MEDS: RISPERDAL M-TAB (ORALLY DISINTEGRATING) 0.5 MG PO (20:50)
[2023-11-18] MEDS: LASIX 40 MG IV (20:53)
[2023-11-18 22:10] LABS: Glucose - Point of Care 64 mg/dl (70-99)
[2023-11-18 22:21] LABS: APTT 180.9 Sec (23.4-35.0)
[2023-11-18 22:39] LABS: Glucose - Point of Care 82 mg/dl (70-99)
[2023-11-18] MEDS: LANTUS SC (23:34)
[2023-11-19] VITALS (17 sets, daily range): BP systolic 84–117; BP diastolic 45–72; PULSE 75; BMI 28.5
[2023-11-19 00:46] LABS: Glucose - Point of Care 89 mg/dl (70-99)
[2023-11-19 03:19] LABS: Glucose - Point of Care 64 mg/dl (70-99)
[2023-11-19 03:45] LABS: Glucose - Point of Care 67 mg/dl (70-99)
[2023-11-19 04:06] LABS: Glucose - Point of Care 91 mg/dl (70-99)
[2023-11-19 05:59] LABS: Glucose - Point of Care 86 mg/dl (70-99)
--- NOTE | 2023-11-19 06:21 | PTCARENOTE ---
Pt awake and talking. Wore bipap overnight until around 0300. Heparin gtt running. BP's running soft. IV lasix given last night. No pain. Will monitor.
[2023-11-19] MEDS: DUONEB 3 ML INH ×3 (07:22→20:08)
[2023-11-19] MEDS: PULMICORT 0.5 MG INH ×2 (07:22→20:08)
[2023-11-19 07:36] LABS: APTT 91.8 Sec (23.4-35.0)
[2023-11-19] MEDS: NEURONTIN PO ×2 (09:40→09:49)
[2023-11-19] MEDS: RISPERDAL M-TAB (ORALLY DISINTEGRATING) PO ×2 (09:40→09:49)
[2023-11-19] MEDS: DESENEX/MITRAZOL/ZEASORB 1 APPLIC TOPICAL ×2 (09:41→21:51)
[2023-11-19] MEDS: REFRESH EYE DROPS (PF) BOTH EYES ×2 (09:41→09:50)
--- NOTE | 2023-11-19 09:54 | PTCARENOTE ---
Addendum entered by Delmy Trent 11/19/23 11:50:
With assistance from son, this RN and PCT's again attempted to convince pt to allow for lab draw, speech eval, and medication administration. Pt continues to be paranoid and refuse. Dr. Carson updated via TT.
Addendum entered by Delmy Trent 11/19/23 10:24:
Pt's son arrived at bedside. Attempting to reason with pt to allow for lab draw and speech eval without success.
Original Note:
Pt Aox1, extremely paranoid and refusing care. Several attempts made to convince pt yet she refuses labs and medications. Pt demanding we call her daughter Kamini, call made and pt paranoid stating that it is a staff member outside pretending to be
her daughter. Pt agitated and refusing care. Dr. Carson notified via TT.
--- NOTE | 2023-11-19 10:51 | PTOTSP ---
Dysphagia Evaluation
Patient with a known history of dysphagia from 2 prior video swallow studies (11/06/2023 moderate oral, moderate severe pharyngeal dysphagia with silent aspiration of thin liquids, aspiration with ineffective cough with mildly thick/moderately thick;
11/08/2023 mild-moderate oral/pharyngeal dysphagia with deep penetration of thin liquids). Last known diet recommendation at this hospital IDDSI Level 6 Soft/Bite Sized, IDDSI Level 2 Mildly Thick Liquids. Per discussion with SNF, patient on
Mechanical Soft, Thin diet prior to this admission.
Current clinical bedside swallowing evaluation limited as patient with signs of paranoia and agitation. She accepted a single sip of mildly thick liquids via bottle and then spit it out due to dislike before refusing any additional PO. Due to
limited assessment, unable to provide diet recommendations at this time. Will defer to MD. Could trial essential medications in puree if patient willing to accept them. Mentation may be a barrier to acceptance of oral medications.
Recommend:
1. Defer to MD for PO diet; if opting for diet for comfort feeding/understanding aspiration risks/complications consider starting with puree, thin liquids
2. Medications - non-oral if able; essential meds in puree
3. Oral care 3x daily as patient permits
4. Dysphagia therapy follow up at the acute care level.
--- NOTE | 2023-11-19 11:08 | PN.CDI ---
CDI
- -
CDI:
Physician Documentation Request
Admit Date: 11/17/23 19:20
Dear Doctor Yamileth,
Clinical Indicators:
Patient admitted with altered mental status, likely due to acute on chronic hypercapnic respiratory failure.
11/17 PN, 'Continue BiPAP Mental Status somewhat improved' Physical exam: somnolent, lethargic, altered
Head CT: no acute abnormalities
pCO2 on admission:
11/17/23
15:36
VBG pCO2 93 H*
Based on the above, could you clarify which, if any of the following, is the most likely etiology of the confusion/altered mental status.
Acute Metabolic Encephalopathy
Toxic Metabolic Encephalopathy
Lethargy/somnolence only
Other, please specify
Use of terms such as suspected, likely, concern for, or probable (associated with a specific diagnosis that is being evaluated, monitored, or treated as if it exists) are acceptable and can be coded in the inpatient setting, when documented at the
time of discharge.
Thank you,
ADIS Burr RN
CDI Specialist
available via tiger text
Please use your independent medical judgment in providing your response.
--- NOTE | 2023-11-19 11:24 | PN.CDI ---
CDI
- -
CDI:
Physician Documentation Request
Admit Date: 11/17/23 19:20
Dear Doctor Yamileth,
Clinical Indicators:
Patient admitted with acute on chronic hypercapnic respiratory failure; PMH includes severe aortic stenosis.
BNP 5690
CXR report: 'Suspected mild acute interstitial and alveolar cardiogenic pulmonary edema.'
Troponin level:
11/17/23
20:16
Troponin I 0.036 H*
Based on the above, could you clarify in the progress notes, the appropriate diagnosis, if significant, that supports the above abnormalities and additional evaluation, monitoring and/or treatment rendered:
Non ischemic myocardial injury
Elevated troponin only
Other, please specify
Use of terms such as suspected, likely, concern for, or probable (associated with a specific diagnosis that is being evaluated, monitored, or treated as if it exists) are acceptable and can be coded in the inpatient setting, when documented at the
time of discharge.
Thank you,
Brandi Johnson RN
CDI Specialist
available via tiger text
Please use your independent medical judgment in providing your response.
--- NOTE | 2023-11-19 12:23 | W.PN.PUL3 ---
Today's Communication / Plan
-
Aspiration precautions
Titrate O2 flow rate to maintain SpO2 >88-94%
Psych eval
NPO except ice chips and sips of water with resumption of GOC discussion once her mentation has improved for >24 hrs
Son is involved in her GOC discussions
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
BiPAP with sleep
Guarded prognosis
Assessment
-
Assessment: 88-year-old female former tobacco smoker with a past medical history of who presents from [facility] with unresponsiveness. Patient recently hospitalized here from 10/2805/2024ue to pneumonia complicated by
altered mental status due to toxic�metabolic encephalopathy. Patient was continuing to decline with preparation for family to transition to comfort care when patient suddenly improved. Speech pathology cleared her for diet, steroids were weaned
down to prednisone and she was discharged on 11/08 to care home/SNF to finish off her course of antibiotics and continue with nebulized bronchodilators + budesonide. She now presents with unresponsiveness, found to have a pCO2 of 93, started on
BiPAP and is now in the intermediate medical unit being managed. Pulmonary service consulted for additional recommendations.
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
Impression:
Acute respiratory failure with hypercapnia -suspect this is due to noncompliance versus absence of nocturnal BiPAP; if patient did in fact use her BiPAP then concern is for other process causing hypercapnia (i.e. acute CHF)
AMS - this AM pt was paranoid and refusing care
Severe left maxillary sinusitis (seen on CT head from 11/17/2023)
Abnormal CXR with bilateral infiltrates � appears to be similar distribution from prior CXR on 11/01/2023, and is even improved. Differential also includes acute interstitial edema
Elevated troponin
Chronic compensated hypercapnia, baseline pCO2 50s
CO2 narcosis
History of heart failure/HFpEF
Valvular heart disease with moderate-severe , mild-moderate MS + TR
JUAN LUIS on chronic kidney disease, creatinine 1.3
Hyperglycemia
Metabolic alkalosis due to acute on chronic hypercapnea
Conditions present prior admission:
Hypertension
Type 2 diabetes
Peripheral neuropathy
Chronic lower extremity edema
Dementia
Bladder dysfunction
Resident at [facility]
COPD
? Status post CABG-sternotomy wires on k-mao-krfrgvgo toe disease.
Atrial fibrillation on anticoagulation
There is no mention of alcohol or cigarette use.
Patient on formoterol and budesonide in the outpatient setting-unclear diagnosis.
Plan:
- Now that patient is awake and alert (at least during my evaluation this afternoon), okay to use BiPAP with sleep only
- Trend VBG to assure pH and pCO2 are stable; titrate O2 flow rate to maintain SpO2 >88%
- Need to figure out if patient was sent home to the nursing facility on nocturnal BiPAP as this would be an easy solution to her hypercapnia
- There does not appear to be a new pneumonia seen on CXR, but she does have severe left-sided maxillary sinusitis on CT head from 11/17/2023 � consider starting antibiotics for that
- Her CXR shows bilateral hyper-attenuation and this is concerning for acute volume overload --> diurese as Cr and BP tolerate
- Re-check TTE as perhaps her is more severe and this could be causing her recurrent CHF episodes
- Maintain MAP >65
- Goal BG>100 and <180
- Psych consult for paranoid behavior this AM
- Neurochecks with each set of VS
- Aspiration precautions; keep HOB elevated >30-45�
- Pt is DNR/DNI --> need to have a goals of care discussion with the family --> I spoke with son, Jonathon, today about the patient's clinical status and comfort feeds. It is difficult as the pt had paranoia this AM with refusal of care, and it is
hard to say if she truly understands that she is an aspiration risk. He ultimately is ok with her having food to eat but giving her another day to see if she continues to improve and continue to have a goals of care discussion when she is more
lucid is ideal. We agreed to keep her NPO and re-visit her C tomorrow when she is more capable to have a discussion.
- Replete K>4, Mg>2
- PPI (home med)
- Now that she is awake and alert, ok to resume her home PO meds
- DVT ppx
- Guarded prognosis
Pulmonary service will continue to follow along.
Total time spent today was 35 minutes for this encounter. Time includes reviewing laboratory test/imaging results, reviewing pertinent medical records, obtaining and reviewing medical history, performing an appropriate exam, ordering medications,
tests and procedures. Time also includes documentation of this encounter, coordinating patient care and communicating with other healthcare professionals. Total time does not include separately billed tests performed on this date of service.
Data:
CXR 11/17/2023:
1. Suspected mild acute interstitial and alveolar cardiogenic pulmonary edema.
2. Moderate cardiomegaly with evidence for previous CABG surgery.
3. Mildly decreased bilateral lung volumes with mild subsegmental atelectasis/scarring in the lower lungs.
CT Head 11/17/2023:
1. No CT evidence for acute intracranial hemorrhage or transcortical infarct.
2. 2.1 cm band of encephalomalacia in the left basal ganglia (either secondary to a chronic ischemic infarction or resolved intraparenchymal hemorrhage).
3. Moderate white matter leukoaraiosis in both cerebral hemispheres.
4. Mild to moderate diffuse cerebral and cerebellar volume loss.
5. 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
6. SEVERE LEFT MAXILLARY SINUSITIS.
7. Large chronic 1.6 cm exostosis protruding anteriorly from the left frontal bone.
Former TTE 07/22/2023:
Normal biventricular size and systolic function without regional wall motion
abnormality. Estimated LVEF 60-65%.
Mild concentric left ventricular hypertrophy.
Mild/moderate mitral stenosis. Mean gradient is 6mmHg.
Moderate/severe aortic stenosis. Peak/mean gradients are 43/27mmHg. The valve
area by continuity equation is 0.8cm sq, using a LVOT of 1.8cm.
Mild/moderate tricuspid regurgitation. Moderately elevated PASP. Estimated
pulmonary artery pressure of 55 mmHg.
No prior study available for comparison.
Subjective Data
-
Date of Service:
Date of Service: November 19, 2023
Chief Complaint: Pulmonary Follow Up
Subjective:
Patient seen this early afternoon. She was awake, alert, and saying she wants to eat. Earlier this morning she was very paranoid, refusing blood draw and being uncooperative. I called son, Jonathon, and answered all his questions. Patient is on 3
L/min nasal cannula this morning breathing comfortably. She denies SOB, cough, fevers or chills.
She mainly says she wants to eat, and I tried telling her that she is a very high aspiration risk (per MARINE PIPE WELDER eval today) and that could kill her if she were to aspirate her food/secretions, and it is difficult to know if she truly is grasping the
gravity of what I am saying. Psychiatry is also going to see her today given her paranoia at this morning.
Review of Systems
General: Other (negative unless mentioned above)
Objective Data
Data Reviewed
Vital Signs / I&O / Oxygen:
Vital Signs
Temp Pulse Resp BP Pulse Ox
98.4 F 75 19 112/55 96
11/19/23 11:12 11/19/23 10:00 11/19/23 10:00 11/19/23 10:00 11/19/23 10:30
Intake and Output
11/18/23 11/19/23 11/20/23
06:59 06:59 06:59
Output Total 600 / 600 450 / 450
Balance -600 / -600 -450 / -450
SaO2 96
Nasal Cannula flow liters per 3
minute
Physical Exam
General: Respiratory Distress (negative) and Comfortable
HEENT: Normocephalic and Anicteric
Cardiovascular: S1-S2, Murmur (+JEIMY heard across precordium) and Peripheral Edema (negative)
Respiratory: Wheeze (negative), Non-Labored Respirations and Other (Coarse breath sounds heard bilaterally)
GI: Soft, Non Distended and Non Tender
Neurology: Awake, Alert and Oriented
Skin: Warm and Dry
Labs/Micro/Reports
Laboratory Results
11/18/23 11/18/23 11/19/23
14:27 22:01 05:48
APTT 43.3 H 180.9 H* 91.8 H
--- NOTE | 2023-11-19 12:33 | PTCARENOTE ---
Pt continues to refuse to allow lab draw. D/W Dr. Carson. Order received to place heparin gtt on hold at this time. Held as ordered- see intervention.
[2023-11-19 12:38] LABS: Glucose - Point of Care 80 mg/dl (70-99)
--- NOTE | 2023-11-19 13:10 | W.PN.HOSP.TC ---
Today's Communication/Plan
-
More alert today -- so can do BiPAP while sleeping
Appreciate pulmonary help and GOC with patient and family
NPO except meds, ice chips
Augmentin for sinusitis
Assessment / Plan
Assessment / Plan
Physical Exam
General: Appears Chronically Ill
Respiratory: Clear
Cardiac: S1/S2 and Irregular Rhythm
GI: Soft, Non Tender, Non Distended and Normal Bowel Sounds
Musculoskeletal: No Cyanosis and No Edema
Neuro: Alert. Awake. Able to say her name and how she is feeling.
Psych: Calm

Assessment/Plan
The patient is n 88 yo woman with PMH significant for COPD, CHF, severe , diabetes mellitus, paroxysmal atrial fibrillation on Eliquis, advanced thyroid malignancy, recently discharged from on 11/09/23 due to acute on chronic hypoxic and
hypercapnic respiratory failure secondary to healthcare associated pneumonia and toxic metabolic encephalopathy likely secondary to medications, who presents today from SNF due to altered mental status. She was in her usual state of health this
morning, woke up and was in her wheelchair and ate without any difficulty today, talking to staff, no choking nor aspiration during lunch, and was brought back to her room without incident. She was then found in her chair, passed out and not able to
be aroused. EMS called and on arrival they said she was unresponsive, they noted pupil pinpoint and gave her 2 of Narcan without significant improvement. No known other symptoms, no fever, no chills, no CP, no SOB, no aspiration, no n/v. Of note,
nursing said she had a large normal formed bowel movement this morning. The patient was hypercapnic VBG pCO2 93, pH 7.10, and hypotensive in ED, started on BIPAP.
#Acute Toxic Metabolic Encephalopathy likely due to acute on chronic hypercapnic respiratory failure
#Respiratory Acidosis
#COPD
-Continue BiPAP (okay use with sleep only as patient is now more awake and alert)
-Continue to monitor in IMU
-Monitor on telemetry
-Baseline oxygen is 3 L NC
-VBG showing hypercapnia with pH 7.1 and pCO2 93 -- although subsequent blood gas showed improvement following BiPAP
-Continue BIPAP 06/04 for now
-Pulmonary consulted, recommendations appreciated
-Duo-Nebs scheduled and prn
#Severe left-sided maxillary sinusitis on CT head imaging from 11/17/2023
-Start Augmentin 875 mg BID
#JUAN LUIS Creat 1.9, unclear etiology, low blood pressure likely contributing
-IMPROVING
-received fluid bolus in ED
-repeat BMP in am, monitor, avoid nephrotoxic agents
-bladder scan patient
#Reported Paranoid Behavior
#Delirum
#Dementia
-Consulted psychiatry, recommendations appreciated
#Non ischemic myocardial injury
#Hyperkalemia, mild
-K 5.3, IMPROVED
-repeat BMP in am
# Per recent hospitalization- history of silent aspiration with thin liquids, moderately thick liquid and mildly thick liquid. No aspiration with pur�e however patient needed maximal cues to swallow. Family recently was in agreement with no feeding
tube and the patient's son confirmed same this admission.
-Keep NPO except medications (in puree), ice chips and sips of water
-Patient's son can consider comfort feeds with puree and thing liquids
-Aspiration precautions; keep HOB elevated >30-45�
#Chronic HFpEF
#CXR showed bilateral hyper-attenuation -- concerning for acute volume overload
-CXR improved from recent admission, however with mild interstitial edema
-BP is low, s/p fluid bolus in ED, monitor off fluids for now
-monitor I/O, daily weights
-Diurese as Cr and BP tolerate
#IDDM -uncontrolled
-Lantus to 15 units at bedtime
-SSI, monitor glucose
#Paroxysmal A-fib
-Eliquis once taking PO,monitor on tele
-Heparin Drip in lieu of Eliquis for now
#advanced thyroid malignancy involving great vessels, without plans for aggressive management nor imaging at this time, discussed with patient's son
#severe - not a TAVR candidate per prior records
-Re-check TTE as severe could be contributing to CHF
#CAD s/p CABG
#CKD 3b
DVT ppx: Eliquis
Code: DNR confirmed by patient's son mina
Anticipated Discharge: > 48 hours
Subjective/Interval History
-
Date of Service: November 19, 2023
Patient was seen and examined. She appeared more alert and conversant today. Earlier in the day she was demonstrating paranoid behavior as per patient's nurse and was refusing medications and labwork, later in the day she was much more open to
taking oral medications.
Objective Data
-
Labs:
Laboratory Results
11/19/23 11/19/23 11/19/23
05:48 06:21 11:45
WBC Pending
Hgb Pending
Hct Pending
Plt Count Pending
APTT 91.8 H Pending
Sodium Pending
Potassium Pending
Chloride Pending
Carbon Dioxide Pending
BUN Pending
Creatinine Pending
Glucose Pending
Calcium Pending
Total Bilirubin Pending
AST Pending
ALT Pending
Alkaline Phosphatase Pending
Vital Signs:
Vital Signs
Temp Pulse Resp BP Pulse Ox
98.4 F 75 19 112/55 98
11/19/23 11:12 11/19/23 10:00 11/19/23 10:00 11/19/23 10:00 11/19/23 12:31
I&O
11/18/23 11/19/23 11/20/23
06:59 06:59 06:59
Output Total 600 / 600 450 / 450
Balance -600 / -600 -450 / -450
[2023-11-19] MEDS: ELIQUIS 2.5 MG PO ×2 (13:48→23:19)
--- NOTE | 2023-11-19 13:57 | PTCARENOTE ---
Pt agreeable to take Eliquis after lengthy explanation from Dr. Carson. Administered as ordered, see MAR. Reports she is agreeable to see speech therapy at this time as well, Ayse Daly notified via TT.
--- NOTE | 2023-11-19 15:23 | PTOTSP ---
Dysphagia Therapy
Patient agreeable to re-evaluation later in afternoon per discussion with nurse, Delmy.
During re-evaluation, patient had signs concerning for oral/pharyngeal dysphagia and aspiration including coughing with thin liquids via straw and regular solids (in less than 50% of trials) as well as intermittent throat clearing with pureed
consistencies (approximately 25% of trials).
Education completed about signs/symptoms of aspiration, risks/complications of aspiration, and prior video swallow studies which revealed dysphagia and aspiration risks. Patient had decreased insight into her dysphagia and requested a regular, thin
liquid diet. Per chart review, non-oral means not aligned with goals of care.
Given information above, consider further goals of care discussion about nutrition/hydration for comfort understanding aspiration risks/complications. Alternatively, if opting for 'safest' diet consider temporary NPO with essential meds in puree.
Will continue to follow.
--- NOTE | 2023-11-19 15:46 | CS.PSYCHR ---
Consult Summary - Psychiatry
-
Pt is an 88 yo female with PMH significant for COPD, CHF, severe , diabetes mellitus, paroxysmal A Fib on Eliquis, advanced thyroid malignancy, recently discharged from on 11/09/23-had acute on chronic respiratory failure, toxic metabolic
encephalopathy, who presented from [facility] with altered mental status. was found in her chair unresponsive. EMS was called; they noted pupil pinpoint and gave her 2 of Narcan without significant improvement. Pt was admitted for acute on chronic
respiratory failure, started on BIPAP. Pt was made NPO due to hx of silent aspiration. Pt was placed on Heparin drip in lieu of po Eliquis, requiring frequent blood draws. Pt was initially lethargic on admission, noted clearer today. However,
earlier pt was refusing meds and blood draws, became quite paranoid/suspicious, stated the nurse was impersonating her dtr. Pt refused existing med Risperdal 0.5 mg this morning. Since Psychiatry was consulted, pt was able to have a discussion
with the hospitalist, agreed to Speech therapy eval, took Eliquis po. On interview this afternoon, pt is alert, pleasant, cooperative, with sensorium appearing intact. Pt able to discuss her dx of respiratory failure, appears to be aware of her
medical situation. States she wants to live. She does not express any further suspicion about the staff, although she stated she will own part of the hospital- did not elaborate.
PMH: as noted above. Pt on DNR status
Psych hx: none noted, other than TME during recent admission, apparently placed on risperidone then. Noted hx of Dementia on previous admission to
SH: resides in LTC at [facility]
MSE: alert, partially oriented, pleasant, calm, conversant. Speech coherent, thought clear overall, able to state her reason for admission, appears to have some awareness of her fluctuating mental state
Imp: Delirium, due to multiple medical factors, improving. Pt's capacity appears to be limited due to fluctuating mental status from delirium; expect she will need assist from her family with decisions
Noted hx of dementia, type or severity unclear
Rec: continue Risperidone 0.5 mg BID, consider tapering the daytime dose
will follow
[2023-11-19] MEDS: ZYPREXA 5 MG IM (17:03)
[2023-11-19] MEDS: STERILE WATER FOR INJECTION 2.10000000000000009 ML IM (17:03)
--- NOTE | 2023-11-19 17:08 | PTCARENOTE ---
Pt becoming increasingly agitated and angry. Shouting at staff and attempting to climb OOB. When attempted to redirect pt, she becomes more agitated and verbally threatens staff. Dr Lang notified, ordered received for IM Zyprexa, administered as
ordered, see AUG.
[2023-11-19 17:57] LABS: Glucose - Point of Care 86 mg/dl (70-99)
[2023-11-19] MEDS: DIFLUCAN 100 MG PO (18:16)
[2023-11-19 20:53] LABS: Hematocrit 36.8 % (37.0-47.0); Hemoglobin 12.2 g/dL (12.0-16.0); Mean Corp Hgb Conc. 33.2 g/dL (33.0-37.0); Mean Corpuscular Hgb 27.6 pg (27.0-31.0); Mean Corpuscular Volume 83.3 fL (81.0-99.0); Mean Platelet Volume 12.7 fL (7.4-10.4); Platelet Count 132 10^3/uL (130-400); Red Blood Cell Count 4.42 10^6/uL (4.20-5.40); Red Cell Dist. Width 14.5 % (11.5-14.5)
[2023-11-19 21:09] LABS: Blood Urea Nitrogen 61 mg/dl (7-17); Calcium 8.8 mg/dl (8.4-10.2); Carbon Dioxide 30 mmol/L (22-30); Chloride 99 mmol/L (98-107); Estimated Creatinine Clearance 32 ml/min; Glucose 78 mg/dl (70-99); Potassium 4.6 mmol/L (3.5-5.1); Sodium 134 mmol/L (135-145); eGFR 48.94
[2023-11-19 21:18] LABS: Troponin I 0.023 ng/ml
[2023-11-19] MEDS: VISBIOME 1 CAP PO (21:48)
[2023-11-19] MEDS: REFRESH EYE DROPS (PF) 1 DROPS BOTH EYES (21:48)
[2023-11-19] MEDS: AUGMENTIN 500 MG/125 MG 1 TABLET PO (21:48)
[2023-11-19] MEDS: RISPERDAL M-TAB (ORALLY DISINTEGRATING) 0.5 MG PO (21:49)
--- NOTE | 2023-11-19 22:05 | PTCARENOTE ---
Pt received from previous RN. Pt npo with exception of oral meds. Pt took Pm meds crushed with apple sauce. PM labs drawn r/t failure to obtain earlier in the day. Pt remains in ST afib on monitor. Pt satting 98% on 4L. Pt confused, oriented to
self. Pt reoriented to situation. Pt questions intervention frequently, such as asking why she is here. Pt reminded. Bed alarm on, call palumbo in reach. see nursing shift assessment for full head to toe.
[2023-11-20] VITALS (12 sets, daily range): BP systolic 91–138; BP diastolic 43–85; BMI 31.5
[2023-11-20 00:24] LABS: Glucose - Point of Care 75 mg/dl (70-99)
--- NOTE | 2023-11-20 04:41 | PTCARENOTE ---
Attempted to obtain Am labs from Pt. pt refused intervention. attempted to calmly explain purpose. Pt cont to yell saying 'no no no'. RN attempted to gently examine Pts arm to draw labs. Pt aggressively pulled arm away, swatting at RN. Will attempt
to obtain labs again once Pt calms down.
--- NOTE | 2023-11-20 06:24 | PTCARENOTE ---
Attempted to obtain Am labs and coinciding EKG. Pt refused adamantly. Becoming agitated and aggressive, swatting at this RN and back handed this RNs hand.
[2023-11-20 06:33] LABS: Glucose - Point of Care 90 mg/dl (70-99)
[2023-11-20] MEDS: DUONEB 3 ML INH ×3 (07:41→18:03)
[2023-11-20] MEDS: PULMICORT 0.5 MG INH ×2 (07:41→18:03)
[2023-11-20] MEDS: ELIQUIS PO (08:29)
[2023-11-20] MEDS: NEURONTIN 200 MG PO (08:29)
[2023-11-20] MEDS: VISBIOME 1 CAP PO ×2 (08:30→19:46)
[2023-11-20] MEDS: PROTONIX 40 MG PO (08:30)
[2023-11-20] MEDS: REFRESH EYE DROPS (PF) 1 DROPS BOTH EYES ×2 (08:30→19:46)
[2023-11-20] MEDS: ELIQUIS 2.5 MG PO (08:30)
[2023-11-20] MEDS: RISPERDAL M-TAB (ORALLY DISINTEGRATING) 0.5 MG PO ×2 (08:30→19:46)
[2023-11-20] MEDS: AUGMENTIN 500 MG/125 MG 1 TABLET PO ×2 (08:30→19:46)
[2023-11-20] MEDS: DIFLUCAN 100 MG PO (08:30)
[2023-11-20] MEDS: CLARITIN 10 MG PO (08:30)
[2023-11-20] MEDS: DESENEX/MITRAZOL/ZEASORB 1 APPLIC TOPICAL ×2 (08:33→19:46)
--- NOTE | 2023-11-20 09:24 | PTCARENOTE ---
Addendum entered by Delmy Trent 11/20/23 10:39:
Pt refused additional dose of eliquis. She swatted it out of this RN's hands and told this RN to 'shut up and go away'. Dr. Carson notified via TT.
Original Note:
Pt received from manufacturing supervisor 2nd shift. Aox1. Agreeable to take medications this morning, but refusing EKG and labs. Pt agitated with drew care, swatting at staff. Pt redirected and drew care completed. ST at bedside to evaluate pt.
--- NOTE | 2023-11-20 11:35 | W.PN.HOSP.TC ---
Today's Communication/Plan
-
Continue Eliquis
BP still low at times
Patient intermittently agitated
Appreciate pulmonary
Assessment / Plan
Assessment / Plan
Physical Exam
General: Appears Chronically Ill
Respiratory: Clear
Cardiac: S1/S2 and Irregular Rhythm
GI: Soft, Non Tender, Non Distended and Normal Bowel Sounds
Musculoskeletal: No Cyanosis and No Edema
Neuro: Alert. Awake. Able to say her name and how she is feeling.
Psych: Calm

Assessment/Plan
The patient is n 88 yo woman with PMH significant for COPD, CHF, severe , diabetes mellitus, paroxysmal atrial fibrillation on Eliquis, advanced thyroid malignancy, recently discharged from on 11/09/23 due to acute on chronic hypoxic and
hypercapnic respiratory failure secondary to healthcare associated pneumonia and toxic metabolic encephalopathy likely secondary to medications, who presents today from SNF due to altered mental status. She was in her usual state of health this
morning, woke up and was in her wheelchair and ate without any difficulty today, talking to staff, no choking nor aspiration during lunch, and was brought back to her room without incident. She was then found in her chair, passed out and not able to
be aroused. EMS called and on arrival they said she was unresponsive, they noted pupil pinpoint and gave her 2 of Narcan without significant improvement. No known other symptoms, no fever, no chills, no CP, no SOB, no aspiration, no n/v. Of note,
nursing said she had a large normal formed bowel movement this morning. The patient was hypercapnic VBG pCO2 93, pH 7.10, and hypotensive in ED, started on BIPAP.
#Acute Toxic Metabolic Encephalopathy likely due to acute on chronic hypercapnic respiratory failure
#Respiratory Acidosis
#COPD
-Continue BiPAP (okay use with sleep only as patient is now more awake and alert)
-Continue to monitor in IMU
-Baseline oxygen is 3 L NC
-VBG showing hypercapnia with pH 7.1 and pCO2 93 -- although subsequent blood gas showed improvement following BiPAP
-Continue BIPAP 06/04 for now
-Pulmonary consulted, recommendations appreciated
-Duo-Nebs and pulmicort scheduled
#Severe left-sided maxillary sinusitis on CT head imaging from 11/17/2023
-Continue Augmentin 875 mg BID
#JUAN LUIS Creat 1.9, unclear etiology, low blood pressure likely contributing
-IMPROVING --> now creatinine down to 1.1
-received fluid bolus in ED
-repeat BMP in am, monitor, avoid nephrotoxic agents
-bladder scan patient
#Reported Paranoid Behavior
#Delirum
#Dementia
#Agitation
-Continue Risperdal
-Can do 2.5 Zyprexa if needed for agitation, Risperdal prn also ordered
-Consulted psychiatry, recommendations appreciated
#Non ischemic myocardial injury
#Hyperkalemia, mild
-K was 5.3, IMPROVED
-repeat BMP in am
# Per recent hospitalization- history of silent aspiration with thin liquids, moderately thick liquid and mildly thick liquid. No aspiration with pur�e however patient needed maximal cues to swallow. Family recently was in agreement with no feeding
tube and the patient's son confirmed same this admission.
-Keep NPO except medications (in puree), ice chips and sips of water
-Patient's son can consider comfort feeds with puree and thing liquids
-Aspiration precautions; keep HOB elevated >30-45�
-Coughing w/ thin liquids, refused additional PO. No significant change from 11/19/2023. Continue NPO unless family opting for PO for comfort. Video swallow not appropriate at this time.
#Concern for acute on chronic HFpEF
#CXR showed bilateral hyper-attenuation -- concerning for acute volume overload
-CXR improved from recent admission, however with mild interstitial edema
-BP was low, s/p fluid bolus in ED, monitor off fluids for now
-Status post IV Lasix
-On Torsemide 20 mg daily at home
-monitor I/O, daily weights
-Diurese as Cr and BP tolerate
#IDDM -uncontrolled
-Lantus to 15 units at bedtime
-SSI, monitor glucose
#Paroxysmal A-fib
-Continue Eliquis 5 mg BID
-Status post Heparin Drip (was given in lieu of Eliquis)
#advanced thyroid malignancy involving great vessels, without plans for aggressive management nor imaging at this time, discussed with patient's son
#severe - not a TAVR candidate per prior records
-Re-checked TTE as severe could be contributing to CHF -- no significant change from prior TTE in July 2023
-Will consider cardiology consultation
#CAD s/p CABG
#CKD 3b
DVT ppx: Eliquis
Code: DNR confirmed by patient's son
Anticipated Discharge: 24 - 48 hours
Subjective/Interval History
-
Date of Service: November 20, 2023
Patient was seen and examined. She was sleeping, and per patient's nurse she refused all labwork although she did take her morning medications.
Objective Data
-
Labs:
Laboratory Results
11/20/23
06:00
WBC Pending
Hgb Pending
Hct Pending
Plt Count Pending
Sodium Pending
Potassium Pending
Chloride Pending
Carbon Dioxide Pending
BUN Pending
Creatinine Pending
Glucose Pending
Calcium Pending
Total Bilirubin Pending
AST Pending
ALT Pending
Alkaline Phosphatase Pending
Vital Signs:
Vital Signs
Temp Pulse Resp BP Pulse Ox
97.8 F 81 14 94/80 96
11/20/23 07:20 05/22/24 08:00 11/20/23 08:00 11/20/23 08:00 11/20/23 08:00
I&O
11/19/23 11/20/23 11/21/23
06:59 06:59 06:59
Output Total 450 / 450 500 / 500
Balance -450 / -450 -500 / -500
[2023-11-20 12:09] LABS: Glucose - Point of Care 73 mg/dl (70-99)
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
--- NOTE | 2023-11-20 14:04 | PN.CDI ---
CDI
- -
CDI:
Physician Documentation Request
Admit Date: 11/17/23 19:20
Dear Doctor Yamileth,
Clinical Indicators:
Patient admitted with acute on chronic hypercapnic respiratory failure; PMH includes severe aortic stenosis.
BNP 5690
11/16 CXR report: 'Suspected mild acute interstitial and alveolar cardiogenic pulmonary edema.'
11/17 Lasix 40mg IV x 1 dose given.
11/18 PN, 'Chronic HFpEF...-Diurese as Cr and BP tolerate.'
Please provide further specificity regarding the most likely acuity of CHF you are evaluating, treating or monitoring.
Acute on chronic HFpEF
Chronic HFpEF only
Other, please specify
Use of terms such as suspected, likely, concern for, or probable (associated with a specific diagnosis that is being evaluated, monitored, or treated as if it exists) are acceptable and can be coded in the inpatient setting, when documented at the
time of discharge.
Thank you,
ADIS Burr RN
CDI Specialist
available via tiger text
Please use your independent medical judgment in providing your response.
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
--- NOTE | 2023-11-20 17:11 | CM ---
Patient from [facility] with Dx Altered mental status likely due to Acute on chronic hypercapnic respiratory failure. O2 2L. BiPAP. Seen by Psych for delirium. Per nurse assessment; confused, agitated. NPO. GOC discussions with MD
and son.
CM continuing to follow.
Plan return to [facility] when medically ready.
[2023-11-20 17:47] LABS: Venous Blood Gas B.E. 1.1 mmol/L (-4 to +4); Venous Blood Gas HCO3 26.6 mmol/L (22-27); Venous Blood Gas O2 Sat % 99.3 %; Venous Blood Gas pCO2 45 mmHg (35-48); Venous Blood Gas pH 7.38 (7.32-7.43); Venous Blood Gas pO2 147 mmHg (30-50)
[2023-11-20 17:50] LABS: % Basophils 0.2 % (0-2); % Eosinophils 0.2 % (0-6); % Immature Granulocytes 0.3 % (0-0.5); % Lymphocytes 8.2 % (20.5-51.1); % Monocytes 5.5 % (1.7-9.3); % Neutrophils 85.6 % (42.2-75.2); Absolute Lymphocytes 0.5 10^3/uL (1.2-3.4); Absolute Monocytes 0.3 10^3/uL (0.1-0.6); Absolute Neutrophils 5.1 10^3/uL (1.4-6.5); Hematocrit 37.7 % (37.0-47.0); Hemoglobin 11.9 g/dL (12.0-16.0); Mean Corp Hgb Conc. 31.6 g/dL (33.0-37.0); Mean Corpuscular Hgb 27.2 pg (27.0-31.0); Mean Corpuscular Volume 86.3 fL (81.0-99.0); Mean Platelet Volume 12.4 fL (7.4-10.4); Nucleated Red Blood Cells % 0 %; Platelet Count 130 10^3/uL (130-400); Red Blood Cell Count 4.37 10^6/uL (4.20-5.40); Red Cell Dist. Width 14.4 % (11.5-14.5)
--- NOTE | 2023-11-20 17:52 | PTCARENOTE ---
Pt finally agreeable to lab draw. Labs obtained.
[2023-11-20 18:00] LABS: ALT (SGPT) < 10 U/L (0-35); AST (SGOT) 17 U/L (14-36); Albumin 2.4 g/dl (3.5-5.0); Alkaline Phosphatase 63 U/L (38-126); Blood Urea Nitrogen 44 mg/dl (7-17); Calcium 8.8 mg/dl (8.4-10.2); Carbon Dioxide 24 mmol/L (22-30); Chloride 105 mmol/L (98-107); Estimated Creatinine Clearance 42 ml/min; Glucose 62 mg/dl (70-99); Potassium 4.4 mmol/L (3.5-5.1); Sodium 136 mmol/L (135-145); Total Bilirubin 0.8 mg/dl (0.2-1.3); Total Protein 4.8 g/dl (6.3-8.2); eGFR > 60.00
[2023-11-20] MEDS: DEXTROSE 50% SYRINGE 12.5 GRAMS IV (18:24)
[2023-11-20 18:29] LABS: Glucose - Point of Care 60 mg/dl (70-99)
[2023-11-20 18:56] LABS: Glucose - Point of Care 119 mg/dl (70-99)
[2023-11-20] MEDS: ELIQUIS 5 MG PO (19:46)
[2023-11-20 21:16] LABS: Glucose - Point of Care 123 mg/dl (70-99)
[2023-11-20 23:49] LABS: Glucose - Point of Care 108 mg/dl (70-99)
[2023-11-21] VITALS (19 sets, daily range): BP systolic 74–136; BP diastolic 44–115; PULSE 82–96; O2SAT 93–94; BMI 31.2
[2023-11-21 05:34] LABS: % Basophils 0.2 % (0-2); % Eosinophils 0.2 % (0-6); % Immature Granulocytes 0.3 % (0-0.5); % Lymphocytes 9.3 % (20.5-51.1); % Monocytes 6.3 % (1.7-9.3); % Neutrophils 83.7 % (42.2-75.2); Absolute Lymphocytes 0.6 10^3/uL (1.2-3.4); Absolute Monocytes 0.4 10^3/uL (0.1-0.6); Hematocrit 39.2 % (37.0-47.0); Hemoglobin 12.7 g/dL (12.0-16.0); Mean Corp Hgb Conc. 32.4 g/dL (33.0-37.0); Mean Corpuscular Hgb 26.9 pg (27.0-31.0); Mean Corpuscular Volume 83.1 fL (81.0-99.0); Mean Platelet Volume 12.5 fL (7.4-10.4); Nucleated Red Blood Cells % 0 %; Platelet Count 153 10^3/uL (130-400); Red Blood Cell Count 4.72 10^6/uL (4.20-5.40); Red Cell Dist. Width 14.6 % (11.5-14.5)
[2023-11-21 05:42] LABS: Glucose - Point of Care 91 mg/dl (70-99)
[2023-11-21 05:49] LABS: AST (SGOT) 18 U/L (14-36); Albumin 2.6 g/dl (3.5-5.0); Alkaline Phosphatase 74 U/L (38-126); Blood Urea Nitrogen 39 mg/dl (7-17); Calcium 9.1 mg/dl (8.4-10.2); Carbon Dioxide 24 mmol/L (22-30); Chloride 105 mmol/L (98-107); Estimated Creatinine Clearance 42 ml/min; Glucose 91 mg/dl (70-99); Potassium 4.3 mmol/L (3.5-5.1); Sodium 137 mmol/L (135-145); Total Bilirubin 0.8 mg/dl (0.2-1.3); eGFR > 60.00
[2023-11-21 06:03] LABS: ALT (SGPT) < 10 U/L (0-35); Total Protein 5.1 g/dl (6.3-8.2)
--- NOTE | 2023-11-21 06:31 | PTCARENOTE ---
Patient slept in short intervals throughout the night. Mentation waxes and wanes. Pt was able to swallow her pills whole in applesauce. Blood sugar normalized. Refused BiPap. Pt became agitated and demanding strawberry milkshake overnight and coffee
this morning; reminded that she is NPO at this time. Purewick in place. Small incont BM. Bed alarm set. Call palumbo within reach. RN sitting outside closest nurses station.
[2023-11-21] MEDS: DUONEB 3 ML INH ×3 (08:14→19:15)
[2023-11-21] MEDS: PULMICORT 0.5 MG INH ×2 (08:14→19:15)
[2023-11-21] MEDS: PROTONIX 40 MG PO (09:04)
[2023-11-21] MEDS: AUGMENTIN 500 MG/125 MG 1 TABLET PO (09:04)
[2023-11-21] MEDS: VISBIOME 1 CAP PO ×2 (09:05→22:31)
[2023-11-21] MEDS: REFRESH EYE DROPS (PF) 1 DROPS BOTH EYES ×2 (09:05→22:31)
[2023-11-21] MEDS: ELIQUIS 5 MG PO ×2 (09:05→22:31)
[2023-11-21] MEDS: NEURONTIN 200 MG PO (09:05)
[2023-11-21] MEDS: CLARITIN 10 MG PO (09:05)
[2023-11-21] MEDS: RISPERDAL M-TAB (ORALLY DISINTEGRATING) 0.5 MG PO ×2 (09:05→22:31)
[2023-11-21] MEDS: DESENEX/MITRAZOL/ZEASORB 1 APPLIC TOPICAL ×2 (09:06→22:32)
--- NOTE | 2023-11-21 09:36 | PTCARENOTE ---
Assumed care of patient this morning. She is only oriented to herself. She was able to tell me she was in the hospital but she is confused to situation. She is [place] and has hearing aid in L ear. She is pleasant this morning, taking her morning
medications without issue. O2 weaned to 1L, SPO2 93-94%. While sleeping this morning, RN did notice peroids of apnea. Pt has been refusing BiPAP per report this morning. Assessment, care and VS as charted.
--- NOTE | 2023-11-21 10:10 | PTOTSP ---
Speech Language Pathology
Pt seen for dysphagia tx. Initially pleasant, but became more agitated as session progressed. P.O. trials of puree, regular solids, and mildly thick liquids via straw provided. Pt only accepted 1 sip of mildly thick liquids, refusing further,
stating she didn't like it. Slightly prolonged mastication of regular solids noted. No oral difficulty with puree or liquids. No overt signs of aspiration, although limited assessment of liquids.
Deferred thin liquids given results of recent VSEs completed earlier this month when admitted. Thin liquids resulted in penetration to the level of the vocal folds, and pt was placed on mildly thick liquids. Suspect pt will not drink enough
liquids given dislike of thickened liquids, but risk of aspiration present with thin liquids. Can consider repeat VSE once more agreeable (would not participate currently) or advancing liquids if family agreeable to accepting risks of aspiration.
Recommend:
(1) Initiate IDDSI Level 6 (Soft/Bite-Sized) and Mildly-Thick Liquids
(2) Aspiration precautions: sit upright, slow rate, single sips, ensure oral cavity clear post P.O. intake
(3) Allow ice chips per Aspiration Risk Hydration Protocol (ARHP) post oral care given supervision
(4) Meds crushed in puree
(5) ESTATE PLANNER to continue to follow
--- NOTE | 2023-11-21 10:37 | W.PN.HOSP.TC ---
Today's Communication/Plan
-
Okay to transfer to telemetry as patient will need, for now, BiPAP with sleep only
Started IDDSI 6 Diet with thickened liquids as per speech recommendations -- follow aspiration precautions as below
Appreciate pulmonary
Transfer to tele (BiPAP can be done while sleeping in telemetry)
Assessment / Plan
Assessment / Plan
Physical Exam
General: Appears Chronically Ill
Respiratory: Clear
Cardiac: S1/S2 and Irregular Rhythm
GI: Soft, Non Tender, Non Distended and Normal Bowel Sounds
Musculoskeletal: No Cyanosis and No Edema
Neuro: Alert. Awake. Able to say her name and how she is feeling.
Psych: Calm

Assessment/Plan
The patient is n 88 yo woman with PMH significant for COPD, CHF, severe , diabetes mellitus, paroxysmal atrial fibrillation on Eliquis, advanced thyroid malignancy, recently discharged from on 11/09/23 due to acute on chronic hypoxic and
hypercapnic respiratory failure secondary to healthcare associated pneumonia and toxic metabolic encephalopathy likely secondary to medications, who presents today from SNF due to altered mental status. She was in her usual state of health this
morning, woke up and was in her wheelchair and ate without any difficulty today, talking to staff, no choking nor aspiration during lunch, and was brought back to her room without incident. She was then found in her chair, passed out and not able to
be aroused. EMS called and on arrival they said she was unresponsive, they noted pupil pinpoint and gave her 2 of Narcan without significant improvement. No known other symptoms, no fever, no chills, no CP, no SOB, no aspiration, no n/v. Of note,
nursing said she had a large normal formed bowel movement this morning. The patient was hypercapnic VBG pCO2 93, pH 7.10, and hypotensive in ED, started on BIPAP.
#Acute Toxic Metabolic Encephalopathy likely due to acute on chronic hypercapnic respiratory failure
#Respiratory Acidosis
#COPD
-Continue BiPAP (okay use with sleep only as patient is now more awake and alert)
-Okay to transfer to telemetry as patient will need, for now, BiPAP with sleep only
-Baseline oxygen is 3 L NC
-VBG showed hypercapnia with pH 7.1 and pCO2 93 -- although subsequent blood gas showed improvement following BiPAP
-Pulmonary consulted, recommendations appreciated
-Duo-Nebs and pulmicort scheduled
#Severe left-sided maxillary sinusitis on CT head imaging from 11/17/2023
-Completed Augmentin course
#JUAN LUIS Creat 1.9, unclear etiology, low blood pressure likely contributing
-IMPROVING --> now creatinine down to 0.9
-received fluid bolus in ED
-repeat BMP in am, monitor, avoid nephrotoxic agents
-bladder scan patient
#Reported Paranoid Behavior
#Delirum
#Dementia
#Agitation
-Continue Risperdal
-Can do 2.5 Zyprexa if needed for agitation, Risperdal prn also ordered -- per psychiatry, if patient continues to be cooperative and without agitation cutting back the risperdal to 0.25 mg bid and perhaps dc.
-Consulted psychiatry, recommendations appreciated
#Non ischemic myocardial injury
#Hyperkalemia, mild
-K was 5.3, IMPROVED
-repeat BMP in am
# Per recent hospitalization- history of silent aspiration with thin liquids, moderately thick liquid and mildly thick liquid. No aspiration with pur�e however patient needed maximal cues to swallow. Family recently was in agreement with no feeding
tube and the patient's son confirmed same this admission.
-Keep NPO except medications (in puree), ice chips and sips of water
-Patient's son can consider comfort feeds with puree and thing liquids
-Aspiration precautions; keep HOB elevated >30-45�
-November 21, 2023: Swallow follow up on this pt. She can start the same diet she had here earlier (IDDSI 6 and mildly thick liquids). But patient hates the thickened liquids and likely will not drink any. Speech can either look at repeating the video
swallow when she is more agreeable, which would not be today or talking to family about possible risk of aspiration and see if they accept the risks.
-Initiate IDDSI Level 6 (Soft/Bite-Sized) and Mildly-Thick Liquids
-Aspiration precautions: sit upright, slow rate, single sips, ensure oral cavity clear post P.O. intake
-Allow ice chips per Aspiration Risk Hydration Protocol (ARHP) post oral care given supervision
-Meds crushed in puree
-SUGAR TRUCKER to continue to follow
#Concern for acute on chronic HFpEF
#CXR showed bilateral hyper-attenuation -- concerning for acute volume overload
-CXR improved from recent admission, however with mild interstitial edema
-BP was low, s/p fluid bolus in ED, monitor off fluids for now
-Status post IV Lasix
-On Torsemide 20 mg daily at home
-monitor I/O, daily weights
-Diurese as Cr and BP tolerate
#IDDM -uncontrolled
-Lantus to 15 units at bedtime
-SSI, monitor glucose
#Paroxysmal A-fib
-Continue Eliquis 5 mg BID
-Status post Heparin Drip (was given in lieu of Eliquis)
#advanced thyroid malignancy involving great vessels, without plans for aggressive management nor imaging at this time, discussed with patient's son
#severe - not a TAVR candidate per prior records
-Re-checked TTE as severe could be contributing to CHF -- no significant change from prior TTE in July 2023
-Will consider cardiology consultation
#CAD s/p CABG
#CKD 3b
DVT ppx: Eliquis
Code: DNR confirmed by patient's son
Anticipated Discharge: 24 - 48 hours
Subjective/Interval History
-
Date of Service: November 21, 2023
Patient was seen and examined. She was in a better mood today, she denied any new symptoms or complaints.
Objective Data
-
Labs:
Laboratory Results
11/21/23
05:05
WBC 6.0
Hgb 12.7
Hct 39.2
Plt Count 153
Sodium 137
Potassium 4.3
Chloride 105
Carbon Dioxide 24
BUN 39 H
Creatinine 0.9
Glucose 91
Calcium 9.1
Total Bilirubin 0.8
AST 18
ALT < 10
Alkaline Phosphatase 74
Vital Signs:
Vital Signs
Temp Pulse Resp BP Pulse Ox
98.0 F 76 20 114/50 94
11/21/23 07:10 11/21/23 09:04 11/21/23 09:04 11/21/23 09:04 11/21/23 09:33
I&O
11/20/23 11/21/23 11/22/23
06:59 06:59 06:59
Intake Total 120 / 120
Output Total 500 / 500 200 / 200
Balance -500 / -500 -80 / -80
[2023-11-21 11:26] LABS: Glucose - Point of Care 116 mg/dl (70-99)
[2023-11-21] MEDS: NOVOLOG FLEXPEN-MODERATE RESISTANCE SC (11:28)
--- NOTE | 2023-11-21 13:05 | W.PN.UPDATE ---
Update Note
Progress Note Update
chart reviewed. spoke with nursing. i did not waken patient who was sleeping comfortably when i went into her room this am. she is cooperative. at this point she is generally pleasant if confused. she is taking risperdal o.5 mg bid . she has not
required prn. would consider if she continues to be cooperative and without agitation cutting back the risperdal to 0.25 mg bid and perhaps dc. will check in tomorrow with her
--- NOTE | 2023-11-21 15:11 | CM ---
Patient from [facility] with Dx Altered mental status likely due to Acute on chronic hypercapnic respiratory failure. O2 1L. ST - Dysphagia diet. Seen by Psych. Per nurse assessment; confused. PT & OT Evals pending.
Per message from Dr Carson; patient may be medically ready for d/c over the weekend.
Spoke with patient's son Jonathon; he is happy to hear that his mother is eating and is more alert/cooperative. Provided update that PT/OT was ordered. He says that his mother has had PT/OT in the recent past and he says that his mother has been
asking to get OOB. He agrees with d/c back to [facility] once medically ready.
Spoke with Janet, [facility]; they are able to accept the patient back over the weekend/when medically ready. The phone for report [phone], fax [phone]. Janet is aware that PT/OT is ordered.
Plan return to [facility] when medically ready.
[2023-11-21 17:36] LABS: Glucose - Point of Care 151 mg/dl (70-99)
[2023-11-21] MEDS: NOVOLOG FLEXPEN-MODERATE RESISTANCE 1 UNITS SC (18:06)
--- NOTE | 2023-11-21 18:56 | W.PN.PUL3 ---
Today's Communication / Plan
-
Aspiration precautions
Titrate O2 flow rate to maintain SpO2 >88-94%
Psych eval - recs appreciated
NPO except ice chips and sips of water with resumption of GOC discussion once her mentation has improved for >24 hrs - may need to defer to family as unclear when pt's paranoia will resolve
Son is involved in her GOC discussions
[employer] following
BiPAP with sleep
Guarded prognosis
Given the patient's last blood gas looks stable and she is refusing care with waxing and waning mental status with agitation, would recommend goals of care discussion and titrate oxygen flow to maintain SpO2 >88%. If patient does end up going back
to her facility, then she needs to be resumed on her BiPAP with continued nightly use.
No additional pulmonary recommendations at this time. Pulmonary service will now sign off. Please reconsult if there are any additional questions/concerns, or if patient's respiratory status deteriorates.
Assessment
-
Assessment: 88-year-old female former tobacco smoker with a past medical history of who presents from [facility] with unresponsiveness. Patient recently hospitalized here from 10/2805/2024ue to pneumonia complicated by
altered mental status due to toxic�metabolic encephalopathy. Patient was continuing to decline with preparation for family to transition to comfort care when patient suddenly improved. Speech pathology cleared her for diet, steroids were weaned
down to prednisone and she was discharged on 11/08 to jail[facility]SNF to finish off her course of antibiotics and continue with nebulized bronchodilators + budesonide. She now presents with unresponsiveness, found to have a pCO2 of 93, started on
BiPAP and is now in the intermediate medical unit being managed. Pulmonary service consulted for additional recommendations.
Chronic medical additions [employer]: COPD with chronic hypercapnia, hypertension, DM type II, chronic lymphedema, dementia, CAD s/p CABG, A-fib on Eliquis, pneumonia, aortic stenosis
Impression:
Acute on chronic respiratory failure with hypercapnia (baseline pCO2 50s)- suspect this is due to noncompliance versus absence of nocturnal BiPAP; if patient did in fact use her BiPAP then concern is for other process causing hypercapnia (i.e. acute
CHF)
AMS - started on AM of 11/18 with paranoia and refusing care
Severe left maxillary sinusitis (seen on CT head from 11/17/2023)
Abnormal CXR with bilateral infiltrates � appears to be similar distribution from prior CXR on 11/01/2023, and is even improved. Differential also includes acute interstitial edema
Elevated troponin - peaked at 0.036 on 11/17/2023
CO2 narcosis
History of heart failure/HFpEF
Valvular heart disease with moderate-severe , mild-moderate MS + TR
JUAN LUIS on chronic kidney disease, creatinine 1.3
Hyperglycemia
Metabolic alkalosis due to acute on chronic hypercapnea
Conditions present prior admission:
Hypertension
Type 2 diabetes
Peripheral neuropathy
Chronic lower extremity edema
Dementia
Bladder dysfunction
Resident at [facility]
COPD
? Status post CABG-sternotomy wires on [id number] toe disease.
Atrial fibrillation on anticoagulation
There is no mention of alcohol or cigarette use.
Patient on formoterol and budesonide in the outpatient setting-unclear diagnosis.
Plan:
- Difficult to treat her as she is continuing to refuse care with intermittent agitation and paranoia
- Psych recommendations are appreciated
- VBG on AM of 11/20/2023 shows adequate ventilation -- would use BiPAP with sleep if pt will allow us to put it onto her
- Trend VBG to assure pH and pCO2 are stable; titrate O2 flow rate to maintain SpO2 >88%
- Need to figure out if patient was sent home to the nursing facility on nocturnal BiPAP as this would be an easy solution to her hypercapnia
- There does not appear to be a new pneumonia seen on CXR, but she does have severe left-sided maxillary sinusitis on CT head from 11/17/2023 � continue Augmentin and would give a 7 day course
- Her CXR on 11/17/2023 showed bilateral hyper-attenuation and this is concerning for acute volume overload --> diurese as Cr and BP tolerate
- Repeat TTE done on 11/18 was technically difficult as patient was uncooperative. There is normal biventricular size and systolic function without regional WMA, and the moderate to severe persists with mean gradient 23 mmHg and an PATRICIO of 0.4 -no
significant change compared to prior echo done on 07/22/2023
- Maintain MAP >65
- Goal BG>100 and <180
- Neurochecks with each set of VS
- Aspiration precautions; keep HOB elevated >30-45�
- Pt is DNR/DNI --> need to have a goals of care discussion with the family --> I spoke with son, Jonathon, on 11/18 about the patient's clinical status and comfort feeds. It is difficult as the pt now has paranoia with refusal of care, and it is hard
to say if she truly understands that she is an aspiration risk. We agreed to keep her n.p.o. and revisit C once her mentation has improved - he ultimately may need to make a decision for her as it is unclear when her paranoia will fully resolve,
if at all.
- Replete K>4, Mg>2
- PPI (home med)
- DVT ppx
- Guarded prognosis
Given the patient's last blood gas looks stable and she is refusing care with waxing and waning mental status with agitation, would recommend goals of care discussion and titrate oxygen flow to maintain SpO2 >88%. If patient does end up going back
to her facility, then she needs to be resumed on her BiPAP with continued nightly use.
No additional pulmonary recommendations at this time. Pulmonary service will now sign off. Thank you for allowing us to be involved in the care of this patient. Please reconsult if there are any additional questions/concerns, or if patient's
respiratory status deteriorates.
Total time spent today was 35 minutes for this encounter. Time includes reviewing laboratory test/imaging results, reviewing pertinent medical records, obtaining and reviewing medical history, performing an appropriate exam, ordering medications,
tests and procedures. Time also includes documentation of this encounter, coordinating patient care and communicating with other healthcare professionals. Total time does not include separately billed tests performed on this date of service.
Data:
CXR 11/17/2023:
1. Suspected mild acute interstitial and alveolar cardiogenic pulmonary edema.
2. Moderate cardiomegaly with evidence for previous CABG surgery.
3. Mildly decreased bilateral lung volumes with mild subsegmental atelectasis/scarring in the lower lungs.
CT Head 11/17/2023:
1. No CT evidence for acute intracranial hemorrhage or transcortical infarct.
2. 2.1 cm band of encephalomalacia in the left basal ganglia (either secondary to a chronic ischemic infarction or resolved intraparenchymal hemorrhage).
3. Moderate white matter leukoaraiosis in both cerebral hemispheres.
4. Mild to moderate diffuse cerebral and cerebellar volume loss.
5. 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
6. SEVERE LEFT MAXILLARY SINUSITIS.
7. Large chronic 1.6 cm exostosis protruding anteriorly from the left frontal bone.
TTE 11-19-2023:
Technically difficult and limited. The patient was uncooperative.
Normal biventricular size and systolic function without obvious regional wall
motion abnormality.
Mitral sclerosis with mild calcific mitral stenosis.
Moderate to severe aortic stenosis, mean gradient 23 mmHg, PATRICIO 0.4 cmsq, SVI
low at 12 ml/m2.
Moderate tricuspid regurgitation.
Estimated PASP 45-50 mmHg with estimated RA 3 mmHg.
No significant change since the prior study of 07/22/2023 when the mean gradient
across the AoV was 27 mmHg, the mean gradient across was 6 mmHg, and the est
PASP was 55 mmHg.
Former TTE 07/22/2023:
Normal biventricular size and systolic function without regional wall motion
abnormality. Estimated LVEF 60-65%.
Mild concentric left ventricular hypertrophy.
Mild/moderate mitral stenosis. Mean gradient is 6mmHg.
Moderate/severe aortic stenosis. Peak/mean gradients are 43/27mmHg. The valve
area by continuity equation is 0.8cm sq, using a LVOT of 1.8cm.
Mild/moderate tricuspid regurgitation. Moderately elevated PASP. Estimated
pulmonary artery pressure of 55 mmHg.
No prior study available for comparison.
Subjective Data
-
Date of Service:
Date of Service: November 21, 2023
Chief Complaint: Pulmonary Follow Up
Subjective:
Patient seen today. Currently on 0.5 L/min nasal cannula saturating 92%. Sleeping comfortably and still having agitation/confusion from time to time. Heart rate 81 and BP 134/55.
Review of Systems
General: Other (Unable to obtain given patient's clinical status/confusion/AMS)
Objective Data
Data Reviewed
Vital Signs / I&O / Oxygen:
Vital Signs
Temp Pulse Resp BP Pulse Ox
98.5 F 93 26 109/62 94
11/21/23 11:00 11/21/23 18:00 11/21/23 18:00 11/21/23 16:38 11/21/23 18:00
Intake and Output
11/20/23 11/21/23 11/22/23
06:59 06:59 06:59
Intake Total 120 / 120
Output Total 500 / 500 200 / 200
Balance -500 / -500 -80 / -80
SaO2 94
Nasal Cannula flow liters per 0.5
minute
Physical Exam
General: Respiratory Distress (negative) and Comfortable
HEENT: Normocephalic and Anicteric
Cardiovascular: S1-S2, Murmur (+JEIMY heard across precordium) and Peripheral Edema (negative)
Respiratory: Wheeze (negative), Non-Labored Respirations and Other (Coarse breath sounds heard bilaterally)
GI: Soft, Non Distended and Non Tender
Neurology: Other (Sleeping but easily arousable to voice)
Skin: Warm and Dry
Labs/Micro/Reports
Lab Data
11/21/23 05:05
11/21/23 05:05
[2023-11-21] MEDS: TYLENOL 650 MG PO (22:36)
[2023-11-21 22:56] LABS: Glucose - Point of Care 261 mg/dl (70-99)
[2023-11-22] VITALS (8 sets, daily range): BP systolic 94–121; BP diastolic 59–101; PULSE 2–75; BMI 31.4
[2023-11-22 04:20] LABS: Hematocrit 36.2 % (37.0-47.0); Hemoglobin 12.1 g/dL (12.0-16.0); Mean Corp Hgb Conc. 33.4 g/dL (33.0-37.0); Mean Corpuscular Hgb 27.8 pg (27.0-31.0); Mean Corpuscular Volume 83.2 fL (81.0-99.0); Mean Platelet Volume 11.9 fL (7.4-10.4); Platelet Count 142 10^3/uL (130-400); Red Blood Cell Count 4.35 10^6/uL (4.20-5.40); Red Cell Dist. Width 14.6 % (11.5-14.5); White Blood Cell Count 4.6 10^3/uL (4.8-10.8)
--- NOTE | 2023-11-22 05:57 | PTCARENOTE ---
Patient cooperative overnight. Able to state the year and hospital. Agreed to use Bipap for about 4 hours with the nasal mask. Otherwise on 2L NC. Voiding via purewick. Swallowed pills with applesauce w/o s/s of aspiration. Tylenol for
generalized/knee pain. Pt likes ice chips; refusing to drink thickened liquids only wants regular consistency liquids. Small incont soft BM. Complete bed bath this morning, all linens changed, hair washed. Refused some turning/repositioning, and
does not want pillow under legs to float her heels. Tele showing Afib. Call palumbo and tray table within reach.
[2023-11-22] MEDS: DUONEB 3 ML INH ×3 (07:17→16:57)
[2023-11-22] MEDS: PULMICORT 0.5 MG INH (07:17)
[2023-11-22 08:19] LABS: Glucose - Point of Care 214 mg/dl (70-99)
[2023-11-22] MEDS: NOVOLOG FLEXPEN-MODERATE RESISTANCE 3 UNITS SC (08:27)
[2023-11-22] MEDS: ELIQUIS 5 MG PO (08:28)
[2023-11-22] MEDS: REFRESH EYE DROPS (PF) 1 DROPS BOTH EYES (08:28)
[2023-11-22] MEDS: VISBIOME 1 CAP PO (08:28)
[2023-11-22] MEDS: PROTONIX 40 MG PO (08:28)
[2023-11-22] MEDS: RISPERDAL M-TAB (ORALLY DISINTEGRATING) 0.5 MG PO (08:28)
[2023-11-22] MEDS: NEURONTIN 200 MG PO (08:28)
[2023-11-22] MEDS: CLARITIN 10 MG PO (08:28)
[2023-11-22] MEDS: DESENEX/MITRAZOL/ZEASORB 1 APPLIC TOPICAL (08:29)
--- NOTE | 2023-11-22 11:41 | W.PN.UPDATE ---
Update Note
Progress Note Update
patient seen chart reviewed. verónicad w nursing. the patient may be getting fatigued with current dose of risperdal she is cooperative generally at this point . she even seemed to have a sense of humor this am. when i told her i was reducing
risperdal which was prescribed bc she had some days where she was out of sorts she said 'that's an understatement' will cut back to o.25 mg bid instead of o.5 mg bid and would suggest continued taper and dc depeniding on response. of course it can
be reincreased too if need be. psych will look in on her on weekend.
[2023-11-22 11:57] LABS: Glucose - Point of Care 195 mg/dl (70-99)
[2023-11-22] MEDS: NOVOLOG FLEXPEN-MODERATE RESISTANCE 1 UNITS SC ×2 (12:04→17:18)
--- NOTE | 2023-11-22 12:57 | W.PN.HOSP.TC ---
Today's Communication/Plan
-
Discharge today
Assessment / Plan
Assessment / Plan
Physical Exam
General: Appears Chronically Ill
Respiratory: Clear
Cardiac: S1/S2 and Irregular Rhythm
GI: Soft, Non Tender, Non Distended and Normal Bowel Sounds
Musculoskeletal: No Cyanosis and No Edema
Neuro: Alert. Awake. Able to say her name and how she is feeling.
Psych: Calm

Assessment/Plan
The patient is n 88 yo woman with PMH significant for COPD, CHF, severe , diabetes mellitus, paroxysmal atrial fibrillation on Eliquis, advanced thyroid malignancy, recently discharged from on 11/09/23 due to acute on chronic hypoxic and
hypercapnic respiratory failure secondary to healthcare associated pneumonia and toxic metabolic encephalopathy likely secondary to medications, who presents today from SNF due to altered mental status. She was in her usual state of health this
morning, woke up and was in her wheelchair and ate without any difficulty today, talking to staff, no choking nor aspiration during lunch, and was brought back to her room without incident. She was then found in her chair, passed out and not able to
be aroused. EMS called and on arrival they said she was unresponsive, they noted pupil pinpoint and gave her 2 of Narcan without significant improvement. No known other symptoms, no fever, no chills, no CP, no SOB, no aspiration, no n/v. Of note,
nursing said she had a large normal formed bowel movement this morning. The patient was hypercapnic VBG pCO2 93, pH 7.10, and hypotensive in ED, started on BIPAP.
#Acute Toxic Metabolic Encephalopathy likely due to acute on chronic hypercapnic respiratory failure
#Respiratory Acidosis
#COPD
-Continue BiPAP 12/5 cm H20 -- HS and as needed
-Okay to transfer to telemetry as patient will need, for now, BiPAP with sleep only
-Baseline oxygen is 3 L NC
-Titrate O2 flow rate to maintain SpO2 >88%
-VBG showed hypercapnia with pH 7.1 and pCO2 93 -- although subsequent blood gas showed improvement following BiPAP
-Pulmonary consulted, recommendations appreciated
-Duo-Nebs and pulmicort scheduled
#Severe left-sided maxillary sinusitis on CT head imaging from 11/17/2023
-Completed Augmentin course
#JUAN LUIS Creat 1.9, unclear etiology, low blood pressure likely contributing
-IMPROVING --> now creatinine down to 0.9
-received fluid bolus in ED
-Repeat BMP outpatient
#Reported Paranoid Behavior
#Delirum
#Dementia
#Agitation
-Continue Risperdal
-Can do 2.5 Zyprexa if needed for agitation, Risperdal prn also ordered -- per psychiatry, if patient continues to be cooperative and without agitation cutting back the risperdal to 0.25 mg bid and perhaps dc.
-Consulted psychiatry, recommendations appreciated
#Non ischemic myocardial injury
#Hyperkalemia - RESOLVED
-Repeat BMP outpatient
# Per recent hospitalization- history of silent aspiration with thin liquids, moderately thick liquid and mildly thick liquid. No aspiration with pur�e however patient needed maximal cues to swallow. Family recently was in agreement with no feeding
tube and the patient's son confirmed same this admission.
-Keep NPO except medications (in puree), ice chips and sips of water
-Patient's son can consider comfort feeds with puree and thing liquids
-Aspiration precautions; keep HOB elevated >30-45�
-Continue IDDSI Level 6 (Soft/Bite-Sized) and Mildly-Thick Liquids
-Aspiration precautions: sit upright, slow rate, single sips, ensure oral cavity clear post P.O. intake
-Allow ice chips per Aspiration Risk Hydration Protocol (ARHP) post oral care given supervision
-Meds crushed in puree
-Aspiration precautions; keep HOB elevated >30-45�
#Concern for acute on chronic HFpEF
#CXR showed bilateral hyper-attenuation -- concerning for acute volume overload
-CXR improved from recent admission, however with mild interstitial edema
-BP was low, s/p fluid bolus in ED, monitor off fluids for now
-Status post IV Lasix
-On Torsemide 20 mg daily at home
-monitor I/O, daily weights
-Diurese as Cr and BP tolerate
#IDDM -uncontrolled
-Lantus to 15 units at bedtime
-SSI, monitor glucose
#Paroxysmal A-fib
-Continue Eliquis 5 mg BID
-Status post Heparin Drip (was given in lieu of Eliquis)
#advanced thyroid malignancy involving great vessels, without plans for aggressive management nor imaging at this time, discussed with patient's son
#severe - not a TAVR candidate per prior records
-Re-checked TTE as severe could be contributing to CHF -- no significant change from prior TTE in July 2023
-Follow-up with cardiology outpatient
#CAD s/p CABG
#CKD 3b
DVT ppx: Eliquis
Code: DNR confirmed by patient's son
More than 30 minutes spent in discharge including
Final examination of the patient
Summarizing hospital stay
Instructions for continuing care to all relevant caregivers
Preparation of discharge records, prescriptions, and referral forms
Total time spent (in minutes): 43
Anticipated Discharge: Today
Subjective/Interval History
-
Date of Service: November 22, 2023
Patient was seen and examined. She appeared to be in a good mood today, no new significant symptoms or complaints reported.
Objective Data
-
Labs:
Laboratory Results
11/22/23
03:52
WBC 4.6 L
Hgb 12.1
Hct 36.2 L
Plt Count 142
Vital Signs:
Vital Signs
Temp Pulse Resp BP Pulse Ox
97.6 F 115 20 99/70 98
11/22/23 03:43 11/22/23 09:27 11/22/23 09:27 11/22/23 09:27 11/22/23 10:11
I&O
11/21/23 11/22/23 11/23/23
06:59 06:59 06:59
Intake Total 120 / 120 240 / 240
Output Total 200 / 200 550 / 550
Balance -80 / -80 -310 / -310
--- NOTE | 2023-11-22 15:46 | W.DS.TRANS ---
DC Summary - Track [employer]er
-
Discharge Instructions:
Discharge Diagnosis/Procedures #Acute Toxic Metabolic Encephalopathy likely due
to acute on chronic hypercapnic respiratory
failure
#Respiratory Acidosis
#COPD
#History of Silent Aspiration with oral intake
#Severe left-sided maxillary sinusitis on CT
head imaging from 11/17/2023
#Acute Kidney Injury
#Reported Paranoid Behavior
#Delirum
#Dementia
#Agitation
#Non ischemic myocardial injury
#Hyperkalemia - RESOLVED
#Concern for acute on chronic HFpEF
#Chest x-ray showed bilateral hyper-attenuation
-- concerning for acute volume overload
#Diabetes Mellitus
#Paroxysmal A-fib
#Advanced thyroid malignancy involving great
vessels
#Severe - not a TAVR candidate per prior
records
#CAD s/p CABG
#CKD 3b
Diet Other diet,Diabetic, Carb Controlled
Additional Diets Continue IDDSI Level 6 (Soft/Bite-Sized) and
Mildly-Thick Liquids and follow aspiration
precautions
Activity As tolerated
Blood Work Repeat CBC, BMP and Magnesium within 1 week
Other Services PT,OT
Instructions:
Stand-Alone Forms:
Changes to Home Medications: Yes
Discharge Medications:
DC Medications w/original date entered in [employer]
albuterol sulfate 90 mcg/actuation aerosol inhaler 2 puff inhalation R Q4HPRN PRN sob 07/20/23
bisacodyl 10 mg rectal suppository (Dulcolax (bisacodyl)) 10 mg FL DAILYPRN PRN if MOM ineffective 07/20/23
carboxymethylcellulose sodium 1 % eye drops 1 drp BOTH EYES BID dry eyes 07/20/23
fluticasone propionate 50 mcg/actuation nasal spray,suspension (Flonase Allergy Relief) 1 spray intranasal [id number] PRN nasal allergy/congestion 07/20/23
gabapentin 100 mg capsule 200 mg PO DAILY Neurological Condition 07/20/23
guaifenesin 400 mg tablet 400 mg PO Q6HPRN PRN cough 07/20/23
hydralazine 10 mg tablet 10 mg PO Q8H Blood Pressure 07/20/23
nebivolol 2.5 mg tablet 2.5 mg PO DAILY Blood Pressure 07/20/23
polyethylene glycol 3350 17 gram oral powder packet 17 g PO DAILYPRN PRN constipation 07/20/23
sodium phosphates 19 gram-7 gram/118 mL enema (Fleet Enema) 118 ml FL DAILYPRN PRN if dulcolax ineffective 07/20/23
torsemide 20 mg tablet 20 mg PO DAILY Fluid Retention/Swelling 07/20/23
ipratropium 0.5 mg-albuterol 3 mg (2.5 mg base)/3 mL nebulization soln 3 ml inhalation R Q4HPRN PRN SOB/Wheezing #90 mL 07/30/23
acetaminophen 325 mg tablet 650 mg PO Q6HPRN PRN temp>100/mild pain 10/29/23
loratadine 10 mg tablet 10 mg PO DAILY Allergies 10/29/23
magnesium hydroxide 400 mg/5 mL oral suspension (Milk of Magnesia) 30 ml PO [id number] PRN if no BM x 3 days 10/29/23
apixaban 5 mg tablet (Eliquis) 5 mg PO BID #0 tabs 11/09/23
budesonide 0.5 mg/2 mL suspension for nebulization 0.5 mg (2 mL) inhalation R BID #0 mL 11/09/23
Lactobac no.2-Bifidobac no.1-S. thermo 112.5 billion cell capsule (Visbiome) 1 cap PO BID Supplement 11/17/23
insulin glargine U-300 conc 300 unit/mL (3 mL) subcutaneous pen (Toujeo Max U-300 SoloStar) 15 unit SC HS Diabetes 11/17/23
ipratropium 0.5 mg-albuterol 3 mg (2.5 mg base)/3 mL nebulization soln 3 ml inhalation R TID Lung/Breathing Issues 05/19/24
omeprazole 20 mg tablet,delayed release 20 mg PO DAILY GERD 11/17/23
simethicone 80 mg chewable tablet 80 mg PO Q6HPRN PRN gas pains 11/17/23
risperidone 0.5 mg disintegrating tablet 0.25 mg (1/2 x 0.5 mg) PO BID #0 tabs 11/22/23
risperidone 0.5 mg disintegrating tablet 0.25 mg (1/2 x 0.5 mg) PO Q8HPRN PRN agitation #10 tabs 11/22/23
Home Medication Changes
-Scheduled Risperidone reduced to 0.25 mg BID.
-Risperidone 0.25 mg PO Q8H as needed for agitation is new.
-Hydralazine on hold (due to episodes of hypotension), Nebivolol on hold (due to episodes of hypotension) and Glargine Insulin on hold (due to hypoglycemia).
-Augmentin and Fluconazole courses both completed.
Pending Results: No
Total time spent discharging patient (in min): 43
--- NOTE | 2023-11-22 16:10 | CM ---
Patient from [facility] with Dx Altered mental status likely due to Acute on chronic hypercapnic respiratory failure. O2 2L. PT & OT Evals; return to NH, was in PT. Per nurse assessment; forgetful.
Spoke with Janet, [facility]; they are able to accept the patient back today. The phone for report [phone], fax [phone]. 6pm transport time relayed.
Met with patient and her son Jonathon; both agree to d/c today back to [facility] by ambulance. IMM completed.
Plan return to [facility] today by ambulance.
[2023-11-22 16:57] LABS: Glucose - Point of Care 175 mg/dl (70-99)
--- NOTE | 2023-11-22 17:35 | PTCARENOTE ---
Called report to [facility]. Pt currently eating dinner. Pickup time for 1800.
== END 2023-11-22 18:07 | DRG 189 ==
LOC: IMU 19:20
PROVIDERS: Physician Assistant; ADMITTING PHYSICIAN Internal Medicine; ATTENDING PHYSICIAN Hospitalist; CONSULT PHYSICIAN Internal Medicine Critical Care Medicine; CONSULT PHYSICIAN Psychiatry & Neurology Psychiatry; EMERGENCY PHYSICIAN Student in an Organized Health Care Education/Training Program; FAMILY PHYSICIAN Student in an Organized Health Care Education/Training Program
PROC: 5A09357 Assistance with Respiratory Ventilation, Less than 24 Consecutive Hours, Continuous Positive Airway Pressure (ICD-10-PCS; 2023-11-17)
DX: J96.22 Acute and chronic respiratory failure with hypercapnia (principal); G92.8 Other toxic encephalopathy; G93.5 Compression of brain; J18.9 Pneumonia, unspecified organism; I50.33 Acute on chronic diastolic (congestive) heart failure; J44.0 Chronic obstructive pulmonary disease with (acute) lower respiratory infection; I48.20 Chronic atrial fibrillation, unspecified; N17.9 Acute kidney failure, unspecified; E87.4 Mixed disorder of acid-base balance; I13.0 Hypertensive heart and chronic kidney disease with heart failure and stage 1 through stage 4 chronic kidney disease, or unspecified chronic kidney disease; F05 Delirium due to known physiological condition; I5A Non-ischemic myocardial injury (non-traumatic); F03.92 Unspecified dementia, unspecified severity, with psychotic disturbance; F03.911 Unspecified dementia, unspecified severity, with agitation; J96.21 Acute and chronic respiratory failure with hypoxia; N18.32 Chronic kidney disease, stage 3b; E11.22 Type 2 diabetes mellitus with diabetic chronic kidney disease; I48.0 Paroxysmal atrial fibrillation; E11.65 Type 2 diabetes mellitus with hyperglycemia; I95.9 Hypotension, unspecified; J32.0 Chronic maxillary sinusitis; I08.3 Combined rheumatic disorders of mitral, aortic and tricuspid valves; E87.5 Hyperkalemia; E07.9 Disorder of thyroid, unspecified; C73 Malignant neoplasm of thyroid gland; I25.10 Atherosclerotic heart disease of native coronary artery without angina pectoris; I89.0 Lymphedema, not elsewhere classified; E11.40 Type 2 diabetes mellitus with diabetic neuropathy, unspecified; Z66 Do not resuscitate; Z79.4 Long term (current) use of insulin; Z79.01 Long term (current) use of anticoagulants; Z79.51 Long term (current) use of inhaled steroids; Z87.891 Personal history of nicotine dependence; Z95.1 Presence of aortocoronary bypass graft; Z91.199 Patient's noncompliance with other medical treatment and regimen due to unspecified reason
CPT/HCPCS: 51701; 51798; 70450; 71045; 74018; 80048; 80053; 81003; 81015; 82805; 82962; 83880; 84484; 85025; 85027; 85610; 85730; 92526; 92610; 93005; 93306; 94640; 94660; 97162; 97167; 99285; J2358

== ENCOUNTER 2024-01-02 02:54 | Inpatient (IN) | payer MEDICARE, OTHER, SELFPAY ==
[2024-01-01 22:59] VITALS: BP 102/79
[2024-01-01 23:05] VITALS: BMI 40.3
[2024-01-01 23:20] LABS: % Basophils 0.3 % (0-2); % Eosinophils 0.3 % (0-6); % Immature Granulocytes 0.3 % (0-0.5); % Neutrophils 77.1 % (42.2-75.2); Absolute Monocytes 0.4 10^3/uL (0.1-0.6); Absolute Neutrophils 4.6 10^3/uL (1.4-6.5); Hematocrit 31.8 % (37.0-47.0); Mean Corp Hgb Conc. 31.4 g/dL (33.0-37.0); Mean Corpuscular Hgb 27.1 pg (27.0-31.0); Mean Corpuscular Volume 86.2 fL (81.0-99.0); Mean Platelet Volume 11.4 fL (7.4-10.4); Nucleated Red Blood Cells % 0 %; Platelet Count 169 10^3/uL (130-400); Red Blood Cell Count 3.69 10^6/uL (4.20-5.40); Red Cell Dist. Width 15.5 % (11.5-14.5)
[2024-01-01 23:33] LABS: ALT (SGPT) < 10 U/L (0-35); AST (SGOT) 15 U/L (14-36); Albumin 3.1 g/dl (3.5-5.0); Alkaline Phosphatase 72 U/L (38-126); Blood Urea Nitrogen 28 mg/dl (7-17); Calcium 9.1 mg/dl (8.4-10.2); Carbon Dioxide 30 mmol/L (22-30); Chloride 103 mmol/L (98-107); Estimated Creatinine Clearance 33 ml/min; Glucose 138 mg/dl (70-99); Potassium 4.8 mmol/L (3.5-5.1); Sodium 138 mmol/L (135-145); Total Bilirubin 0.7 mg/dl (0.2-1.3); eGFR 44.08
[2024-01-01 23:46] LABS: NT-proBNP 8240 pg/ml; Troponin I < 0.012 ng/ml
[2024-01-02] VITALS (24 sets, daily range): BP systolic 97–149; BP diastolic 52–116; PULSE 2–120; O2SAT 91; BMI 38.5
[2024-01-02] MEDS: LASIX 40 MG IV ×3 (00:21→17:30)
[2024-01-02] MEDS: SOLU-MEDROL PF 125 MG IV (00:59)
[2024-01-02] MEDS: DUONEB 3 ML INH ×4 (00:59→19:36)
--- NOTE | 2024-01-02 02:33 | HPS.HSE ---
Family Physician
-
Family Physician: Dieudonne Paul, DO
Chief Complaint
-
SOB
History of Present Illness
Patient is an 88y F with PMH significant for CHF, COPD and known / necrotic thyroid mass who presents to ED from local [facility] for evaluation of worsening SOB. Patient is typically on 2lpm of oxygen (and BiPAP at HS). Today she seemed more dyspneic
to [facility] staff and her O2 requirements increased. She was sent to the ED for further evaluation. In the ED, patient had O2 saturation into the 70s on 2 lpm and has been increased now to 6 lpm. She is lethargic but arousable at the time of my
examination. She denies any chest pain or palpitations, cough or fevers / chills. She complains of discomfort / tightness in the legs.
Patient denies any other current complaints.
Medical History
Past Medical History
Past Medical History: Reports Other
Additional Past Medical History:
COPD
Chronic Hypoxemic and Hypercapnic Respiratory Failure
HFpEF
DM-II
Senile Dementia with Mood Disturbance
Hypertension
Atrial Fibrillation
Aortic Stenosis
CKD III
Dysphagia
Thyroid Cyst / Mass
Past Surgical History: Reports Other
Additional Past Surgical History:
CABG
Social History
Tobacco: Non-smoker
Alcohol: None
Drug: None
Living: Correction
Family History
Family History: Not pertinent
Allergies / Home Medications
Allergies reflects when Allergies were last updated in [employer]
Home Medications with original date entered in [employer]
Allergy/Medication List:
Allergies
Allergy/AdvReac Type Severity Reaction Status Date / Time
No Known Allergies Allergy Verified 11/17/23 15:19
Home Medications
albuterol sulfate 90 mcg/actuation aerosol inhaler 2 puff inhalation R Q4HPRN PRN sob 07/20/23
bisacodyl 10 mg rectal suppository (Dulcolax (bisacodyl)) 10 mg MS DAILYPRN PRN if MOM ineffective 07/20/23
carboxymethylcellulose sodium 1 % eye drops 1 drp BOTH EYES BID dry eyes 07/20/23
fluticasone propionate 50 mcg/actuation nasal spray,suspension (Flonase Allergy Relief) 1 spray intranasal [id number] PRN nasal allergy/congestion 07/20/23
gabapentin 100 mg capsule 200 mg PO DAILY Neurological Condition 07/20/23
guaifenesin 400 mg tablet 400 mg PO Q6HPRN PRN cough 07/20/23
hydralazine 10 mg tablet 10 mg PO Q8H Blood Pressure 07/20/23
nebivolol 2.5 mg tablet 2.5 mg PO DAILY Blood Pressure 07/20/23
polyethylene glycol 3350 17 gram oral powder packet 17 g PO DAILYPRN PRN constipation 07/20/23
sodium phosphates 19 gram-7 gram/118 mL enema (Fleet Enema) 118 ml MS DAILYPRN PRN if dulcolax ineffective 07/20/23
ipratropium 0.5 mg-albuterol 3 mg (2.5 mg base)/3 mL nebulization soln 3 ml inhalation R Q4HPRN PRN SOB/Wheezing #90 mL 07/30/23
acetaminophen 325 mg tablet 650 mg PO Q6HPRN PRN temp>100/mild pain 10/29/23
loratadine 10 mg tablet 10 mg PO DAILY Allergies 10/29/23
magnesium hydroxide 400 mg/5 mL oral suspension (Milk of Magnesia) 30 ml PO [id number] PRN if no BM x 3 days 10/29/23
apixaban 5 mg tablet (Eliquis) 5 mg PO BID #0 tabs 11/09/23
budesonide 0.5 mg/2 mL suspension for nebulization 0.5 mg (2 mL) inhalation R BID #0 mL 11/09/23
insulin glargine U-300 conc 300 unit/mL (3 mL) subcutaneous pen (Toujeo Max U-300 SoloStar) 15 unit SC HS Diabetes 05/19/24
ipratropium 0.5 mg-albuterol 3 mg (2.5 mg base)/3 mL nebulization soln 3 ml inhalation R TID Lung/Breathing Issues 11/17/23
omeprazole 20 mg tablet,delayed release 20 mg PO DAILY GERD 11/17/23
simethicone 80 mg chewable tablet 80 mg PO Q6HPRN PRN gas pains 11/17/23
loteprednol etabonate 0.5 % eye drops,suspension (Lotemax) 1 drp ophthalmic (eye) BID 01/02/24
Review of Systems
-
History Source: Patient (limited due to lethargy)
A 12 point ROS was completed and negative except as noted: Yes
Constitutional: Denies Fever
Respiratory: Reports Trouble Breathing; Denies Cough
Cardiac: Denies Chest Pain
Musculoskeletal: Reports Edema
Neurological: Denies Headache
Physical Exam
Vital Signs
Vital Signs
Temp Pulse Resp BP Pulse Ox
98.6 F 91 32 137/70 96
01/01/24 22:59 01/02/24 01:45 01/02/24 01:45 01/02/24 01:00 01/02/24 01:45
Physical Exam
General: Other (88y F currently lethargic but arousable to loud / noxious stimuli. Tachypneic / Accessory muscle use.)
HEENT: Moist mucous membranes and Other (Thick neck. No appreciable JVD.)
Respiratory: Other (Decreased BS at both bases. Pos rales throughout remainder of lungs bilaterally. No wheezing.)
Cardiac: S1/S2, Irregular Rhythm and Murmur (III/ JEIMY)
GI: Soft, Non Tender, Non Distended, Normal Bowel Sounds and Other (Obese.)
Musculoskeletal: No Clubbing, No Cyanosis and Other (3-4+ pitting edema b/l LEs to the mid thigh.)
Laboratory Results
-
01/01/24 23:12
01/01/24 23:12
Laboratory Results
Total Bilirubin 0.7 mg/dl (0.2-1.3) 01/01/24 23:12
AST 15 U/L (14-36) 01/01/24 23:12
ALT < 10 U/L (0-35) 01/01/24 23:12
Alkaline Phosphatase 72 U/L (38-126) 01/01/24 23:12
Troponin I < 0.012 ng/ml 01/01/24 23:12
Impression/Plan
-
A/P: Patient is an 88y F with PMH significant for hypoxemic and hypercapnic respiratory failure, COPD and CHF who presents to ED from [facility] for worsening SOB.
Acute on Chronic Hypoxemic and Hypercapnic Respiratory Failure
Acute on Chronic TME secondary to the above
- Admit to IMU for further evaluation and treatment.
- Begin usual BiPAP now and follow for improvement in dyspnea, oxygenation and mental status.
- Check ABG in the AM after BiPAP.
- Treat underlying issues as noted below.
- Continue daytime O2 supplementation with lower SpO2 target.
- Continue BiPAP at HS and PRN.
Acute on Chronic HFpEF
- Weight (if accurate) is up 15kg since last admission (10/2023).
- Certainly patient has marked edema, diffuse rales and pulm edema / effusions seen on CXR.
- BNP increased from prior.
- It does not appear that patient has been on torsemide at the [facility] as was on her prior d/c instructions?
- IV Lasix daily for now.
- Follow I/Os, daily weights, etc.
- Some caution as patient has had issues with JUAN LUIS, hypotension, etc in the setting of aggressive diuresis.
- Cardiology evaluation.
- Follow for clinical improvement.
JUAN LUIS on CKD III
- SCr = 1.2 compared to baseline of 0.9.
- Likely prerenal secondary to CHF as noted above
- Follow for changes with effective diuresis.
- Avoid nephrotoxic medications / hypotension.
ASCVD
- No chest pain. Troponin undetectable.
- EKG with chronic LBBB and no noted changes.
- Continue current CV med regimen.
Paroxysmal Atrial Fibrillation
- Stable. Continue current med regimen including Eliquis for stroke risk reduction.
Normocytic Anemia
- No evidence of active blood loss appreciated.
- I suspect this is a function of volume overload / hemodilution.
- Follow for changes with diuresis as noted above.
- Monitor for any evident bleeding.
COPD without Acute Exacerbation
- Respiratory symptoms seem primarily due to CHF / volume overload.
- Continue usual inhaled medications including budesonide and standing DuoNebs.
- Follow for any changes.
DM-II
- Stable. Continue basal : bolus insulin regimen.
- Update A1C.
Thyroid Lesion
- Seen on prior imaging (July 2023) - most c/w malignancy but question complicated cyst.
- Involvement of great vessels appreciated on prior imaging.
- Patient was initially enrolled in Hospice care following July admission - but this has since been rescinded (or as never actually finalized).
- No plans for further work-up / aggressive intervention.
Senile Dementia with Behavioral Disturbance
- Currently sedate - likely secondary to TME / hypercapnia.
- Follow for changes in mood/ monitor for evidence of acute delirium, etc.
- Previously on risperidone here - though that was not continued at [facility] it appears.
DVT Prophylaxis: On Eliquis
Code Status: DNR
--- NOTE | 2024-01-02 03:14 | ED.GENMED ---
History of Present Illness
General
Chief Complaint: Breathing Problem
Source: patient and records
Exam Limitations: none
Time Seen by Provider: 01/01/24 23:29
Nursing documentation reviewed up to this point in time: agreed with
History of Present Illness
History of Present Illness:
88-year-old female with extensive past medical history as documented notable for COPD, CHF, chronic respiratory failure on home oxygen, chronic kidney disease; she presents to the emergency room from [facility] via EMS for
evaluation of increasing shortness of breath. Patient reports that she has chronic dyspnea that has been steadily increasing over the past 3 weeks. Today she says shortness of breath was worse. She denies any chest pain. She does have mild
chronic cough. She has had increased swelling in the legs bilaterally. She denies any fevers or chills. She denies any GI issues. She denies any other complaints. She does note that they have been increasing her oxygen�previously was on 2 L now
she says she has been on 3L over the past 2 to 3 weeks. Of note: Patient had recent admission in October (11/16 - 11/21) with acute on chronic respiratory failure thought to be related to CHF that improved with gentle diuresis and BiPAP.
Review of Systems
Review of Systems
All Other Systems: ROS reviewed and negative except as documented in HPI and ROS
Constitutional: Denies fever
Respiratory: Reports cough and trouble breathing
Cardiac: Denies chest pain or palpitations
ABD/GI: Denies abdominal pain, nausea or vomiting
: Denies flank pain
Musculoskeletal: Reports edema; Denies neck pain or back pain
Neurological: Denies dizzy or headache
Phy Exam
Physical Exam
Physical Exam:
General: Awake, alert, oriented x3; no acute distress
Head: Normocephalic, atraumatic
Eyes: Conjunctiva normal, EOMI
Throat: Airway intact, handling secretions
Neck: Trachea midline, supple without meningismus
Lungs: Patient has diminished breath sounds at the lung bases, bilateral expiratory wheezing; she is hypoxic requiring 6 L nasal cannula to maintain saturation greater than 88%; she has mild tachypnea but is not in respiratory distress
Heart: Regular rate and rhythm, systolic murmur
Abd: Soft, non distended, nontender
Neuro: No gross deficits
Skin: no rash
Extremities: Bilateral +2 pitting edema in the lower extremities, equal pulses in all extremities
Scores
Heart Failure Risk
Heart Failure Risk Score: Yes
History of Stroke or TIA: No
History of intubation for respiratory distress: No
Heart rate on ED arrival >/= 110: No
SaO2 <90% on arrival on room air: Yes
HR >/=110 during 3min walk test (or too ill to perform test): Yes
ECG has acute ischemic changes: No
Urea >/=12mmol/L (BUN 33.6mg/dL): No
Serum CO2>/=35mmol/L: No
Troponin I or T elevated to RI Level (0.4mg/dL): No
NT-proBNP >/=5,000ng/L (5,000pg/ml): Yes
HF Risk Score: 4
Admission Status: HIGH RISK 26.1% Consider SNF treatment or admission to hospital
Heart Score for Chest Pain Patients
STEMI patient?: Not applicable
Withdrawal Assessment of Alcohol
Withdrawal Assessment Completed?: Not applicable
Course
Orders/Labs/Results
Orders:
Orders
01/01/24 23:04
Electrocardiogram (*1) Urgent
Reason for Study: Other
Other Reason for Exam: Respiratory Distress
Cardiac Monitoring- Treatment ONCE
EKG- Treatment ONCE
IV Insert/Care/Rem.- Treatment PRN
CR Chest - 2 Views Urgent
Comment:
Reason For Exam: respiratory distress
O2 Therapy [RESP] Urgent
Titrate/Wean O2 to maintain O2 sat greater than (%): 93
Special Instructions: TO MAINTAIN CONTINUOUS O2 SATS >/= 93%
Pulse Ox/cont/shift [RESP] Urgent
Quantity: 1
Special Instructions: continuous pulse ox
01/01/24 23:12
Complete Blood Count/With Diff Urgent
Comprehensive Metabolic Panel Urgent
NT-proBNP Urgent
Troponin I Urgent
01/02/24 00:03
Furosemide [Lasix] 40 mg IV NOW STA
01/02/24 00:42
Ipratropium/Albuterol Sulfate [Duoneb] 3 ml INH R NOW ONE
MethylPREDNISolone PF [Solu-Medrol Pf] 125 mg IV NOW STA
01/02/24 02:00
Flush (0.9% Sodium Chloride) [Flush (Nss)] See Dose Instructions IV PER PROTOCOL
01/02/24 02:20
Bipap [RESP] Urgent
Patient to use own unit?: No
Inspiratory Pressure (cm H2O): 12
Expiratory Pressure (cm H2O): 5
Oxygen Liter Flow: 5
Instructions: HS and PRN
01/02/24 02:26
Admit/Transfer Patient As Directed
Co-Sign Provider:
Level of Care: Inpatient admission
Assign to:: IMU- Intermediate Care
Physician / Group: Atul
Diagnosis: Acute Resp Failure, CHF
Reason for Hospitalization: Acute Resp Failure, CHF
Expected length of stay greater than two midnights?: Yes
ELOS- Estimated Length of Stay in days: 4
I certify the patient meets the requirements for IP care: Yes
01/02/24 02:27
Code Status As Directed
Resuscitation Status: Do not resuscitate
Based on pt advanced directive or healthcare POA form: Yes
01/02/24 02:30
DNR Bracelet Application ONCE
Abnormal Lab Results
01/01/24
23:12
RBC 3.69 L 10^6/uL
(4.20-5.40)
Hgb 10.0 L g/dL
(12.0-16.0)
Hct 31.8 L %
(37.0-47.0)
MCHC 31.4 L g/dL
(33.0-37.0)
RDW 15.5 H %
(11.5-14.5)
MPV 11.4 H fL
(7.4-10.4)
Absolute Lymphs (auto) 1.0 L 10^3/uL
(1.2-3.4)
Neutrophils % 77.1 H %
(42.2-75.2)
Lymphocytes % 16.0 L %
(20.5-51.1)
BUN 28 H mg/dl
(7-17)
Creatinine 1.2 H mg/dL
(0.6-1.0)
Glucose 138 H mg/dl
(70-99)
Total Protein 6.0 L g/dl
(6.3-8.2)
Albumin 3.1 L g/dl
(3.5-5.0)
01/01/24 23:12
01/01/24 23:12
Vital Signs
Initial and Last Documented VS:
Initial Vital Signs
Temp Pulse Resp BP Pulse Ox
37.0 C 94 22 102/79 99
01/01/24 22:59 01/01/24 22:59 01/01/24 22:59 01/01/24 22:59 01/01/24 22:59
Last Documented Vital Signs
Temp Pulse Resp BP Pulse Ox
37.0 C 103 27 130/93 86
01/01/24 22:59 01/02/24 02:46 01/02/24 02:46 01/02/24 02:46 01/02/24 02:46
MDM/Problems Addressed
Differential Diagnosis Includes:
CHF exacerbation, COPD exacerbation, pneumonia
MDM/Problems Addressed:
88-year-old female presents for evaluation of progressive shortness of breath, increased lower extremity edema over the past few weeks as well as increased oxygen requirement. Vital signs significant for tachypnea and hypoxia requiring 6 L nasal
cannula to maintain saturations greater than 88%. Physical exam as above. She does have some bilateral wheezing raising question of COPD exacerbation but with increased edema and diminished breath sounds at the lung bases there is some concern for
CHF as well. Will place an IV check labs including a CBC, CMP, BNP, troponin. Will check chest x-ray. Will treat with a DuoNeb and steroid. Reassess after the above.
Labs reviewed: CBC shows mild anemia, CMP shows JUAN LUIS with a creatinine of 1.2 from baseline 0.9. Troponin undetectable. BNP elevated to 8240. Chest x-ray shows pulmonary edema consistent with CHF. Will treat with IV Lasix. Likely some component
of COPD as well, can continue DuoNebs. Will admit for acute on chronic respiratory failure suspect secondary to CHF exacerbation. Discussed with hospitalist.
Chronic conditions affecting care:
CHF, COPD
Acute Exacerbation and/or Progression of Chronic Illness:
Acute COPD exacerbation treated with steroids and DuoNeb
Acute CHF exacerbation treated with Lasix
Acute Exacerbation and/or Progression of Chronic Illness: COPD
*Radiology
Radiology exam reviewed: preliminary read by ED provider
*Pulse Oximetry
Patient hypoxic: yes
*EKG
Interpreted by ED Provider?: Yes
Heart Rate: 104
Rate: tachycardiac
Rhythm: a-fib
[place]: normal axis
Interval: normal interval
QRS Pattern: left bundle branch block
Ischemia: non-specific ST changes
*Critical Care Note
Total Time (30-74mins, 75-104mins- exclusive of procedures): 31
comment:
Critical care statement: A total of 31 minutes of critical care time was provided for this patient. This includes management of unstable vital signs, evaluation of the patient at bedside, frequent reassessment, discussion with
consultants/hospitalist, and review of pertinent medical records. This time was separate from time utilized to perform any aforementioned documented procedures
Data Reviewed
Review of Other/Old Records Reveals: Labs, Records and Discharge Summary
Source: patient, records and ambulance crew
Patient Management
Discussion with other providers: Hospitalist (Discussed with hospitalist)
Escalation/DeEscalation of care consider admission/obs:
Admission indicated
ED Attending Note
-
Portions of this chart may have been created with voice recognition software.� Occasional wrong word or��sound alike� substitutions may have occurred due to the inherent limitations of voice recognition software.
Discharge Plan
Departure
Patient Disposition: Admit
Date of Disposition: 01/02/24
Time of Disposition: 00:43
Admit to doctor: Atul
Presentation/result/management discussed w/ accepting MD/DO: Hospitalist
Discharge Problem:
Acute exacerbation of CHF (congestive heart failure), COPD exacerbation, Acute on chronic hypoxic respiratory failure
Interventions
Interventions:
*Risk Screen - Suicide Last Done: 01/01/24 23:01
*General Assessment Last Done: 01/01/24 23:00
*Neglect/Abuse Screening Last Done: 01/01/24 23:00
*ED COVID-19 Vaccine History Last Done: 01/01/24 23:00
ED- Cardiac Assessment Last Done: 01/01/24 23:17
ED- Pulmonary Assessment Last Done: 01/01/24 23:18
[2024-01-02 03:26] LABS: B.E. 4.4 mmol/L; HCO3 30.3 mmol/L (21-28); O2 Saturation % 92.3 % (94-98); PCO2 50 mmHg (32-35); PO2 60 mmHg (83-108); pH 7.39 (7.35-7.45)
--- NOTE | 2024-01-02 05:12 | PTCARENOTE ---
Patient arrived to room 3345 on 5L. RT placed patient on Bipap. Pt drowsy but arousable; able to state the year and she is at the hospital. Tele applied, Afib HR 80-90s. CHG wipe down done; under bilateral breasts and groin with MASD. Sacrum pink,
intact and blanchable. Bed alarm set. Call palumbo within reach.
[2024-01-02 05:59] LABS: Hematocrit 34.4 % (37.0-47.0); Hemoglobin 10.8 g/dL (12.0-16.0); Mean Corp Hgb Conc. 31.4 g/dL (33.0-37.0); Mean Corpuscular Hgb 27.3 pg (27.0-31.0); Mean Corpuscular Volume 87.1 fL (81.0-99.0); Mean Platelet Volume 12.1 fL (7.4-10.4); Platelet Count 165 10^3/uL (130-400); Red Blood Cell Count 3.95 10^6/uL (4.20-5.40); Red Cell Dist. Width 15.6 % (11.5-14.5); White Blood Cell Count 5.1 10^3/uL (4.8-10.8)
[2024-01-02 06:27] LABS: Blood Urea Nitrogen 29 mg/dl (7-17); Calcium 9.2 mg/dl (8.4-10.2); Carbon Dioxide 28 mmol/L (22-30); Chloride 105 mmol/L (98-107); Estimated Creatinine Clearance 35 ml/min; Glucose 156 mg/dl (70-99); Potassium 4.7 mmol/L (3.5-5.1); Sodium 139 mmol/L (135-145); eGFR 48.94
[2024-01-02 06:33] LABS: Troponin I < 0.012 ng/ml
[2024-01-02] MEDS: PULMICORT 0.5 MG INH ×2 (07:31→19:37)
[2024-01-02 07:40] LABS: Glucose - Point of Care 209 mg/dl (70-99)
--- NOTE | 2024-01-02 08:59 | W.PN.HOSP.TC ---
Today's Communication/Plan
-
see bold
Assessment / Plan
Assessment / Plan
88y F with PMH significant for hypoxemic and hypercapnic respiratory failure, COPD and CHF who presents to ED from [place] for worsening SOB.
Acute on Chronic Hypoxemic and Hypercapnic Respiratory Failure
Acute on Chronic TME secondary to the above
- Currently requiring 15 L of oxygen, wean as tolerated
- Continue BiPAP at HS and PRN.
Acute on Chronic HFpEF
- Weight (if accurate) is up 15kg since last admission (10/2023).
- BNP 8240, CXR shows CHF. Cardiology following
- Increase Lasix to 40 mg IV twice daily, trend creatinine, trend daily weights
JUAN LUIS on CKD III
- Cr 1.1, was 1.2 compared to baseline of 0.9.
- Trend creatinine with diuresis
- Avoid nephrotoxic medications / hypotension.
ASCVD
- EKG with chronic LBBB and no noted changes.
- Continue current CV med regimen.
Paroxysmal Atrial Fibrillation
- Rate intermittently high, change Bystolic to metoprolol 25 mg twice a day, continue Eliquis
Normocytic Anemia
- Suspect from volume overload / hemodilution.
- Trend hemoglobin
COPD without Acute Exacerbation
- Respiratory symptoms seem primarily due to CHF / volume overload.
- Continue usual inhaled medications including budesonide and standing DuoNebs.
DM-II
- A1C 6.6. Continue basal : bolus insulin regimen.
Thyroid Lesion
- Seen on prior imaging (July 2023) - most c/w malignancy but question complicated cyst.
- Patient was initially enrolled in Hospice care following July admission - but this has since been rescinded (or as never actually finalized).
- No plans for further work-up / aggressive intervention.
Senile Dementia with Behavioral Disturbance
- Follow for changes in mood/ monitor for evidence of acute delirium, etc.
- Previously on risperidone here - though that was not continued at [place] it appears.
Bilateral lower extremity itching
-Start triamcinolone ointment for 7 days through 01/08/2024
DVT Prophylaxis: On Eliquis
Code Status: DNR
Total time spent to see the patient on the floor, examine the patient, review data and lab results, discuss treatment plan with patient, nursing staff around 55 minutes.
Physical Exam
General: Morbidly obese, no acute distress
HEENT: Normocephalic, Atraumatic, EOMI, MMM
Respiratory: Bibasilar crackles
Cardiac: Normal S1/S2, Regular Rate and Rhythm
GI: Soft, Nontender, Nondistended, Normal Bowel Sounds
Extremities: No Clubbing, Cyanosis
Severe 3+ bilateral lower extremity edema
Neuro: Nonfocal/Grossly Intact
Psych: Calm, Cooperative
Anticipated Discharge: > 48 hours
Subjective/Interval History
-
Date of Service: January 02, 2024
Patient continues to be severely short of breath. Her heart rate is intermittently fast at times. No fever, no vomiting.
Objective Data
-
Labs:
Laboratory Results
01/01/24 01/02/24 01/02/24
23:12 03:18 05:37
WBC 6.0 5.1
Hgb 10.0 L 10.8 L
Hct 31.8 L 34.4 L
Plt Count 169 165
HCO3 30.3 H
Sodium 138 139
Potassium 4.8 4.7
Chloride 103 105
Carbon Dioxide 30 28
BUN 28 H 29 H
Creatinine 1.2 H 1.1 H
Glucose 138 H 156 H
Calcium 9.1 9.2
Total Bilirubin 0.7
AST 15
ALT < 10
Alkaline Phosphatase 72
01/02/24
06:00
WBC
Hgb
Hct
Plt Count
HCO3 Cancelled
Sodium
Potassium
Chloride
Carbon Dioxide
BUN
Creatinine
Glucose
Calcium
Total Bilirubin
AST
ALT
Alkaline Phosphatase
Vital Signs:
Vital Signs
Temp Pulse Resp BP Pulse Ox
96.9 F L 103 28 147/116 94
01/02/24 07:19 01/02/24 07:41 01/02/24 07:41 01/02/24 06:17 01/02/24 07:41
[2024-01-02] MEDS: BYSTOLIC 2.5 MG PO (09:13)
[2024-01-02] MEDS: ELIQUIS 5 MG PO ×2 (09:13→21:04)
[2024-01-02] MEDS: CLARITIN 10 MG PO (09:13)
[2024-01-02] MEDS: PROTONIX 40 MG PO (09:13)
[2024-01-02] MEDS: NEURONTIN 200 MG PO (09:13)
[2024-01-02] MEDS: REFRESH CELLUVISC GEL 1 DROPS BOTH EYES ×2 (09:13→21:04)
[2024-01-02 09:26] LABS: Glycohemoglobin (HgbA1c) 6.6 % (4.0-5.6)
[2024-01-02] MEDS: NOVOLOG FLEXPEN-LOW RESISTANCE 2 UNITS SC (09:54)
--- NOTE | 2024-01-02 12:02 | CON.CAR ---
Consultation
Consultation Request
Date/Time Consultation Requested: 01/02/2024
Date/Time Consultation Performed: 01/02/2024
Requesting Provider: Dr. Pollard
Performing Provider: Dr. Gonzales
Reason for Consultation: CHF
Medical History
-
Chief Complaint: SOB
History of Present Illness:
88-year-old female with paroxysmal atrial fibrillation (on Eliquis), moderate to severe aortic stenosis, moderate tricuspid regurgitation, chronic LBBB, hypertension, diabetes, COPD, CKD, recently diagnosed necrotic thyroid mass, obesity, and
dementia admitted with shortness of breath; found to be hypoxic on admission. The patient states that she became acutely short of breath on the evening she presented to the hospital; prior to this, she has chronic shortness of breath which had been
at baseline. She also has chronic lower extremity swelling, which she thinks has been progressive recently.
Past Medical History
Past Medical History: Arrhythmias (PAF), COPD, HTN, Renal Failure, Valvular Disease (Aortic stenosis, tricuspid regurgitation) and Other (Recently diagnosed necrotic thyroid mass)
Past Surgical History: Other (Unknown (dementia))
Social History
Tobacco: Non-Smoker
Living: Intermediate
Employment: Retired
Family History
Family History: Unable to Obtain (Dementia, advanced age)
Allergies / Home Medications
Allergy/AdvReac Type Severity Reaction Status Date / Time
No Known Allergies Allergy Verified 11/17/23 15:19
�Medication �Instructions �Recorded �Confirmed �Type
albuterol sulfate 90 mcg/actuation 2 puff inhalation R Q4HPRN PRN sob 07/20/23 01/02/24 History
aerosol inhaler
bisacodyl 10 mg rectal suppository 10 mg [place] DAILYPRN PRN if MOM 07/20/23 01/02/24 History
(Dulcolax (bisacodyl)) ineffective
carboxymethylcellulose sodium 1 % 1 drp BOTH EYES BID dry eyes 07/20/23 01/02/24 History
eye drops
fluticasone propionate 50 1 spray intranasal [id number] PRN 07/20/23 01/02/24 History
mcg/actuation nasal nasal allergy/congestion
spray,suspension (Flonase Allergy
Relief)
gabapentin 100 mg capsule 200 mg PO DAILY Neurological 07/20/23 01/02/24 History
Condition
guaifenesin 400 mg tablet 400 mg PO Q6HPRN PRN cough 07/20/23 01/02/24 History
hydralazine 10 mg tablet 10 mg PO Q8H Blood Pressure 07/20/23 01/02/24 History
nebivolol 2.5 mg tablet 2.5 mg PO DAILY Blood Pressure 07/20/23 01/02/24 History
polyethylene glycol 3350 17 gram 17 g PO DAILYPRN PRN constipation 07/20/23 01/02/24 History
oral powder packet
sodium phosphates 19 gram-7 118 ml [place] DAILYPRN PRN if dulcolax 07/20/23 01/02/24 History
gram/118 mL enema (Fleet Enema) ineffective
ipratropium 0.5 mg-albuterol 3 mg 3 ml inhalation R Q4HPRN PRN 07/30/23 01/02/24 Rx
(2.5 mg base)/3 mL nebulization SOB/Wheezing #90 mL
soln
acetaminophen 325 mg tablet 650 mg PO Q6HPRN PRN temp>100/mild 10/29/23 01/02/24 History
pain
loratadine 10 mg tablet 10 mg PO DAILY Allergies 10/29/23 01/02/24 History
magnesium hydroxide 400 mg/5 mL 30 ml PO [id number] PRN if no BM x 3 10/29/23 01/02/24 History
oral suspension (Milk of Magnesia) days
apixaban 5 mg tablet (Eliquis) 5 mg PO BID #0 tabs 11/09/23 01/02/24 Rx
budesonide 0.5 mg/2 mL suspension 0.5 mg (2 mL) inhalation R BID #0 11/09/23 01/02/24 Rx
for nebulization mL
insulin glargine U-300 conc 300 15 unit SC HS Diabetes 11/17/23 01/02/24 History
unit/mL (3 mL) subcutaneous pen
(Toujeo Max U-300 SoloStar)
ipratropium 0.5 mg-albuterol 3 mg 3 ml inhalation R TID 11/17/23 01/02/24 History
(2.5 mg base)/3 mL nebulization Lung/Breathing Issues
soln
omeprazole 20 mg tablet,delayed 20 mg PO DAILY GERD 11/17/23 01/02/24 History
release
simethicone 80 mg chewable tablet 80 mg PO Q6HPRN PRN gas pains 11/17/23 01/02/24 History
loteprednol etabonate 0.5 % eye 1 drp ophthalmic (eye) BID 01/02/24 01/02/24 History
drops,suspension (Lotemax)
Review of Systems
-
Unable to obtain full review of systems at this time due to: Dementia
Physical Exam
Vital Signs
Temp Pulse Resp BP Pulse Ox
96.9 F L 107 34 107/73 92
01/02/24 07:19 01/02/24 10:00 01/02/24 10:00 01/02/24 10:00 01/02/24 10:10
Lab Results
01/02/24 05:37
01/02/24 05:37
Troponin I Cancelled 01/02/24 16:50
Sws-U-Hbbhchsktez Pept 8240 pg/ml 01/01/24 23:12
Physical Exam
General: No Apparent Distress and Comfortable
HEENT: Normocephalic
Respiratory: Crackles
Cardiac: S1/S2 (Soft S2), Irregular Rhythm, Murmur (3/6) and Peripheral Edema (3+)
Breast: Deferred by me
GI: Soft
Rectal: Deferred by Provider
Musculoskeletal: Edema (3+)
Skin: Warm
Neuro: Awake and Alert
Psych: Calm
Impression / Plan
-
88-year-old female with paroxysmal atrial fibrillation (on Eliquis), moderate to severe aortic stenosis, moderate tricuspid regurgitation, chronic LBBB, hypertension, diabetes, COPD, CKD, recently diagnosed necrotic thyroid mass, obesity, and
dementia admitted with shortness of breath; found to be hypoxic on admission. The patient states that she became acutely short of breath on the evening she presented to the hospital; prior to this, she has chronic shortness of breath which had been
at baseline. She also has chronic lower extremity swelling, which she thinks has been progressive recently.
SOB:
-Likely secondary to cardiac and pulmonary causes.
Acute on chronic HFpEF (secondary to valvular heart disease and CKD):
-BNP 8240.
-Echocardiogram on 11/19/2023: EF 55-60%, moderate to severe , moderate TR.
-Patient is not on a standing diuretic at home.
-Continue Lasix 40 mg IV BID for now; patient will need a standing diuretic at home, despite renal insufficiency.
Moderate to severe aortic stenosis/moderate tricuspid regurgitation:
-Volume management with Lasix as above.
-Likely poor candidate for TAVR, given necrotic thyroid mass.
Paroxysmal atrial fibrillation (on Eliquis):
-On metoprolol tartrate; continue for now--monitor lung status.
-On Eliquis.
Chronic LBBB:
-Relatively stable at baseline.
Hypertension:
-Controlled.
-Continue current dose of metoprolol tartrate.
-Continue Lasix as above.
COPD:
-Management as per primary team.
CKD:
-Monitor renal function with diuresis.
Obesity:
-Weight loss recommended.
Diabetes:
-Hemoglobin A1c 6.6%.
-Management as per primary team.
Data Reviewed
-
EKG: Report Reviewed by me (Atrial fibrillation at 93 bpm with left bundle branch block.)
Medical Tests (Nuc Med, Echo etc): Report Reviewed by me (Transthoracic echocardiogram (11/19/2023): EF 55-60%, moderate to severe , moderate TR.) and Discussed with Family (Son, at bedside)
Labs: Labs Reviewed by me
[2024-01-02] MEDS: LOPRESSOR 25 MG PO ×2 (12:31→21:02)
[2024-01-02] MEDS: TRIAMCINOLONE 0.1% OINTMENT 1 APPLIC TOPICAL ×2 (12:31→21:04)
[2024-01-02] MEDS: NOVOLOG FLEXPEN-LOW RESISTANCE 3 UNITS SC (12:32)
[2024-01-02 12:40] LABS: Glucose - Point of Care 286 mg/dl (70-99)
--- NOTE | 2024-01-02 12:48 | PTCARENOTE ---
Pt presents as assessed. Afib on tele monitor, rates in low 100's. Sating low to mid 90's on 15L MF. OOB to chair with PT. Son at bedside, updated on plan of care.
[2024-01-02] MEDS: NOVOLOG FLEXPEN-LOW RESISTANCE 4 UNITS SC (17:30)
[2024-01-02 17:40] LABS: Glucose - Point of Care 323 mg/dl (70-99)
[2024-01-02] MEDS: TYLENOL 650 MG PO (21:08)
[2024-01-02 21:39] LABS: Glucose - Point of Care 280 mg/dl (70-99)
[2024-01-02] MEDS: LANTUS 0.12 UNITS SC (21:57)
[2024-01-03] VITALS (18 sets, daily range): BP systolic 88–119; BP diastolic 43–73; PULSE 2–91; O2SAT 96; BMI 39.8
[2024-01-03 06:21] LABS: Hematocrit 35.6 % (37.0-47.0); Hemoglobin 10.5 g/dL (12.0-16.0); Mean Corp Hgb Conc. 29.5 g/dL (33.0-37.0); Mean Corpuscular Hgb 26.8 pg (27.0-31.0); Mean Corpuscular Volume 90.8 fL (81.0-99.0); Mean Platelet Volume 12.5 fL (7.4-10.4); Platelet Count 169 10^3/uL (130-400); Red Blood Cell Count 3.92 10^6/uL (4.20-5.40); Red Cell Dist. Width 15.3 % (11.5-14.5); White Blood Cell Count 6.4 10^3/uL (4.8-10.8)
[2024-01-03 06:52] LABS: Blood Urea Nitrogen 41 mg/dl (7-17); Calcium 9.4 mg/dl (8.4-10.2); Carbon Dioxide 31 mmol/L (22-30); Chloride 103 mmol/L (98-107); Estimated Creatinine Clearance 28 ml/min; Glucose 154 mg/dl (70-99); Phosphorus 5.1 mg/dl (2.5-4.5); Potassium 4.8 mmol/L (3.5-5.1); Sodium 139 mmol/L (135-145); eGFR 36.64
[2024-01-03 07:28] LABS: Glucose - Point of Care 135 mg/dl (70-99)
[2024-01-03] MEDS: DUONEB 3 ML INH ×3 (07:31→20:16)
[2024-01-03] MEDS: PULMICORT 0.5 MG INH ×2 (07:31→20:16)
--- NOTE | 2024-01-03 08:46 | W.PN.HOSP.TC ---
Today's Communication/Plan
-
see bold
Assessment / Plan
Assessment / Plan
88y F with PMH significant for hypoxemic and hypercapnic respiratory failure, COPD and CHF who presents to ED from [place] for worsening SOB.
Acute on Chronic Hypoxemic and Hypercapnic Respiratory Failure
Acute on Chronic TME secondary to the above
- Currently requiring 10 L of oxygen, down from 15, wean as tolerated. She wears 2 L at baseline
- Continue BiPAP at HS and PRN.
Acute on Chronic HFpEF
- Weight (if accurate) is up 15kg since last admission (10/2023).
- BNP 8240, CXR shows CHF. Cardiology following
- Continue Lasix to 40 mg IV twice daily, trend creatinine, trend daily weights
JUAN LUIS on CKD III
Cardiorenal syndrome
- Cr 1.4, was 1.1, was 1.2 compared to baseline of 0.9.
- Trend creatinine with diuresis
- Avoid nephrotoxic medications / hypotension.
ASCVD
- EKG with chronic LBBB and no noted changes.
- Continue current CV med regimen.
Paroxysmal Atrial Fibrillation
- Heart rate now controlled with changing Bystolic to metoprolol 25 mg twice a day, continue Eliquis
Normocytic Anemia
- Suspect from volume overload / hemodilution.
- Trend hemoglobin
COPD without Acute Exacerbation
- Respiratory symptoms seem primarily due to CHF / volume overload.
- Continue usual inhaled medications including budesonide and standing DuoNebs.
DM-II
- A1C 6.6. Continue Lantus 12 units at bedtime, added NovoLog 4 units AC 3 times daily
Thyroid Lesion
- Seen on prior imaging (July 2023) - most c/w malignancy but question complicated cyst.
- Patient was initially enrolled in Hospice care following July admission - but this has since been rescinded (or as never actually finalized).
- No plans for further work-up / aggressive intervention.
Senile Dementia with Behavioral Disturbance
- Follow for changes in mood/ monitor for evidence of acute delirium, etc.
- Previously on risperidone here - though that was not continued at [place] it appears.
Bilateral lower extremity itching
-Start triamcinolone ointment for 7 days through 01/08/2024
DVT Prophylaxis: On Eliquis
Code Status: DNR
Total time spent to see the patient on the floor, examine the patient, review data and lab results, discuss treatment plan with patient, nursing staff around 51 minutes.
Physical Exam
General: Morbidly obese, no acute distress
HEENT: Normocephalic, Atraumatic, EOMI, MMM
Respiratory: Bibasilar crackles
Cardiac: Normal S1/S2, irregularly irregular
GI: Soft, Nontender, Nondistended, Normal Bowel Sounds
Extremities: No Clubbing, Cyanosis
Severe 3+ bilateral lower extremity edema
Neuro: Nonfocal/Grossly Intact
Psych: Calm, Cooperative
Anticipated Discharge: > 48 hours
Subjective/Interval History
-
Date of Service: January 02, 2024
Patient's breathing is mildly improved. No fever, no vomiting.
Objective Data
-
Labs:
Laboratory Results
01/02/24 01/02/24
05:37 06:00
WBC 5.1
Hgb 10.8 L
Hct 34.4 L
Plt Count 165
HCO3 Cancelled
Sodium 139
Potassium 4.7
Chloride 105
Carbon Dioxide 28
BUN 29 H
Creatinine 1.1 H
Glucose 156 H
Calcium 9.2
Vital Signs:
Vital Signs
Temp Pulse Resp BP Pulse Ox
97.5 F 83 18 124/77 100
01/02/24 11:18 01/02/24 14:50 01/02/24 14:50 01/02/24 12:32 01/02/24 14:50
--- NOTE | 2024-01-03 09:32 | W.PN.CD ---
Today's Communication / Plan
-
Continue diuresis.
GoC?
Impression / Plan
-
Impression/Plan: 88-year-old female with paroxysmal atrial fibrillation (on Eliquis), moderate to severe aortic stenosis, moderate tricuspid regurgitation, chronic LBBB, hypertension, diabetes, COPD, CKD, recently diagnosed necrotic thyroid mass,
obesity, chronic LE edema and dementia admitted with shortness of breath found to be in acute on chronic HFpEF.
#SOB/hypoxic respiratory failure
-Acute on chronic.
-Multifactorial.
-Likely secondary to cardiac and pulmonary causes. ABG = 7.39/50/60
#HFpEF
-Acute on chronic.
-Secondary to valvular heart disease and CKD.
-BNP 8240.
-Echocardiogram on 11/19/2023: EF 55-60%, moderate to severe , moderate TR.
-Patient is not on a standing diuretic at home.
-Continue furosemide 40 mg IV BID for now. The patient will need a standing diuretic at home, despite renal insufficiency.
#JUAN LUIS
-Acute on chronic.
-Creatinine 1.4 (from 1.1).
-Visibly volume overloaded. This is likely cardiorenal.
-Continue diuretics.
#Moderate to severe aortic stenosis/moderate tricuspid regurgitation
-Chronic.
-Volume management with furosemide as above.
-Likely poor candidate for TAVR, given necrotic thyroid mass.
#Paroxysmal atrial fibrillation (on Eliquis)
-Currently in atrial fibrillation with controlled ventricular response.
-Rate control with metoprolol.
-CHADS2-Vasc = 5 (CHF, HTN, Age x2, Female).
-Therapeutic anticoagulation with apixaban.
#Advanced thyroid malignancy
-Chronic.
#Chronic LBBB:
-Relatively stable at baseline.
#Hypertension:
-Controlled.
-Continue current dose of metoprolol tartrate.
-Continue furosemide as above.
#COPD:
-Management as per primary team.
#Obesity:
-Weight loss recommended.
#Diabetes:
-Hemoglobin A1c 6.6%.
-Management as per primary team.
Subjective/Interval History:
Requiring 15L midflow.
Weight is up 13.9 kg from 11/22/2023 (89.2 kg <-- 75.3 kg).
DATA:
TTE, 11/19/2023:
CONCLUSIONS
Technically difficult and limited. The patient was uncooperative.
Normal biventricular size and systolic function without obvious regional wall
motion abnormality.
Mitral sclerosis with mild calcific mitral stenosis.
Moderate to severe aortic stenosis, mean gradient 23 mmHg, PATRICIO 0.4 cmsq, SVI
low at 12 ml/m2.
Moderate tricuspid regurgitation.
Estimated PASP 45-50 mmHg with estimated RA 3 mmHg.
No significant change since the prior study of 07/22/2023 when the mean gradient
across the AoV was 27 mmHg, the mean gradient across was 6 mmHg, and the est
PASP was 55 mmHg.
Physical Exam
Vital Signs/Labs
Vital Signs
Temp Pulse Resp BP Pulse Ox
36.4 C 76 18 100/58 97
01/03/24 07:11 01/03/24 08:15 01/03/24 08:15 01/03/24 07:13 01/03/24 08:15
01/01/24 01/02/24 01/03/24
11:59 11:59 11:59
Actual Weight 86.3 kg 89.2 kg
01/03/24 05:47
01/03/24 05:47
Magnesium 2.0 mg/dl (1.6-2.3) 01/03/24 05:47
01/01/24
23:12
Ygb-T-Upkfvcaijqu Pept 8240
LAB Results
01/01/24 01/02/2401/01/24
23:12 05:37 10:50
Troponin I < 0.012 < 0.012 Cancelled
01/02/24
16:50
Troponin I Cancelled
Physical Exam
Constitutional: No acute distress and Comfortable
EENT: Anicteric and Moist mucous membranes
Cardiovascular: Rhythm & rate is regular, Pedal edema present and Systolic murmur present
Respiratory: Respiratory effort normal and Other (Decreased throughout.)
GI: Soft, Distention absent, Flat, Non tender and Normal bowel sounds
Neuro/Psych: Alert
Data Reviewed
-
Date of Service: January 03, 2024
Medical Decision Making: Reviewed Test Results, Independent Historian Assessment, Test Interpretation and Review of Case with other Provider
EKG: Tracing Personally Visualized and interpreted and Report Reviewed by me
Echo: Report Reviewed by me
X-Ray/CT/US/MRI/NUC/PET: Image Personally Visualized and interpreted and Report Reviewed by me
Labs: Labs Reviewed by me
Old Records: Reviewed
[2024-01-03] MEDS: NEURONTIN 200 MG PO (10:00)
[2024-01-03] MEDS: CLARITIN 10 MG PO (10:00)
[2024-01-03] MEDS: NOVOLOG FLEXPEN-LOW RESISTANCE SC ×2 (10:00→18:12)
[2024-01-03] MEDS: REFRESH CELLUVISC GEL 1 DROPS BOTH EYES ×2 (10:03→19:24)
[2024-01-03] MEDS: PROTONIX 40 MG PO (10:03)
[2024-01-03] MEDS: TRIAMCINOLONE 0.1% OINTMENT 1 APPLIC TOPICAL ×2 (10:04→19:25)
[2024-01-03] MEDS: LOPRESSOR 25 MG PO ×2 (10:08→19:24)
[2024-01-03] MEDS: ELIQUIS 5 MG PO ×2 (10:23→19:24)
[2024-01-03] MEDS: TYLENOL 650 MG PO ×2 (10:23→20:32)
[2024-01-03] MEDS: LASIX 40 MG IV ×2 (10:39→16:51)
[2024-01-03] MEDS: FLUSH (NSS) 1 FLUSH IV (10:40)
[2024-01-03 12:31] LABS: Glucose - Point of Care 155 mg/dl (70-99)
[2024-01-03] MEDS: NOVOLOG FLEXPEN-LOW RESISTANCE 1 UNITS SC (12:44)
[2024-01-03] MEDS: NOVOLOG FLEXPEN 4 UNITS SC ×2 (12:49→18:13)
[2024-01-03] MEDS: FLUSH (NSS) 2 FLUSH IV (16:52)
[2024-01-03 17:31] LABS: Glucose - Point of Care 127 mg/dl (70-99)
--- NOTE | 2024-01-03 18:17 | PTCARENOTE ---
Patient out of bed stephanie chair for most of the day. Chair alarm and bed alarm in use. Patient alert and oriented. Can be very forgetful. Hard of hearing, aide in left ear. Patient weaned to 8L midflow. Sp02 98-100%. Patient short of breath with
exertion. Afib on monitor with HR 70-80's. VS stable.
--- NOTE | 2024-01-03 20:19 | PTCARENOTE ---
Pt received at beginning of shift sitting up chair. AAOx3. Drowsy. Very [place]. Requesting to get back to bed. RT giving breathing treatment currently. VSS. Afib on CM. Afebrile. +2 LE edema. Requesting Tylenol for arthritis. Will give when RT finished
with pt. Purewick intact draining dark yellow urine. POX 99% on 8L MF. Will continue to wean if able. Tachypneic with activity. Lungs shallow, coarse, EW, diminished. Rest of assessment as documented. Maintained on Q2hr turns. Call palumbo remains
within reach. Will continue to monitor.
[2024-01-03 21:24] LABS: Glucose - Point of Care 172 mg/dl (70-99)
[2024-01-03] MEDS: LANTUS 0.12 UNITS SC (21:32)
[2024-01-04] VITALS (13 sets, daily range): BP systolic 106–144; BP diastolic 48–94; PULSE 2–93; BMI 38.7
[2024-01-04 04:55] LABS: Hematocrit 35.4 % (37.0-47.0); Hemoglobin 10.6 g/dL (12.0-16.0); Mean Corp Hgb Conc. 29.9 g/dL (33.0-37.0); Mean Corpuscular Hgb 27.2 pg (27.0-31.0); Mean Corpuscular Volume 90.8 fL (81.0-99.0); Mean Platelet Volume 12.5 fL (7.4-10.4); Platelet Count 160 10^3/uL (130-400); Red Cell Dist. Width 15.5 % (11.5-14.5); White Blood Cell Count 5.7 10^3/uL (4.8-10.8)
[2024-01-04 05:20] LABS: Blood Urea Nitrogen 48 mg/dl (7-17); Calcium 9.2 mg/dl (8.4-10.2); Carbon Dioxide 29 mmol/L (22-30); Chloride 103 mmol/L (98-107); Estimated Creatinine Clearance 28 ml/min; Glucose 80 mg/dl (70-99); Potassium 4.6 mmol/L (3.5-5.1); Sodium 139 mmol/L (135-145); eGFR 36.64
[2024-01-04 07:37] LABS: Glucose - Point of Care 131 mg/dl (70-99)
[2024-01-04] MEDS: PULMICORT 0.5 MG INH ×2 (07:52→17:41)
[2024-01-04] MEDS: DUONEB 3 ML INH ×3 (07:52→17:41)
--- NOTE | 2024-01-04 08:07 | W.PN.HOSP.TC ---
Today's Communication/Plan
-
see bold
Assessment / Plan
Assessment / Plan
88y F with PMH significant for hypoxemic and hypercapnic respiratory failure, COPD and CHF who presents to ED from [place] for worsening SOB.
Acute on Chronic Hypoxemic and Hypercapnic Respiratory Failure
Acute on Chronic TME secondary to the above
- Currently requiring 4 L, was 10 L of oxygen, down from 15, wean as tolerated. She wears 2 L at baseline
- Continue BiPAP at HS and PRN.
Acute on Chronic HFpEF
- Weight (if accurate) is up 15kg since last admission (10/2023).
- BNP 8240, CXR shows CHF. Cardiology following
- Continue Lasix to 40 mg IV twice daily, trend creatinine, trend daily weights
Acute toxic metabolic encephalopathy/hospital delirium
� Dementia ruled out, son states that normally she is not confused
- Continue supportive care, redirection as needed
JUAN LUIS on CKD III
Cardiorenal syndrome
- Cr 1.4, was 1.4, 1.1, was 1.2 compared to baseline of 0.9.
- Trend creatinine with diuresis
- Avoid nephrotoxic medications / hypotension.
ASCVD
- EKG with chronic LBBB and no noted changes.
- Continue current CV med regimen.
Paroxysmal Atrial Fibrillation
- Heart rate now controlled with changing Bystolic to metoprolol 25 mg twice a day, continue Eliquis
Normocytic Anemia
- Suspect from volume overload / hemodilution.
- Trend hemoglobin
COPD without Acute Exacerbation
- Respiratory symptoms seem primarily due to CHF / volume overload.
- Continue usual inhaled medications including budesonide and standing DuoNebs.
DM-II
- A1C 6.6. Continue Lantus 12 units at bedtime, added NovoLog 4 units AC 3 times daily
Known Malignant Thyroid Lesion
- Seen on prior imaging (July 2023) - most c/w malignancy but question complicated cyst.
- Patient was initially enrolled in Hospice care following July admission - but this has since been rescinded (or as never actually finalized).
- Patient had decided that she does not want further workup or interventions in the past
Bilateral lower extremity itching
-Started triamcinolone ointment for 7 days through 01/08/2024
DVT Prophylaxis: On Eliquis
Code Status: DNR
Updated son Ben on phone 01/03
Total time spent to see the patient on the floor, examine the patient, review data and lab results, discuss treatment plan with patient, nursing staff around 51 minutes.
Physical Exam
General: Morbidly obese, no acute distress
HEENT: Normocephalic, Atraumatic, EOMI, MMM
Respiratory: Bibasilar crackles
Cardiac: Normal S1/S2, irregularly irregular
GI: Soft, Nontender, Nondistended, Normal Bowel Sounds
Extremities: No Clubbing, Cyanosis
Severe 3+ bilateral lower extremity edema
Neuro: Nonfocal/Grossly Intact
Psych: Calm, Cooperative
Anticipated Discharge: 24 - 48 hours
Subjective/Interval History
-
Date of Service: January 04, 2024
Continues to be short of breath. No fever, no vomiting.
Objective Data
-
Labs:
Laboratory Results
01/04/24
04:23
WBC 5.7
Hgb 10.6 L
Hct 35.4 L
Plt Count 160
Sodium 139
Potassium 4.6
Chloride 103
Carbon Dioxide 29
BUN 48 H
Creatinine 1.4 H
Glucose 80
Calcium 9.2
Vital Signs:
Vital Signs
Temp Pulse Resp BP Pulse Ox
97.6 F 88 18 123/61 94
01/04/24 07:22 01/04/24 07:56 01/04/24 07:56 01/04/24 04:00 01/04/24 07:56
I&O
01/03/24 01/04/24 01/05/24
06:59 06:59 06:59
Intake Total 1515 / 1515
Output Total 550 / 550 825 / 825
Balance -550 / -550 690 / 690
[2024-01-04] MEDS: NOVOLOG FLEXPEN-LOW RESISTANCE SC ×3 (08:46→18:15)
[2024-01-04] MEDS: NOVOLOG FLEXPEN 4 UNITS SC ×3 (08:46→18:15)
[2024-01-04] MEDS: LASIX 40 MG IV ×2 (08:54→18:39)
[2024-01-04] MEDS: TYLENOL 650 MG PO ×2 (09:15→21:11)
[2024-01-04] MEDS: LOPRESSOR 25 MG PO ×2 (09:15→21:07)
--- NOTE | 2024-01-04 09:15 | W.PN.CD ---
Today's Communication / Plan
-
Continue IV Diuresis
Weights may be less accurate as bed scale being used
Anticipate home on daily loop diuretic
Impression / Plan
-
Background: 88-year-old female with paroxysmal atrial fibrillation (on Eliquis), moderate to severe aortic stenosis, moderate tricuspid regurgitation, chronic LBBB, hypertension, diabetes, COPD, CKD, recently diagnosed necrotic thyroid mass,
obesity, chronic LE edema and dementia admitted with shortness of breath found to be in acute on chronic HFpEF.
SOB/hypoxic respiratory failure
-Acute on chronic.
-Multifactorial.
-Likely secondary to cardiac and pulmonary causes. ABG = 7.
HFpEF
-Acute on chronic.
-Secondary to valvular heart disease and CKD.
-BNP 8240.
-Patient is not on a standing diuretic at home.
-Continue furosemide 40 mg IV BID for now. The patient will need a standing diuretic at home, despite renal insufficiency.
Acute on chronic CKD/JUAN LUIS
-Creatinine 1.4 (from 1.1).
-Visibly volume overloaded. This is likely cardiorenal.
-Continue diuretics.
Moderate to severe aortic stenosis/moderate tricuspid regurgitation
-Chronic.
-Volume management with furosemide as above.
-Likely poor candidate for TAVR, given necrotic thyroid mass.
Paroxysmal atrial fibrillation (on Eliquis)
-Currently in atrial fibrillation with controlled ventricular response.
-Rate control with metoprolol.
-CHADS2-Vasc = 5 (CHF, HTN, Age x2, Female).
-Therapeutic anticoagulation with apixaban.
Advanced thyroid malignancy
-Chronic.
Chronic LBBB
Hypertension
COPD
Obesity
Diabetes, Hemoglobin A1c 6.6%.
Subjective/Interval History:
Requiring 15L midflow.
Weight is up 13.9 kg from 11/22/2023 (89.2 kg <-- 75.3 kg).
Today weight 86.8 kg
Data: Echo 11/19/2023: (TDS): Nml LVEF, mild calcific MS, mod-severe (m 23 mmHg, PATRICIO 0.4, SVI 12), PASP 45-50 mmHg mod TR, stable from 07/2023
Physical Exam
Vital Signs/Labs
Vital Signs
Temp Pulse Resp BP Pulse Ox
97.6 F 93 24 128/55 100
01/04/24 07:22 01/04/24 08:54 01/04/24 08:15 01/04/24 08:54 01/04/24 08:15
01/03/24 01/04/24 01/05/24
06:59 06:59 06:59
Actual Weight 89.2 kg 86.8 kg
01/04/24 04:23
01/04/24 04:23
Magnesium 2.0 mg/dl (1.6-2.3) 01/03/24 05:47
01/01/24
23:12
Ufq-W-Wsmktnmophm Pept 8240
LAB Results
01/01/24 01/02/24 01/02/24
23:12 05:37 10:50
Troponin I < 0.012 < 0.012 Cancelled
01/02/24
16:50
Troponin I Cancelled
Physical Exam
Constitutional: No acute distress
Cardiovascular: Rhythm/rate is irregular, Pedal edema present and S1S2 is normal
Respiratory: Respiratory effort normal and Rhonchi Present
GI: Soft and Distention absent
Neuro/Psych: Alert
Data Reviewed
-
Date of Service: January 04, 2024
[2024-01-04] MEDS: CLARITIN 10 MG PO (10:12)
[2024-01-04] MEDS: PROTONIX 40 MG PO (10:12)
[2024-01-04] MEDS: NEURONTIN 200 MG PO (10:12)
[2024-01-04] MEDS: ELIQUIS 5 MG PO ×2 (10:12→21:11)
[2024-01-04] MEDS: TRIAMCINOLONE 0.1% OINTMENT 1 APPLIC TOPICAL ×2 (10:13→21:11)
[2024-01-04] MEDS: REFRESH CELLUVISC GEL 1 DROPS BOTH EYES ×2 (10:13→21:11)
[2024-01-04 12:04] LABS: Glucose - Point of Care 77 mg/dl (70-99)
[2024-01-04 17:30] LABS: Glucose - Point of Care 96 mg/dl (70-99)
[2024-01-04] MEDS: DESENEX/MITRAZOL/ZEASORB 1 APPLIC TOPICAL (21:07)
[2024-01-04] MEDS: LANTUS 0.12 UNITS SC (21:42)
[2024-01-04 21:55] LABS: Glucose - Point of Care 156 mg/dl (70-99)
--- NOTE | 2024-01-04 22:17 | PTCARENOTE ---
Pt oob in chair at change of shift. More alert this evening than last. Smiling. [place]. VSS. Afebrile. Afib on CM rate controlled 90's. Admits to B/L knee pain medicated with Tylenol as ordered. Assisted back to bed using rolling walker. On 4L MF POX
94%. Purewick in place draining yellow urine. Rest of assessment as documented. Maintained on Q2hr turns. Call palumbo remains within reach. Will continue to monitor.
[2024-01-05] VITALS (15 sets, daily range): BP systolic 91–133; BP diastolic 49–97; PULSE 2–93; O2SAT 92; BMI 37.7
[2024-01-05] MEDS: TYLENOL 650 MG PO ×2 (03:05→20:46)
[2024-01-05] MEDS: DUONEB 3 ML INH ×2 (07:27→14:15)
[2024-01-05] MEDS: PULMICORT 0.5 MG INH ×2 (07:28→17:57)
--- NOTE | 2024-01-05 08:36 | W.PN.HOSP.TC ---
Today's Communication/Plan
-
see bold
Assessment / Plan
Assessment / Plan
88y F with PMH significant for hypoxemic and hypercapnic respiratory failure, COPD and CHF who presents to ED from [place] for worsening SOB.
Acute on Chronic Hypoxemic and Hypercapnic Respiratory Failure
Acute on Chronic TME secondary to the above
- Currently requiring 4 L, was 10 L of oxygen, down from 15, wean as tolerated. She wears 2 L at baseline
- Continue bronchodilators, BiPAP at HS and PRN.
Acute on Chronic HFpEF
- Weight (if accurate) is up 15kg since last admission (10/2023).
- BNP 8240, CXR shows CHF. Cardiology following
- Continue Lasix to 40 mg IV twice daily, trend creatinine. Weights trending down
Acute toxic metabolic encephalopathy/hospital delirium
� Dementia ruled out, son states that normally she is not confused
- Resolved, no confusion noted
- Continue supportive care, redirection as needed
JUAN LUIS on CKD III
Cardiorenal syndrome
- Cr 1.2, was 1.4, was 1.4, 1.1, was 1.2 compared to baseline of 0.9.
- Trend creatinine with diuresis
- Avoid nephrotoxic medications / hypotension.
ASCVD
- EKG with chronic LBBB and no noted changes.
- Continue current CV med regimen.
Paroxysmal Atrial Fibrillation
- Heart rate improved with changing Bystolic to metoprolol 50 mg twice a day, continue Eliquis
- Change albuterol to xopenex
Normocytic Anemia
- Suspect from volume overload / hemodilution.
- Trend hemoglobin
COPD without Acute Exacerbation
- Respiratory symptoms seem primarily due to CHF / volume overload.
- Continue usual inhaled medications including budesonide and standing DuoNebs.
DM-II
- A1C 6.6. Continue Lantus 12 units at bedtime, added NovoLog 4 units AC 3 times daily
Known Malignant Thyroid Lesion
- Seen on prior imaging (July 2023) - most c/w malignancy but question complicated cyst.
- Patient was initially enrolled in Hospice care following July admission - but this has since been rescinded (or as never actually finalized).
- Patient had decided that she does not want further workup or interventions in the past
Bilateral lower extremity itching
-Started triamcinolone ointment for 7 days through 01/08/2024
DVT Prophylaxis: On Eliquis
Code Status: DNR
Updated son Jonathon on phone 01/03
Total time spent to see the patient on the floor, examine the patient, review data and lab results, discuss treatment plan with patient, nursing staff around 52 minutes.
Physical Exam
General: Morbidly obese, no acute distress
HEENT: Normocephalic, Atraumatic, EOMI, MMM
Respiratory: Bibasilar crackles
Cardiac: Normal S1/S2, irregularly irregular
GI: Soft, Nontender, Nondistended, Normal Bowel Sounds
Extremities: No Clubbing, Cyanosis
Severe 3+ bilateral lower extremity edema
Neuro: Nonfocal/Grossly Intact
Psych: Calm, Cooperative
Anticipated Discharge: 24 - 48 hours
Subjective/Interval History
-
Date of Service: January 05, 2024
Patient reports improvement in her breathing. She denies chest pain, denies shortness of breath. No fever, no vomiting.
Objective Data
-
Labs:
Laboratory Results
01/05/24
06:00
WBC Pending
Hgb Pending
Hct Pending
Plt Count Pending
Sodium Pending
Potassium Pending
Chloride Pending
Carbon Dioxide Pending
BUN Pending
Creatinine Pending
Glucose Pending
Calcium Pending
Vital Signs:
Vital Signs
Temp Pulse Resp BP Pulse Ox
97.5 F 82 19 116/62 96
01/05/24 03:34 07/07/24 07:31 01/05/24 07:31 01/05/24 06:00 01/05/24 07:31
I&O
01/04/24 01/05/24 01/06/24
06:59 06:59 06:59
Intake Total 1515 / 1515 1340 / 1340
Output Total 825 / 825 1800 / 1800
Balance 690 / 690 -460 / -460
[2024-01-05] MEDS: LASIX 40 MG IV ×2 (09:05→17:39)
[2024-01-05] MEDS: LOPRESSOR 25 MG PO ×3 (09:05→20:44)
[2024-01-05] MEDS: ELIQUIS 5 MG PO ×2 (09:05→20:44)
[2024-01-05] MEDS: PROTONIX 40 MG PO (09:05)
[2024-01-05] MEDS: NEURONTIN 200 MG PO (09:06)
[2024-01-05] MEDS: TRIAMCINOLONE 0.1% OINTMENT 1 APPLIC TOPICAL ×2 (09:06→21:34)
[2024-01-05] MEDS: REFRESH CELLUVISC GEL 1 DROPS BOTH EYES ×2 (09:06→20:44)
[2024-01-05] MEDS: CLARITIN 10 MG PO (09:06)
[2024-01-05] MEDS: DESENEX/MITRAZOL/ZEASORB 1 APPLIC TOPICAL ×2 (09:07→20:45)
[2024-01-05] MEDS: NOVOLOG FLEXPEN 4 UNITS SC ×3 (09:30→17:42)
[2024-01-05 09:32] LABS: Hematocrit 35.3 % (37.0-47.0); Mean Corp Hgb Conc. 31.2 g/dL (33.0-37.0); Mean Corpuscular Hgb 27.3 pg (27.0-31.0); Mean Corpuscular Volume 87.6 fL (81.0-99.0); Platelet Count 162 10^3/uL (130-400); Red Blood Cell Count 4.03 10^6/uL (4.20-5.40); Red Cell Dist. Width 15.4 % (11.5-14.5); White Blood Cell Count 5.5 10^3/uL (4.8-10.8)
[2024-01-05 09:34] LABS: Glucose - Point of Care 90 mg/dl (70-99)
[2024-01-05 09:45] LABS: Blood Urea Nitrogen 41 mg/dl (7-17); Calcium 9.2 mg/dl (8.4-10.2); Carbon Dioxide 38 mmol/L (22-30); Chloride 100 mmol/L (98-107); Estimated Creatinine Clearance 32 ml/min; Glucose 88 mg/dl (70-99); Potassium 3.7 mmol/L (3.5-5.1); Sodium 140 mmol/L (135-145); eGFR 44.08
[2024-01-05] MEDS: NOVOLOG FLEXPEN-LOW RESISTANCE SC ×2 (11:00→13:32)
[2024-01-05 12:59] LABS: Glucose - Point of Care 144 mg/dl (70-99)
--- NOTE | 2024-01-05 14:46 | W.PN.CD ---
Today's Communication / Plan
-
Continue IV Diuresis => Likely move to PO Lasix one time a day on
Weights may be less accurate as bed scale being used
Anticipate home on daily loop diuretic
Impression / Plan
-
Background: 88-year-old female with paroxysmal atrial fibrillation (on Eliquis), moderate to severe aortic stenosis, moderate tricuspid regurgitation, chronic LBBB, hypertension, diabetes, COPD, CKD, recently diagnosed necrotic thyroid mass,
obesity, chronic LE edema and dementia admitted with shortness of breath found to be in acute on chronic HFpEF.
SOB/hypoxic respiratory failure
-Acute on chronic.
-Multifactorial.
-Likely secondary to cardiac and pulmonary causes. ABG = 7.
HFpEF
-Acute on chronic.
-Secondary to valvular heart disease and CKD.
-BNP 8240.
-Patient is not on a standing diuretic at home.
-Continue furosemide 40 mg IV BID for now. The patient will need a standing diuretic at home, despite renal insufficiency.
Acute on chronic CKD/JUAN LUIS
-Creatinine 1.4 (from 1.1).
-Visibly volume overloaded. This is likely cardiorenal.
-Continue diuretics.
Moderate to severe aortic stenosis/moderate tricuspid regurgitation
-Chronic.
-Volume management with furosemide as above.
-Likely poor candidate for TAVR, given necrotic thyroid mass.
Paroxysmal atrial fibrillation (on Eliquis)
-Currently in atrial fibrillation with controlled ventricular response.
-Rate control with metoprolol.
-CHADS2-Vasc = 5 (CHF, HTN, Age x2, Female).
-Therapeutic anticoagulation with apixaban.
Advanced thyroid malignancy
-Chronic.
Chronic LBBB
Hypertension
COPD
Obesity
Diabetes, Hemoglobin A1c 6.6%.
Subjective/Interval History:
She feels much better
Data: Echo 11/19/2023: (TDS): Nml LVEF, mild calcific MS, mod-severe (m 23 mmHg, PATRICOI 0.4, SVI 12), PASP 45-50 mmHg mod TR, stable from 07/2023
Physical Exam
Vital Signs/Labs
Vital Signs
Temp Pulse Resp BP Pulse Ox
97.6 F 107 19 114/55 95
01/05/24 11:05 01/05/24 14:17 01/05/24 14:17 01/05/24 10:00 01/05/24 14:17
01/04/24 01/05/24 01/06/24
06:59 06:59 06:59
Actual Weight 86.8 kg 84.7 kg
01/05/24 09:21
01/05/24 09:21
Magnesium 2.0 mg/dl (1.6-2.3) 01/03/24 05:47
01/01/24
23:12
Tar-J-Puxjefmibav Pept 8240
Physical Exam
Constitutional: No acute distress
EENT: Anicteric
Cardiovascular: Rhythm/rate is irregular, Systolic murmur present and S1S2 is normal
Respiratory: Respiratory effort normal and Lungs clear to auscul.
GI: Distention absent
Neuro/Psych: Alert
Data Reviewed
-
Date of Service: January 05, 2024
[2024-01-05 17:15] LABS: Glucose - Point of Care 207 mg/dl (70-99)
[2024-01-05] MEDS: NOVOLOG FLEXPEN-LOW RESISTANCE 2 UNITS SC (17:40)
[2024-01-05] MEDS: ATROVENT NEBULES 0.5 MG INH (17:56)
[2024-01-05 21:33] LABS: Glucose - Point of Care 216 mg/dl (70-99)
[2024-01-05] MEDS: LANTUS 0.12 UNITS SC (21:35)
[2024-01-05] MEDS: XOPENEX 0.63 MG INHALANT SOLUTION INH (21:41)
[2024-01-05] MEDS: OCEAN, SALINE MIST 1 SPRAYS NASAL (22:03)
--- NOTE | 2024-01-05 22:18 | PTCARENOTE ---
Caring for pt overnight. aaox2-3, forgetful of year. SOB at rest and when talking. exp wheezing, diminished, crackles left base. Pt began grunting while breathing shortly after first assessing her, RT called to room for prn neb & bipap placed for
the night. Pt now seems more comfortable.
afib on monitor, remains 4L 94%. +1-2 edema lower extremities, very red and hot. R more swollen & red than left. Skip, Q2T. Bed alarm on, call palumbo in reach. will monitor.
[2024-01-06] VITALS (17 sets, daily range): BP systolic 100–146; BP diastolic 55–86; PULSE 2–91; O2SAT 95; BMI 37.1
[2024-01-06 06:04] LABS: Blood Urea Nitrogen 40 mg/dl (7-17); Calcium 9.4 mg/dl (8.4-10.2); Carbon Dioxide 35 mmol/L (22-30); Chloride 100 mmol/L (98-107); Estimated Creatinine Clearance 38 ml/min; Glucose 100 mg/dl (70-99); Potassium 3.9 mmol/L (3.5-5.1); Sodium 140 mmol/L (135-145); eGFR 54.87
[2024-01-06 06:13] LABS: NT-proBNP 8970 pg/ml
[2024-01-06] MEDS: REFRESH CELLUVISC GEL 1 DROPS BOTH EYES ×2 (07:55→21:06)
[2024-01-06] MEDS: CLARITIN 10 MG PO (07:56)
[2024-01-06] MEDS: LASIX 40 MG IV (07:56)
[2024-01-06] MEDS: PROTONIX 40 MG PO (07:58)
[2024-01-06] MEDS: NOVOLOG FLEXPEN-LOW RESISTANCE SC ×3 (07:58→17:51)
[2024-01-06] MEDS: ELIQUIS 5 MG PO ×2 (07:59→21:04)
[2024-01-06] MEDS: NEURONTIN 200 MG PO (07:59)
[2024-01-06] MEDS: LOPRESSOR 25 MG PO ×2 (07:59→21:05)
[2024-01-06] MEDS: DESENEX/MITRAZOL/ZEASORB 1 APPLIC TOPICAL ×2 (08:01→21:04)
--- NOTE | 2024-01-06 08:02 | W.PN.HOSP.TC ---
Today's Communication/Plan
-
see bold
Assessment / Plan
Assessment / Plan
Gen: appears mild-mod SOB, awake and alert, NCAT
Eyes: EOMI, PERRLA, no scleral icterus.
Neck: supple.
CV: irreg/irreg, +S1/S2, no m/r/g.
Resp: rales in the bases
Abd: +BS, soft, NT, ND
Skin: No rashes. 2+ B/L LE edema.
Neuro: CN 2-12 intact, non-focal.
Psych: Normal mood and affect.
CXR: 01/01/24: Congestive heart failure.
Acute on Chronic Hypoxemic and Hypercapnic Respiratory Failure due to acute on chronic HFpEF:
-Also with acute metabolic encephalopathy due to acute on chronic hypoxemic and hypercapnic respiratory failure (also hospital-acquired delirium)
-with JUAN LUIS on CKD3 due to CRS, resolved
-on 2L [place] O2 at baseline
-proBNP 8240, CXR with CHF
-was on 15L, now weaned to 4L
-cont IV lasix
-cont BB
Known Malignant Thyroid Lesion
- Seen on prior imaging (July 2023) - most c/w malignancy but question complicated cyst.
- Patient was initially enrolled in Hospice care following July admission - but this has since been rescinded (or as never actually finalized).
- Patient had decided that she does not want further workup or interventions in the past
Other problems:
CAD
Paroxysmal Atrial Fibrillation: cont BB/Eliquis
Normocytic Anemia, Hb stable
COPD without Acute Exacerbation: cont Pulmicort/Atrovent
DM2: a1c 6.6%. Cont Lantus/Novolog/SSI/accuchecks
Obesity due to excess calories
DNR/Eliquis
Total time spent on today's encounter was 50 minutes which included time spent in counseling the patient/family regarding diagnosis and treatment plan as listed above, goals of care, and symptom management. Case was discussed with nursing staff,
specialists, and care coordinators/case management. All labs and imaging personally reviewed by me. Remainder the time spent in detailed review of previous records, lab data, imaging, and other medical provider documentation.
Anticipated Discharge: 24 - 48 hours
Subjective/Interval History
-
Date of Service: January 06, 2024
Objective Data
-
Labs:
Laboratory Results
01/06/24
05:23
Sodium 140
Potassium 3.9
Chloride 100
Carbon Dioxide 35 H
BUN 40 H
Creatinine 1.0
Glucose 100 H
Calcium 9.4
Vital Signs:
Vital Signs
Temp Pulse Resp BP Pulse Ox
97.5 F 79 27 100/55 98
01/06/24 03:00 01/06/24 04:00 01/06/24 04:00 01/06/24 04:00 01/06/24 02:00
I&O
01/05/24 01/06/24 01/07/24
06:59 06:59 06:59
Intake Total 1340 / 1340 620 / 620
Output Total 1800 / 1800 1850 / 1850
Balance -460 / -460 -1230 / -1230
[2024-01-06] MEDS: TRIAMCINOLONE 0.1% OINTMENT 1 APPLIC TOPICAL ×2 (08:04→21:06)
[2024-01-06 08:09] LABS: Glucose - Point of Care 105 mg/dl (70-99)
[2024-01-06] MEDS: ATROVENT NEBULES 0.5 MG INH ×3 (08:26→20:09)
[2024-01-06] MEDS: PULMICORT 0.5 MG INH ×2 (08:26→20:09)
[2024-01-06] MEDS: XOPENEX 0.63 MG INHALANT SOLUTION INH ×2 (08:27→20:09)
[2024-01-06] MEDS: NOVOLOG FLEXPEN 4 UNITS SC ×3 (09:30→18:06)
[2024-01-06 11:50] LABS: Glucose - Point of Care 101 mg/dl (70-99)
--- NOTE | 2024-01-06 12:31 | W.PN.CD ---
Today's Communication / Plan
-
I stopped IV Lasix
I ordered PO Lasix 40 once a day
Impression / Plan
-
Background: 88-year-old female with paroxysmal atrial fibrillation (on Eliquis), moderate to severe aortic stenosis, moderate tricuspid regurgitation, chronic LBBB, hypertension, diabetes, COPD, CKD, recently diagnosed necrotic thyroid mass,
obesity, chronic LE edema and dementia admitted with shortness of breath found to be in acute on chronic HFpEF.
SOB/hypoxic respiratory failure
-Acute on chronic.
-Multifactorial.
-Likely secondary to cardiac and pulmonary causes. ABG = 7.39/50/60
HFpEF
-Acute on chronic.
-Secondary to valvular heart disease and CKD.
-BNP 8240.
-Patient is not on a standing diuretic at home=> moving to PO Lasix 40 mg a day
- Can say 83.3 kg/ 183 pounds might be a reasonable goal weight to pick now (at least as weight is being obtained here)
Acute on chronic CKD/JUAN LUIS
-Creatinine wsa 1.4 (from 1.1).
- Now Cr 1 and BUN 40 (stopoing aggressive diuresis now)_
- Volume status better
Moderate to severe aortic stenosis/moderate tricuspid regurgitation
-Chronic.
-Volume management with furosemide as above.
-Likely poor candidate for TAVR, given necrotic thyroid mass.
Paroxysmal atrial fibrillation (on Eliquis)
-Currently in atrial fibrillation with controlled ventricular response.
-Rate control with metoprolol.
-CHADS2-Vasc = 5 (CHF, HTN, Age x2, Female).
-Therapeutic anticoagulation with apixaban.
Advanced thyroid malignancy
-Chronic.
Chronic LBBB
Hypertension
COPD
Obesity
Diabetes, Hemoglobin A1c 6.6%.
Subjective/Interval History:
She feels OK
Data: Echo 11/19/2023: (TDS): Nml LVEF, mild calcific MS, mod-severe (m 23 mmHg, PATRICIO 0.4, SVI 12), PASP 45-50 mmHg mod TR, stable from 07/2023
Physical Exam
Vital Signs/Labs
Vital Signs
Temp Pulse Resp BP Pulse Ox
97.9 F 95 18 135/78 95
01/06/24 07:35 01/06/24 08:28 01/06/24 08:28 01/06/24 07:59 01/06/24 08:28
01/05/24 01/06/24 01/07/24
06:59 06:59 06:59
Actual Weight 83.3 kg
01/05/24 09:21
01/06/24 05:23
Magnesium 2.0 mg/dl (1.6-2.3) 01/03/24 05:47
01/01/24 01/06/24
23:12 05:23
Bsd-C-Lmiacvetboq Pept 8240 5270
Physical Exam
Constitutional: No acute distress
EENT: Anicteric
Cardiovascular: Rhythm/rate is irregular and Pedal edema present (just trace)
Respiratory: Respiratory effort normal, Wheeze Absent and Crackles Present (rare at bases)
GI: Soft and Distention absent
Neuro/Psych: Alert
Data Reviewed
-
Date of Service: January 06, 2024
[2024-01-06] MEDS: OCEAN, SALINE MIST 1 SPRAYS NASAL (12:40)
--- NOTE | 2024-01-06 17:03 | CM ---
Patient from [facility] with Dx Acute Hypoxemic and Hypercapnic Respiratory Failure due to HF, Known Malignant Thyroid Lesion. O2 4L. BIPAP HS IV Lasix switched to PO. PT & OT Evals; requires assist of 2, recommend skilled rehab.
Spoke with Flor Gonzales, [facility]; the patient resides there in LTC and is on an MA bed hold. The patient has an O2 and BiPAP setup in place. She requires 2 person assist and is w/c bound. The patient recently completed PT/OT.
Plan return to [facility] when medically ready.
[2024-01-06 17:48] LABS: Glucose - Point of Care 127 mg/dl (70-99)
[2024-01-06] MEDS: TYLENOL 650 MG PO (21:11)
[2024-01-06] MEDS: LANTUS 0.12 UNITS SC (23:06)
[2024-01-06 23:19] LABS: Glucose - Point of Care 137 mg/dl (70-99)
[2024-01-07] VITALS (16 sets, daily range): BP systolic 101–142; BP diastolic 43–107; PULSE 2–92; O2SAT 98; BMI 37.3
[2024-01-07 06:27] LABS: Blood Urea Nitrogen 37 mg/dl (7-17); Calcium 9.1 mg/dl (8.4-10.2); Carbon Dioxide 37 mmol/L (22-30); Chloride 99 mmol/L (98-107); Estimated Creatinine Clearance 38 ml/min; Glucose 78 mg/dl (70-99); Potassium 3.5 mmol/L (3.5-5.1); Sodium 141 mmol/L (135-145); eGFR 54.87
--- NOTE | 2024-01-07 07:08 | W.PN.HOSP.TC ---
Today's Communication/Plan
-
see bold
Assessment / Plan
Assessment / Plan
Gen: NAD, awake and alert, NCAT
Eyes: EOMI, PERRLA, no scleral icterus.
Neck: supple.
CV: irreg/irreg, +S1/S2, 2/6 systolic murmur
Resp: CTAB anteriorly
Abd: +BS, soft, NT, ND
Skin: No rashes. 1-2+ B/L LE edema.
Neuro: CN 2-12 intact, non-focal.
Psych: Normal mood and affect.
CXR: 01/01/24: Congestive heart failure.
Acute on Chronic Hypoxemic and Hypercapnic Respiratory Failure due to acute on chronic HFpEF:
-Also with acute metabolic encephalopathy due to acute on chronic hypoxemic and hypercapnic respiratory failure (also hospital-acquired delirium)
-with JUAN LUIS on CKD3 due to CRS, resolved
-on 2L NC O2 at baseline
-proBNP 8240, CXR with CHF
-was on 15L, now weaned to 6L (up from yesterday)
-repeat CXR (with increasing O2 requirements)
-was on IV Lasix, now transitioned to PO Lasix
-cont BB
Known Malignant Thyroid Lesion
- Seen on prior imaging (July 2023) - most c/w malignancy but question complicated cyst.
- Patient was initially enrolled in Hospice care following July admission - but this has since been rescinded (or as never actually finalized).
- Patient had decided that she does not want further workup or interventions in the past
Other problems:
CAD
Paroxysmal Atrial Fibrillation: cont BB/Eliquis
Normocytic Anemia, Hb stable
COPD without Acute Exacerbation: cont Pulmicort/Atrovent
DM2: a1c 6.6%. Cont Lantus/Novolog/SSI/accuchecks
Obesity due to excess calories
DNR/Eliquis
Anticipated Discharge: 24 - 48 hours
Subjective/Interval History
-
Date of Service: January 07, 2024
Pt states SOB similar to yesterday.
Objective Data
-
Labs:
Laboratory Results
01/07/24
05:19
Sodium 141
Potassium 3.5
Chloride 99
Carbon Dioxide 37 H
BUN 37 H
Creatinine 1.0
Glucose 78
Calcium 9.1
Vital Signs:
Vital Signs
Temp Pulse Resp BP Pulse Ox
96.7 F L 62 20 132/54 100
01/07/24 04:14 01/07/24 06:00 01/07/24 06:00 01/07/24 06:00 01/07/24 06:00
I&O
01/06/24 01/07/24 01/08/24
06:59 06:59 06:59
Intake Total 620 / 620
Output Total 1850 / 1850 1050 / 1050
Balance -1230 / -1230 -1050 / -1050
[2024-01-07 07:27] LABS: Glucose - Point of Care 83 mg/dl (70-99)
[2024-01-07] MEDS: PULMICORT 0.5 MG INH ×2 (07:40→19:57)
[2024-01-07] MEDS: ATROVENT NEBULES 0.5 MG INH ×3 (07:40→19:57)
[2024-01-07] MEDS: NOVOLOG FLEXPEN-LOW RESISTANCE SC ×3 (09:18→16:55)
[2024-01-07] MEDS: NEURONTIN 200 MG PO (09:19)
[2024-01-07] MEDS: CLARITIN 10 MG PO (09:19)
[2024-01-07] MEDS: NOVOLOG FLEXPEN 4 UNITS SC ×3 (09:19→17:24)
[2024-01-07] MEDS: DESENEX/MITRAZOL/ZEASORB 1 APPLIC TOPICAL ×2 (09:19→21:14)
[2024-01-07] MEDS: PROTONIX 40 MG PO (09:19)
[2024-01-07] MEDS: LASIX 40 MG PO (09:19)
[2024-01-07] MEDS: LOPRESSOR 25 MG PO ×2 (09:19→21:13)
[2024-01-07] MEDS: ELIQUIS 5 MG PO ×2 (09:19→21:13)
[2024-01-07] MEDS: REFRESH CELLUVISC GEL 1 DROPS BOTH EYES ×2 (09:20→21:13)
[2024-01-07] MEDS: TRIAMCINOLONE 0.1% OINTMENT 1 APPLIC TOPICAL ×2 (09:20→21:13)
[2024-01-07 11:35] LABS: Glucose - Point of Care 101 mg/dl (70-99)
--- NOTE | 2024-01-07 15:09 | PTCARENOTE ---
Assumed care of patient at beginning of this shift from previous RN on 4L n/c; able to wean to 3L n/c with current POx 95%. Patient Ox2, forgetful and [place]. OOB to chair with PT/OT. See worklist for full assessment and vital signs; see MAR for med
administration.
[2024-01-07 16:47] LABS: Glucose - Point of Care 128 mg/dl (70-99)
--- NOTE | 2024-01-07 17:21 | W.PN.CD ---
Today's Communication / Plan
-
She still has significant dyspnea
CXR image today reviewed and looks like significant heart failure
Will need a lower goal dry weight
Will resume IV Lasix BID and add Zaroxolyn plan for 3-4 doses
Daily BMP, watch K+, HCO3
Daily weights
Given her age and comorbid conditions we may need to consider HOSPICE consult if she does not respond to aggressive treatment in the next few days
can discuss with colleagues if we should try attempts of sinus rhythm to try and optimize heart failure.
Impression / Plan
-
Background: 88-year-old female with paroxysmal atrial fibrillation (on Eliquis), moderate to severe aortic stenosis, moderate tricuspid regurgitation, chronic LBBB, hypertension, diabetes, COPD, CKD, recently diagnosed necrotic thyroid mass,
obesity, chronic LE edema and dementia admitted with shortness of breath found to be in acute on chronic HFpEF.
SOB/hypoxic respiratory failure
-Acute on chronic.
-Multifactorial.
-Likely secondary to cardiac and pulmonary causes. ABG = 7.39/50/60
HFpEF
- CXR today 01/07/2024 => pulm edema. Still with significant dyspnea
- Acute on chronic.
- Will need lower goal weight and more aggressive diuresis
- Severe exacerbation and not responding well to treatment
- Will resume IV Lasix and increase dose and add Zaroxolyn
Acute on chronic CKD/JUAN LUIS => improved with diuresis but will need to watch
Moderate to severe aortic stenosis/moderate tricuspid regurgitation
-Likely poor candidate for TAVR, given necrotic thyroid mass.
Paroxysmal atrial fibrillation (on Eliquis)
-Currently in atrial fibrillation with controlled ventricular response.
-Rate control with metoprolol.
-CHADS2-Vasc = 5 (CHF, HTN, Age x2, Female).
-Therapeutic anticoagulation with apixaban.
Advanced thyroid malignancy
-Chronic.
Chronic LBBB
Hypertension
COPD
Obesity
Diabetes, Hemoglobin A1c 6.6%.
Hx dementia
Subjective/Interval History:
She feels that she has periods of significant dyspnea
Data: Echo 11/19/2023: (TDS): Nml LVEF, mild calcific MS, mod-severe (m 23 mmHg, PATRICIO 0.4, SVI 12), PASP 45-50 mmHg mod TR, stable from 07/2023
Physical Exam
Vital Signs/Labs
Vital Signs
Temp Pulse Resp BP Pulse Ox
98.2 F 77 21 120/67 95
01/07/24 15:24 01/07/24 16:00 01/07/24 16:00 01/07/24 16:00 01/07/24 16:00
01/06/24 01/07/24 01/08/24
06:59 06:59 06:59
Actual Weight 83.3 kg 83.7 kg
01/05/24 09:21
01/07/24 05:19
Magnesium 2.0 mg/dl (1.6-2.3) 01/03/24 05:47
01/01/24 01/06/24
23:12 05:23
Own-H-Yairtathjcl Pept [id number]
Physical Exam
Constitutional: No acute distress
Cardiovascular: Rhythm/rate is irregular and Systolic murmur present
Respiratory: Respiratory effort normal and Crackles Present
GI: Soft, Distention absent and Non tender
Neuro/Psych: Alert
Data Reviewed
-
Date of Service: January 07, 2024
[2024-01-07] MEDS: ZAROXOLYN 5 MG PO (17:24)
[2024-01-07] MEDS: LASIX 60 MG IV (18:17)
[2024-01-07] MEDS: KCL 40 MEQ PO (18:18)
[2024-01-07] MEDS: OCEAN, SALINE MIST 1 SPRAYS NASAL (21:14)
[2024-01-07] MEDS: LANTUS 0.12 UNITS SC (21:19)
[2024-01-07 21:23] LABS: Glucose - Point of Care 121 mg/dl (70-99)
[2024-01-08] VITALS (17 sets, daily range): BP systolic 96–131; BP diastolic 46–89; PULSE 2–76; O2SAT 100; BMI 37.1
[2024-01-08 04:59] LABS: Blood Urea Nitrogen 37 mg/dl (7-17); Carbon Dioxide 39 mmol/L (22-30); Chloride 98 mmol/L (98-107); Estimated Creatinine Clearance 38 ml/min; Glucose 84 mg/dl (70-99); Potassium 3.8 mmol/L (3.5-5.1); Sodium 139 mmol/L (135-145); eGFR 54.87
[2024-01-08] MEDS: PULMICORT 0.5 MG INH ×2 (07:19→19:34)
[2024-01-08] MEDS: ATROVENT NEBULES 0.5 MG INH ×3 (07:20→19:34)
[2024-01-08 08:01] LABS: Glucose - Point of Care 97 mg/dl (70-99)
[2024-01-08] MEDS: NOVOLOG FLEXPEN-LOW RESISTANCE SC ×2 (08:07→17:08)
[2024-01-08] MEDS: PROTONIX 40 MG PO (08:08)
[2024-01-08] MEDS: KCL 40 MEQ PO (08:08)
[2024-01-08] MEDS: REFRESH CELLUVISC GEL 1 DROPS BOTH EYES ×2 (08:08→20:58)
[2024-01-08] MEDS: NEURONTIN 200 MG PO (08:08)
[2024-01-08] MEDS: ELIQUIS 5 MG PO ×2 (08:08→20:57)
[2024-01-08] MEDS: LOPRESSOR 25 MG PO ×2 (08:08→20:58)
[2024-01-08] MEDS: CLARITIN 10 MG PO (08:08)
[2024-01-08] MEDS: DESENEX/MITRAZOL/ZEASORB 1 APPLIC TOPICAL ×2 (08:09→20:58)
[2024-01-08] MEDS: TRIAMCINOLONE 0.1% OINTMENT 1 APPLIC TOPICAL ×2 (08:09→20:59)
[2024-01-08] MEDS: ZAROXOLYN 5 MG PO (08:13)
[2024-01-08] MEDS: NOVOLOG FLEXPEN 4 UNITS SC ×3 (08:39→17:09)
[2024-01-08] MEDS: LASIX 60 MG IV ×2 (08:40→17:09)
--- NOTE | 2024-01-08 10:33 | W.PN.CD ---
Today's Communication / Plan
-
i/o negative 2 liters
renal functionand K stable
Continue to monitor on metolazone and Lasix
Impression / Plan
-
Background: 88-year-old female with paroxysmal atrial fibrillation (on Eliquis), moderate to severe aortic stenosis, moderate tricuspid regurgitation, chronic LBBB, hypertension, diabetes, COPD, CKD, recently diagnosed necrotic thyroid mass,
obesity, chronic LE edema and dementia admitted with shortness of breath found to be in acute on chronic HFpEF.
SOB/hypoxic respiratory failure
-Acute on chronic.
-Multifactorial.
-Likely secondary to cardiac and pulmonary causes. ABG = 7.39//60
HFpEF
- CXR 01/07/2024 => pulm edema. Still with significant dyspnea
- Acute on chronic.
- Will need lower goal weight and more aggressive diuresis
-Continue IV Lasix and add Zaroxolyn. Plan to maintainon Zaroxylyn 3-4 days total and montiror labs,weights and I's and
Acute on chronic CKD/JUAN LUIS => improved with diuresis but will need to watch
Moderate to severe aortic stenosis/moderate tricuspid regurgitation
-Likely poor candidate for TAVR, given necrotic thyroid mass.
Paroxysmal atrial fibrillation (on Eliquis)
-Currently in atrial fibrillation with controlled ventricular response.
-Rate control with metoprolol.
-CHADS2-Vasc = 5 (CHF, HTN, Age x2, Female).
-Therapeutic anticoagulation with apixaban.
Advanced thyroid malignancy
-Chronic.
Chronic LBBB
Hypertension
COPD
Obesity
Diabetes, Hemoglobin A1c 6.6%.
Hx dementia
Subjective/Interval History:
She feels that she has periods of significant dyspnea
Data: Echo 11/19/2023: (TDS): Nml LVEF, mild calcific MS, mod-severe (m 23 mmHg, PATRICIO 0.4, SVI 12), PASP 45-50 mmHg mod TR, stable from 07/2023
Physical Exam
Vital Signs/Labs
Vital Signs
Temp Pulse Resp BP Pulse Ox
97.8 F 82 27 123/73 97
01/08/24 07:35 01/08/24 08:00 01/08/24 08:00 01/08/24 08:00 01/08/24 08:46
01/07/24 01/08/24 01/09/24
06:59 06:59 06:59
Actual Weight 83.7 kg 83.2 kg
01/05/24 09:21
01/08/24 04:29
Magnesium 2.0 mg/dl (1.6-2.3) 01/03/24 05:47
01/01/24 01/06/24
23:12 05:23
Agb-G-Hapcvlraebu Pept [id number]
Physical Exam
Constitutional: No acute distress
Cardiovascular: Rhythm/rate is irregular
Respiratory: Wheeze Absent and Rhonchi Absent
GI: Soft
Neuro/Psych: Alert
Data Reviewed
-
Date of Service: January 08, 2024
Medical Decision Making: Reviewed Test Results
X-Ray/CT/US/MRI/NUC/PET: Report Reviewed by me
Medical Tests (PFT, Pathology etc): Report Reviewed by me
Labs: Labs Reviewed by me
--- NOTE | 2024-01-08 10:47 | W.PN.HOSP.TC ---
Today's Communication/Plan
-
see bold
Assessment / Plan
Assessment / Plan
Gen: NAD, awake and alert, NCAT
Eyes: EOMI, PERRLA, no scleral icterus.
Neck: supple.
CV: Remains irreg/irreg, +S1/S2, 2/6 systolic murmur
Resp: Mild to moderate rales bilaterally
Abd: +BS, soft, NT, ND
Skin: No rashes. 1+ B/L LE edema.
Neuro: CN 2-12 intact, non-focal.
Psych: Normal mood and affect.
CXR 01/01/24: Congestive heart failure.
CXR 01/07/24: Radiographic findings highly suggestive of interstitial pulmonary edema pattern with small to moderate bilateral pleural effusions.
Acute on Chronic Hypoxemic and Hypercapnic Respiratory Failure due to acute on chronic HFpEF:
-Also with acute metabolic encephalopathy due to acute on chronic hypoxemic and hypercapnic respiratory failure (also hospital-acquired delirium)
-with JUAN LUIS on CKD3 due to CRS, resolved
-on 2L NC O2 at baseline
-proBNP 8240, CXR on admission with CHF
-was on 15L, now weaned to 3L
-cont BB
-was on IV Lasix, then transitioned to PO Lasix. After CXR findings on 01/07/24 pt restarted on IV Lasix and Zaroxolyn was added.
Known Malignant Thyroid Lesion
-Seen on prior imaging (July 2023) - most c/w malignancy but question complicated cyst.
-Patient was initially enrolled in Hospice care following July admission - but this has since been rescinded (or as never actually finalized).
-Patient had decided that she does not want further workup or interventions in the past
Other problems:
CAD: cont BB
Paroxysmal Atrial Fibrillation: cont BB/Eliquis
Normocytic Anemia, Hb stable
COPD without Acute Exacerbation: cont Pulmicort/Atrovent
DM2: a1c 6.6%. Cont Lantus/Novolog/SSI/accuchecks
Obesity due to excess calories
DNR/Eliquis
Anticipated Discharge: > 48 hours
Subjective/Interval History
-
Date of Service: January 08, 2024
Reports shortness of breath improving from yesterday.
Objective Data
-
Labs:
Laboratory Results
01/08/24
04:29
Sodium 139
Potassium 3.8
Chloride 98
Carbon Dioxide 39 H
BUN 37 H
Creatinine 1.0
Glucose 84
Calcium 9.0
Vital Signs:
Vital Signs
Temp Pulse Resp BP Pulse Ox
97.8 F 82 27 123/73 97
01/08/24 07:35 01/08/24 08:00 01/08/24 08:00 01/08/24 08:00 01/08/24 08:46
I&O
01/07/24 01/08/24 01/09/24
06:59 06:59 06:59
Output Total 1050 / 1050 2049
Balance -1050 / -1050 -2049 / -2049
[2024-01-08 12:32] LABS: Glucose - Point of Care 150 mg/dl (70-99)
[2024-01-08] MEDS: NOVOLOG FLEXPEN-LOW RESISTANCE 1 UNITS SC (12:36)
--- NOTE | 2024-01-08 15:39 | PTCARENOTE ---
Assumed care of patient at beginning of this shift from previous RN with O2 3l n/c in use and POx 95-97%. Patient states she wears 3L n/c at home. OOB to chair x1 assist with use of RW. Ox3, pleasant; takes meds without difficulty. See worklist for
full assessment and vital signs; see MAR for med administration.
[2024-01-08 16:58] LABS: Glucose - Point of Care 113 mg/dl (70-99)
[2024-01-08] MEDS: OCEAN, SALINE MIST 1 SPRAYS NASAL (21:01)
[2024-01-08 21:37] LABS: Glucose - Point of Care 252 mg/dl (70-99)
[2024-01-08] MEDS: LANTUS SC (21:47)
--- NOTE | 2024-01-08 22:22 | PTCARENOTE ---
Pt maintaining SPO2 in upper 90's on 3L. Respirations even and unlabored. Pt had no complaints at this time. Assessment care and vitals as charted.
[2024-01-08] MEDS: LANTUS 0.12 UNITS SC (22:27)
[2024-01-09] VITALS (11 sets, daily range): BP systolic 93–135; BP diastolic 54–75; PULSE 2–101; BMI 36.9
[2024-01-09 05:42] LABS: Blood Urea Nitrogen 41 mg/dl (7-17); Calcium 9.1 mg/dl (8.4-10.2); Carbon Dioxide 35 mmol/L (22-30); Chloride 96 mmol/L (98-107); Estimated Creatinine Clearance 38 ml/min; Glucose 110 mg/dl (70-99); Potassium 4.3 mmol/L (3.5-5.1); Sodium 138 mmol/L (135-145); eGFR 54.87
[2024-01-09] MEDS: PULMICORT 0.5 MG INH ×2 (07:36→19:55)
[2024-01-09] MEDS: ATROVENT NEBULES 0.5 MG INH ×3 (07:36→19:55)
[2024-01-09 08:31] LABS: Glucose - Point of Care 99 mg/dl (70-99)
[2024-01-09] MEDS: NOVOLOG FLEXPEN-LOW RESISTANCE SC ×2 (08:35→12:27)
[2024-01-09] MEDS: ZAROXOLYN 5 MG PO (08:36)
[2024-01-09] MEDS: DESENEX/MITRAZOL/ZEASORB 1 APPLIC TOPICAL ×2 (08:38→21:00)
[2024-01-09] MEDS: NEURONTIN 200 MG PO (08:39)
[2024-01-09] MEDS: CLARITIN 10 MG PO (08:39)
[2024-01-09] MEDS: PROTONIX 40 MG PO (08:39)
[2024-01-09] MEDS: KCL 40 MEQ PO (08:39)
[2024-01-09] MEDS: ELIQUIS 5 MG PO ×2 (08:39→21:00)
[2024-01-09] MEDS: LOPRESSOR 25 MG PO ×2 (08:40→20:58)
[2024-01-09] MEDS: REFRESH CELLUVISC GEL 1 DROPS BOTH EYES ×2 (08:41→21:00)
--- NOTE | 2024-01-09 09:02 | W.PN.CD ---
Today's Communication / Plan
-
Respiratory status appears stable. Patient currently comfortable on nasal cannula oxygen. 2 L
Systolic blood pressures running lower in the 90s. Will back off on diuresis.
Patient already received metolazone this morning but will now discontinue. Will also hold additional Lasix today.
Impression / Plan
-
Background: 88-year-old female with paroxysmal atrial fibrillation (on Eliquis), moderate to severe aortic stenosis, moderate tricuspid regurgitation, chronic LBBB, hypertension, diabetes, COPD, CKD, recently diagnosed necrotic thyroid mass,
obesity, chronic LE edema and dementia admitted with shortness of breath found to be in acute on chronic HFpEF.
SOB/hypoxic respiratory failure
-Acute on chronic.
-Multifactorial.
-Currently in no distress on 2 L. Systolic blood versus in the 90s. Will back off on diuresis.
HFpEF
- CXR 01/07/2024 => pulm edema. Still with significant dyspnea
- Acute on chronic.
-Renal function stable but blood pressure is running lower with systolics in the 90s. Currently asymptomatic. Patient already received metolazone this morning but will discontinue. Will also hold additional Lasix today.
Acute on chronic CKD/JUAN LUIS => improved with diuresis but will need to watch
Moderate to severe aortic stenosis/moderate tricuspid regurgitation
-Likely poor candidate for TAVR, given necrotic thyroid mass.
Paroxysmal atrial fibrillation (on Eliquis)
-Currently in atrial fibrillation with controlled ventricular response.
-Rate control with metoprolol.
-CHADS2-Vasc = 5 (CHF, HTN, Age x2, Female).
-Therapeutic anticoagulation with apixaban.
Advanced thyroid malignancy
-Chronic.
Chronic LBBB
Hypertension
COPD
Obesity
Diabetes, Hemoglobin A1c 6.6%.
Hx dementia
Subjective/Interval History:
She feels that she has periods of significant dyspnea
Data: Echo 11/19/2023: (TDS): Nml LVEF, mild calcific MS, mod-severe (m 23 mmHg, PATRICIO 0.4, SVI 12), PASP 45-50 mmHg mod TR, stable from 07/2023
Physical Exam
Vital Signs/Labs
Vital Signs
Temp Pulse Resp BP Pulse Ox
97.6 F 90 23 91/58 100
01/09/24 06:46 01/09/24 08:40 01/09/24 08:03 01/09/24 08:40 01/09/24 08:03
01/08/24 01/09/24 01/10/24
06:59 06:59 06:59
Actual Weight 83.2 kg 82.9 kg
01/05/24 09:21
01/09/24 04:46
Magnesium 2.0 mg/dl (1.6-2.3) 01/03/24 05:47
01/01/24 01/06/24
23:12 05:23
Opl-C-Fucnjorqfbd Pept [id number]
Physical Exam
Constitutional: No acute distress
Cardiovascular: Rhythm/rate is irregular
Respiratory: Wheeze Absent, Rhonchi Absent and Other (Rare fine crackles at base)
GI: Soft
Neuro/Psych: Alert
Data Reviewed
-
Date of Service: January 09, 2024
Medical Decision Making: Reviewed Test Results and Review of Case with other Provider (Discussed case and changes in meds with nursing staff)
Echo: Report Reviewed by me
Medical Tests (PFT, Pathology etc): Report Reviewed by me
Labs: Labs Reviewed by me
[2024-01-09] MEDS: LASIX IV (09:07)
--- NOTE | 2024-01-09 09:29 | PTCARENOTE ---
Pt is AAX 2-3 very [place] and forgetful. Lungs are diminished 3l O2 in place, pt wears Cpap at night. Pt ican be [place]ART[place]. in Afib. Incont B/B with a purewick in place. Seen by cards Lasix is on hold due to BP in 90s . Awaiting breakfast
--- NOTE | 2024-01-09 09:39 | W.PN.HOSP.TC ---
Today's Communication/Plan
-
see bold
Assessment / Plan
Assessment / Plan
Gen: Remains NAD, awake and alert, NCAT
Eyes: EOMI, PERRLA, no scleral icterus.
Neck: supple.
CV: Continues to remain irreg/irreg, +S1/S2, 2/6 systolic murmur
Resp: Remains mild to moderate rales bilaterally
Abd: +BS, soft, NT, ND
Skin: No rashes. 1+ B/L LE edema.
Neuro: CN 2-12 intact, non-focal.
Psych: Normal mood and affect.
CXR 01/01/24: Congestive heart failure.
CXR 01/07/24: Radiographic findings highly suggestive of interstitial pulmonary edema pattern with small to moderate bilateral pleural effusions.
Acute on Chronic Hypoxemic and Hypercapnic Respiratory Failure due to acute on chronic HFpEF:
-Also with acute metabolic encephalopathy due to acute on chronic hypoxemic and hypercapnic respiratory failure (also hospital-acquired delirium)
-with JUAN LUIS on CKD3 due to CRS, resolved
-on 2L NC O2 at baseline
-proBNP 8240, CXR on admission with CHF
-was on 15L, now weaned to 3L
-cont BB
-was on IV Lasix, then transitioned to PO Lasix. After CXR findings on 01/07/24 pt restarted on IV Lasix and Zaroxolyn was added.
-holding lasix today with hypotension as per cards
Known Malignant Thyroid Lesion
-Seen on prior imaging (July 2023) - most c/w malignancy but question complicated cyst.
-Patient was initially enrolled in Hospice care following July admission - but this has since been rescinded (or as never actually finalized).
-Patient had decided that she does not want further workup or interventions in the past
Other problems:
CAD: cont BB
Paroxysmal Atrial Fibrillation: cont BB/Eliquis
Normocytic Anemia, Hb stable
COPD without Acute Exacerbation: cont Pulmicort/Atrovent
DM2: a1c 6.6%. Cont Lantus/Novolog/SSI/accuchecks
Obesity due to excess calories
DNR/Eliquis
Anticipated Discharge: > 48 hours
Subjective/Interval History
-
Date of Service: January 09, 2024
Shortness of breath slightly improved from yesterday.
Objective Data
-
Labs:
Laboratory Results
01/09/24
04:46
Sodium 138
Potassium 4.3
Chloride 96 L
Carbon Dioxide 35 H
BUN 41 H
Creatinine 1.0
Glucose 110 H
Calcium 9.1
Vital Signs:
Vital Signs
Temp Pulse Resp BP Pulse Ox
97.6 F 90 23 91/58 100
01/09/24 06:46 01/09/24 08:40 01/09/24 08:03 01/09/24 08:40 01/09/24 08:03
I&O
01/08/24 01/09/24 01/10/24
06:59 06:59 06:59
Intake Total 600 / 600
Output Total 2049 2500 / 2500
Balance -2049 / -2049 -1899 / -1899
[2024-01-09] MEDS: TRIAMCINOLONE 0.1% OINTMENT 1 APPLIC TOPICAL ×2 (09:55→21:01)
[2024-01-09] MEDS: NOVOLOG FLEXPEN 4 UNITS SC ×3 (09:56→17:19)
[2024-01-09 11:56] LABS: Glucose - Point of Care 108 mg/dl (70-99)
--- NOTE | 2024-01-09 15:43 | CM ---
Patient from [facility] with Hx dementia with Dx Acute Hypoxemic/Hypercapnic Respiratory Failure due to HF, acute metabolic encephalopathy. O2 3L. PT & OT Evals; recommend skilled rehab.
Spoke with Flor Gonzales, [facility]; clinical update provided. When ready to return, the for report [phone], fax [phone].
Phone call to Jonathon, patient's son; left message requesting callback for d/c planning.
Plan return to [facility] when medically ready.
[2024-01-09 16:57] LABS: Glucose - Point of Care 351 mg/dl (70-99)
[2024-01-09] MEDS: NOVOLOG FLEXPEN-LOW RESISTANCE 5 UNITS SC (17:19)
[2024-01-09 21:26] LABS: Glucose - Point of Care 306 mg/dl (70-99)
[2024-01-09] MEDS: LANTUS 0.12 UNITS SC (21:54)
--- NOTE | 2024-01-09 23:55 | PTCARENOTE ---
Addendum entered by Lanette Clay RN 01/10/24 00:02:
Pt evening glucose over 300. Night STERNMAN made aware, no further orders. HS Lantus given as ordered.
Original Note:
Pt Requesting respiratory treatment, feeling like she was sob. Treatment given by RT, patient feeling better. SPO2 remained greater then 92% entire time and now back to 94% on 3L. Assessment care and vitals as charted.
[2024-01-10] VITALS (9 sets, daily range): BP systolic 78–141; BP diastolic 45–77; PULSE 2–83; BMI 36.1
[2024-01-10 04:52] LABS: Blood Urea Nitrogen 38 mg/dl (7-17); Calcium 9.3 mg/dl (8.4-10.2); Carbon Dioxide 37 mmol/L (22-30); Chloride 96 mmol/L (98-107); Estimated Creatinine Clearance 31 ml/min; Glucose 128 mg/dl (70-99); Potassium 4.1 mmol/L (3.5-5.1); Sodium 141 mmol/L (135-145); eGFR 44.08
[2024-01-10] MEDS: PULMICORT 0.5 MG INH (06:20)
[2024-01-10] MEDS: ATROVENT NEBULES 0.5 MG INH (06:20)
[2024-01-10] MEDS: LASIX 80 MG IV (08:05)
[2024-01-10] MEDS: XOPENEX 0.63 MG INHALANT SOLUTION INH (08:12)
[2024-01-10 08:20] LABS: B.E. 12.8 mmol/L; HCO3 39.2 mmol/L (21-28); O2 Saturation % 98.6 % (94-98); PCO2 59 mmHg (32-35); PO2 78 mmHg (83-108); pH 7.43 (7.35-7.45)
--- NOTE | 2024-01-10 08:21 | PTCARENOTE ---
At change of shift pt O2 requirement increased to 10L. Sat increased 100% down to 6l then 2l , pt then desat to 83% back to 6L Lungs coarse pt SOb, DR Vera TT orders given.ABG , PCXR and 80 Lasix given as ordered. Pt receiving breathing tx at
this time. Sats holding at 100% on 6 liters. Cards aware
--- NOTE | 2024-01-10 08:57 | W.PN.HOSP.TC ---
Addendum entered and electronically signed by Chaitanya Vera MD 01/10/24 11:06:
Patient is being discharged to [facility] with [facility].
Total time spent on d/c = 40 min. This included today's physical exam, progress note, review of laboratory and diagnostic data, preparation of discharge documents and prescriptions, and discussions about the pt's hospital course and discharge plan
with the patient and other medical coder involved in the patient's care.
Original Note:
Today's Communication/Plan
-
see bold
Assessment / Plan
Assessment / Plan
Gen: continues to remain NAD, awake and alert, NCAT
Eyes: EOMI, PERRLA, no scleral icterus.
Neck: supple.
CV: irreg/irreg, +S1/S2, 2/6 systolic murmur
Resp: moderate rales bilaterally
Abd: +BS, soft, NT, ND
Skin: No rashes. 2+ B/L LE edema.
Neuro: CN 2-12 intact, non-focal.
Psych: Normal mood and affect.
CXR 01/01/24: Congestive heart failure.
CXR 01/07/24: Radiographic findings highly suggestive of interstitial pulmonary edema pattern with small to moderate bilateral pleural effusions.
Acute on Chronic Hypoxemic and Hypercapnic Respiratory Failure due to acute on chronic HFpEF:
-Also with acute metabolic encephalopathy due to acute on chronic hypoxemic and hypercapnic respiratory failure (also hospital-acquired delirium)
-with JUAN LUIS on CKD3 due to CRS, resolved
-on 2L NC O2 at baseline
-proBNP 8240, CXR on admission with CHF
-cont BB
-was on 15L, then weaned to 3L. Was up to 10L this AM.
-was on IV Lasix, then transitioned to PO Lasix. After CXR findings on 01/07/24 pt restarted on IV Lasix and Zaroxolyn was added. ON 01/09/24 Lasix was held for hypotension.
-01/10/24AM pt with worsening hypoxemia and coarse BS as per nursing. CXR/ABG/Lasix 80mg IV ordered. ABG with respiratory acidosis and metabolic alkalosis. CXR, my read, with pulm edema.
-I had an extensive conversation with the pt's daughter over the phone, . She is agreeable with consulting hospice.
Known Malignant Thyroid Lesion
-Seen on prior imaging (July 2023) - most c/w malignancy but question complicated cyst.
-Patient was initially enrolled in Hospice care following July admission - but this has since been rescinded (or as never actually finalized).
-Patient had decided that she does not want further workup or interventions in the past
Other problems:
CAD: cont BB
Paroxysmal Atrial Fibrillation: cont BB/Eliquis
Normocytic Anemia, Hb stable
COPD without Acute Exacerbation: cont Pulmicort/Atrovent
DM2: a1c 6.6%. Cont Lantus/Novolog/SSI/accuchecks
Obesity due to excess calories
DNR/Eliquis
Total time spent on today's encounter was 51 minutes which included time spent in counseling the patient/family regarding diagnosis and treatment plan as listed above, goals of care, and symptom management. Case was discussed with nursing staff,
specialists, and care coordinators/case management. All labs and imaging personally reviewed by me. Remainder the time spent in detailed review of previous records, lab data, imaging, and other medical provider documentation.
Anticipated Discharge: Within 24 hours
Subjective/Interval History
-
Date of Service: January 10, 2024
Currently pt states she feels 'alright.'
Objective Data
-
Labs:
Laboratory Results
01/10/24 01/10/24
03:43 08:10
HCO3 39.2 H
Sodium 141
Potassium 4.1
Chloride 96 L
Carbon Dioxide 37 H
BUN 38 H
Creatinine 1.2 H
Glucose 128 H
Calcium 9.3
Vital Signs:
Vital Signs
Temp Pulse Resp BP Pulse Ox
98.1 F 98 18 129/63 100
01/10/24 04:29 01/10/24 08:16 01/10/24 08:16 01/10/24 04:00 01/10/24 08:16
I&O
01/09/24 01/10/24 01/11/24
06:59 06:59 06:59
Intake Total 600 / 600 120 / 120
Output Total 2500 / 2500 600 / 600
Balance -1900 / -1900 -480 / -480
--- NOTE | 2024-01-10 08:58 | PTCARENOTE ---
Pt urine out put 800 pox 100% at 4l . Pt sleeping at this time
[2024-01-10 09:25] LABS: Glucose - Point of Care 127 mg/dl (70-99)
[2024-01-10] MEDS: CLARITIN PO ×2 (09:45→11:34)
[2024-01-10] MEDS: KCL PO ×2 (09:45→11:33)
[2024-01-10] MEDS: ELIQUIS PO ×2 (09:49→11:33)
[2024-01-10] MEDS: NEURONTIN PO ×2 (09:49→11:32)
[2024-01-10] MEDS: PROTONIX PO ×2 (09:50→11:32)
[2024-01-10] MEDS: LOPRESSOR PO ×2 (09:51→11:32)
[2024-01-10] MEDS: NOVOLOG FLEXPEN-LOW RESISTANCE SC ×2 (09:52→12:40)
[2024-01-10] MEDS: REFRESH CELLUVISC GEL 1 DROPS BOTH EYES (09:52)
[2024-01-10] MEDS: DESENEX/MITRAZOL/ZEASORB 1 APPLIC TOPICAL (09:53)
[2024-01-10] MEDS: TRIAMCINOLONE 0.1% OINTMENT 1 APPLIC TOPICAL (09:54)
--- NOTE | 2024-01-10 09:58 | PTCARENOTE ---
Pt drowsy AT THIS TIME 97% ON 4L Continues to put out urine.
--- NOTE | 2024-01-10 10:06 | CM ---
Addendum entered by Zuleyka Lin RN 01/10/24 10:38:
Patient on O2 6L.
Spoke with [facility], Hospice, she will order hi flow O2 concentrator. Hospice nurse will meet with son later this afternoon. She is requesting 2-3pm transport time, to allow O2 to be in place.
IMM sent to son at his email [email or web address].
Original Note:
Patient from [facility] with Hx dementia with Dx Acute Hypoxemic/Hypercapnic Respiratory Failure due to HF, acute metabolic encephalopathy.
CM Consult: Hospice
Spoke with patient's daughter Kamini DRAKE Jewell in [facility]; daughter familiar with hospice as patient was on hospice previously with [facility]. Daughter stated a few times that she does not want her mother to suffer and experience SOB
and anxiety at end of her life- explained hospice philosophy & benefits that could help support her mother. Daughter says her brother Jonathon and her are on the same page about wanting hospice. Kamini agrees with her mother returning to [place]
[facility] today with Hospice.
Spoke with patient's son Jonathon; he agrees with his mother returning to [facility] today with Hospice. IMM completed. He will be going over to the SNF today to meet with the hospice nurse.
Spoke with Flor Gonzales, [facility]; they are able to accept the patient back today. The for report [phone], fax [phone].
[facility] DNR form on chart for MD signature.
Plan return to [facility] today with Hospice by ambulance.
--- NOTE | 2024-01-10 10:47 | HOSPNOTE ---
Spoke with son Jonathon and explained hospice and the philosophy, family and patient in agreement. Oxygen was ordered and will be delivered. Patient will be sent back to on hospice services. hospice will admit onto our services once patient
arrives back at . Attending and CM aware of plan.
[2024-01-10] MEDS: NOVOLOG FLEXPEN SC (11:30)
--- NOTE | 2024-01-10 11:35 | PTCARENOTE ---
Pt lethargic unable to take pills, did not eat anything. Answers to name. For Dc back to [facility] for Hospice care. Pt aware she is being DC at this time does not know she will be on Hospice
--- NOTE | 2024-01-10 12:41 | PTCARENOTE ---
Report called to [facility] ordered ptlunch for PU at 1400
[2024-01-10 12:48] LABS: Glucose - Point of Care 101 mg/dl (70-99)
[2024-01-10] MEDS: ATROVENT NEBULES INH (13:00)
--- NOTE | 2024-01-10 13:22 | PTOTSP ---
Reviewed chart and noted pt is ow being discharged on hospice care. PT will sign off now.
[2024-01-10] MEDS: NOVOLOG FLEXPEN 4 UNITS SC (13:53)
--- NOTE | 2024-01-10 13:59 | PTCARENOTE ---
Pt more alert ate lunch sitting on side of bed, awaiting ambulance. Pt aware she is going back on Hospice.
--- NOTE | 2024-01-10 14:18 | PTCARENOTE ---
Pt dc to [facility] via squad report to [facility] earlier and to ambulance crew
--- NOTE | 2024-01-10 16:21 | W.DCSUMMARY ---
Discharge Summary
Discharge Data
Date of Admission: 01/02/24
Date of Discharge: 01/10/24
-
Pending Results: No
Hospital Course
Primary diagnoses:
Acute on Chronic Hypoxemic and Hypercapnic Respiratory Failure due to acute on chronic heart failure with preserved ejection fraction
Acute metabolic encephalopathy
Acute kidney injury on chronic kidney disease stage III due to cardiorenal syndrome
Secondary diagnoses:
Known Malignant Thyroid Lesion
Coronary artery disease
Paroxysmal Atrial Fibrillation
Normocytic Anemia
Chronic obstructive pulm disease
Type 2 diabetes mellitus
Obesity due to excess calories
Consultants:
Cardiology
Imaging:
CXR 01/01/24: Congestive heart failure.
CXR 01/07/24: Radiographic findings highly suggestive of interstitial pulmonary edema pattern with small to moderate bilateral pleural effusions.
Hospital course: 88-year-old female who presented with a chief complaint of shortness of breath as outlined H&P done on admission. proBNP was 8240, CXR showed CHF. The patient had acute on chronic hypoxemic and hypercapnic respiratory failure due to
acute on chronic heart failure with preserved ejection fraction. She also had acute metabolic encephalopathy due to acute on chronic hypoxemic and hypercapnic respiratory failure (also hospital-acquired delirium). She had acute kidney injury on
chronic kidney disease stage III due to cardiorenal syndrome. At baseline the patient had been on 2L NC O2 at baseline. Patient was diuresed with IV Lasix and then transition to oral Lasix. The patient's was on 15L, then weaned to 3L. After CXR
findings on 01/07/24 pt restarted on IV Lasix and Zaroxolyn was added. On 01/09/24 Lasix was held for hypotension. on the morning of 01/10/24 the patient was requiring to 10L O2. ABG showed respiratory acidosis and metabolic alkalosis. CXR, showed acute
pulmonary edema. After an extensive conversation with the patient's daughter over the phone she decided to transition the patient to hospice. The patient was discharged to a care home to initiate hospice.
Discharge Plan
-
Patient Disposition: [facility]/SNF
Discharge Diagnosis/Procedures: Acute on Chronic Hypoxemic and Hypercapnic Respiratory Failure due to acute on chronic heart failure with preserved ejection fraction
Condition: Fair
Diet: Diabetic, Carb Controlled
Activity: With assistance
Driving Restrictions: No driving
Other Services: Hospice
Instructions: *PCP/Other Production Estimator Heart Failure Instructions
Referrals:
Dieudonne Paul, DO [Family Provider] - in less than 1 week
Prescriptions:
Continued
hydralazine 10 mg Tablet
10 mg PO Q8H
Hold Instructions: Restart when blood pressure greater than 140/90
Rx Instructions:
10/29/2023, hold for SBP below 100.
polyethylene glycol 3350 17 gram Powder In Packet
17 g PO DAILYPRN PRN (Reason: constipation)
bisacodyl [Dulcolax (bisacodyl)] 10 mg Suppository
10 mg CO DAILYPRN PRN (Reason: if MOM ineffective)
Fleet Enema 19-7 gram/118 mL Enema
118 ml CO DAILYPRN PRN (Reason: if dulcolax ineffective)
gabapentin 100 mg Capsule
200 mg PO DAILY
albuterol sulfate 90 mcg/actuation Hfa Aerosol Inhaler
2 puff INHALATION R Q4HPRN PRN (Reason: sob)
fluticasone propionate [Flonase Allergy Relief] 50 mcg/actuation [place],Suspension
1 spray INTRANASAL [id number] PRN (Reason: nasal allergy/congestion)
guaifenesin 400 mg Tablet
400 mg PO Q6HPRN PRN (Reason: cough)
nebivolol 2.5 mg Tablet
2.5 mg PO DAILY
Hold Instructions: Restart when blood pressure greater than 140/90
carboxymethylcellulose sodium 1 % Drops
1 drp BOTH EYES BID
ipratropium-albuterol 0.5 mg-3 mg(2.5 mg base)/3 mL Solution For Nebulization
3 ml inhalation R Q4HPRN PRN (Reason: SOB/Wheezing) Qty: 90 0RF
acetaminophen 325 mg Tablet
650 mg PO Q6HPRN MDD 3000 mg PRN (Reason: temp>100/mild pain)
magnesium hydroxide [Milk of Magnesia] 400 mg/5 mL Suspension
30 ml PO [id number] PRN (Reason: if no BM x 3 days)
loratadine 10 mg Tablet
10 mg PO DAILY
Eliquis 5 mg Tablet
5 mg PO BID Qty: 0 0RF
budesonide 0.5 mg/2 mL Suspension For Nebulization
0.5 mg inhalation R BID Qty: 0 0RF
simethicone 80 mg Tablet,Chewable
80 mg PO Q6HPRN PRN (Reason: gas pains)
omeprazole 20 mg Tablet,Delayed Release (Dr/Ec)
20 mg PO DAILY
insulin glargine U-300 conc [Toujeo Max U-300 SoloStar] 300 unit/mL (3 mL) Insulin Pen
15 unit SC HS
Hold Instructions: Resume on 11/29/23. Monitor blood sugars and resume when safe. Discuss with outpatient/SNF physicians before resuming.
ipratropium-albuterol 0.5 mg-3 mg(2.5 mg base)/3 mL solution for nebulization
3 ml inhalation R TID
loteprednol etabonate [Lotemax] 0.5 % Drops,Suspension
1 drp OPHTHALMIC (EYE) BID
Discharge Orders:
Discharge Patient (As Directed); Ordered 01/10/24
Ordered By: Chaitanya Vera
Discharge Date and Time
Discharge Date/Time: 01/10/24 14:23
Print Language: NIGERIEN
== END 2024-01-10 14:23 | DRG 291 ==
LOC: IMU 02:54
PROVIDERS: Emergency Medicine; Family Medicine; Internal Medicine Cardiovascular Disease; ADMITTING PHYSICIAN Hospitalist; ATTENDING PHYSICIAN Internal Medicine; EMERGENCY PHYSICIAN Emergency Medicine; FAMILY PHYSICIAN Student in an Organized Health Care Education/Training Program; OTHER PHYSICIAN Internal Medicine
DX: I13.0 Hypertensive heart and chronic kidney disease with heart failure and stage 1 through stage 4 chronic kidney disease, or unspecified chronic kidney disease (principal); G92.8 Other toxic encephalopathy; J96.91 Respiratory failure, unspecified with hypoxia; I50.33 Acute on chronic diastolic (congestive) heart failure; G93.41 Metabolic encephalopathy; J96.22 Acute and chronic respiratory failure with hypercapnia; J96.21 Acute and chronic respiratory failure with hypoxia; N17.9 Acute kidney failure, unspecified; J44.1 Chronic obstructive pulmonary disease with (acute) exacerbation; F03.918 Unspecified dementia, unspecified severity, with other behavioral disturbance; J90 Pleural effusion, not elsewhere classified; N18.30 Chronic kidney disease, stage 3 unspecified; I25.10 Atherosclerotic heart disease of native coronary artery without angina pectoris; I48.0 Paroxysmal atrial fibrillation; Z79.01 Long term (current) use of anticoagulants; D64.9 Anemia, unspecified; E11.9 Type 2 diabetes mellitus without complications; E07.9 Disorder of thyroid, unspecified; Z66 Do not resuscitate; I48.91 Unspecified atrial fibrillation; C73 Malignant neoplasm of thyroid gland; E66.9 Obesity, unspecified; Z68.36 Body mass index [BMI] 36.0-36.9, adult
CPT/HCPCS: 36600; 71045; 71046; 80048; 80053; 82805; 82962; 83036; 83735; 83880; 84100; 84443; 84484; 85025; 85027; 87070; 87147; 93005; 94640; 94660; 96374; 96375; 97162; 97166; 97530; 97535; 99291